=== PATIENT | female | born 1940 | race Caucasian/White ===

== ENCOUNTER 2023-04-28 12:44 | Outpatient (OUT) | payer MEDICARE, SELFPAY ==
--- NOTE | 2023-04-28 12:47 | MM_ITS ---
Patient: GRACIE GONZALEZ Exam Date: 04/28/2023 : 1940 Gender:F Ordering : DR HOLLIE IRBY M.D. Admission #: [id number] Family : Order #: [id number] CLICK HERE TO VIEW EXAM RADIOLOGY REPORT PROCEDURE: MM TOMOSYNTHESIS SCREENING BI COMPARISON: MG MAMM SCREEN DAISY W CAD, 09/04/2019. MG MAMM SCREEN 3D DAISY CAD, 04/27/2022. INDICATIONS: Screening mammogram Z12.31 Calculator Name NCI Breast Cancer Risk Assessment Tool 5 Year Breast Cancer Risk 1.90% Lifetime Breast Cancer Risk 3.00% Personal Breast Cancer No Personal Ovarian Cancer No Treatments None Family Cancers Aunt-maternal with breast cancer at age 60. LOCATION: [facility] BREAST COMPOSITION: Scattered areas fibroglandular density. FINDINGS: DIAGNOSTIC CATEGORY 2--BENIGN FINDING. NO CHANGE FROM COMPARISON. Scattered benign-appearing nodules are present. Scattered benign-appearing calcifications are present. Scattered benign-appearing lymph nodes are present. RIGHT BREAST: No significant suspicious finding. LEFT BREAST: No significant suspicious finding. RECOMMENDATIONS: ROUTINE MAMMOGRAM AND CLINICAL EVALUATION IN 12 MONTHS. PLEASE NOTE: A NORMAL MAMMOGRAM DOES NOT EXCLUDE THE POSSIBILITY OF BREAST CANCER. A CLINICALLY SUSPICIOUS PALPABLE LUMP SHOULD BE BIOPSIED. Dictated by: Eric Freeman MD on 04/28/2023 at 14:11 Approved by: Eric Freeman MD on 04/28/2023 at 14:13
== END 2023-04-28 12:45 | disposition home or self-care (01) ==
PROVIDERS: PCP Internal Medicine; Visit Provider Internal Medicine
DX: Z12.31 Encounter for screening mammogram for malignant neoplasm of breast (principal); Z80.3 Family history of malignant neoplasm of breast
CPT/HCPCS: 77063; 77067

== ENCOUNTER 2024-04-29 12:58 | Outpatient (OUT) | payer MEDICARE, SELFPAY ==
--- NOTE | 2024-04-29 13:02 | MM_ITS ---
Patient Name: GRACIE GONZALEZ MR#: [id number] : 1940 Exam Date: 04/29/2024 Ordering Doctor: DR HOLLIE IRBY M.D. RADIOLOGY REPORT PROCEDURE: MM TOMOSYNTHESIS SCREENING BI COMPARISON: MG MAMM SCREEN 3D DAISY CAD, 04/27/2022. MM TOMOSYNTHESIS SCREENING BI, 04/28/2023. INDICATIONS: Screening for malignant neoplasm Calculator Name NCI Breast Cancer Risk Assessment Tool 5 Year Breast Cancer Risk 1.90% Lifetime Breast Cancer Risk 2.70% Personal Breast Cancer No Personal Ovarian Cancer No Treatments None Family Cancers Aunt-maternal with breast cancer at age 60. LOCATION: [facility] BREAST COMPOSITION: There are scattered areas of fibroglandular density. FINDINGS: DIAGNOSTIC CATEGORY 2--BENIGN FINDING. NO CHANGE FROM COMPARISON. Scattered benign-appearing nodules are present. Scattered benign-appearing calcifications are present. Scattered benign-appearing lymph nodes are present. RIGHT BREAST: No significant suspicious finding. LEFT BREAST: No significant suspicious finding. RECOMMENDATIONS: ROUTINE MAMMOGRAM AND CLINICAL EVALUATION IN 12 MONTHS. PLEASE NOTE: A NORMAL MAMMOGRAM DOES NOT EXCLUDE THE POSSIBILITY OF BREAST CANCER. A CLINICALLY SUSPICIOUS PALPABLE LUMP SHOULD BE BIOPSIED. Dictated by: Eric Freeman MD on 04/29/2024 at 14:04 Approved by: Eric Freeman MD on 04/29/2024 at 14:06
== END 2024-04-29 12:59 | disposition home or self-care (01) ==
LOC: MAMMO 12:58
PROVIDERS: PCP Internal Medicine; Visit Provider Internal Medicine
DX: Z12.31 Encounter for screening mammogram for malignant neoplasm of breast (principal); Z80.3 Family history of malignant neoplasm of breast
CPT/HCPCS: 77063; 77067

== ENCOUNTER 2024-09-23 12:39 | Outpatient (OUT) | payer MEDICARE, SELFPAY ==
--- NOTE | 2024-09-23 12:46 | XR_ITS ---
[address] [address] Patient Name: GRACIE GONZALEZ MRN: [facility]:[id number] date: 1940 Sex: F Assigned Patient Location: [facility] Current Patient Location: Accession/Order Number: [id number] Exam Date: 09/23/2024 13:10 Report Date: 09/24/2024 05:49 At the request of: HOLLIE IRBY Procedure: XR DEXA axial skeleton EXAMINATION: XR DEXA axial skeleton HISTORY: Estrogen Deficiency COMPARISON: DEXA bone densitometry 04/27/2022 TECHNIQUE: Dual-energy X-ray absorptiometry (DXA) was performed. FINDINGS: SPINE ANALYSIS: Average bone mineral density is 0.966 g/cm2. T-score (standard deviation relative to young adult mean): -2.0 . +10.0% change since prior study. HIP ANALYSIS: Lowest bone mineral density is within the right femoral neck, 0.909 g/cm2. T-score (standard deviation relative to young adult mean): -0.9 . +3.5% change since prior study. XR/XR DEXA axial skeleton IMPRESSION: World Health Organization Classification: Osteopenia - Moderate Fracture Risk FRAX: Cannot calculate. Pharmacologic treatment recommendations * No uniform recommendation applies to all patients. Management plans must be individualized. * Consider initiating pharmacologic treatment in postmenopausal women and men >= 50 years of age who have the following: Primary fracture prevention: * T-score <= - 2.5 at the femoral neck, total hip, lumbar spine, 33% radius (some uncertainty with existing data) by DXA. * Low bone mass (osteopenia: T-score between - 1.0 and - 2.5) at the femoral neck or total hip by DXA with a 10-year hip fracture risk >= 3% or a 10-year major osteoporosis-related fracture risk >= 20% (i.e., clinical vertebral, hip, forearm, or proximal humerus) based on the [place]-adapted FRAXregistered model. Secondary fracture prevention: * Fracture of the hip or vertebra regardless of BMD [4, 5]. * Fracture of proximal humerus, pelvis, or distal forearm in persons with low bone mass (osteopenia: T-score between - 1.0 and - 2.5). The decision to treat should be individualized in persons with a fracture of the proximal humerus, pelvis, or distal forearm who do not have osteopenia or low BMD [12, 13]. Casa MS, [place] SL, Hussein KL, Aislinn EM, Sebastián KG, AJ, Martin ES. The clinician's guide to prevention and treatment of osteoporosis. Osteoporos Int. 2021;33(10):4372-3952. doi: 10.1007/o41977-295-73186-k. Epub 2021Mar 03. Erratum in: Osteoporos Int. 2021Jun 02;: PMID: [id number]; PMCID: [id number]. Electronically authenticated by: LUCIA CASTRO Date: 09/24/2024 05:49
== END 2024-09-23 12:40 | disposition home or self-care (01) ==
LOC: RAD 12:40
PROVIDERS: PCP Internal Medicine; Visit Provider Internal Medicine
DX: E28.39 Other primary ovarian failure (principal); M85.88 Other specified disorders of bone density and structure, other site
CPT/HCPCS: 77080

== ENCOUNTER 2025-01-24 13:52 | Outpatient (OUT) | payer MEDICARE, SELFPAY ==
--- NOTE | 2025-01-24 14:00 | CA_ITS ---
Patient Name: GRACIE GONZALEZ MR#: [id number] : 1940 Exam Date: 01/24/2025 Ordering Doctor: DR OZZY VILLARREAL M.D. ECHOCARDIOGRAM REPORT PROCEDURE: CA ECHO DOPPLER COMPLETE INDICATIONS: Atrial flutter, edema, hypertension COMPARISON: None. DESCRIPTION: COMPLETE ECHOCARDIOGRAM Real-time transthoracic echocardiography with 2D, M-mode, spectral and color flow Doppler performed. QUALITY: Technical quality was good. LEFT VENTRICLE: Normal chamber size. Thickened septal wall. Normal systolic function. LV EF: Normal left ventricular ejection fraction, (>55%). DIASTOLIC: Diastolic function is indeterminate. ATRIAL SEPTUM: LEFT ATRIUM: Normal chamber size. RIGHT ATRIUM: Moderate dilatation. RIGHT VENTRICLE: Moderate dilatation. Normal right ventricular systolic function. TRICUSPID VALVE: Normal mobility and thickness. No stenosis with mild regurgitation. Doppler studies reveal mildly (35-45) elevated right sided pressures. RVSP 43 mmHg MITRAL VALVE: Normal mobility and thickness. No evidence of mitral valve stenosis. There is no mitral annular calcification. Trivial mitral regurgitation. AORTIC VALVE: Normal trileaflet appearance. No visible sclerosis. Normal leaflet mobility. No evidence of aortic valve stenosis. No aortic regurgitation. AORTIC ROOT: Normal diameter and appearance. PULMONIC VALVE: Normal thickness and mobility. No stenosis. Trivial regurgitation. PERICARDIUM: No evidence of pericardial effusion. IVC: Not well visualized. PLEURA: CONCLUSION: 1. Normal left ventricular size and systolic function. LVEF is estimated at 55 to 60%. 2. Moderately dilated right ventricle with normal systolic function. 3. Moderately dilated right atrium. 4. Mild tricuspid regurgitation. 5. Mildly elevated right-sided pressures. RVSP is 43 mmHg. 6. A transesophageal echocardiogram is recommended for better assessment of the right-sided chamber dilatation. Adult Echocardiography Procedure Report Left Ventricle LVEDD (3.7 - 5.6 cm): 4.32 cm LVESD (2.2 - 4.0 cm): 2.27 cm LVIVS thickness (0.6 - 1.2 cm): 1.11 cm LVPW thickness (0.5 - 1.0 cm): 0.94 cm e': 0.12 m/s E - e': 5.31 LVOT Max Gradient: 2.54 mm[Hg] LVOT Area (cm2): 0.80 m/s Peak Velocity (LVOT): 0.80 m/s Mean Velocity (LVOT): 0.45 m/s LVOT Diameter 2.01 cm Left Atrium LA Volume Index (2D A2C): 35.65 ml/m2 Left Atrium Systolic Dimension: 4.14 cm Mitral Valve MV E to A Ratio: 0.85 Mitral Valve A-Wave Peak Velocity: 0.73 m/s Mitral Valve E-Wave Peak Velocity: 0.62 m/s Right Ventricle Aorta AO Root Diam: 3.11 cm Aortic Valve AoV Area (Peak Fox): 2.86 cm2, 2.86 cm2 AoV Area (VTI): 2.66 cm2, 2.66 cm2 Peak Velocity(Antegrade Flow): 0.89 m/s Peak Gradient(Antegrade Flow): 3.13 mm[Hg] Mean Velocity(Antegrade Flow): 0.55 m/s Mean Gradient(Antegrade Flow): 1.41 mm[Hg] Velocity Time Integral: 21.98 cm Tricuspid Valve Peak Velocity (Regurgitant Flow): 2.97 m/s Pulmonic Valve Mean Gradient: 3.04 mm[Hg] Mean Velocity: 0.81 m/s Peak Velocity: 1.26 m/s, 1.34 m/s Peak Gradient: 7.14 mm[Hg], 6.30 mm[Hg] Right Atrium Right Atrium Systolic Pressure: 76.18 ml, 76.18 ml Dictated by: Ozzy Villarreal M.D. on 01/24/2025 at 18:11 Approved by: Ozzy Villarreal M.D. on 01/24/2025 at 18:20
--- OUTSIDE RECORDS SUMMARY | 2025-01-24 14:10 | XMS_ITS | CCD ---
Author Organization [facility] Care Team Providers Care Filler Leaf Cutter Long Name Role Phone DR ANDRIY THRASHER Admitting Unavailable SUREKHA, DR BROWNE Primary Care Unavailable SUREKHA, DR BROWNE Consulting Unavailable SUREKHA, DR BROWNE Attending Unavailable Ke Floyd Consulting Unavailable TIM, DR MATTHEWS Attending Unavailable SUREKHA, DR BROWNE Primary Care Unavailable MISC, DR MATTHEWS Admitting Unavailable DIEGO, DR MATTHEWS Consulting Unavailable Andriy Thrasher MD Primary Care Provider Andriy Thrasher MD Unavailable CARLOS GARCÍA Attending Unavailable BETZY DAN Attending Unavailable HOMA HINKLE Attending Unavailable ANDRIY THRASHER Attending Unavailable ANDRIY THRASHER Attending Unavailable ANDRIY THRASHER Attending Unavailable HOMA HINKLE Attending Unavailable OZZY JOE Attending Unavailable Medications Current Medications Medication Drug Class(es) Dates Sig (Normalized) Sig (Original) alendronic acid 70 mg oral tablet (15 sources) Bisphosphonate Start: 08-03-2024 take 1 tablet by mouth every week Alendronate 70 mg tablet Active 70 MG PO every week August 02, 2024 11:00pm Start: 06-12-2024 alendronate (F osamax) 70 MG tablet Indications: Osteoporosis, unspecified osteoporosis type, unspecified pathological fracture presence (CMS/HCC) TAKE 1 TABLET BY MOUTH BEFORE first meal, beverage, or medicine OF the day WITH plain water once a WEEK 12 tablet 3 06/12/2024 Active apixaban 5 mg oral tablet (15 sources) Factor Xa Inhibitor Start: 08-30-2023 Eliquis 5 MG tablet Indications: Paroxysmal atrial fibrillation (CMS/HCC) TAKE 1 TABLET TWICE A DAY 180 tablet 3 09/17/2024 Active ascorbic acid 500 mg oral tablet (15 sources) Vitamin C Start: 08-03-2024 take 1 tablet by mouth once daily Ascorbic Acid (Vitamin C) 500 mg tablet Active 500 MG PO Daily August 02, 2024 11:00pm ascorbic acid (V itamin C) 500 MG chewable tablet Daily. Active atorvastatin 20 mg oral tablet (15 sources) HMG-CoA Reductase Inhibitor Start: 06-18-2024 atorvastatin (Lipitor) 20 MG tablet Indications: Pure hypercholesterolemia (CMS/HCC) TAKE 1 TABLET DAILY 90 tablet 3 06/18/2024 Active Calcium Carb-Cholecalcifer ol (CALCIUM 500 + D PO) (13 sources) take 1 tablet by mouth once daily Calcium Carb-Cholecalciferol (CALCIUM 500 + D PO) Take 1 tablet by mouth 1 (one) time each day Active calcium carbonate 1500 mg oral tablet (2 sources) Start: 08-03-2024 take 1 tablet by mouth once daily Calcium Carbonate (Calcium 600) 600 mg calcium (1,500 mg) tablet Active 600 MG PO Daily August 02, 2024 11:00pm cinnamon bark 500 mg oral capsule (15 sources) Start: 08-03-2024 take 1 capsule by mouth once daily Cinnamon Bark (Cinnamon) 500 mg capsule Active 500 MG PO Daily August 02, 2024 11:00pm Collagen-Vitamin C-Biotin (COLLAGEN 1500/C PO) (13 sources) Collagen-Vitamin C-Biotin (COLLAGEN 1500/C PO) Take by mouth Active ferrous sulfate 325 mg oral tablet (15 sources) Start: 03-18-2024 take 1 tablet by mouth twice daily ferrous sulfate (FeroSul) 325 (65 Fe) MG tablet Indications: Iron deficiency anemia due to chronic blood loss TAKE 1 TABLET BY MOUTH TWICE DAILY 200 tablet 3 03/18/2024 Active furosemide 20 mg oral tablet (6 sources) Loop Diuretic Start: 12-18-2024 End: 02-07-2025 take 1 tablet by mouth once daily furosemide (Lasix) 20 MG tablet Indications: Localized edema Take 1 tablet (20 mg) by mouth Daily 30 tablet 01/08/2025 02/07/2025 Active linseed oil 1000 mg oral capsule (15 sources) Start: 08-03-2024 take 1 capsule by mouth once daily Flaxseed Oil 1,000 mg capsule Active 1000 MG PO Daily August 02, 2024 11:00pm administer with a meal metoprolol tartrate 25 mg oral tablet (15 sources) beta-Adrenergic Lucinda Start: 08-03-2024 take 1 tablet by mouth twice daily Metoprolol Tartrate 25 mg tablet Active 25 MG PO Twice daily August 02, 2024 11:00pm Start: 01-09-2023 take 1.5 tablets by mouth every twelve hours metoprolol tartrate (Lopressor) 25 MG tablet Take 1.5 tablets by mouth every 12 (twelve) hours. 01/09/2023 Active Multiple Vitamin (MULTIVITAMINS PO) (13 sources) Multiple Vitamin (MULTIVITAMINS PO) Daily. Active Multivitamin (Daily Multi-Vitamin) tablet (2 sources) Start: 08-03-2024 take 1 tablet by mouth once daily Multivitamin (Daily Multi-Vitamin) tablet Active 1 TAB PO Daily August 02, 2024 11:00pm Start: 08-03-2024 take 1 tablet by mahesh th once daily Multivitamin (Daily Multi-Vitamin) tablet Active 1 TAB PO Daily August 03, 2024 12:00am potassium chloride 20 meq extended release oral tablet (2 sources) Start: 01-08-2025 End: 02-07-2025 take 1 tablet by mouth once daily potassium chloride CR (K-Tab) 20 MEQ ER tablet Indications: Localized edema Take 1 tablet (20 mEq) by mouth Daily Do not crush, chew, or split. 30 tablet 01/08/2025 02/07/2025 Active Completed/Discontinued Medications Medication Drug Class(es) Dates Sig (Normalized) Sig (Original) amoxicillin 875 mg / clavulanate 125 mg oral tablet (2 sources) Penicillin-class Antibacterial Start: 08-03-2024 End: 01-03-2025 take 1 tablet by mouth every twelve hours Amoxicillin-Pot Clavulanate 875-125 mg tablet Discontinued 1 TAB PO Every 12 hours 20 August 02, 2024 11:00pm January 03, 2025 4:20pm ciprofloxacin 250 mg oral tablet (2 sources) Quinolone Antimicrobial Start: 09-20-2024 End: 09-23-2024 take 1 tablet by mouth in the morning ciprofloxacin (Cipro) 250 MG tablet Indications: Acute cystitis with hematuria Take 1 tablet (250 mg) by mouth in the morning and 1 tablet (250 mg) before bedtime. Do all this for 3 days. 6 tablet 09/20/2024 09/23/2024 ofloxacin 3 mg/ml ophthalmic solution (2 sources) Quinolone Antimicrobial Start: 08-03-2024 End: 01-03-2025 take 0.3 drop(s) into the eye(s) four times daily Ofloxacin 0.3 % drops Discontinued 2 DROPS EYE-BOTH Four times daily 08 12August 02, 2024 11:00pm January 03, 2025 4:20pm Start: 08-03-2024 take 1 drop(s) into the eye(s) four times daily Ofloxacin Active 2 DROPS EYE-BOTH Four times daily 08 12August 03, 2024 12:00am Problems Active Problems Problem Classification Problem Date Documented Da te Episodic/Chronic Administrative/social admission (2 sources) Patient encounter status; Translations: [Other specified counseling] 09-13-2024 Episodic Cardiac dysrhythmias (20 sources) Unspecified atrial flutter; Translations: [Paroxysmal atrial fibrillation] Onset: 07-17-2022 Resolved: 08-23-2023 Chronic Coagulation and hemorrhagic disorders (2 sources) Thrombophilia; Translations: [Other thrombophilia] 09-13-2024 Chronic Coronary atherosclerosis and other heart disease (20 sources) Coronary atherosclerosis; Translations: [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] Onset: 01-10-2022 09-13-2024 Chronic Deficiency and other anemia (13 sources) Iron deficiency anemia due to blood loss; Translations: [Iron deficiency anemia secondary to blood loss (chronic)] Onset: 06-05-2023 06-05-2023 Chronic Diabetes mellitus with complications (2 sources) Type 2 diabetes mellitus; Translations: [Type 2 diabetes mellitus with other specified complication] 12-17-2024 Chronic Diabetes mellitus without complication (13 sources) Diabetes mellitus; Translations: [Type 2 diabetes mellitus without complications] Onset: 07-17-2022 06-05-2023 Chronic Disorders of lipid metabolism (20 sources) Hyperlipidemia; Translations: [Hyperlipidemia, unspecified] Onset: 07-17-2022 06-05-2023 Chronic Diverticulosis and diverticulitis (13 sources) Diverticulosis of colon; Translations: [Diverticulosis of large intestine without perforation or abscess without bleeding] Onset: 06-05-2023 06-05-2023 Chronic Essential hypertension (3 sources) Hypertensive disorder; Translations: [Essential (primary) hypertension] Onset: 01-10-2025 01-03-2025 Chronic Genitourinary symptoms and ill-defined conditions (4 sources) Urine looks dark; Translations: [Other abnormal findings in urine] 09-20-2024 Episodic Immunizations and screening for infectious disease (2 sources) Needs influenza immunization; Translations: [Encounter for immunization] 09-13-2024 Episodic Inflammation; infection of eye (except that caused by tuberculosis or sexually transmitteddisease) (1 source) Bacterial conjunctivitis; Translations: [Unspecified conjunctivitis] 08-03-2024 Episodic Menopausal disorders (16 sources) Other primary ovarian failure; 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] Onset: 04-28-2022 09-13-2024 Chronic Osteoporosis (17 sources) Age-related osteoporosis without current pathological fracture; Translations: [Senile osteoporosis] Onset: 04-28-2022 09-13-2024 Chronic Other ear and sense organ disorders (13 sources) Hearing loss; Translations: [Unspecified hearing loss, unspecified ear] Onset: 06-05-2023 06-05-2023 Chronic Other ear and sense organ disorders (13 sources) Sensorineural hearing loss, bilateral; Translations: [Sensorineural hearing loss, bilateral] Onset: 06-05-2023 06-05-2023 Chronic Other eye disorders (13 sources) Bilateral posterior vitreous detachment; Translations: [Vitreous degeneration, bilateral] Onset: 06-05-2023 06-05-2023 Chronic Other nutritional; endocrine; and metabolic disorders (4 sources) Obesity caused by energy imbalance; Translations: [Morbid (severe) obesity due to excess calories] 09-13-2024 Chronic Other nutritional; endocrine; and metabolic disorders (4 sources) Body mass index 30+ - obesity; Translations: [Body mass index (BMI) 38.0-38.9, adult] 09-13-2024 Chronic Other upper respiratory infections (1 source) Acute sinusitis; Translations: [Acute sinusitis, unspecified] 08-03-2024 Episodic Otitis media and related conditions (2 sources) Acute left otitis media; Translations: [Otitis media, unspecified, left ear] 01-03-2025 Episodic Residual codes; unclassified (19 sources) Localized edema; Translations: [Localized edema] Onset: 06-05-2023 06-05-2023 Episodic Residual codes; unclassified (2 sources) Bilateral lower limb edema; Translations: [Localized edema] 01-09-2025 Episodic Residual codes; unclassified (1 source) Localized edema; Translations: [Localized edema] Onset: 01-10-2025 Episodic Urinary tract infections (2 sources) Acute cystitis; Translations: [Acute cystitis with hematuria] 09-20-2024 Episodic Past or Other Problems Problem Classification Problem Date Documented Da te Episodic/Chronic Acquired foot deformities (13 sources) Plantarflexion deformity of foot; Translations: [Other acquired deformities of unspecified foot] Onset: 06-05-2023 06-05-2023 Episodic Blindness and vision defects (13 sources) Presbyopia; Translations: [Presbyopia] Onset: 06-05-2023 06-05-2023 Episodic Deficiency and other anemia (13 sources) Iron deficiency anemia; Translations: [Iron deficiency anemia, unspecified] Onset: 06-05-2023 06-05-2023 Episodic Diabetes mellitus without complication (13 sources) Impaired glucose tolerance; Translations: [Impaired glucose tolerance (oral)] Onset: 06-05-2023 06-05-2023 Episodic Nonspecific chest pain (13 sources) Chest pain; Translations: [Chest pain, unspecified] Onset: 07-17-2022 06-05-2023 Episodic Other aftercare (15 sources) Drug therapy finding; Translations: [correction (current) use of anticoagulants] Onset: 02-07-2024 09-13-2024 Episodic Other bone disease and musculoskeletal deformities (13 sources) Osteopenia; Translations: [Other specified disorders of bone density and structure, unspecified site] Onset: 06-05-2023 06-05-2023 Episodic Other connective tissue disease (13 sources) Enthesopathy of hip region; Translations: [Other specified enthesopathies of unspecified lower limb, excluding foot] Onset: 06-05-2023 06-05-2023 Episodic Other screening for suspected conditions (not mental disorders or infectious disease) (17 sources) Encounter for screening mammogram for malignant neoplasm of breast; Translations: [Cardiovascular stress test abnormal] Onset: 04-27-2022 Episodic Residual codes; unclassified (1 source) Family history of malignant neoplasm of breast; Translations: [FAMILY HX MALIG NEOPLASM OF BREAST] Onset: 06-23-2022 Episodic Results Test Name Value Interpretation Reference Range Facility Office Visiton 01-10-2025 Follow-up visit [id number] Gracie Espinoza 1940 F Date Provider Department Center 01/10/2025 OZZY SANTORO [facility] Family History Problem Relation Age of Onset Stroke Mother Coronary artery disease Father Family Status - Relation Status Age at Mother Father Level of Service:30044 AL OFFICE/OUTPATIENT ESTABLISHED MOD MDM 30 MIN Normal [facility] B TYPE NATRIURETIC PEPTIDE ( BNP)on 12-18-2024 Natriuretic peptide B (Bld) [Mass/Vol] 15 pg/mL Normal <100 [facility] Comment on above: Result Comment: BNP levels increase with age in the general population with the highest values seen in individuals greater than 75 years of age. Reference: J. Am. Heber. Cardiol. 2002; 40:976-982. Performed By: #### 1 1492, 45868 #### [facility] [place] [address] [employer] Officer: Robb Edward MD COMPREHENSIVE METABOLIC PANE [facility] 12-18-2024 Albumin [Mass/Vol] 4.3 g/dL Normal 3.6-5.1 [facility] Comment on above: Performed By: #### 1 4421, 50699 #### [facility] [place] [address] [employer] Officer: Robb Edward MD Albumin/Globulin [Mass ratio] 2.2 {ratio} Normal 1.0-2.5 [facility] Comment on above: Performed By: #### 1 6721, 18589 #### [facility] [place] [address] [employer] Officer: Robb Edward MD ALP [Catalytic activity/Vol] 59 U/L Normal 37-153 [facility] Comment on above: Performed By: #### 1 5849, 77469 #### [facility] [place] [address] [employer] Officer: Robb Edward MD ALT [Catalytic activity/Vol] 21 U/L Normal 6-29 [facility] Comment on above: Performed By: #### 1 0231, 92348 #### [facility] of [address], [address] [place] [address] [employer] Officer: Robb Edward MD AST [Catalytic activity/Vol] 19 U/L Normal 10-35 [facility] Comment on above: Performed By: #### 1 0231, 91654 #### [facility] of [address], [address] [place] [address] [employer] Officer: Robb Edward MD Bilirubin [Mass/Vol] 0.9 mg/dL Normal 0.2-1.2 [facility] Comment on above: Performed By: #### 1 0231, 26907 #### [facility] of [address], [address] [place] [address] [employer] Officer: Robb Edward MD BUN/CREATININE RATIO SEE NOTE: Normal 6-22 [facility] Comment on above: Result Comment: Not Reported: BUN and Creatinine are within reference range. Performed By: #### 1 0231, 64738 #### [facility] of [address], [address] [place] [address] [employer] Officer: Robb Edward MD Calcium [Mass/Vol] 9.8 mg/dL Normal 8.6-10.4 [facility] Comment on above: Performed By: #### 1 0231, 65633 #### [facility] of [address], [address] [place] [address] [employer] Officer: Robb Edward MD Chloride [Moles/Vol] 105 mmol/L Normal 98-110 [facility] Comment on above: Performed By: #### 1 0231, 98764 #### [facility] of [address], [address] [place] [address] [employer] Officer: Robb Edward MD CO2 [Moles/Vol] 28 mmol/L Normal 20-32 [facility] Comment on above: Performed By: #### 1 0231, 77898 #### [facility] of [address], [address] [place] [address] [employer] Officer: Robb Edward MD Creatinine [Mass/Vol] 0.86 mg/dL Normal 0.60-0.95 [facility] Comment on above: Performed By: #### 1 230, 50396 #### [facility] [place] [address] [employer] Officer: Robb Edward MD GFR/1.73 sq M.predicted among non-blacks MDRD (S/P/Bld) [Vol rate/Area] 67 mL/min/{1.73_m2} Normal > OR = 60 [facility] Comment on above: Performed By: #### 1 230, 32449 #### [facility] [place] [address] [employer] Officer: Robb Edward MD Globulin (S) [Mass/Vol] 2.0 g/dL Normal 1.9-3.7 [facility] Comment on above: Performed By: #### 1 230, 52227 #### [facility] [place] [address] [employer] Officer: Robb Edward MD Glucose [Mass/Vol] 107 mg/dL High 65-99 [facility] Comment on above: Result Comment: Fasting reference interval For someone without known diabetes, a glucose value between 100 and 125 mg/dL is consistent with prediabetes and should be confirmed with a follow-up test. Performed By: #### 1 230, 58570 #### [facility] [place] [address] [employer] Officer: Robb Edward MD Potassium [Moles/Vol] 4.3 mmol/L Normal 3.5-5.3 [facility] Comment on above: Performed By: #### 1 230, 41025 #### [facility] [place] [address] [employer] Officer: Robb Edward MD Protein [Mass/Vol] 6.3 g/dL Normal 6.1-8.1 [facility] Comment on above: Performed By: #### 1 230, 53738 #### [facility] of [place] [address], [address] [place] [phone] [employer] Officer: Robb Edward MD Sodium [Moles/Vol] 141 mmol/L Normal 135-146 [facility] Comment on above: Performed By: #### 1 9611, 04035 #### [facility] of [place] [address], [address] [place] [phone] [employer] Officer: Robb Edward MD Urea nitrogen [Mass/Vol] 14 mg/dL Normal 7-25 [facility] Comment on above: Performed By: #### 1 9631, 30549 #### [facility] of [place] [address] [address] , [address] [place], [place] [id number] [employer] Officer: Robb Edward MD No Panel Informationon 09-21 ACINETOBACTER BAUMANII 0 [facility] Healthcare ACINETOBACTER BAUMANII Not detected [facility] GAVIN ALBICANS, PARAPSILOSIS, TROPICALIS 0 [facility] Healthcare GAVIN ALBICANS, PARAPSILOSIS, TROPICALIS Not detected [facility] GLABRATA 0 [facility]care GAVIN GLABRATA Not detected [facility] ealth[facility] GAVIN KRUSEI 0 [facility] hcare GAVIN KRUSEI Not [facility] CITROBACTER FREUNDII 0 [facility] CITROBACTER FREUNDII Not detected NO [facility] ENTEROBACTER AEROGENES, CLOACAE 0 [facility] Healthak re ENTEROBACTER AEROGENES, CLOACAE Not detected [facility] re ENTEROCOCCUS FAECALIS, FAECIUM 0 [facility] Healthcar e ENTEROCOCCUS FAECALIS, FAECIUM Not detected [facility] Healthcar e ERMB, C; MEFA 26.372 Abnormal [facility] Health care ERMB, C; MEFA Detected Abnormal [facility] care ESCHERICHIA COLI 0 [facility] Hea lthcare ESCHERICHIA COLI Not detected [facility] e[facility] Interpretation and review of laboratory results Abnormal [facility] Healthcare KLEBSIELLA PNEUMONIAE, OXYTOCA 23.399 Abnormal [facility] Healthc are KLEBSIELLA PNEUMONIAE, OXYTOCA Detected Abnormal [facility] Healthc are MORGANELLA MORGANII 0 [facility] MORGANELLA MORGANII Not detected [facility] PROTEUS MIRABILIS, VULGARIS 0 [facility] PROTEUS MIRABILIS, VULGARIS Not detected [facility] PSEUDOMONAS AERUGINOSA 0 [facility] PSEUDOMONAS AERUGINOSA Not detected N[facility] SERRATIA MARCESCENS 0 [facility] SERRATIA MARCESCENS Not detected [facility], [facility] GROUPS 21.556 Abnormal [facility], [facility] GR[facility]PS Detected Abnormal [facility] STAPHYLOCOCCUS AUREUS 0 [facility] Healthcare STAPHYLOCOCCUS AUREUS Not detected [facility] STAPHYLOCOCCUS EPIDERMIDIS, HAEMOLYTICUS, LUGDUNENSIS, SAPROPHYTICUS (URINA 0 [facility] care STAPHYLOCOCCUS EPIDERMIDIS, HAEMOLYTICUS, LUGDUNENSIS, SAPROPHYTICUS (URINA Not [facility] STAPHYLOCOCCUS EPIDERMIDIS, HAEMOLYTICUS, LUGDUNENSIS, SAPROPHYTICUS (URINA 29.816 Abnormal [facility] care STAPHYLOCOCCUS EPIDERMIDIS, HAEMOLYTICUS, LUGDUNENSIS, SAPROPHYTICUS (URINA Detected Abnormal [facility] care STREPTOCOCCUS AGALACTIAE (GROUP B STREP) 0 [facility] STREPTOCOCCUS AGALACTIAE (GROUP B STREP) Not detected [facility] STREPTOCOCCUS PYOGENES (GROUP A STREP) 0 [facility] STREPTOCOCCUS PYOGENES (GROUP A STREP) Not detected [facility] macro (dipstick) panel (U)on 09-20-2024 Bilirubin, UA Negative Negative - 4(70) +++ mg/dL [facility] Blood, UA Positive Negative - 50 Jamal/mcL [facility] Comment on above: Large Clarity, UA Cloudy [facility] re Color, UA Dark Grecia [facility] Healthcar e Glucose, UA Negative Negative - 1999(110) ++++ mg/dL [facility] Interpretation and review of laboratory results Abnormal [facility] Ketones, UA Negative Negative - 160(16) ++++ mg/dL [facility] Leukocytes, UA Moderate Negative - 500+++ Ruslan/mcL [facility] Nitrite, UA Positive Negative - Positive [facility] pH, UA 6 5 - 9 [facility] Healthcar e Protein, UA 1+ Negative - 1999(20) ++++ mg/dL [facility] Spec Grav, UA 1.025 1 - 1.03 [facility] Urobilinogen, UA 0.2 0.2 - 12 mg/dL [facility] Health[facility] e CBC (H/H, RBC, INDICES, WBC, PLT)on 09-12-2024 Erythrocyte distribution width (RBC) [Ratio] 13.0 % Normal 11.0-15.0 [facility] Comment on above: Performed By: #### 4 46, 9089 #### [facility] [address], [address] [place] [address] [employer] Officer: Robb Edward MD #### 1759, 63444 #### [place] [address] [employer] Officer: Aletha Guevara Hematocrit (Bld) [Volume fraction] 42.0 % Normal 35.0-45.0 [facility] Comment on above: Performed By: #### 4 96, 0 #### [facility] [address], [address] [place] [address] [employer] Officer: Robb Edward MD #### 1759, 87555 #### [place] [address] [employer] Officer: Aletha Guevara Hemoglobin (Bld) [Mass/Vol] 13.7 g/dL Normal 11.7-15.5 [facility] Comment on above: Performed By: #### 4 , 7599 #### [facility] [address], [address] [place] [address] [employer] Officer: Robb Edward MD #### 1759, 51850 #### [facility]-[address] [id number] [employer] Officer: Aletha Guevara MCH (RBC) [Entitic mass] 31.3 pg Normal 27.0-33.0 [facility] Comment on above: Performed By: #### 4 96, 0 #### [facility] [address], [address] [place] [address] [employer] Officer: Robb Edward MD #### 1759, 85603 #### [facility] [id number] [employer] Officer: Aletha Guevara MCHC (RBC) [Mass/Vol] 32.6 g/dL Normal 32.0-36.0 [facility] Comment on above: Result Comment: For adults, a slight decrease in the calculated MCHC value (in the range of 30 to 32 g/dL) is most likely not clinically significant; however, it should be interpreted with caution in correlation with other red cell parameters and the patient's clinical condition. Performed By: #### 4 96, 7600 #### [facility] [place] [address] [employer] Officer: Robb Edward MD #### 1759, 29171 #### [facility] [address] [employer] Officer: Aletha Guevara MCV (RBC) [Entitic vol] 95.9 fL Normal 80.0-100.0 [facility] Comment on above: Performed By: #### 4 96, 0 #### [facility] [place] [address] [employer] Officer: Robb Edward MD #### 1759, 35780 #### [facility] [address] [employer] Officer: Aletha Guevara Platelet mean volume (Bld) [Entitic vol] 9.2 fL Normal 7.5-12.5 [facility] Comment on above: Performed By: #### 4 , 7599 #### [facility] [place] [address] [employer] Officer: Robb Edward MD #### 1759, 54510 #### [facility] [address] [employer] Officer: Aletha Guevara Platelets (Bld) [#/Vol] 244 10*3/uL Normal 140-400 [facility] Comment on above: Performed By: #### 4 , 0 #### [facility] [place] [address] [employer] Officer: Robb Edward MD #### 1759, 38435 #### [facility] [address] [place] [address] [employer] Officer: Aletha Guevara RBC (Bld) [#/Vol] 4.38 10*6/uL Normal 3.80-5.10 [facility] Comment on above: Performed By: #### 4 96, 7600 #### [facility] [address], [address] [place] [address] [employer] Officer: Robb Edward MD #### 1759, 25182 #### [facility] [id number] [employer] Officer: Aletha Guevara WBC (Bld) [#/Vol] 5.2 10*3/uL Normal 3.8-10.8 [facility] Comment on above: Performed By: #### 4 96, 7600 #### [facility] [address], [address] [place] [address] [employer] Officer: Robb Edward MD #### 1759, 13714 #### [facility] [address] Army Officer: Aletha Guevara [facility] 09-12-2024 Albumin [Mass/Vol] 4.3 g/dL Normal 3.6-5.1 [facility] Comment on above: Performed By: #### 4 96, 0 #### [facility] [address], [address] [place] [address] Army Officer: Robb Edward MD #### 1759, 23648 #### [facility] [phone] Army Officer: Aletha Guevara Albumin/Globulin [Mass ratio] 1.9 {ratio} Normal 1.0-2.5 [facility] Comment on above: Performed By: #### 4 96, 7600 #### [facility] [address], [address] [place] [address] Army Officer: Robb Edward MD #### 1759, 86555 #### [facility] [phone] [employer] Officer: Aletha Guevara ALP [Catalytic activity/Vol] 68 U/L Normal 37-153 [facility] Comment on above: Performed By: #### 4 , 0 #### [facility] [address], [address] [place] [address] Army Officer: Robb Edward MD #### 1759, 33256 #### [facility] [address] Army Officer: Aletha Guevara ALT [Catalytic activity/Vol] 20 U/L Normal 6-29 [facility] Comment on above: Performed By: #### 4 96, 7600 #### [facility] [address], [address] [place] [address] Army Officer: Robb Edward MD #### 1759, 27512 #### [facility] [address] Army Officer: Aletha Guevara AST [Catalytic activity/Vol] 20 U/L Normal 10-35 [facility] Comment on above: Performed By: #### 4 , 7599 #### [facility] [address], [address] [place] [address] Army Officer: Robb Edward MD #### 1759, 14511 #### [facility] [address] Army Officer: Aletha Guevara Bilirubin [Mass/Vol] 0.8 mg/dL Normal 0.2-1.2 [facility] Comment on above: Performed By: #### 4 , 0 #### [facility] [address], [address] [place] [address] Army Officer: Robb Edward MD #### 1759, 71160 #### [facility] [address] [place] [address] Army Officer: Aletha Guevara BUN/CREATININE RATIO SEE NOTE: Normal 6-22 [facility] Comment on above: Result Comment: Not Reported: BUN and Creatinine are within reference range. Performed By: #### 4 96, 0 #### [facility] [address], [address] [place] [address] Army Officer: Robb Edward MD #### 1759, 19942 #### [facility] [address] Army Officer: Aletha Guevara Calcium [Mass/Vol] 9.3 mg/dL Normal 8.6-10.4 [facility] Comment on above: Performed By: #### 4 96, 0 #### [facility] [address], [address] [place] [address] Army Officer: Robb Edward MD #### 1759, 69087 #### [facility] [address] Army Officer: Aletha Smith Flati Chloride [Moles/Vol] 107 mmol/L Normal 98-110 [facility] Comment on above: Performed By: #### 4 , 0 #### [facility] [address], [address] [place] [address] Army Officer: Robb Edward MD #### 1759, 27844 #### [facility] [address] Army Officer: Aletha Smith Flati CO2 [Moles/Vol] 28 mmol/L Normal 20-32 [facility] Comment on above: Performed By: #### 4 96, 0 #### [facility] [address], [address] [place] [address] Army Officer: Robb Edward MD #### 1759, 57336 #### [facility] [address] [place] [address] Army Officer: Aletha Turciosi Creatinine [Mass/Vol] 0.91 mg/dL Normal 0.60-0.95 [facility] Comment on above: Performed By: #### 4 96, 7600 #### [facility] [address], [address] [place] [address] Army Officer: Robb Edward MD #### 1759, 49765 #### [facility] [address] [place] [phone] [employer] Officer: Aletha Guevara GFR/1.73 sq M.predicted among non-blacks MDRD (S/P/Bld) [Vol rate/Area] 63 mL/min/{1.73_m2} Normal > OR = 60 [facility] Comment on above: Performed By: #### 4 , 0 #### [facility] [address], [address] [place] [address] Army Officer: Robb Edward MD #### 1759, 84663 #### [facility] [address] Army Officer: Aletha Guevara Globulin (S) [Mass/Vol] 2.3 g/dL Normal 1.9-3.7 [facility] Comment on above: Performed By: #### 4 , 0 #### [facility] [address], [address] [place] [address] Army Officer: Robb Edward MD #### 1759, 98912 #### [facility] [address] Army Officer: Aletha Guevara Glucose [Mass/Vol] 114 mg/dL High 65-99 [facility] Comment on above: Result Comment: Fasting reference interval For someone without known diabetes, a glucose value between 100 and 125 mg/dL is consistent with prediabetes and should be confirmed with a follow-up test. Performed By: #### 4 , 7599 #### [facility] [address], [address] [place] [address] Army Officer: Robb Edward MD #### 1759, 18539 #### [facility] [phone] Army Officer: Aletha Guevara Potassium [Moles/Vol] 4.3 mmol/L Normal 3.5-5.3 [facility] Comment on above: Performed By: #### 4 , 7599 #### [facility] [address], [address] [place] [address] Army Officer: Robb Edward MD #### 1759, 05174 #### [facility] [address] [place] [address] Army Officer: Aletha Guevara Protein [Mass/Vol] 6.6 g/dL Normal 6.1-8.1 [facility] Comment on above: Performed By: #### 4 96, 7600 #### [facility] [address], [address] [place] [address] Army Officer: Robb Edward MD #### 1759, 05291 #### [facility] [address] Army Officer: Aletha Guevara Sodium [Moles/Vol] 142 mmol/L Normal 135-146 [facility] Comment on above: Performed By: #### 4 96, 7600 #### [facility] [address], [address] [place] [address] Army Officer: Robb Edward MD #### 1759, 58339 #### [facility] [address] [place], [place] [phone] Army Officer: Aletha Guevara Urea nitrogen [Mass/Vol] 14 mg/dL Normal 7-25 [facility] Comment on above: Performed By: #### 4 96, 7600 #### [facility] [address], [address] [place] [address] Army Officer: Robb Edward MD #### 1759, 18243 #### [facility] [address] [place], [place] [phone] Army Officer: Aletha Guevara HEMOGLOBIN A1con 09-12-2024 HEMOGLOBIN A1c 5.7 % of total Hgb High <5.7 [facility] Comment on above: Result Comment: For someone without known diabetes, a hemoglobin A1c value between 5.7% and 6.4% is consistent with prediabetes and should be confirmed with a follow-up test. For someone with known diabetes, a value <7% indicates that their diabetes is well controlled. A1c targets should be individualized based on duration of diabetes, age, comorbid conditions, and other considerations. This assay result is consistent with an increased risk of diabetes. Currently, no consensus exists regarding use of hemoglobin A1c for diagnosis of diabetes for children. Performed By: #### 4 96, 7600 #### [facility] [address], [address] [place] [address] Army Officer: Robb Edward MD #### 1759, 85042 #### [facility] [address] [place] [phone] Army Officer: Aletha Guevara LIPID PANEL, [facility] 11-0 Cholesterol [Mass/Vol] 152 mg/dL Normal <200 [facility] Comment on above: Performed By: #### 4 96, 7600 #### [facility] [address], [address] [place] [address] Army Officer: Robb Edward MD #### 1759, 84527 #### [facility] [address] [place] [phone] Army Officer: Aletha Smith [place] Cholesterol in HDL [Mass/Vol] 67 mg/dL Normal > OR = 50 [facility] Comment on above: Performed By: #### 4 96, 7600 #### [facility] [address], [address] [place] [address] Army Officer: Robb Edward MD #### 1759, 34904 #### [facility] [address] [place] [phone] Army Officer: Aletha Guevara Cholesterol in LDL [Mass/Vol] 70 mg/dL Normal [facility] Comment on above: Result Comment: Refe rence range: <100 Desirable range <100 mg/dL for primary prevention; <70 mg/dL for patients with CHD or diabetic patients with > or = 2 CHD risk factors. LDL-C is now calculated using the Elvira calculation, which is a validated novel method providing better accuracy than the Friedewald equation in the estimation of LDL-C. Gwyn HAILE et al. ALF. 2013;310(19): 6152-9450 (http://education.[employer]faq/ZLW712) Performed By: #### 4 96, 0 #### [facility] [address], [address] [place] [address] Army Officer: Robb Edward MD #### 1759, 79626 #### [facility] [address] [place] [phone] Army Officer: Aletha Guevara Cholesterol.total/Ch olesterol in HDL [Mass ratio] 2.3 {ratio} Normal <5.0 [facility] Comment on above: Performed By: #### 4 , 0 #### [facility] [address], [address] [place] [address] Army Officer: Robb Edward MD #### 1759, 96128 #### [facility] [address] [place] [phone] Army Officer: Aletha Guevara NON HDL CHOLESTEROL 85 mg/dL (calc) Normal <130 [facility] Comment on above: Result Comment: For patients with diabetes plus 1 major ASCVD risk factor, treating to a non-HDL-C goal of <100 mg/dL (LDL-C of <70 mg/dL) is considered a therapeutic option. Performed By: #### 4 , 0 #### [facility] [address], [address] [place] [address] Army Officer: Robb Edward MD #### 1759, 27939 #### [facility] [address] [place], [place] [phone] Army Officer: Aletha Guevara Triglyceride [Mass/Vol] 70 mg/dL Normal <150 [facility] Comment on above: Performed By: #### 4 96, 0 #### [facility] [address], [address] [place] [address] Army Officer: Robb Edward MD #### 1759, 56807 #### [facility] [address] [place], [place] [phone] Army Officer: Aletha Guevara CBC AUTO DIFFon 03-13-2023 BASO # 0.0 103/ul Normal 0.0-0.1 [facility] Comment on above: Performed By: #### C BC #### [facility] [address] [address] [address] Nia Yoder Basophils/100 WBC (Bld) 0.4 % Normal 0.2-2.0 [facility] Comment on above: Performed By: #### C BC #### [facility] [address] [address] [address] Nia Yoder EO # 0.1 103/ul Normal 0.0-0.7 [facility] Comment on above: Performed By: #### C BC #### [facility] [address] [place] [address] Dr. Nia Yoder Eosinophils/100 WBC (Bld) 1.2 % Normal 0.9-7.0 [facility] Comment on above: Performed By: #### C BC #### [facility] [address] [place] [address] Dr. Nia Yoder Erythrocyte distribution width (RBC) [Ratio] 12.2 % Normal 11.0-15.0 [facility] Comment on above: Performed By: #### C BC #### [facility] [address] [place] [address] Dr. Nia Yoder Hematocrit (Bld) [Volume fraction] 39.2 % Normal 36.0-48.0 [facility] Comment on above: Performed By: #### C BC #### [facility] [address] [place] [address] Dr. Nia Yoder Hemoglobin (Bld) [Mass/Vol] 12.7 g/dL Normal 12.0-16.0 [facility] Comment on above: Performed By: #### C BC #### [facility] [address] [place] [address] Dr. Nia Yoder IG # 0.01 10e3/ul Normal 0.00-0.03 [facility] Comment on above: Performed By: #### C BC #### [facility] [address] [place] [address] Dr. Nia Yoder IG % 0.2 % Normal 0.0-0.5 [facility] Comment on above: Performed By: #### C BC #### [facility] [address] [place] [address] Dr. Nia Yoder LYMPH # 1.0 103/ul Critically low 1.2-3.8 [facility] Comment on above: Performed By: #### C BC #### [facility] [address] [place] [address] Dr. Nia Yoder Lymphocytes/100 WBC (Bld) 20.9 % Normal 20.5-60.0 [facility] Comment on above: Performed By: #### C BC #### [facility] [address] [place] [address] Dr. Nia Yoder MANUAL DIFF REQ NO Normal [facility] Comment on above: Performed By: #### C BC #### [facility] [address] [place] [address] Dr. Nia Yoder MCH (RBC) [Entitic mass] 32.7 pg Normal 26.7-34.0 [facility] Comment on above: Performed By: #### C BC #### [facility] [address] [place] [address] Dr. Nia Yoder MCHC (RBC) [Mass/Vol] 32.4 g/dL Normal 29.9-35.2 [facility] Comment on above: Performed By: #### C BC #### [facility] [address] [place] [address] Dr. Nia Yoder MCV (RBC) [Entitic vol] 101.0 fL Critically high 81.0-99.0 [facility] Comment on above: Performed By: #### C BC #### [facility] [address] [place] [address] Dr. Nia Yoder MONO # 0.4 103/ul Normal 0.3-0.8 [facility] Comment on above: Performed By: #### C BC #### [facility] [address] [place] [address] Dr. Nia Yoder Monocytes/100 WBC (Bld) 8.2 % Normal 1.7-12.0 [facility] Comment on above: Performed By: #### C BC #### [facility] [address] [place] [address] Dr. Nia Yoder NEUT # 3.4 103/ul Normal 1.4-6.5 [facility] Comment on above: Performed By: #### C BC #### [facility] [address] [place] [address] Dr. Nia Yoder Neutrophils/100 WBC (Bld) 69.1 % Normal 43.0-75.0 [facility] Comment on above: Performed By: #### C BC #### [facility] [address] [place] [address] Dr. Nia Yoder Platelet mean volume (Bld) [Entitic vol] 9.4 fL Critically low 9.5-13.5 [facility] Comment on above: Performed By: #### C BC #### [facility] [address] [place] [address] Dr. Nia Yoder PLT 225 103/ul Normal 150-450 [facility] Comment on above: Performed By: #### C BC #### [facility] [address] [place] [address] Dr. Nia Yoder RBC 3.88 106/ul Critically low 4.20-5.40 [facility] Comment on above: Performed By: #### C BC #### [facility] [address] [place] [address] Dr. Nia Yoder WBC 5.0 103/ul Normal 4.0-11.0 [facility] Comment on above: Performed By: #### C BC #### [facility] [address] [place], [place] [id number] Dr. Nia Yoder MG MAMM SCREEN 3D DAISY CADon 04-27-2022 MG MAMM SCREEN 3D DAISY CAD Patient: GRACIE ESPINOZA Exam Date: 04/27/2022 : 1940 Gender:F Ordering : DR ANDRIY THRASHER M.D. Admission #: [id number] Family : Order #: [id number] CLICK HERE TO VIEW EXAM RADIOLOGY REPORT PROCEDURE: MAMMOGRAM SCREENING 3D BILATERAL CAD COMPARISON: MG MAMM SCREEN DAISY W CAD, 09/04/2019. MG MAMM SCREEN DAISY W CAD, 08/08/2017. INDICATIONS: Screening mammography Calculator Name NCI Breast Cancer Risk Assessment Tool 5 Year Breast Cancer Risk 2.00% Lifetime Breast Cancer Risk 3.30% Personal Breast Cancer No Personal Ovarian Cancer No Treatments None Family Cancers Aunt-maternal with breast cancer at age 60. LOCATION: [facility] BREAST COMPOSITION: Scattered areas fibroglandular density. FINDINGS: DIAGNOSTIC CATEGORY 2--BENIGN FINDING: RIGHT BREAST: No significant suspicious finding. Scattered benign-appearing calcifications are present. No significant change has occurred. LEFT BREAST: No significant suspicious finding. Scattered benign-appearing calcifications are present. Scattered benign-appearing lymph nodes are present. No significant change has occurred. RECOMMENDATIONS: ROUTINE MAMMOGRAM AND CLINICAL EVALUATION IN 12 MONTHS. PLEASE NOTE: A NORMAL MAMMOGRAM DOES NOT EXCLUDE THE POSSIBILITY OF BREAST CANCER. A CLINICALLY SUSPICIOUS PALPABLE LUMP SHOULD BE BIOPSIED. Dictated by: Ke Floyd M.D. on 04/27/2022 at 10:50 Approved by: Ke Floyd M.D. on 04/27/2022 at 10:51 Normal [facility] XR DEXA BONE DENSITYon 04-27 XR DEXA BONE DENSITY EXAMINATION: XR DEXA BONE DENSITY, 04/27/2022 7:57 AM EDT HISTORY: Primary ovarian failure COMPARISON: DEXA bone densitometry 09/04/2019 TECHNIQUE: Dual-energy X-ray absorptiometry (DEXA) bone density study performed for the axial skeleton. FINDINGS: SPINE ANALYSIS: Average bone mineral density is 0.878 g/cm2. T-score (standard deviation relative to young adult mean): -2.7 . -9.7% change since prior study. HIP ANALYSIS: Lowest bone mineral density is within the femoral neck, 0.878 g/cm2. T-score (standard deviation relative to young adult mean): -1.1 . -1.4% change since prior study. IMPRESSION: World [employer] Organization Classification: Osteoporosis - High Fracture Risk Electronically authenticated by: KE FLOYD Date: 2022-04-27 14:33 Normal [facility] Vital Signs Date Time Vital Sign Value Performing Clinician Facility 01-08-2025 16:32-0500 Body height 147.3 cm Betzy Dan [employer] Work Phone: [facility] 01-08-2025 16:32-0500 Body mass index (BMI) [Ratio] 38.5 kg/m2 Betzy Dan [employer] Work Phone: [facility] 01-08-2025 16:32-0500 Body weight 83.55 kg Betzy Dan [employer] Work Phone: [facility] 01-08-2025 16:32-0500 Diastolic blood pressure 64 mm[Hg] Betzy Dan [employer] Work Phone: [facility] 01-08-2025 16:32-0500 Heart rate 48 /min Betzy Dan [employer] Work Phone: [facility] 01-08-2025 16:32-0500 Respiratory rate 16 /min Betzy Dan [employer] Work Phone: [facility] 01-08-2025 16:32-0500 SaO2% (BldA) [Mass fraction] 96 % Betzy Dan [employer] Work Phone: [facility] 01-08-2025 16:32-0500 Systolic blood pressure 110 mm[Hg] Betzy Dan [employer] Work Phone: [facility] 01-03-2025 16:21-0500 Body height 152.4 cm [facility] 01-03-2025 16:21-0500 Body mass index (BMI) [Ratio] 36.1 kg/m2 [facility] 01-03-2025 16:21-0500 Body temperature 98.2 [degF] [facility] 01-03-2025 16:21-0500 Body weight 83.91 kg [facility] 01-03-2025 16:21-0500 Diastolic blood pressure 72 mm[Hg] [facility] 01-03-2025 16:21-0500 Heart rate 64 /min [facility] 01-03-2025 16:21-0500 Respiratory rate 14 /min [facility] 01-03-2025 16:21-0500 SaO2% (BldA) [Mass fraction] 97 % [facility] 01-03-2025 16:21-0500 Systolic blood pressure 126 mm[Hg] [facility] 12-17-2024 11:39-0500 Body height 147.3 cm Carlos García [employer] Work Phone: [facility] 12-17-2024 11:39-0500 Body mass index (BMI) [Ratio] 37.91 kg/m2 Carlos García [employer] Work Phone: [facility] 12-17-2024 11:39-0500 Body weight 82.28 kg Carlos García [employer] Work Phone: [facility] 12-17-2024 11:39-0500 Diastolic blood pressure 66 mm[Hg] Carlos García [employer] Work Phone: [facility] 12-17-2024 11:39-0500 Heart rate 81 /min Carlos García [employer] Work Phone: [facility] 12-17-2024 11:39-0500 Respiratory rate 16 /min Carlos García [employer] Work Phone: [facility] 12-17-2024 11:39-0500 SaO2% (BldA) [Mass fraction] 95 % Carlos Nikiski [employer] Work Phone: [facility] 12-17-2024 11:39-0500 Systolic blood pressure 126 mm[Hg] Carlos García [employer] Work Phone: [facility] 09-20-2024 11:43-0500 Body height 147.3 cm Homa Hinkle PA Work Phone: [facility] 09-20-2024 11:43-0500 Body mass index (BMI) [Ratio] 38.21 kg/m2 Homa Reganmer PA Work Phone: [facility] 09-20-2024 11:43-0500 Body weight 82.92 kg Homa Reganmer PA Work Phone: [facility] 09-20-2024 11:43-0500 Diastolic blood pressure 72 mm[Hg] Homa Hemmer PA Work Phone: [facility] 09-20-2024 11:43-0500 Heart rate 68 /min Homa Hemmer PA Work Phone: [facility] 09-20-2024 11:43-0500 Respiratory rate 16 /min Homa Hemmer PA Work Phone: [facility] 09-20-2024 11:43-0500 SaO2% (BldA) [Mass fraction] 95 % Homa Hemmer PA Work Phone: [facility] 09-20-2024 11:43-0500 Systolic blood pressure 112 mm[Hg] Homa Hemmer PA Work Phone: [facility] 09-13-2024 08:52-0500 Body height 147.3 cm Andriy Thrasher MD Work Phone: [facility] 09-13-2024 08:52-0500 Body mass index (BMI) [Ratio] 37.41 kg/m2 Andriy Thrasher MD Work Phone: [facility] 09-13-2024 08:52-0500 Body weight 81.19 kg Andriy Thrasher MD Work Phone: [facility] 09-13-2024 08:52-0500 Diastolic blood pressure 74 mm[Hg] Andriy Thrasher MD Work Phone: [facility] 09-13-2024 08:52-0500 Heart rate 58 /min Andriy Thrasher MD Work Phone: [facility] 09-13-2024 08:52-0500 SaO2% (BldA) [Mass fraction] 96 % Andriy Thrasher MD Work Phone: [facility] 09-13-2024 08:52-0500 Systolic blood pressure 130 mm[Hg] Andriy Thrasher MD Work Phone: [facility] 08-03-2024 14:09-0400 Body height 152.4 cm [facility] 08-03-2024 14:09-0400 Body mass index (BMI) [Ratio] 35.6 kg/m2 [facility] 08-03-2024 14:040 Body temperature 98.4 [degF] [facility] 08-03-2024 14:040 Body weight 82.66 kg [facility] 08-03-2024 14:09040 Diastolic blood pressure 73 mm[Hg] [facility] 08-03-2024 14:040 Heart rate 110 /min [facility] 08-03-2024 14:040 Respiratory rate 16 /min [facility] 08-03-2024 14:090400 SaO2% (BldA) [Mass fraction] 94 % [facility] 08-03-2024 14:040 Systolic blood pressure 123 mm[Hg] [facility] Encounters Encounter Date Encounter Type Care Provider Facility Start: 01-10-2025 End: 01-10-2025 ambulatory [facility] Start: 01-08-2025 End: 01-08-2025 Office outpatient visit 25 minutes Betzy Dan [employer] Work Phone: [facility] Comment on above: Bilateral lower extr emity edema (Primary Dx); Localized edema Start: 01-08-2025 End: 01-08-2025 ambulatory BETZY DAN Not Available Start: 01-08-2025 End: 01-08-2025 Bamboo flowsheet Betzy Dan [employer] Work Phone: [facility] Start: 01-08-2025 End: 01-08-2025 Bamboo flowsheet Betzy aDn [employer] Work Phone: [facility] Start: 01-03-2025 End: 01-03-2025 ambulatory [facility] Work Phone: Start: 01-03-2025 End: 01-03-2025 Patient encounter procedure [facility] Work Phone: Start: 12-18-2024 End: 12-18-2024 Orders Only Carlos García [employer] Work Phone: [facility] Comment on above: Localized edema (Yesenia ahsan Dx) Start: 12-17-2024 End: 12-17-2024 Bamboo flowsheet Carlos García [employer] Work Phone: [facility] Start: 12-17-2024 End: 12-17-2024 Bamboo flowsheet Carlos García [employer] Work Phone: [facility] Start: 12-17-2024 End: 12-17-2024 ambulatory CARLOS GARCÍA Not Available Start: 12-17-2024 End: 12-17-2024 Office outpatient visit 25 minutes Carlos García [employer] Work Phone: [facility] Comment on above: Atherosclerosis of n ative coronary artery of [place] heart without angina pectoris (CMS/HCC) (Primary Dx); Paroxysmal atrial fibrillation (CMS/HCC); Localized edema; History of changes in urinary output; Type 2 diabetes mellitus with other specified complication, without long-term current use of insulin (CMS/HCC); Morbid (severe) obesity due to excess calories (CMS/HCC); Body mass index (BMI) 38.0-38.9, adult Start: 09-20-2024 End: 09-20-2024 Bamboo flowsheet Homa Hinkle PA Work Phone: [facility] Start: 09-20-2024 End: 09-20-2024 Bamboo flowsheet Homa Hinkle PA Work Phone: [facility] Start: 09-20-2024 End: 09-20-2024 Office outpatient visit 25 minutes Homa Hinkle PA Work Phone: [facility] Comment on above: Acute cystitis with hematuria (Primary Dx); Dark urine; Atherosclerosis of [place] coronary artery of [place] heart without angina pectoris (CMS/HCC) Start: 09-20-2024 End: 09-20-2024 ambulatory HOMA HINKLE Not Available Start: 09-13-2024 End: 09-13-2024 Bamboo flowsheet Andriy Thrasher MD Work Phone: [facility] Start: 09-13-2024 End: 09-13-2024 Bamboo flowsheet Andriy Thrasher MD Work Phone: [facility] Start: 09-13-2024 End: 09-13-2024 Assay of hemosiderin, quant Andriy Thrasher MD Work Phone: [facility] Start: 09-13-2024 End: 09-13-2024 Patient encounter procedure Andriy Thrasher MD Work Phone: [facility] Comment on above: Routine general medi juju examination at health care facility (Primary Dx); ACP (advance care planning); Estrogen deficiency; Flu vaccine need; Morbid (severe) obesity due to excess calories ([facility]/HCC); 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 ([facility]/HCC); Body mass index (BMI) 38.0-38.9, adult; Other thrombophilia ([facility]/HCC); Paroxysmal atrial fibrillation ([facility]/HCC); On continuous oral anticoagulation; Age-related osteoporosis without current pathological fracture ([facility]/HCC) Start: 09-13-2024 End: 09-13-2024 ambulatory ANDRIY THRASHER Not Available Start: 08-03-2024 End: 08-03-2024 ambulatory [facility] Work Phone: Start: 08-03-2024 End: 08-03-2024 Patient encounter procedure [facility] [place] Work Phone: Start: 06-12-2024 End: 06-12-2024 ambulatory ANDRIY THRASHER Not Available Start: 02-07-2024 End: 02-07-2024 ambulatory ANDRIY THRASHER Not Available Start: 01-31-2024 End: 01-31-2024 ambulatory HOMA HINKLE Not Available Start: 03-13-2023 End: 03-14-[address] MATTHEWS [facility] Facility:H1 Start: 04-27-2022 End: 04-28-[address] ANDRIY THRASHER Facility:H1 Procedures Date Procedure Procedure Detail Performing Clinician Start: 09-20-2024 URINARY TRACT INFECT ION (HTRX) Homa CASTAÑEDA Work Phone: Start: 09-20-2024 Urnls dip stick/tabl et rgnt non-auto w/o micrscp Homa CASTAÑEDA Work Phone: Plan of Treatment Date Care Activity Detail Author Start: 11-14-2025 Glaucoma screening Diabetes: R etinopathy Screening [facility] Start: 09-13-2025 Medicare Annual Wellness (AWV) Medicare Annual Wellness (AWV) [facility] Start: 09-11-2025 Urine screening for protein Diabetes: Urine Protein Screening [facility] Start: 03-13-2025 End: 03-13-2025 Patient encounter procedure 03/13/2025 9:00 AM EDT Office Visit [facility] [address] [place] [address] Andriy Thrasher MD [address] [place] [address] [facility] Start: 03-10-2025 End: 03-10-2025 Patient encounter procedure 03/10/2025 1:00 PM EDT Office Visit [facility] [address] [place] [address] Andriy Thrasher MD [address] [place] [address] [facility] Start: 02-05-2025 End: 02-05-2025 Patient encounter procedure 02/05/2025 1:00 PM EDT Office Visit [facility] [address] [place] [address] Betzy Dan, EFREN [address] [place] [address] [facility] Start: 02-03-2025 End: 02-03-2025 Patient encounter procedure 02/03/2025 2:30 PM EDT Office Visit [facility] [address] [place] [address] Deborah Gallagher, AUD [address] [place] [address] [facility] Start: 01-08-2025 End: 01-08-2025 Patient encounter procedure 01/08/2025 4:30 PM EST Office Visit [facility] [address] [place] [id number] Betzy Dan CRANE OILER [address] [place] [address] Arrived [facility] Comment on above: Arrived Start: 12-17-2024 End: 12-17-2025 Comprehensive metabolic 2000 panel - Serum or Plasma Comprehensive metabolic panel Lab Routine History of changes in urinary output Type 2 diabetes mellitus with other specified complication, without long-term current use of insulin ([facility]) Expected: 12/17/2024 (Approximate), Expires: 12/17/2025 [facility] Work Phone: Comment on above: Expected: 12/17/2024 (Approximate), Expires: 12/17/2025 Start: 12-17-2024 End: 12-17-2025 Natriuretic peptide B [Mass/volume] in Blood B-type natriuretic peptide Lab Routine Atherosclerosis of moapa coronary artery of moapa heart without angina pectoris ([facility]) Paroxysmal atrial fibrillation ([facility]) Localized edema Expected: 12/17/2024 (Approximate), Expires: 12/17/2025 [facility] Comment on above: Expected: 12/17/2024 (Approximate), Expires: 12/17/2025 Start: 12-12-2024 Hemoglobin A1c measurement Diabetes: Hemoglobin A1C [facility] Start: 09-13-2024 End: 09-13-2025 DXA Skeletal system Views for bone density DEXA bone density Imaging Routine Estrogen deficiency Expected: 09/13/2024 (Approximate), Expires: 09/13/2025 [facility] Work Phone: Comment on above: Expected: 09/13/2024 (Approximate), Expires: 09/13/2025 Start: 09-13-2024 End: 09-13-2024 Patient encounter procedure 09/13/2024 9:00 AM EST Office Visit [facility] [address] [place] [id number] Andriy Thrasher MD [address] [place] [address] Arrived [facility] Comment on above: Arrived Start: 08-23-2024 Medicare Annual Wellness (AWV) Medicare Annual Wellness (AWV) [facility] Start: 07-07-2024 Influenza vaccination Influenza Vacc ine (#1) [facility] Start: 07-29-2020 Urine screening for protein Diabetes: Urine Protein Screening [facility] Immunizations Immunization Date Immunization Notes Care Provider Fa cility 09-16-2024 ABRYSVO - Respirator y syncytial virus (RSV), vaccine, bivalent, protein subunit RSV prefusion F, diluent reconstituted, 0.5 mL, PF Homa CASTAÑEDA Work Phone: [facility] Work Phone: 09-13-2024 Influenza, High-dose Seasonal, Quadrivalent, Preservative Free Andriy Thrasher MD Work Phone: [facility] 08-23-2023 Influenza, High-dose Seasonal, Quadrivalent, Preservative Free Andriy Thrasher MD Work Phone: [facility] 08-23-2023 influenza virus vacc ine, unspecified formulation Andriy Thrasher MD Work Phone: [facility] 08-23-[address] 12 Years And Older Andriy Thrasher MD Work Phone: [facility] 08-11-2022 Influenza, High-dose Seasonal, Quadrivalent, Preservative Free Andriy Thrasher MD Work Phone: [facility] 10-11-2021 Moderna SARS-CoV-2 Booster Vaccination Andriy Thrasher MD Work Phone: [facility] 08-18-2021 influenza, high dose seasonal, preservative-free Andriy Thrasher MD Work Phone: [facility] 01-26-2021 Moderna SARS-CoV-2 Booster Vaccination Andriy Thrasher MD Work Phone: [facility] 12-28-2020 Moderna SARS-CoV-2 Booster Vaccination Andriy Thrasher MD Work Phone: [facility] 09-19-2020 influenza, high dose seasonal, preservative-free Andriy Thrasher MD Work Phone: [facility] 08-16-2020 tetanus toxoid, redu rupali diphtheria toxoid, and acellular pertussis vaccine, adsorbed Andriy Thrasher MD Work Phone: [facility] 01-04-2020 zoster vaccine recombinant Andriy Thrasher MD Work Phone: [facility] 08-29-2019 pneumococcal conjuga te vaccine, 13 valent Andriy Thrasher MD Work Phone: [facility] 08-15-2019 influenza, high dose seasonal, preservative-free Andriy Thrasher MD Work Phone: [facility] 07-29-2019 pneumococcal polysaccharide vaccine, 23 valent Andriy Thrasher MD Work Phone: [facility] 08-08-2017 zoster vaccine, live Andriy Trhasher MD Work Phone: [facility] 07-27-2017 influenza, high dose seasonal, preservative-free Andriy Thrasher MD Work Phone: [facility] 07-28-2016 influenza, injectabl e, quadrivalent, contains preservative Andriy Thrasher MD Work Phone: [facility] Payers Date Payer Category Payer Medicare (Managed Care) [employer] [id number] 1959 Medicare [id number] 1940 Unknown [id number] 1942 Unknown [id number] 1942 Unknown [id number] 1942 Unknown [id number] 1942 Unknown [id number] 1942 Unknown [id number] 1942 Unknown [id number] 1942 Unknown [id number] 1942 Unknown [id number] Social History Date Type Detail Facility Start: 08-03-2024 End: 08-03-2024 Tobacco smoking status NHIS Ex-smoker (finding) [facility] Start: 1940 Sex Assigned At Female F [facility] Start: 08-21-2023 Tobacco smoking stat us LAIS Never smoked tobacco [facility] Start: 08-21-2023 Tobacco use and exposure Smokeless tobacco non-user [facility] Start: 09-13-2024 End: 01-08-2025 Alcoholic beverage intake Lifetime non-drinker (finding) [facility] Start: 09-13-2024 End: 01-08-2025 History of Social function [facility] Start: 09-13-2024 End: 01-08-2025 Tobacco use panel [facility] Start: 1940 Sex assigned at Not on file [facility] Start: 01-03-2025 Sex Female (finding) [facility] Clinical Notes 09-13-2024 to 01-10-2025 Betzy Dan, EFREN - 01/08/2025 4:30 PM ESTPatient Shanthi García, CRANE OILER - 12/17/2024 11:30 AM MADDY [place] - 09/20/2024 11:30 AM Tfifany Thrasher MD - 09/13/2024 9:00 AM EST Note Date & Type Note Facility 01-10-2025 Note [place] [facility] - [facility] Subjective Gracie Espinoza is a 84 y.o. year old female patient being seen for LE edema. She was last seen in Oct 2023. Last labs were drawn in Dec 2024, last lipid profile in Sep 2024. PCP recently gave her 5 days of lasix. She states LE edema improved, but then worsened. PCP gave her RX for lasix 20mg every day and klor-con 20mEq's daily. She has not picked these up from the pharmacy yet. Patient denies chest pain, SOB, palpitations, lightheadedness/syncope, and bleeding on Eliquis. Patient Active Problem List Diagnosis Atrial flutter (CMS/HCC) Cardiovascular stress test abnormal Chest pain Coronary atherosclerosis Diabetes mellitus (CMS/HCC) Hyperlipidemia Supraventricular tachycardia Decreased estrogen level Diverticular disease of colon Hearing loss Enthesopathy of hip region Iron deficiency anemia due to chronic blood loss Localized edema Osteopenia Osteoporosis Paroxysmal atrial fibrillation (CMS/HCC) Plantarflexion deformity of foot Posterior vitreous detachment of both eyes Presbyopia of both eyes Pure hypercholesterolemia Sensorineural hearing loss (SNHL) of both ears On continuous oral anticoagulation Family History Problem Relation Name Age of Onset Stroke Mother Coronary artery disease Father Social History Tobacco Use Smoking status: Former Types: Cigarettes Smokeless tobacco: Never Substance Use Topics Alcohol use: Yes Comment: occasional HPI Gracie is a 84-year-old woman who is seen in follow up on atrial flutter [admitted to the [facility] on 04/23/2016 after developing palpitations and chest discomfort and neck pain while going up the stairs. She was found to have atrial flutter and reverted with medications. Her ECG during the flutter showed ST depressions. Her echocardiogram showed normal LV function with mild atrial dilatation and normal right sided pressures, and she has mild coronary artery disease (50% ostial diagonal branch by cath). At prior visit I had asked her to stop aspirin given eliquis therapy and mild non active CAD. After a prior visit I had her see Dr. Andrew Gonzalez from electrophysiology to consider atrial flutter ablation. So far she has decided to hold off on that. She is an ex-smoker. She has diabetes on diet only. She has been on eliquis. She continues to have occasional rectal bleeding and her PCP tells her it is from her diverticulosis. The amount of bleeding is however not very large according to her account. She denies chest pain and shortness of breath. She has no palpitations. She feels good. Her main issue is she has been developing lower extremity edema. Her PCP gave her furosemide and potassium to take every day. She took it for 5 days and had improvement in the lower extremity edema. She now has a prescription for another 30 days but she has not picked it up. Review of Systems Cardiovascular: Positive for leg swelling. Musculoskeletal: Positive for myalgias. Neurological: Positive for vertigo. All other systems reviewed and are negative. Objective Visit Vitals BP 134/74 (BP Location: Right arm, Patient Position: Sitting) Pulse 61 Ht 1.626 m (5' 4 ) Wt 82.6 kg (182 lb) SpO2 95% BMI 31.24 kg/m??? Smoking Status Former BSA 1.93 m??? Physical Exam Constitutional: Appearance: She is well-developed. She is obese. She is not ill-appearing. HENT: Head: Normocephalic and atraumatic. Nose: Nose normal. Eyes: General: No scleral icterus. Pupils: Pupils are equal, round, and reactive to light. Neck: Thyroid: No thyromegaly. Vascular: No JVD. Cardiovascular: Rate and Rhythm: Normal rate and regular rhythm. Pulses: Radial pulses are 2+ on the right side and 2+ on the left side. Heart sounds: Normal heart sounds. No murmur heard. No friction rub. No gallop. Pulmonary: Effort: Pulmonary effort is normal. No respiratory distress. Breath sounds: Normal breath sounds. No wheezing or rales. Chest: Chest wall: No tenderness. Abdominal: General: Bowel sounds are normal. There is no distension. Palpations: Abdomen is soft. Tenderness: There is no abdominal tenderness. Musculoskeletal: General: No swelling. Cervical back: Neck supple. Right lower le+ Pitting Edema present. Left lower le+ Pitting Edema present. Skin: General: Skin is warm and dry. Neurological: General: No focal deficit present. Mental Status: She is alert and oriented to person, place, and time. Psychiatric: Mood and Affect: Mood normal. Behavior: Behavior is cooperative. Judgment: Judgment normal. Allergies No Known Allergies Medications Current Outpatient Medications: alendronate (Fosamax) 35 mg tablet, Take 35 mg by mouth every 7 (seven) days. Take in the morning with a full glass of water, on an empty stomach, and do not take anything else by mouth or lie down for the next 30 min., Disp: , Rfl: apixab (more content not included)... [facility] 01-08-2025 History of Present illness Narrative Images from the original note were not included. Subjective Patient ID: Gracie Espinoza is a 84 y.o. female who presents for B/L leg swelling. Gracie presents today for B/L swelling of her legs, ankles and feet. It doesn't get any better when she puts her feet up or after going to bed. She was on a water pill and after 5 days her legs were better. Current Outpatient Medications on File Prior to Visit Medication Sig Dispense Refill alendronate (Fosamax) 70 MG tablet TAKE 1 TABLET BY MOUTH BEFORE first meal, beverage, or medicine OF the day WITH plain water once a WEEK 12 tablet 3 ascorbic acid (Vitamin C) 500 MG chewable tablet Daily. atorvastatin (Lipitor) 20 MG tablet TAKE 1 TABLET DAILY 90 tablet 3 Calcium Carb-Cholecalciferol (CALCIUM 500 + D PO) Take 1 tablet by mouth 1 (one) time each day cinnamon 500 MG capsule Take by mouth 1 (one) time each day at the same time. Collagen-Vitamin C-Biotin (COLLAGEN 1500/C PO) Take by mouth Eliquis 5 MG tablet TAKE 1 TABLET TWICE A DAY 180 tablet 3 ferrous sulfate (FeroSul) 325 (65 Fe) MG tablet TAKE 1 TABLET BY MOUTH TWICE DAILY 200 tablet 3 Flaxseed, Linseed, (Flax Seed Oil) 1000 MG capsule Daily. furosemide (Lasix) 20 MG tablet Take 1 tablet (20 mg) by mouth Daily for 5 days 5 tablet 0 metoprolol tartrate (Lopressor) 25 MG tablet Take 1.5 tablets by mouth every 12 (twelve) hours. Multiple Vitamin (MULTIVITAMINS PO) Daily. No current facility-administered medications on file prior to visit. I have reviewed and reconciled the history and medication list with the patient today. No Known Allergies Social History Tobacco Use Smoking status: Never Smokeless tobacco: Never Vaping Use Vaping status: Never Used Substance Use Topics Alcohol use: Never Drug use: Defer Family History Problem Relation Name Age of Onset Stroke Mother Diabetes Mother Hypertension Father Heart disease Father Diabetes Father Past Medical History: Diagnosis Date A-fib ([facility]) Anemia CAD (coronary artery disease) ([facility]) Diabetes mellitus ([facility]) Hyperlipidemia ([facility]) Past Surgical History: Procedure Laterality Date APPENDECTOMY BREAST BIOPSY 1976 CARDIAC CATHETERIZATION 2016 COLONOSCOPY 2005 COLONOSCOPY 2012 COLONOSCOPY 2019 TONSILLECTOMY Visit Vitals Smoking Status Never Review of Systems Constitutional: Negative. HENT: Negative. Eyes: Negative. Respiratory: Negative. Cardiovascular: Positive for leg swelling. Genitourinary: Negative. Musculoskeletal: BLE edema Skin: Negative. Neurological: Negative. Hematological: Negative. Endocrine: Negative. Allergic/Immunologic: Negative. Objective Physical Exam Vitals reviewed. Constitutional: Appearance: She is obese. HENT: Head: Normocephalic and atraumatic. Right Ear: External ear normal. Left Ear: External ear normal. Nose: Nose normal. Mouth/Throat: Mouth: Mucous membranes are moist. Pharynx: Oropharynx is clear. Eyes: Conjunctiva/sclera: Conjunctivae normal. Cardiovascular: Rate and Rhythm: Normal rate and regular rhythm. Heart sounds: Normal heart sounds. Pulmonary: Effort: Pulmonary effort is normal. Breath sounds: Normal breath sounds. Abdominal: Palpations: Abdomen is soft. Musculoskeletal: General: Swelling present. Cervical back: Normal range of motion and neck supple. Right lower leg: Edema present. Left lower leg: Edema present. Skin: General: Skin is warm and dry. Neurological: General: No focal deficit present. Mental Status: She is alert. Psychiatric: Mood and Affect: Mood normal. Behavior: Behavior normal. Thought Content: Thought content normal. Judgment: Judgment normal. Assessment/Plan 1. Bilateral lower extremity edema (Primary) The pt presents with continued edema to the ble. She states she took furosemide for 5 days and the edema is back again. She reports that she does have a follow up with cardiology upcoming but does not know the date today. She is advised to follow up with them as scheduled. We discussed continuation of the lasix daily and adding potassium daily. She is in agreement with this plan. She is advised to follow up in 1 month following her appointment with Cardiology. 2. Localized edema - furosemide (Lasix) 20 MG tablet; Take 1 tablet (20 mg) by mouth Daily Dispense: 30 tablet; Refill: 0 - potassium chloride CR (K-Tab) 20 MEQ ER tablet; Take 1 tablet (20 mEq) by mouth Daily Do not crush, chew, or split. Dispense: 30 tablet; Refill: 0 - Compression stockings No follow-ups on file. documented in this encounter [facility] 01-08-2025 Instructions Betzy Dan NP - 01/08/2025 4:30 PM EST Add furosemide and potassium today. Follow up in 1 month after her Cardiology appointment. documented in this encounter [facility] 12-17-2024 History of Present illness Narrative Images from the original note were not included. Subjective Patient ID: Gracie Espinoza is a 84 y.o. female who presents for swelling in both legs and ankles. Gracie presents today for swelling in both legs and ankles. This has been going on foe 2 weeks. Edema The current episode started 1-4 weeks ago. The onset of the episode was sudden. These episodes happen throughout the day. The problem presents itself constantly. The problem has been gradually worsening. The edema is present on the both side(s). Risk factors for edema include no known risk factors. Associated agents include no associated agents. Associated symptoms include decreased urine volume and fatigue. Pertinent negative symptoms include no chest pain, no cough, no orthopnea, no palpitations and no weight change. Past medical history is significant for CAD. Past medical history comments: A. fib. Treatments tried: keeping legs elevated. There has been none improvement on treatment(s). Current Outpatient Medications on File Prior to Visit Medication Sig Dispense Refill alendronate (Fosamax) 70 MG tablet TAKE 1 TABLET BY MOUTH BEFORE first meal, beverage, or medicine OF the day WITH plain water once a WEEK 12 tablet 3 ascorbic acid (Vitamin C) 500 MG chewable tablet Daily. atorvastatin (Lipitor) 20 MG tablet TAKE 1 TABLET DAILY 90 tablet 3 Calcium Carb-Cholecalciferol (CALCIUM 500 + D PO) Take 1 tablet by mouth 1 (one) time each day cinnamon 500 MG capsule Take by mouth 1 (one) time each day at the same time. Collagen-Vitamin C-Biotin (COLLAGEN 1500/C PO) Take by mouth Eliquis 5 MG tablet TAKE 1 TABLET TWICE A DAY 180 tablet 3 ferrous sulfate (FeroSul) 325 (65 Fe) MG tablet TAKE 1 TABLET BY MOUTH TWICE DAILY 200 tablet 3 Flaxseed, Linseed, (Flax Seed Oil) 1000 MG capsule Daily. metoprolol tartrate (Lopressor) 25 MG tablet Take 1.5 tablets by mouth every 12 (twelve) hours. Multiple Vitamin (MULTIVITAMINS PO) Daily. No current facility-administered medications on file prior to visit. I have reviewed and reconciled the history and medication list with the patient today. No Known Allergies Social History Tobacco Use Smoking status: Never Smokeless tobacco: Never Vaping Use Vaping status: Never Used Substance Use Topics Alcohol use: Never Drug use: Defer Family History Problem Relation Name Age of Onset Stroke Mother Diabetes Mother Hypertension Father Heart disease Father Diabetes Father Past Medical History: Diagnosis Date A-fib ([facility]) Anemia CAD (coronary artery disease) ([facility]) Diabetes mellitus ([facility]) Hyperlipidemia ([facility]) Past Surgical History: Procedure Laterality Date APPENDECTOMY BREAST BIOPSY 1976 CARDIAC CATHETERIZATION 2016 COLONOSCOPY 2006 COLONOSCOPY 2012 COLONOSCOPY 2019 TONSILLECTOMY Visit Vitals Smoking Status Never Review of Systems Constitutional: Positive for fatigue. Respiratory: Negative for cough. Cardiovascular: Negative for chest pain and palpitations. Genitourinary: Positive for decreased urine volume. Objective Physical Exam Vitals reviewed. Constitutional: Appearance: Normal appearance. HENT: Head: Normocephalic. Nose: Nose normal. Mouth/Throat: Mouth: Mucous membranes are moist. Pharynx: Oropharynx is clear. Eyes: Conjunctiva/sclera: Conjunctivae normal. Cardiovascular: Rate and Rhythm: Normal rate and regular rhythm. Pulmonary: Effort: Pulmonary effort is normal. Breath sounds: Normal breath sounds. Musculoskeletal: General: Swelling present. Right lower leg: Edema present. Left lower leg: Edema present. Skin: General: Skin is warm and dry. Neurological: General: No focal deficit present. Mental Status: She is alert and oriented to person, place, and time. Psychiatric: Mood and Affect: Mood normal. Behavior: Behavior normal. Thought Content: Thought content normal. Assessment/Plan Diagnoses and all orders for this visit: Atherosclerosis of moapa coronary artery of moapa heart without angina pectoris ([facility]/HCC) - B-type natriuretic peptide; Future This is a chronic medical condition that is stable since last assessment. No changes in treatment are suggested at this time. Paroxysmal atrial fibrillation ([facility]) - B-type natriuretic peptide; Future This is a chronic medical condition that is stable since last assessment. No changes in treatment are suggested at this time. Localized edema - B-type natriuretic peptide; Future Pt educated on not to eat so many frozen meals as they are loaded with salt. She has good pedal pulses. History of changes in urinary output - Comprehensive metabolic panel; Future Await lab results Type 2 diabetes mellitus with other specified complication, without long-term current use of insulin ([facility]) - Comprehensive metabolic panel; Future We discussed today, the importance of proper diabetic control. We discussed possible complications of diabetes, including loss of vision, renal failure, increased risk of heart attacks and strokes, blood vessel and/or nerve damage. We discussed the recommended changes to reduce your blood sugars and minimize the risk of these complications. We discussed diabetic goals, including keeping A1C <7.0% and blood pressure < 130/70. The plan for achieving these goals is adherence to medications, diet, and regular activity as discussed during today's visit. We discussed current barriers to achieving these goals. We discussed dietary goals. We discussed calorie counting, as well as decreasing carbohydrate and simple sugar intake. Reviewed portion control with the patient. If the patient still has questions on this, a referral to a Dietitian can be arranged. I reviewed medications that aid in diabetic control. We discussed proper dosing and educated the patient on possible side effects and complications. The patient verbalized understanding of these instructions. Morbid (severe) obesity due to excess calories ([facility]) Discussed goal of BMI < 30. Advised on weight loss options. Encouraged diet and exercise. Discussed with patient appropriate lifestyle modification changes necessary for weight management, heart healthy eating and overall health promotion. Discussed minimizing high carb, high sugar, high sodium, portion control, and processed foods while making healthy choice replacements. Additionally discussed recommendations of 30 minutes of aerobic exercise at least 5 days per week, that includes, walking, and chair exercises. . Instructed importance of drinking adequate water consumption (if not on fluid restriction) with minimal sugar and caffiene. Body mass index (BMI) 38.0-38.9, adult Discussed goal of BMI < 30. Advised on weight loss options. Encouraged diet and exercise. Discussed with patient appropriate lifestyle modification changes necessary for weight management, heart healthy eating and overall health promotion. Discussed minimizing high carb, high sugar, high sodium, portion control, and processed foods while making healthy choice replacements. Additionally discussed recommendations of 30 minutes of aerobic exercise at least 5 days per week, that includes, walking, and chair exercises. . Instructed importance of drinking adequate water consumption (if not on fluid restriction) with minimal sugar and caffiene. No follow-ups on file. documented in this encounter [facility] 09-20-2024 History of Present illness Narrative Images from the original note were not included. Subjective Patient ID: Gracie Espinoza is a 84 y.o. female who presents for uti symptoms. Gracie is present today for evaluation of urine symptoms. Admits just dark colored urine. She noticed 3 days ago. Current Outpatient Medications on File Prior to Visit Medication Sig Dispense Refill alendronate (Fosamax) 70 MG tablet TAKE 1 TABLET BY MOUTH BEFORE first meal, beverage, or medicine OF the day WITH plain water once a WEEK 12 tablet 3 ascorbic acid (Vitamin C) 500 MG chewable tablet Daily. atorvastatin (Lipitor) 20 MG tablet TAKE 1 TABLET DAILY 90 tablet 3 Calcium Carb-Cholecalciferol (CALCIUM 500 + D PO) Take 1 tablet by mouth 1 (one) time each day cinnamon 500 MG capsule Take by mouth 1 (one) time each day at the same time. Collagen-Vitamin C-Biotin (COLLAGEN 1500/C PO) Take by mouth Eliquis 5 MG tablet TAKE 1 TABLET TWICE A DAY 180 tablet 3 ferrous sulfate (FeroSul) 325 (65 Fe) MG tablet TAKE 1 TABLET BY MOUTH TWICE DAILY 200 tablet 3 Flaxseed, Linseed, (Flax Seed Oil) 1000 MG capsule Daily. metoprolol tartrate (Lopressor) 25 MG tablet Take 1.5 tablets by mouth every 12 (twelve) hours. Multiple Vitamin (MULTIVITAMINS PO) Daily. [DISCONTINUED] Eliquis 5 MG tablet TAKE 1 TABLET TWICE A DAY 180 tablet 3 No current facility-administered medications on file prior to visit. I have reviewed and reconciled the history and medication list with the patient today. No Known Allergies Social History Tobacco Use Smoking status: Never Smokeless tobacco: Never Vaping Use Vaping status: Never Used Substance Use Topics Alcohol use: Never Family History Problem Relation Name Age of Onset Stroke Mother Diabetes Mother Hypertension Father Heart disease Father Diabetes Father Past Medical History: Diagnosis Date A-fib ([facility]) Anemia CAD (coronary artery disease) ([facility]) Diabetes mellitus ([facility]) Hyperlipidemia ([facility]) Past Surgical History: Procedure Laterality Date APPENDECTOMY BREAST BIOPSY 1975 CARDIAC CATHETERIZATION 2015 COLONOSCOPY 2005 COLONOSCOPY 2011 COLONOSCOPY 2019 TONSILLECTOMY Visit Vitals BP 112/72 Pulse 68 Resp 16 Ht 4' 10 Wt 182 lb 12.8 oz SpO2 95% BMI 38.21 kg/m Smoking Status Never BSA 1.84 m Review of Systems Constitutional: Negative for chills, fatigue and fever. Respiratory: Negative for cough, shortness of breath and wheezing. Cardiovascular: Negative for chest pain, palpitations and leg swelling. Gastrointestinal: Negative for abdominal pain, constipation, diarrhea, nausea and vomiting. Genitourinary: Urine color change Objective Physical Exam Constitutional: General: She is not in acute distress. Appearance: Normal appearance. She is well-developed. HENT: Head: Normocephalic and atraumatic. Eyes: General: No scleral icterus. Conjunctiva/sclera: Conjunctivae normal. Neck: Thyroid: No thyromegaly. Cardiovascular: Rate and Rhythm: Normal rate and regular rhythm. Heart sounds: Normal heart sounds. No murmur heard. Pulmonary: Effort: Pulmonary effort is normal. No respiratory distress. Breath sounds: Normal breath sounds. No wheezing, rhonchi or rales. Abdominal: General: There is no distension. Palpations: Abdomen is soft. Tenderness: There is no abdominal tenderness. There is no right CVA tenderness or left CVA tenderness. Skin: General: Skin is warm and dry. Neurological: General: No focal deficit present. Mental Status: She is alert and oriented to person, place, and time. Psychiatric: Mood and Affect: Mood normal. Behavior: Behavior normal. Assessment/Plan Diagnoses and all orders for this visit: Acute cystitis with hematuria - URINARY TRACT INFECTION (HTRX); Future - ciprofloxacin (Cipro) 250 MG tablet; Take 1 tablet (250 mg) by mouth in the morning and 1 tablet (250 mg) before bedtime. Do all this for 3 days. Start the above medications as directed. Hold Iron and Calicium supplement while on the Cipro. Increase water intake, get plenty of rest. Advised patient that the urine will be sent out for culture. May need to change the antibiotic based on the culture results. Cranberry juice ok. Avoid bath tubs and hot tubs or use the restroom afterwards, always wipe front to back, avoid fragrance soaps in that area. Discussed if patient develops any N/V, fever/chills, or symptoms dramatically increase, the patient is to go to the ER. Otherwise follow up at our office if no improvement in one week. Dark urine - POCT Urinalysis dipstick UA was abnormal today. Atherosclerosis of [place] coronary artery of [place] heart without angina pectoris (CMS/HCC) Reassured pt that her BP was normal today. She follows up with Cardiology on a yearly basis. Follow up for Appointment As Scheduled. documented in this encounter [facility] 09-13-2024 History of Present illness Narrative Images from the original note were not included. Subjective : Chief Complaint: Gracie Espinoza is an 84 y.o. female here for an annual wellness visit. I have reviewed and reconciled the history and medication list with the patient today. Current Outpatient Medications Medication Sig Dispense Refill alendronate (Fosamax) 70 MG tablet TAKE 1 TABLET BY MOUTH BEFORE first meal, beverage, or medicine OF the day WITH plain water once a WEEK 12 tablet 3 ascorbic acid (Vitamin C) 500 MG chewable tablet Daily. atorvastatin (Lipitor) 20 MG tablet TAKE 1 TABLET DAILY 90 tablet 3 Calcium Carb-Cholecalciferol (CALCIUM 500 + D PO) Take 1 tablet by mouth 1 (one) time each day cinnamon 500 MG capsule Take by mouth 1 (one) time each day at the same time. Collagen-Vitamin C-Biotin (COLLAGEN 1500/C PO) Take by mouth Eliquis 5 MG tablet TAKE 1 TABLET TWICE A DAY 180 tablet 3 ferrous sulfate (FeroSul) 325 (65 Fe) MG tablet TAKE 1 TABLET BY MOUTH TWICE DAILY 200 tablet 3 Flaxseed, Linseed, (Flax Seed Oil) 1000 MG capsule Daily. metoprolol tartrate (Lopressor) 25 MG tablet Take 1.5 tablets by mouth every 12 (twelve) hours. Multiple Vitamin (MULTIVITAMINS PO) Daily. No current facility-administered medications for this visit. Review of Systems List of current healthcare providers: Patient Care Team: Andriy Thrasher MD as PCP - General (Internal Medicine) Andriy Thrasher MD as PCP - [facility] Medicare Annual Visit Over the past 2 weeks, how often have you been bothered by any of the following problems? Little interest or pleasure in doing things: Not at all Feeling down, depressed, or hopeless: Not at all Patient Health Questionnaire-2 Score: 0 Cortes Fall Risk History of Falling, Immediate or Within 3 Months: No Secondary Diagnosis: No Ambulatory Aid: Walks without aid/bedrest/nurse assist Health Risk Assessment Form Do you need help eating, bathing, using the toilet, dressing, or getting around your home?: No Can you prepare your own meals?: Yes Can you do your own housework without help?: Yes Can you shop for groceries or clothes without help?: Yes Do you exercise for about 20 minutes 3 or more days a week?: No How confident are you that you can control and manage most of your health problems?: Very confident Can you mange your money, credit cards and accounts, pay bills and taxes?: Yes Cognitive Screening Three Word Registration: Apple, Watch, Maryjo Clock Drawing: Normal Clock - 2 Three Word Recall: All 3 words correct - 3 Total Score (0-5 Points): 5 Pain Assessment Pain Score: 1 Advance Care Planning Do you have a living will?: No Do you have a medical power of motor vehicle or caravan salesperson?: No Objective : BP 130/74 Pulse 58 Ht 4' 10 Wt 179 lb SpO2 96% BMI 37.41 kg/m No results found. Physical Exam Constitutional: General: She is not in acute distress. Appearance: Normal appearance. She is well-developed. HENT: Head: Normocephalic and atraumatic. Eyes: General: No scleral icterus. Conjunctiva/sclera: Conjunctivae normal. Cardiovascular: Rate and Rhythm: Normal rate and regular rhythm. Heart sounds: Normal heart sounds. No murmur heard. Pulmonary: Effort: Pulmonary effort is normal. No respiratory distress. Breath sounds: Normal breath sounds. No wheezing, rhonchi or rales. Skin: General: Skin is warm and dry. Neurological: General: No focal deficit present. Mental Status: She is alert and oriented to person, place, and time. Psychiatric: Mood and Affect: Mood normal. Behavior: Behavior normal. Telephone on 08/28/2024 Component Date Value Ref Range Status Hemoglobin A1C 09/11/2024 5.7 (H) <5.7 % of total Hgb Final Comment: For someone without known diabetes, a hemoglobin A1c value between 5.7% and 6.4% is consistent with prediabetes and should be confirmed with a follow-up test. For someone with known diabetes, a value <7% indicates that their diabetes is well controlled. A1c targets should be individualized based on duration of diabetes, age, comorbid conditions, and other considerations. This assay result is consistent with an increased risk of diabetes. Currently, no consensus exists regarding use of hemoglobin A1c for diagnosis of diabetes for children. CHOLESTEROL, TOTAL 09/11/2024 152 <200 mg/dL Final HDL CHOLESTEROL 09/11/2024 67 > OR = 50 mg/dL Final TRIGLYCERIDES 09/11/2024 70 <150 mg/dL Final LDL-CHOLESTEROL 09/11/2024 70 mg/dL (calc) Final Comment: Reference range: <100 Desirable range <100 mg/dL for primary prevention; <70 mg/dL for patients with CHD or diabetic patients with > or = 2 CHD risk factors. LDL-C is now calculated using the Gwyn-Abdul calculation, which is a validated novel method providing better accuracy than the Friedewald equation in the estimation of LDL-C. Gwyn HAILE et al. ALF. 2013;310(19): 5831-7792 (http://education.[employer] .com/faq/TDP272) CHOL/HDLC RATIO 09/11/2024 2.3 <5.0 (calc) Final NON HDL CHOLESTEROL 09/11/2024 85 <130 mg/dL (calc) Final Comment: For patients with diabetes plus 1 major ASCVD risk factor, treating to a non-HDL-C goal of <100 mg/dL (LDL-C of <70 mg/dL) is considered a therapeutic option. Glucose 09/11/2024 114 (H) 65 - 99 mg/dL Final Comment: Fasting reference interval For someone without known diabetes, a glucose value between 100 and 125 mg/dL is consistent with prediabetes and should be confirmed with a follow-up test. BUN 09/11/2024 14 7 - 25 mg/dL Final Creatinine 09/11/2024 0.91 0.60 - 0.95 mg/dL Final EGFR 09/11/2024 63 > OR = 60 mL/min/1.73m2 Final BUN/CREATININE RATIO 09/11/2024 SEE NOTE: 6 - (calc) Final Comment: Not Reported: BUN and Creatinine are within reference range. Sodium 09/11/2024 142 135 - 146 mmol/L Final Potassium, Bld 09/11/2024 4.3 3.5 - 5.3 mmol/L Final Chloride 09/11/2024 107 98 - 110 mmol/L Final Carbon Dioxide 09/11/2024 28 20 - 32 mmol/L Final Calcium 09/11/2024 9.3 8.6 - 10.4 mg/dL Final PROTEIN, TOTAL 09/11/2024 6.6 6.1 - 8.1 g/dL Final ALBUMIN 09/11/2024 4.3 3.6 - 5.1 g/dL Final GLOBULIN 09/11/2024 2.3 1.9 - 3.7 g/dL (calc) Final ALBUMIN/GLOBULIN RATIO 09/11/2024 1.9 1.0 - 2.5 (calc) Final BILIRUBIN, TOTAL 09/11/2024 0.8 0.2 - 1.2 mg/dL Final ALKALINE PHOSPHATASE 09/11/2024 68 37 - 153 U/L Final AST 09/11/2024 20 10 - 35 U/L Final ALT 09/11/2024 20 6 - 29 U/L Final WHITE BLOOD CELL COUNT 09/11/2024 5.2 3.8 - 10.8 Thousand/uL Final RED BLOOD CELL COUNT 09/11/2024 4.38 3.80 - 5.10 Million/uL Final HEMOGLOBIN 09/11/2024 13.7 11.7 - 15.5 g/dL Final HEMATOCRIT 09/11/2024 42.0 35.0 - 45.0 % Final MCV 09/11/2024 95.9 80.0 - 100.0 fL Final MCH 09/11/2024 31.3 27.0 - 33.0 pg Final MCHC 09/11/2024 32.6 32.0 - 36.0 g/dL Final Comment: For adults, a slight decrease in the calculated MCHC value (in the range of 30 to 32 g/dL) is most likely not clinically significant; however, it should be interpreted with caution in correlation with other red cell parameters and the patient's clinical condition. RDW 09/11/2024 13.0 11.0 - 15.0 % Final PLATELET COUNT 09/11/2024 244 140 - 400 Thousand/uL Final MPV 09/11/2024 9.2 7.5 - 12.5 fL Final Assessment/Plan : The following health maintenance schedule was reviewed with the patient and provided in printed form in the after visit summary: Health Maintenance Topic Date Due Medicare Annual Wellness (AWV) 08/23/2024 Diabetes: Hemoglobin A1C 12/12/2024 Diabetes: Urine Protein Screening 09/11/2025 Diabetes: Retinopathy Screening 11/14/2025 Influenza Vaccine Completed Pneumococcal Vaccine: 65+ Years Completed Advance Care Planning Patient agreed to discuss advance care planning at today's wellness visit. We discussed that an advance directive is a legal document that only goes into effect if the patient is incapacitated and unable to speak for himself or herself. This would help healthcare providers to ensure that the patient gets the care that he or she wishes to receive. The goal is to provide a patient with the best possible quality of life. Encouraged patient to obtain a living will and durable power of motor vehicle or caravan salesperson for healthcare. We discussed telling [place] people about their advance directives such as close family members, and requested a copy to scan into the patient's EHR. An advance directive packet was offered to the patient. Assessment/Plan Diagnoses and all orders for this visit: Routine general medical examination at health care facility ACP (advance care planning) Estrogen deficiency - DEXA bone density; Future Flu vaccine need - Influenza, high-dose seasonal, quadrivalent, PF (XDV306) (Fluzone High Dose [place] 0.7mL dose) Morbid (severe) obesity due to excess calories ([facility]) 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 ([facility]) Body mass index (BMI) 38.0-38.9, adult Other thrombophilia (CMS/HCC) Paroxysmal atrial fibrillation (CMS/HCC) On continuous oral anticoagulation Age-related osteoporosis without current pathological fracture (CMS/HCC) Follow up in about 6 months (around 03/13/2025) for Routine F/U. Orders Placed This Encounter Procedures DEXA bone density Standing Status: Future Standing Expiration Date: 09/13/2025 Order Specific Question: Reason for exam: Answer: see dx Influenza, high-dose seasonal, quadrivalent, PF (DTZ309) (Fluzone High Dose [place] 0.7mL dose) Electronically signed by Andriy Thrasher MD on September 13, 2024 documented in this encounter [facility] Healthcare Evaluation note No assessment inform ation available [facility] Work Phone: Evaluation note Diagnosis Routine general medical examination at health care facility- Primary Routine general medical examination at a health care facility ACP (advance care planning) Other specified counseling Estrogen deficiency Other ovarian failure Flu vaccine need Morbid (severe) obesity due to excess calories (CMS/HCC) 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) Body mass index (BMI) 38.0-38.9, adult Other thrombophilia (CMS/HCC) Paroxysmal atrial fibrillation (CMS/HCC) Atrial fibrillation On continuous oral anticoagulation Age-related osteoporosis without current pathological fracture ([facility]) documented in this encounter [facility] HealthcareEvaluation note* Diagnosis Acute cystitis with hematuria- Primary Dark urine Other nonspecific finding on examination of urine Atherosclerosis of [place] coronary artery of [place] heart without angina pectoris (CMS/HCC) documented in this encounter [facility] HealthcareEvaluation note* Diagnosis Atherosclerosis of [place] coronary artery of [place] heart without angina pectoris (CMS/HCC)- Primary Paroxysmal atrial fibrillation (CMS/HCC) Atrial fibrillation Localized edema Edema History of changes in urinary output Type 2 diabetes mellitus with other specified complication, without long-term current use of insulin (CMS/HCC) Morbid (severe) obesity due to excess calories (CMS/HCC) Body mass index (BMI) 38.0-38.9, adult documented in this encounter [facility] HealthcareEvaluation note* Diagnosis Localized edema- Primary Edema documented in this encounter [facility] HealthcareEvaluation note* Diagnosis Onset Date Resolution Status Admit Date Acute left otitis media acute F ebruary 2024 4:14pm [facility] Work Phone: Evaluation note* Diagnosis Bilateral lower extremity edema- Primary Localized edema Edema documented in this encounter [facility] Summary Purpose Family History No Family History Records FoundNo Family History Records FoundNo Family History Records FoundNo Family History Records Found Advance Directives No Advanced Directives Records Found Advance Directive Response Recorded Date/ Time Advance Directives No July 2:00pm Advance Directive Response Recorded Date/ Time Advance Directives No July 1:00pm Chief Complaint and Reason for Visit Chief Complaint cough,congestion, dr holliday(week) Chief Complaint Admit Date Ear pain January 03, 2025 4:14pm Reason for Visit Admit Date Acute left otitis media January 03 4:14pm Additional Source Comments INFORMATION SOURCE (unrecogn ized section and content) DATE CREATED AUTHOR 03/17/2023 [facility] DATE CREATED AUTHOR AUTHOR'S ORGANIZ ATION 12/20/2024 [facility] DATE CREATED AUTHOR AUTHOR'S ORGANIZ ATION 01/10/2025 [facility] EPIC DATE CREATED AUTHOR AUTHOR'S ORGANIZ ATION 01/12/2025 [facility] Care Teams (unrecognized sec tion and content) Team Status: Active Member Role Status Dates NON STAFF Primary Care Provider Active Team Status: Inactive Member Role Status Dates Margy Yao , HVAC PROJECT MANAGER Attending Provider Active Start: August 03, 2024 End: August 03, 2024 NON STAFF Primary Care Provider Active Start: August 03, 2024 End: August 03, 2024 Filler Leaf Cutter Long Relationship Specialty Start Date End Date Andriy Thrasher MD [address] [facility] [address] [place] [address] PCP - General Internal Medicine 04/25/23 Andriy Thrasher MD [address] [facility] [address] [place] [address] PCP - [facility] [place] 11/06/2111/05 Filler Leaf Cutter Long Relationship Specialty Start Date End Date Andriy Thrasher MD [address] [facility] [address] [place] [address] PCP - General Internal Medicine 04/25/23 Andriy Thrasher MD [address] [facility] [address] [place] [address] PCP - [facility] [place] 11/06/2111/05 Filler Leaf Cutter Long Relationship Specialty Start Date End Date Andriy Thrasher MD [address] [facility] [address] [place] [address] PCP - General Internal Medicine 04/25/23 Andriy Thrasher MD [address] [facility] [address] [place] [address] PCP - [facility] 11/06/2111/05 Filler Leaf Cutter Long Relationship Specialty Start Date End Date Andriy Thrasher MD [address] [facility] [address] [place] [address] PCP - General Internal Medicine 04/25/23 Andriy Thrasher MD [address] [facility] [address] [place] [address] PCP - [facility] 11/06/2111/05 Filler Leaf Cutter Long Relationship Specialty Start Date End Date Andriy Thrasher MD [address] [facility] [address] [place] [address] PCP - General Internal Medicine 04/25/23 Andriy Thrasher MD [address] [facility] [address] [place] [address] PCP - [facility] 11/06/2111/05 Filler Leaf Cutter Long Relationship Specialty Start Date End Date Andriy Thrasher MD [address] [facility] [address] [place] [address] PCP - General Internal Medicine 04/25/23 Andriy Thrasher MD [address] [facility] [address] [place] [address] PCP - [facility] 11/06/2111/05 Team Status: Inactive Member Role Status Dates NON STAFF Primary Care Provider Active Start: January 03, 2025 End: January 03, 2025 Virginie Fernandes APRN Attending Provider Active S tart: January 03, 2025 End: January 03, 2025 Filler Leaf Cutter Long Relationship Specialty Start Date End Date Andriy Thrasher MD [address] [facility] [address] [place] [address] PCP - General Internal Medicine 04/25/23 Andriy Thrasher MD [address] [facility] [address] [place] [address] PCP - [facility] 11/06/2111/05 Filler Leaf Cutter Long Relationship Specialty Start Date End Date Andriy Thrasher MD [address] [facility] [address] [place] [address] PCP - General Internal Medicine 04/25/23 Andriy Thrasher MD [address] [facility] [address] [place] [address] PCP - [facility] 11/06/2111/05 Goals (unrecognized section and content) Goals may be documented in a n alternate sectionGoals may be documented in an alternate section Reason for Visit (unrecogniz ed section and content) Reason Comments Medicare Annual Wellness Visit Subsequen t Results Lab results FOR RECORDS PERTAINING TO PATIENTS WHO ARE OR HAVE BEEN ENROLLED IN A CHEMICAL DEPENDENCY/SUBSTANCEABUSE PROGRAM, SOME INFORMATION MAY BE OMITTED. This clinical summary was aggregated from multiple sources. Caution should be exercised in using it in the provision of clinical care. This summary normalizes information from multiple sources, and as a consequence, information in this document may materially change the coding, format and clinical context of patient data. In addition, data may be omitted in some cases. CLINICAL DECISIONS SHOULD BE BASED ON THE PRIMARY CLINICAL RECORDS. [facility]. provides no warranty or guarantee of the accuracy or completeness of information in this document.
== END 2025-01-24 13:53 | disposition home or self-care (01) ==
LOC: CARD 13:52
PROVIDERS: PCP Internal Medicine; Visit Provider Internal Medicine Interventional Cardiology
DX: I48.92 Unspecified atrial flutter (principal); R60.0 Localized edema
CPT/HCPCS: 93306

== ENCOUNTER 2025-02-11 13:00 | Outpatient (OUT) | payer MEDICARE, SELFPAY ==
[2025-02-11 13:41] LABS: Anion Gap 9.6; BUN Creatinine Ratio 15.8; Calcium 9.3 mg/dL (8.5-10.1); Carbon Dioxide 30.7 mmol/L (21.0-32.0); Chloride 107 mmol/L (98-107); Estimated GFR (African America >60 (>=60 mL/min/1.73m^2); Estimated GFR (Non-African Ame 56 (>=60 mL/min/1.73m^2); Glucose 105 mg/dL (74-106); Potassium 4.3 mmol/L (3.5-5.1); Sodium 143 mmol/L (136-145)
== END 2025-02-11 13:01 | disposition home or self-care (01) ==
LOC: LAB 13:00
PROVIDERS: PCP Internal Medicine; Visit Provider Internal Medicine Interventional Cardiology
DX: I48.4 Atypical atrial flutter (principal); R60.0 Localized edema
CPT/HCPCS: 36415; 80048

== ENCOUNTER 2025-04-30 12:42 | Outpatient (OUT) | payer MEDICARE, SELFPAY ==
--- OUTSIDE RECORDS SUMMARY | 2025-04-30 12:45 | XMS_ITS | Encounter Summary ---
Author Organization [facility] Address [address] [place] [address] Care Team Providers Care Lighting Fixtures Decorator Name Role Phone Andriy Thrasher MD Primary Care Provider Andriy Thrasher MD Unavailable [phone] Encounter Details Date Type Department Care Team (Late Contact Info) Description 05/08/2018 Abstract [facility] [address] [place] [address] Nhi Friend, [facility] [address] [place] [address] Social History Tobacco Use Types Packs/Day Years Used Date Smoking Tobacco: Never Assessed Comments Unknown Sex and Gender Information Value Date Recorded Sex Assigned at Not on file Legal Sex Female 6:52 PM EDT Gender Identity Not on file Sexual Orientation Not on file documented as of this encounter Plan of Treatment Upcoming Encounters Date Type Department Care Team (Late Contact Info) Description 06/16/2025 1:00 PM EDT Office Visit [facility] [address] [facility] 110 [place] [address] Andriy Thrasher MD [address] [facility] 110 [place], [place] [id number] documented as of this encounter Visit Diagnoses Not on filedocumented in this encounter Care Teams Lighting Fixtures Decorator Relationship Specialty Start Date End Date Andriy Thrasher MD [address] [facility] 110 [place], [place] [address] PCP - General Internal Medicine 04/25/23 Andriy Thrasher MD 112 [facility] 110 [place] [address] PCP - Medical [place] 11/06/2111/05 documented as of this encounter
--- OUTSIDE RECORDS SUMMARY | 2025-04-30 12:45 | XMS_ITS | Encounter Summary ---
Author Organization [facility] Address [address] [place] [address] Care Team Providers Care Rn Production Name Role Phone Andriy Thrasher MD Primary Care Provider [phone] Andriy Thrasher MD Unavailable [phone] Encounter Details Date Type Department Care Team ([facility] Contact Info) Description 09/16/2024 Abstract [facility] [address] [facility] 110 [place] [address] Andriy Thrasher MD [address] [facility] 110 [place] [address] Social History Tobacco Use Types Packs/Day Years Used Date Smoking Tobacco: Never Smokeless Tobacco: Never Alcohol Use Standard Drinks/Week Comments Never 0 (1 standard drink = 0.6 oz pur e alcohol) PHQ-2 Answer Date Recorded Patient Health Questionnaire-2 Score 0 09/13/2024 Comments Unknown Sex and Gender Information Value Date Recorded Sex Assigned at Not on file Legal Sex Female 6:52 PM EDT Gender Identity Not on file Sexual Orientation Not on file documented as of this encounter Plan of Treatment Upcoming Encounters Date Type Department Care Team (Late Contact Info) Description 06/16/2025 1:00 PM EDT Office Visit [facility] [address] [facility] 110 [place] [address] Andriy Thrasher MD [address] [facility] 110 [place] [address] documented as of this encounter Visit Diagnoses Not on filedocumented in this encounter Care Teams Rn Production Relationship Specialty Start Date End Date Andriy Thrasher MD [address] [facility] 110 [place] [address] PCP - General Internal Medicine 04/25/23 Andriy Thrasher MD [address] [facility] 110 [place] [address] PCP - Medical [facility] 11/06/2111/05 documented as of this encounter
--- OUTSIDE RECORDS SUMMARY | 2025-04-30 12:45 | XMS_ITS | Encounter Summary ---
Author Organization [facility] Address [address] [place] [address] Care Team Providers Care Urban Gardening Specialist Name Role Phone Andriy Thrasher MD Primary Care Provider [phone] Andriy Thrasher MD Unavailable [phone] Encounter Details Date Type Department Care Team (Late Contact Info) Description 12/03/2018 Abstract [facility] [address] [place] [address] Nhi Friend, [facility] [address] [place] [address] Social History Tobacco Use Types [...] Visit [facility] [address] [facility] 110 [place] [address] Andriy Thrasher MD [address] [facility] 110 [place], [place] [address] documented as of this encounter Visit Diagnoses Not on filedocumented in this encounter Care Teams Urban Gardening Specialist Relationship Specialty Start Date End Date Andriy Thrasher MD [address] [facility] 110 [place], [place] [id number] PCP - General Internal Medicine 04/25/23 Andriy Thrasher MD 112 [facility] 110 [place] [address] PCP - Medical [place] 11/06/2111/05 documented as of this encounter
--- OUTSIDE RECORDS SUMMARY | 2025-04-30 12:45 | XMS_ITS | Encounter Summary ---
Author Organization [facility] Address [address] [place] [address] Care Team Providers Care Home Maker Name Role Phone Andriy Thrasher MD Primary Care Provider [phone] Andriy Thrasher MD Unavailable [phone] Encounter Details Date Type Department Care Team (Late Contact Info) Description 05/07/2018 Abstract [facility] [address] [place] [address] Nhi Friend, [facility] [address] [place] [address] Social History Tobacco Use Types [...] Visit [facility] [address] [facility] 110 [place] [address] Andriy Thrasher MD [address] [facility] 110 [place], [place] [address] documented as of this encounter Visit Diagnoses Not on filedocumented in this encounter Care Teams Home Maker Relationship Specialty Start Date End Date Andriy Thrasher MD [address] [facility] 110 [place], [place] [id number] PCP - General Internal Medicine 04/25/23 Andriy Thrasher MD 112 [facility] 110 [place] [address] PCP - Medical [place] 11/06/2111/05 documented as of this encounter
--- OUTSIDE RECORDS SUMMARY | 2025-04-30 12:45 | XMS_ITS | Encounter Summary ---
Author Organization [facility] Address [address] [place] [address] Care Team Providers Care Electric Fan Assembler Name Role Phone Andriy Thrasher MD Primary Care Provider [phone] Andriy Thrasher MD Unavailable [phone] Encounter Details Date Type Department Care Team ([facility] Contact Info) Description 09/24/2024 Abstract [facility] [address] [facility] 110 [place] [address] Andriy Thrasher MD [address] [facility] 110 [place] [address] Social History Tobacco Use Types Packs/Day Years [...] Visit [facility] [address] [facility] 110 [place] [address] Andriy Thrasher MD [address] [facility] 110 [place] [address] documented as of this encounter Visit Diagnoses Not on filedocumented in this encounter Care Teams Electric Fan Assembler Relationship Specialty Start Date End Date Andriy Thrasher MD [address] [facility] 110 [place] [address] PCP - General Internal Medicine 04/25/23 Andriy Thrasher MD [address] [facility] 110 [place] [address] PCP - Medical [facility] 11/06/2111/05 documented as of this encounter
--- OUTSIDE RECORDS SUMMARY | 2025-04-30 12:45 | XMS_ITS | Encounter Summary ---
Author Organization [facility] Address [address] [place] [address] Care Team Providers Care Manager Coding Name Role Phone Andriy Thrasher MD Primary Care Provider [phone] Andriy Thrasher MD Unavailable [phone] Encounter Details Date Type Department Care Team ([facility] Contact Info) Description 09/23/2024 Abstract [facility] [address] [facility] 110 [place] [address] Andriy Thrasher MD [address] [facility] 110 [place] [address] Social History Tobacco Use Types Packs/Day Years [...] Visit [facility] [address] [facility] 110 [place] [address] Andriy Thrasher MD [address] [facility] 110 [place] [address] documented as of this encounter Visit Diagnoses Not on filedocumented in this encounter Care Teams Manager Coding Relationship Specialty Start Date End Date Andriy Thrasher MD [address] [facility] 110 [place] [address] PCP - General Internal Medicine 04/25/23 Andriy Thrasher MD [address] [facility] 110 [place] [address] PCP - Medical [facility] 11/06/2111/05 documented as of this encounter
--- OUTSIDE RECORDS SUMMARY | 2025-04-30 12:45 | XMS_ITS | Referral Summary ---
Author Organization [facility] Address [address] [place] [address] Care Team Providers Care Land Inspector Name Role Phone Andriy Thrasher MD Primary Care Provider [phone] Encounters Date Type Department Care Team Description 03/12/2025 Telephone [facility] [address] [place] [address] Dena Hurd MA from Last 3 Months Allergies No known active allergies Medications apixaban (Eliquis) 5 mg tablet Take 1 tablet by mouth in the morning and at bedtime. Active atorvastatin (Lipitor) 20 mg tablet Take 1 tablet by mouth at bedtime. Active ferrous sulfate 325 (65 Fe) MG tablet Take 1 tablet by mouth in the morning and at bedtime. Active alendronate (Fosamax) 35 mg tablet Take 35 mg by mouth every 7 (seven) days. Take in the morning with a full glass of water, on an empty stomach, and do not take anything else by mouth or lie down for the next 30 min. Active metoprolol tartrate (Lopressor) 25 mg tabletIndications :Essential hypertension TAKE ONE AND ONE-HALF TABLETS TWICE A DAY (INCREASED DOSE) 270 tablet 3 4 Active spironolactone (Aldactone) 25 mg tabletIndications :Atypical atrial flutter (CMS/HCC),Bilater al lower extremity edema Take 0.5 tablets (12.5 mg) by mouth once daily as directed. 45 tablet 3 5 01/28/20 26 Active furosemide (Lasix) 20 mg tabletIndications :Atypical atrial flutter (CMS/HCC),Bilater al lower extremity edema Take 1 tablet (20 mg) by mouth once daily as directed. 90 tablet 3 5 01/28/20 26 Active Active Problems Problem Noted Date Diagnosed Date On continuous oral anticoagulation 02/07/2024 Decreased estrogen level 06/05/2023 023 Diverticular disease of colon 06/05/2023 Hearing loss 06/05/2023 10/17/2023 Enthesopathy of hip region 06/05/202310/17 Iron deficiency anemia due to chronic blood loss 06/05/2023 10/17/2023 Localized edema 06/05/2023 10/17/2023 Osteopenia 06/05/2023 10/17/2023 Osteoporosis 06/05/2023 10/17/2023 Paroxysmal atrial fibrillation 06/05/2023 1 12/18/2022 Plantarflexion deformity of foot 06/05/2023 10/17/2023 Posterior vitreous detachment of both eyes 06/0510/17/2023 Presbyopia of both eyes 06/05/2023 10/17/20 23 Pure hypercholesterolemia 06/05/20232022 Sensorineural hearing loss (SNHL) of both ears 0 06/05/2023 10/17/2023 Atrial flutter 07/17/2022 Cardiovascular stress test abnormal 07/17/2022 Chest pain 07/17/2022 Diabetes mellitus 07/17/2022 Hyperlipidemia 07/17/2022 Supraventricular tachycardia 07/17/2022 Coronary atherosclerosis 01/10/2022 Immunizations Immunization Administration Dates Next Due Influenza, High Dose Seasona l, Preservative Free 08/18/2021,09/19/2020,08/15/2019,07/27 Influenza, injectable, quadrivalent 07/28/2016 Moderna 12 YR UP Vaccine BiV alent Booster 10/11/2021,01/26/2021,12/28/2020 Pneumococcal Conjugate PCV 13 08/29/2019 Pneumococcal Polysaccharide PPV23 07/29/2019 Tdap 08/16/2020 Zoster, Recombinant 01/04/2020 Zoster, live 08/08/2017 Social History Tobacco Use Types Packs/Day Years Used Date Smoking Tobacco: Former Cigarettes Smokeless Tobacco: Never Tobacco Cessation:Counseling Given: Not Answered Alcohol Use Standard Drinks/Week Comments Yes 0 (1 standard drink = 0.6 oz pur e alcohol) occasional [place] Safety & Environment Answer Date Rec orded Fear of Current or Ex-Partner Not on file Emotionally Abused Not on file 12/28/2023 Physically Abused Not on file 12/28/2023 Sexually Abused Not on file 12/28/2023 Physically or Sexually Abused Not on file Comments Unknown Sex and Gender Information Value Date Recorded Sex Assigned at Not on file Legal Sex Female 11:45 PM EDT Gender Identity Not on file Sexual Orientation Not on file Last Filed Vital Signs Vital Sign Reading Time Taken Comments Blood Pressure 134/74 01/10/2025 2:32 PM EST Pulse 61 01/10/2025 2:32 PM EST Temperature - - Respiratory Rate - - Oxygen Saturation 95% 01/10/2025 2:32 PM EST Inhaled Oxygen Concentration - - Weight 82.6 kg (182 lb) 01/10/2025 2:32 PM EST Height 162.6 cm (5' 4 ) 01/10/2025 2:32 PM EST Body Mass Index 31.24 01/10/2025 2:32 PM EST Plan of Treatment Upcoming Encounters Date Type Department Care Team (Late st Contact Info) Description 05/26/2025 1:45 PM EDT Office Visit [facility] [address] [place] [address] Barrett Villarreal MD [address] [facility] [address] [facility] [place] [address] Insurance [employer] Care Teams Land Inspector Relationship Specialty Start Date End Date Andriy Thrasher MD [address] [address] PCP - General 07/17/22
--- OUTSIDE RECORDS SUMMARY | 2025-04-30 12:45 | XMS_ITS | Encounter Summary ---
Author Organization [facility] Address [address] [place] [address] Care Team Providers Care Metal Lather Name Role Phone Andriy Thrasher MD Primary Care Provider [phone] Andriy Thrasher MD Unavailable [phone] Encounter Details Date Type Department Care Team (Late Contact Info) Description 05/03/2018 Abstract [facility] [place] [facility] [address] [place] [address] Nhi Friend, [facility] [address] [place] [address] Social History Tobacco Use Types [...] Visit [facility] [address] [facility] 110 [place] [address] Andriy Thrasher MD [address] [facility] 110 [place], [place] [address] documented as of this encounter Visit Diagnoses Not on filedocumented in this encounter Care Teams Metal Lather Relationship Specialty Start Date End Date Andriy Thrasher MD [address] [facility] 110 [place], [place] [address] PCP - General Internal Medicine 04/25/23 Andriy Thrasher MD 112 [facility] 110 [place] [address] PCP - Medical [place] 11/06/2111/05 documented as of this encounter
--- OUTSIDE RECORDS SUMMARY | 2025-04-30 12:45 | XMS_ITS | Encounter Summary ---
Author Organization [facility] Address [address] [place] [address] Care Team Providers Care Parking Station Attendant Name Role Phone Andriy Thrasher MD Primary Care Provider [phone] Andriy Thrasher MD Unavailable [phone] Encounter Details Date Type Department Care Team (Late Contact Info) Description 04/25/2023 Abstract [facility] [address] [place] [address] Nhi Friend, [facility] [address] [place] [address] Social History Tobacco Use Types [...] [facility] [address] [facility] 110 [place] [address] Andriy Thrasher MD [address] [place] 110 [place], [place] [address] documented as of this encounter Visit Diagnoses Not on filedocumented in this encounter Care Teams Parking Station Attendant Relationship Specialty Start Date End Date Andriy Thrasher MD [address] [place] 110 [place], [place] [address] PCP - General Internal Medicine 04/25/23 Andriy Thrasher MD 112 [facility] 110 [place] [address] PCP - Medical [place] 11/06/2111/05 documented as of this encounter
--- OUTSIDE RECORDS SUMMARY | 2025-04-30 12:45 | XMS_ITS | Encounter Summary ---
Author Organization [facility] Address [address] [place] [address] Care Team Providers Care Brim Buster Name Role Phone Andriy Thrasher MD Primary Care Provider [phone] Andriy Thrasher MD Unavailable [phone] Encounter Details Date Type Department Care Team (Late Contact Info) Description 05/23/2018 Abstract [facility] AUDIOLOGY [address] [place] [address] Nhi Friend, [facility] [address] [place] [address] Social History Tobacco Use Types [...] Visit [facility] [address] [facility] 110 [place] [address] Andriy Thrasher MD [address] [facility] 110 [place], [place] [address] documented as of this encounter Visit Diagnoses Not on filedocumented in this encounter Care Teams Brim Buster Relationship Specialty Start Date End Date Andriy Thrasher MD [address] [facility] 110 [place], [place] [address] PCP - General Internal Medicine 04/25/23 Andriy Thrasher MD 112 [facility] 110 [place] [address] PCP - Medical [place] 11/06/2111/05 documented as of this encounter
--- OUTSIDE RECORDS SUMMARY | 2025-04-30 12:45 | XMS_ITS | Encounter Summary ---
Author Organization [facility] Address [address] [place] [address] Care Team Providers Care [place] Leverman Name Role Phone Andriy Thrasher MD Primary Care Provider [phone] Andriy Thrasher MD Unavailable [phone] Encounter Details Date Type Department Care Team (Late Contact Info) Description 2023 Abstract [facility] [address] [facility] 110 [place] [address] Andriy Thrasher MD [address] [facility] 110 [place] [address] Social History Tobacco Use Types Packs/Day Years [...] Visit [facility] [address] [facility] 110 [place] [address] Andriy Thrasher MD [address] [facility] 110 [place] [address] documented as of this encounter Visit Diagnoses Not on filedocumented in this encounter Care Teams [place] Leverman Relationship Specialty Start Date End Date Andriy Thrasher MD [address] [facility] 110 [place] [address] PCP - General Internal Medicine 04/25/23 Andriy Thrasher MD 112 [facility] 110 [place] [id number] PCP - Medical [place] 11/06/2111/05 documented as of this encounter
--- OUTSIDE RECORDS SUMMARY | 2025-04-30 12:45 | XMS_ITS | Encounter Summary ---
Author Organization [facility] Address [address] [place] [address] Care Team Providers Care Floating Derrick Operator Name Role Phone Andriy Thrasher MD Primary Care Provider Andriy Thrasher MD Unavailable [phone] Encounter Details Date Type Department Care Team (Late Contact Info) Description 05/05/2021 Abstract [facility] [address] [facility] [place] [address] Nhi Friend, [facility] [address] [place] [address] Social History Tobacco Use Types [...] Visit [facility] [address] [facility] 110 [place] [address] Andriy Thrasher MD [address] [facility] 110 [place], [place] [address] documented as of this encounter Visit Diagnoses Not on filedocumented in this encounter Care Teams Floating Derrick Operator Relationship Specialty Start Date End Date Andriy Thrasher MD [address] [place] 110 [place] [address] PCP - General Internal Medicine 04/25/23 Andriy Thrasher MD 112 [facility] 110 [place] [address] PCP - Medical [place] 11/06/2111/05 documented as of this encounter
--- OUTSIDE RECORDS SUMMARY | 2025-04-30 12:45 | XMS_ITS | Clinical Summary ---
Author Organization [facility] Address [address] [place] [address] Care Team Providers Care Assistant Merchandiser Name Role Phone Andriy Thrasher MD Primary Care Provider [phone] Andriy Thrasher MD Unavailable [phone] Allergies No known active allergies Medications Flaxseed, Linseed, (Flax Seed Oil) 1000 MG capsule Daily. Active cinnamon 500 MG capsule Take by mouth 1 (one) time each day at the same time. Active ascorbic acid (Vitamin C) 500 MG chewable tablet Daily. Active Multiple Vitamin (MULTIVITAMINS PO) Daily. A ctive Collagen-Vitamin C-Biotin (COLLAGEN 1500/C PO) Take by mouth Active Calcium Carb-Cholecalciferol (CALCIUM 500 + D PO) Take 1 tablet by mouth 1 (one) time each day Active alendronate (Fosamax) 70 MG tabletIndications:Oste oporosis, unspecified osteoporosis type, unspecified pathological fracture presence TAKE 1 TABLET BY MOUTH BEFORE first meal, beverage, or medicine OF the day WITH plain water once a WEEK 12 tablet 3 024 Active atorvastatin (Lipitor) 20 MG tabletIndications:Pure hypercholesterolemia TAKE 1 TABLET DAILY 90 tablet 3 024 Active Eliquis 5 MG tabletIndications:Paro xysmal atrial fibrillation (HCC) TAKE 1 TABLET TWICE A DAY 180 tablet 3 024 Active furosemide (Lasix) 20 MG tabletIndications:Loca lized edema Take 1 tablet (20 mg) by mouth Daily 30 tablet 025 Active spironolactone (Aldactone) 25 MG tablet Take 12.5 mg by mouth 025 2025 Active ferrous sulfate (FeroSul) 325 (65 Fe) MG tabletIndications:Iron deficiency anemia due to chronic blood loss TAKE 1 TABLET BY MOUTH TWICE DAILY 200 tablet 3 025 Active metoprolol tartrate (Lopressor) 25 MG tabletIndications:Paro xysmal atrial fibrillation (HCC) Take 1 tablet (25 mg) by mouth in the morning and 1 tablet (25 mg) before bedtime. 025 Active metoprolol tartrate (Lopressor) 25 MG tablet Take 1.5 tablets by mouth every 12 (twelve) hours. 023 2024 Discontinued metoprolol tartrate (Lopressor) 25 MG tabletIndications:Paro xysmal atrial fibrillation (HCC) Take 1 tablet (25 mg) by mouth 1 (one) time for 1 dose 100 tablet 3 025 2024 Discontinued(R eorder) Active Problems Problem Noted Date Diagnosed Date On continuous oral anticoagulation 02/07/2024 Decreased estrogen level 06/05/2023 Diverticular disease of colon 06/05/2023 Enthesopathy of hip region 06/05/2023 Hearing loss 06/05/2023 Impaired glucose tolerance 06/05/2023 Iron deficiency anemia due to chronic blood loss 06/05/2023 Iron deficiency anemia 06/05/2023 Localized edema 06/05/2023 Osteopenia 06/05/2023 Osteoporosis 06/05/2023 Paroxysmal atrial fibrillation 06/05/2023 Plantarflexion deformity of foot 06/05/2023 Posterior vitreous detachment of both eyes 06/05 Presbyopia of both eyes 06/05/2023 Pure hypercholesterolemia 06/05/2023 Sensorineural hearing loss (SNHL) of both ears 0 06/05/2023 Cardiovascular stress test abnormal 07/17/2022 Chest pain 07/17/2022 Hyperlipidemia 07/17/2022 Diabetes mellitus 07/17/2022 Supraventricular tachycardia 07/17/2022 Coronary atherosclerosis 01/10/2022 Resolved Problems Problem Noted Date Diagnosed Date Resolved Date Atrial flutter 07/17/2022 08/23/2023 Encounters Date Type Department Care Team Description 04/15/2025 Telephone [facility] [address] [address] Andriy Thrasher MD 04/10/2025 Abstract [facility] [address] [place] [address] [place] [address] Andriy Thrasher MD 04/08/2025 Telephone [facility] [address] [place] [address] [place] [address] Andriy Thrasher MD med correction 04/07/2025 Refill [facility] [address] [place] [address] [place] [address] Andriy Thrasher MD Paroxysmal atrial fibrillation (HCC) 03/24/2025 Refill [facility] [address] [place] [address] [place] [address] Andriy Thrasher MD Iron deficiency anemia due to chronic blood loss 03/12/2025 10:30 AM EDT Office Visit [facility] [address] [place] [place] [address] Sensorineural hearing loss, bilateral (Primary Dx) 03/10/2025 1:00 PM EDT Office Visit [facility] [address] [place] [address] [place] [address] Andriy Thrasher MD Paroxysmal atrial fibrillation (HCC) (Primary Dx); Type 2 diabetes mellitus with other specified complication, without long-term current use of insulin (HCC); Atherosclerosis of [place] coronary artery of [place] heart without angina pectoris ; Iron deficiency anemia, unspecified iron deficiency anemia type; Other secondary pulmonary hypertension (HCC) 03/10/2025 Telephone [facility] [address] [place] [address] [place] [address] Andriy Thrasher MD 03/10/2025 Travel 02/12/2025 2:00 PM EDT Office Visit [facility] [address] [place] [place] [address] Sensorineural hearing loss, bilateral (Primary Dx) 02/12/2025 Orders Only [facility] [address] [place] [address] [place] [address] Vivienne Parra LPN Estrogen deficiency 02/11/2025 Clinisync Result Encounter [facility] External Department Unsolicited Provider, Generic External Data 02/11/2025 Telephone [facility] [address] [place] [address] Anaya Farias MA 02/03/2025 2:30 PM EDT Office Visit [facility] [address] [place] [address] Deborah Gallagher, ADRIANO Sensorineural hearing loss, bilateral (Primary Dx) 02/03/2025 Bamboo flowsheet [facility] [address] [place] [address] Deborah Gallagher, AUD from Last 3 Months Immunizations Immunization Administration Dates Next Due ABRYSVO - Respiratory syncyt ial virus (RSV), vaccine, bivalent, protein subunit RSV prefusion F, diluent reconstituted, 0.5 mL, PF 09/16/2024 Influenza, High Dose Seasona l, Preservative Free 08/18/2021,09/19/2020,08/15/2019,07/27 Influenza, High-dose Seasona l, Quadrivalent, Preservative Free 09/13/2024,08/23/2023,08/11/2022 Influenza, injectable, quadrivalent 07/28/2016 Moderna SARS-CoV-2 Booster Vaccination ,01/26/2021,12/28/2020 Pfizer Bivalent Booster 12 Y ears And Older 08/23/2022 Pneumococcal Conjugate PCV 13 08/29/2019 Pneumococcal Polysaccharide PPSV23 07/29/2019 Tdap 08/16/2020 Zoster, Recombinant 01/04/2020 Zoster, live 08/08/2017,08/08/2017 Family History Medical History Relation Name Comments Diabetes Father Heart disease Father Hypertension Father Diabetes Mother Stroke Mother Relation Name Status Comments Father Mother Social History Tobacco Use Types Packs/Day Years Used Date Smoking Tobacco: Never Smokeless Tobacco: Never Tobacco Cessation:Counseling Given: No Alcohol Use Standard Drinks/Week Comments Never 0 (1 standard drink = 0.6 oz pur e alcohol) PHQ-2 Answer Date Recorded Patient Health Questionnaire-2 Score 0 03/10/2025 Comments Unknown Sex and Gender Information Value Date Recorded Sex Assigned at Not on file Legal Sex Female 6:52 PM EDT Gender Identity Not on file Sexual Orientation Not on file Last Filed Vital Signs Vital Sign Reading Time Taken Comments Blood Pressure 122/68 03/10/2025 1:03 PM EDT Pulse 54 03/10/2025 1:03 PM EDT Temperature - - Respiratory Rate 16 01/08/2025 4:32 PM EST Oxygen Saturation 98% 03/10/2025 1:03 PM EDT Inhaled Oxygen Concentration - - Weight 80.3 kg (177 lb) 03/10/2025 1:03 PM EDT Height 147.3 cm (4' 10 ) 03/10/2025 1:03 PM EDT Body Mass Index 36.99 03/10/2025 1:03 PM EDT Plan of Treatment Upcoming Encounters Date Type Department Care Team (Late st Contact Info) Description 06/16/2025 1:00 PM EDT Office Visit [facility] [address] [facility] 110 [place] [address] Andriy Thrasher MD 112 [facility] [address] [place], [place] [address] Health Maintenance Due Date Last Done Comments Diabetes: Urine Protein Screening 07/29/2020 019, 08/01/2018 Diabetes: Hemoglobin A1C 06/10/2025 025, 09/11/2024, 06/12/2024, Additional history exists Medicare Annual Wellness (AWV) 09/13/2025 09/13/2024 , 08/23/2023 Diabetes: Retinopathy Screening 11/14/2025 11/14/2023, 11/09/2022, 08/01/2018, Additional history exists Pneumococcal Vaccine: 65+ Years Completed 9, 07/29/2019 Influenza Vaccine Completed 09/13/2024, , 08/11/2022, Additional history exists Procedures Procedure Name Priority Date/Time Associated Diagnosis Comments POCT GLYCATED HEMOGLOBIN, TOTAL Routine 03/10/2025 1:14 PM EDT Type 2 diabetes mellitus with other specified complication, without long-term current use of insulin (HCC) ALL BASIC METABOLIC PANEL Routine 02/11/2025 1:15 PM EDT AUDITORY FUNCTION TESTS Routine 02/03/2025 3:02 PM EDT DIABETIC RETINOPATHY SCREENING - OU - BOTH EYES Routine 11/14/2023 MICROALBUMIN / CREATININE URINE RATIO Routine 07/29/2019 from Last 3 Months or Most Recently Relevant to Health Maintenance Results * POCT Glycated hemoglobin, total (03/10/2025 1:14 PM EDT) Hemoglobin A1C 5.6 Blood 03/10/2025 1:14 PM EDT us Andriy Thrasher MD POINT OF CARE TEST ENTER/EDIT ORDERABLES Final Result * (ABNORMAL) ALL BASIC METABOLIC PANEL (02/11/2025 1:15 PM EDT) SODIUM 143 136 - 145 mmol/L [facility] POTASSIUM 4.3 3.5 - 5.1 mmol/L [facility] CHLORIDE 107 98 - 107 mmol/L [facility] CARBON DIOXIDE 30.7 21.0 - 32.0 mmol/L [facility] ANION GAP 9.6 [facility] GLUCOSE 105 74 - 106 mg/dL [facility] BLOOD UREA NITROGEN 15.0 7.0 - 18.0 mg/dL [facility] CREATININE 0.95 0.55 - 1.02 mg/dL [facility] EGFR-AF SAMOAN >60 >=60 mL/min/1.7 3m 2 [facility] EGFR-NON AF SAMOAN 56(L) >=60 mL/min/1.7 3m 2 [facility] BUN CREATININE RATIO 15.8 [facility] CALCIUM 9.3 8.5 - 10.1 mg/dL [facility] 02/11/2025 1:15 PM EDT 02/11/2025 1:16 PM EDT Narrative [facility] - 02/11/2025 2:29 PM EDT Generic External Data Provider [facility] F inal Result [facility] * Auditory function tests (02/03/2025 3:02 PM EDT) Narrative Deborah Gallagher [facility] - 02/03/2025 3:02 PM EDT Pure Tone Audiometry Audio indicated normal hearing sensitivity 250-750 Hz, sloping to a moderate to moderately-severe sensorineural hearing loss 0487-7453 Hz in the right ear. Th left ear exhibited normal hearing 250-750 Hz, sloping to a mild to moderate sensorineural hearing loss 6571-3771 Hz. Today's audio is consistent with previous results recorded 04-26-23. Deborah Gallagher [facility] AUDIOLOGY SERVICES ORDERABL ES Final Result * Diabetic Retinopathy Screening - OU - Both Eyes (11/14/2023) RESULTS NDR Anatomical Region Laterality Modality Head Other 11/14/2023 Andriy Thrasher MD OPHTH PHOTOGRAPHY Final Result * Microalbumin / creatinine urine ratio (07/29/2019) UCREA 107 28 - 217 [facility] MALB 8.0 [facility] Comment:mALB reference range not established. MICROALB/CREAT RATIO 74.8 [facility] 07/29/2019 Andriy Thrasher MD LAB URINE ORDERABLES Final Res ult [facility] from Last 3 Months or Most Recently Relevant to Health Maintenance Insurance [employer] Care Teams Assistant Merchandiser Relationship Specialty Start Date End Date Andriy Thrahser MD [address] [facility] [address] [place] [address] PCP - General Internal Medicine 04/25/23 Andriy Thrasher MD [address] [facility] [address] [place] [address] PCP - Medical [facility] 11/06/2111/05
--- OUTSIDE RECORDS SUMMARY | 2025-04-30 12:45 | XMS_ITS | Encounter Summary ---
Author Organization [facility] Address [address] [place] [address] Care Team Providers Care Milking System Installer Name Role Phone Andriy Thrasher MD Primary Care Provider [phone] Andriy Thrasher MD Unavailable [phone] Encounter Details Date Type Department Care Team (Late Contact Info) Description 04/18/2018 Abstract [facility] [address] [place] [address] [place] [address] Nhi Friend, [facility] [address] [place] [address] Social History Tobacco Use Types [...] Visit [facility] [address] [facility] [address] [place] [address] Andriy Thrasher MD [address] [facility] [address] [place], [place] [id number] documented as of this encounter Visit Diagnoses Not on filedocumented in this encounter Care Teams Milking System Installer Relationship Specialty Start Date End Date Andriy Thrasher MD [address] [facility] 110 [place], [place] [id number] PCP - General Internal Medicine 04/25/23 Andriy Thrasher MD 112 [facility] 110 [place] [address] PCP - Medical [place] 11/06/2111/05 documented as of this encounter
--- OUTSIDE RECORDS SUMMARY | 2025-04-30 12:45 | XMS_ITS | Encounter Summary ---
Author Organization [facility] Address [address] [place] [facility] [place] [address] Care Team Providers Care Oil And Gas Recruiter Name Role Phone Andriy Thrasher MD Primary Care Provider [phone] Andriy Thrasher MD Unavailable [phone] Encounter Details Date Type Department Care Team ([facility] Contact Info) Description 11/15/2023 Abstract [facility] [address] [facility] 110 [place] [address] Andriy Thrasher MD [address] [facility] 110 [place] [address] Social History Tobacco Use Types Packs/Day Years Used Date Smoking Tobacco: Never Smokeless Tobacco: Never Alcohol Use Standard Drinks/Week Comments Never 0 (1 standard drink = 0.6 oz pur e alcohol) Comments Unknown Sex and Gender Information Value [...] [address] [facility] [address] [place] [address] Andriy Thrasher MD [address] [facility] [address] [place] [address] documented as of this encounter Visit Diagnoses Not on filedocumented in this encounter Care Teams Oil And Gas Recruiter Relationship Specialty Start Date End Date Andriy Thrasher MD [address] [facility] [address] [place] [address] PCP - General Internal Medicine 04/25/23 Andriy Thrasher MD 112 [facility] 110 [place] [address] PCP - Medical [place] 11/06/2111/05 documented as of this encounter
--- OUTSIDE RECORDS SUMMARY | 2025-04-30 12:45 | XMS_ITS | Encounter Summary ---
Author Organization [facility] Address [address] [facility] [place] [address] Care Team Providers Care Cobbler Sole Name Role Phone Andriy Thrasher MD Primary Care Provider Andriy Thrasher MD Unavailable [phone] Encounter Details Date Type Department Care Team ([facility] Contact Info) Description 08/29/2023 Abstract [facility] [address] [facility] [address] [place] [address] Andriy Thrasher MD [address] [facility] 110 [place] [address] Social History Tobacco Use Types Packs/Day Years [...] Visit [facility] [address] [facility] [address] [place] [address] Andriy Thrasher MD [address] [facility] [address] [place] [address] documented as of this encounter Visit Diagnoses Not on filedocumented in this encounter Care Teams Cobbler Sole Relationship Specialty Start Date End Date Andriy Thrasher MD [address] [facility] [address] [place] [address] PCP - General Internal Medicine 04/25/23 Andriy Thrasher MD 112 [facility] 110 [place] [address] PCP - Medical [place] 11/06/2111/05 documented as of this encounter
--- OUTSIDE RECORDS SUMMARY | 2025-04-30 12:45 | XMS_ITS | Encounter Summary ---
Author Organization [facility] Address [address] [place] [address] Care Team Providers Care Dry Sand Molder Name Role Phone Andriy Thrasher MD Primary Care Provider [phone] Andriy Thrasher MD Unavailable [phone] Encounter Details Date Type Department Care Team (Late Contact Info) Description 02/02/2021 Abstract [facility] [address] [place] [address] [place] [address] Nhi Friend, [facility] [address] [place] [address] Social History Tobacco Use Types [...] Visit [facility] [address] [facility] 110 [place] [address] Andriy Thrasher MD [address] [place] [address] [place], [place] [address] documented as of this encounter Visit Diagnoses Not on filedocumented in this encounter Care Teams Dry Sand Molder Relationship Specialty Start Date End Date Andriy Thrasher MD [address] [place] [address] [place], [place] [address] PCP - General Internal Medicine 04/25/23 Andriy Thrasher MD 112 [facility] 110 [place] [address] PCP - Medical [place] 11/06/2111/05 documented as of this encounter
--- OUTSIDE RECORDS SUMMARY | 2025-04-30 12:45 | XMS_ITS | Encounter Summary ---
Author Organization [facility] Address [address] [facility] [place] [address] Care Team Providers Care Movie Shot Cameraman Name Role Phone Andriy Thrasher MD Primary Care Provider [phone] Andriy Thrasher MD Unavailable [phone] Encounter Details Date Type Department Care Team ([facility] Contact Info) Description 11/14/2023 Abstract [facility] [address] [facility] [address] [place] [address] Andriy Thrasher MD [address] [facility] 110 [place] [address] Social History Tobacco Use Types Packs/Day Years [...] FM [address] [facility] [address] [place] [address] Andriy Thrasher MD [address] [facility] [address] [place] [address] documented as of this encounter Visit Diagnoses Not on filedocumented in this encounter Care Teams Movie Shot Cameraman Relationship Specialty Start Date End Date Andriy Thrasher MD [address] [facility] [address] [place] [address] PCP - General Internal Medicine 04/25/23 Andriy Thrasher MD 112 [facility] 110 [place] [address] PCP - Medical [place] 11/06/2111/05 documented as of this encounter
--- OUTSIDE RECORDS SUMMARY | 2025-04-30 12:45 | XMS_ITS | Encounter Summary ---
Author Organization [facility] Address [address] [facility] [place] [address] Care Team Providers Care Escalator Constructor Name Role Phone Andriy Thrasher MD Primary Care Provider [phone] Andriy Thrasher MD Unavailable [phone] Encounter Details Date Type Department Care Team (Late Contact Info) Description 06/06/2024 Orders Only [facility] [address] [facility] 110 [place] [address] Vivienne Parra LPN [address] [place] [address] Encounter for screening mammogram for malignant neoplasm of breast Social History Tobacco Use Types Packs/Day Years [...] Visit [facility] [address] [facility] [address] [place] [address] Andriy Thrasher MD 112 [facility] [address] [place] [address] documented as of this encounter Visit Diagnoses Diagnosis Encounter for screening mammogram for malignant neoplasm of breast documented in this encounter Care Teams Escalator Constructor Relationship Specialty Start Date End Date Andriy Thrasher MD [address] [facility] [address] [place] [address] PCP - General Internal Medicine 04/25/23 Andriy Thrasher MD 112 [facility] 110 [place] [address] PCP - Medical [place] 11/06/2111/05 documented as of this encounter
--- OUTSIDE RECORDS SUMMARY | 2025-04-30 12:45 | XMS_ITS | Encounter Summary ---
Author Organization [facility] Address [address] [place] [address] Care Team Providers Care Business Intelligence Consultant Name Role Phone Andriy Thrasher MD Primary Care Provider [phone] Andriy Thrasher MD Unavailable [phone] Encounter Details Date Type Department Care Team (Late Contact Info) Description 04/29/2024 Clinisync Result Encounter NOMS External Department Unsolicited Andriy Thrasher MD 112 [facility] 110 [place], [place] [id number] Social History Tobacco Use Types Packs/Day Years [...] EDT Office Visit [facility] 112 [facility] 110 [place] [address] Andriy Thrasher MD 112 [facility] 110 [place], [place] [address] documented as of this encounter Procedures Procedure Name Priority Date/Time Associated Diagnosis Comments MM TOMOSYNTHESIS SCREENING BI 04/29/2024 2:06 PM EDT documented in this encounter Results * MM TOMOSYNTHESIS SCREENING BI (04/29/2024 2:06 PM EDT) Anatomical Region Laterality Modality Other 04/29/2024 2:06 PM EDT Narrative 04/29/2024 2:07 PM EDT The [address] [address] Mammography Report Signed Patient: BEA ESPINOZA MR#: [id number] : 1940 Acct:[id number] Age/Sex: 83 / F ADM Date: 04/29/24 Loc: MAMMO Attending Dr: ANDRIY THRASHER Ordering Physician: ANDRIY THRASHER Results: Date of Service: 04/29/24 Follow Up: Procedure(s): MM tomosynthesis screening BI Accession Number(s): [id number] cc: ANDRIY THRASHER Patient Name: BEA ESPINOZA MR#: [id number] : 1940 Exam Date: 04/29/2024 Ordering Doctor: DR ANDRIY THRASHER M.D. RADIOLOGY REPORT PROCEDURE: MM TOMOSYNTHESIS SCREENING BI COMPARISON: MG MAMM SCREEN 3D DAISY CAD, 04/27/2022. MM TOMOSYNTHESIS SCREENING BI, 04/28/2023. INDICATIONS: Screening for malignant neoplasm Calculator Name NCI Breast Cancer Risk Assessment Tool 5 Year Breast Cancer Risk 1.90% Lifetime Breast Cancer Risk 2.70% Personal Breast Cancer No Personal Ovarian Cancer No Treatments None Family Cancers Aunt-maternal with breast cancer at age 60. LOCATION: The [facility] BREAST COMPOSITION: There are scattered areas of fibroglandular density. FINDINGS: DIAGNOSTIC CATEGORY 2--BENIGN FINDING. NO CHANGE FROM COMPARISON. Scattered benign-appearing nodules are present. Scattered benign-appearing calcifications are present. Scattered benign-appearing lymph nodes are present. RIGHT BREAST: No significant suspicious finding. LEFT BREAST: No significant suspicious finding. RECOMMENDATIONS: ROUTINE MAMMOGRAM AND CLINICAL EVALUATION IN 12 MONTHS. PLEASE NOTE: A NORMAL MAMMOGRAM DOES NOT EXCLUDE THE POSSIBILITY OF BREAST CANCER. A CLINICALLY SUSPICIOUS PALPABLE LUMP SHOULD BE BIOPSIED. Dictated by: Eric Freeman MD on 04/29/2024 at 14:04 Approved by: Eric Freeman MD on 04/29/2024 at 14:06 Dictated By: Eric Freeman M.D. Signed By: 04/29/24 1407 DD/ 1406 TD/TT: Laser Systems Engineer: Procedure Note Radiology, Radiologist, MD - 04/29/[address] [address] Mammography Report Signed Patient: BEA ESPINOZA [facility]#: [id number] : 1940cct:[id number] Age/Sex: 83 / FADM Date: 04/29/24 Loc: MAMMO Attending Dr: ANDRIY THRASHER Ordering Physician: ANDRIY THRASHERResults: Date of Service: 04/29/24Follow Up: Procedure(s): MM tomosynthesis screening BI Accession Number(s): [id number] cc: SUREKHAANDRIY Patient Name: BEA ESPINOZA MR#: [id number] : 1940 Exam Date: 04/29/2024 Ordering Doctor: DR ANDRIY THRASHER M.D. RADIOLOGY REPORT PROCEDURE: MM TOMOSYNTHESIS SCREENING BI COMPARISON: MG MAMM SCREEN 3D DAISY CAD, 04/27/2022. MM TOMOSYNTHESIS SCREENING BI, 04/28/2023. INDICATIONS: Screening for malignant neoplasm Calculator Name NCI Breast Cancer Risk Assessment Tool 5 Year Breast Cancer Risk 1.90% Lifetime Breast Cancer Risk 2.70% Personal Breast Cancer No Personal Ovarian Cancer No Treatments None Family Cancers Aunt-maternal with breast cancer at age 60. LOCATION: The [facility] BREAST COMPOSITION: There are scattered areas of fibroglandulardensity. FINDINGS: DIAGNOSTIC CATEGORY 2--BENIGN FINDING. NO CHANGE FROM COMPARISON. Scattered benign-appearing nodules are present. Scatteredbenign-appearing calcifications are present. Scattered benign-appearing lymph nodes are present. RIGHT BREAST: No significant suspicious finding. LEFT BREAST: No significant suspicious finding. RECOMMENDATIONS: ROUTINE MAMMOGRAM AND CLINICAL EVALUATION IN 12 MONTHS. PLEASE NOTE: A NORMAL MAMMOGRAM DOES NOT EXCLUDE THE POSSIBILITY OFBREAST CANCER. A CLINICALLY SUSPICIOUS PALPABLE LUMP SHOULD BE BIOPSIED. Dictated by: Eric Freeman MD on 04/29/2024 at 14:04 Approved by: Eric Freeman MD on 04/29/2024 at 14:06 Dictated By: Eric Freeman M.D. Signed By:04/29/24 1407 DD/ 1406 TD/TT: Laser Systems Engineer: us Andriy Thrasher MD [facility] Final Result documented in this encounter Visit Diagnoses Not on filedocumented in this encounter Care Teams Business Intelligence Consultant Relationship Specialty Start Date End Date Andriy Thrasher MD [address] [facility] 110 [place] [address] PCP - General Internal Medicine 04/25/23 Andriy Thrasher MD [address] [facility] 110 [place] [address] PCP - Medical [facility] 11/06/2111/05 documented as of this encounter
--- OUTSIDE RECORDS SUMMARY | 2025-04-30 12:45 | XMS_ITS | Encounter Summary ---
Author Organization [facility] Address [address] [place] [address] Care Team Providers Care Plate Washer Name Role Phone Andriy Thrasher MD Primary Care Provider [phone] Andriy Thrasher MD Unavailable [phone] Encounter Details Date Type Department Care Team (Late Contact Info) Description 04/22/2021 Abstract [facility] [address] [place] [address] Nhi Friend, [facility] [address] [place] [address] Social History Tobacco Use Types [...] Visit [facility] [address] [facility] 110 [place] [address] Andriy Thrasher MD [address] [place], [place] [address] documented as of this encounter Visit Diagnoses Not on filedocumented in this encounter Care Teams Plate Washer Relationship Specialty Start Date End Date Andriy Thrasher MD [address] [place], [place] [address] PCP - General Internal Medicine 04/25/23 Andriy Thrasher MD 112 [facility] 110 [place] [address] PCP - Medical [place] 11/06/2111/05 documented as of this encounter
--- OUTSIDE RECORDS SUMMARY | 2025-04-30 12:45 | XMS_ITS | Clinical Summary ---
Author Organization Architectural Daily tem Address [id number] [address] [place] [address] Care Team Providers Care Manager Mutual Fund Name Role Phone Andriy Thrasher MD Primary Care Provider [phone] Allergies No known active allergies Medications apixaban (ELIQUIS) 5 mg tablet Eliquis 5 mg tablet Active atorvastatin (LIPITOR) 20 mg tablet atorvastatin 20 mg tablet Active lisinopriL (PRINIVIL,ZESTR IL) 2.5 mg tablet lisinopril 2.5 mg tablet Active metoprolol tartrate (LOPRESSOR) 25 mg tablet metoprolol tartrate 25 mg tablet Active Immunizations Immunization Administration Dates Next Due Tdap 08/16/2020 Social History Tobacco Use Types Packs/Day Years Used Date Smoking Tobacco: Former Smokeless Tobacco: Never Childcare Answer Date Recorded Childcare Unknown 08/16/2020 Employment Answer Date Recorded Employment Unknown 08/16/2020 Purpose - Life Answer Date Recorded Purpose and direction in life Unknown Comments Unknown Sex and Gender Information Value Date Recorded Sex Assigned at Not on file Legal Sex Female 11:26 AM EDT Gender Identity Not on file Sexual Orientation Not on file Last Filed Vital Signs Vital Sign Reading Time Taken Comments Blood Pressure 143/82 08/16/2020 4:12 PM EDT Pulse 76 08/16/2020 4:12 PM EDT Temperature 36.9 C (98.4 F) 08/16/2020 4:12 PM EDT Respiratory Rate 20 08/16/2020 4:12 PM EDT Oxygen Saturation 97% 08/16/2020 4:12 PM EDT Inhaled Oxygen Concentration - - Weight 79.4 kg (175 lb) 08/16/2020 4:12 PM EDT Height 152.4 cm (5') 08/16/2020 4:12 PM EDT Body Mass Index 34.18 08/16/2020 4:12 PM EDT Plan of Treatment Health Maintenance Due Date Last Done Comments Depression Screening 1954 Tobacco Screening 1954 Zoster (Shingles) Vaccine (1 of 2) 1992 Fall Risk Screening 2007 Influenza Vaccine 07/07/2025 DTaP,Tdap and Td Vaccines (2 - Td or Tdap) 08/16/2030 08/16/2020 Medical Devices Not on file Insurance [employer] Care Teams Manager Mutual Fund Relationship Specialty Start Date End Date Andriy Thrasher MD [address] [facility] 110 [place] [address] PCP - General Internal Medicine 08/16/20
--- OUTSIDE RECORDS SUMMARY | 2025-04-30 12:45 | XMS_ITS | Clinical Summary ---
Author Organization [facility] Address [address] [place] [address] Care Team Providers Care Architect Internship Name Role Phone Andriy Thrasher MD Primary Care Provider [phone] Allergies No known active allergies Medications apixaban [...] 06/0510/17/2023 Presbyopia of both eyes 06/05/2023 10/17/20 Pure hypercholesterolemia 06/05/20232022 Sensorineural hearing loss (SNHL) of both ears 0 06/05/2023 10/17/2023 Atrial flutter 07/17/2022 Cardiovascular stress test abnormal 07/17/2022 Chest pain 07/17/2022 Diabetes mellitus 07/17/2022 Hyperlipidemia 07/17/2022 Supraventricular tachycardia 07/17/2022 Coronary atherosclerosis 01/10/2022 Encounters Date Type Department Care Team Description 03/12/[address] [facility] at [place] [address] [place] [address] [place], [place] from Last 3 Months Immunizations Immunization Administration Dates Next Due Influenza, High Dose Seasona l, Preservative Free 08/18/2021,09/19/2020,08/15/2019,07/27 Influenza, injectable, quadrivalent 07/28/2016 Moderna 12 YR UP Vaccine BiV alent Booster 10/11/2021,01/26/2021,12/28/2020 Pneumococcal Conjugate PCV 13 08/29/2019 Pneumococcal Polysaccharide PPV23 07/29/2019 Tdap 08/16/2020 Zoster, Recombinant 01/04/2020 Zoster, live 08/08/2017 Family History Medical History Relation Name Comments Coronary artery disease Father Stroke Mother Relation Name Status Comments Father [...] 05/26/2025 1:45 PM EDT Office Visit [facility] at [facility] [address] [place] [address] Barrett Villarreal MD [address] [facility] [place] [address] Health Maintenance Due Date Last Done Comments Medicare Annual Wellness (AWV) 1940 Diabetes: Retinopathy Screening 1952 Depression Screening 1954 Fall Risk Screening 2007 Zoster Vaccines (2 of 2) 02/29/2020 01/04/2020, 01/2017 Diabetes: Urine Protein Screening 07/29/2020 07/29/2019 COVID-19 Vaccine ( season) 2024 10/05/2023, 08/23/2022, 10/11/2021, Additional history exists Diabetes: Hemoglobin A1C 12/12/2024 09/11/2024 Adult Tetanus 08/16/2030 08/16/2020 Pneumococcal Vaccine: 50+ Years Completed 08/29/2019, 07/29/2019 Influenza Vaccine Completed 09/13/2024, , 08/11/2022, Additional history exists HIB Vaccines Aged Out No longer eligi ble based on patient's age to complete this topic HPV Vaccines Aged Out No longer eligi ble based on patient's age to complete this topic IPV Vaccines Aged Out No longer eligi ble based on patient's age to complete this topic Meningococcal B Vaccine Aged Out No l onger eligible based on patient's age to complete this topic Meningococcal Vaccine Aged Out No johnnie lee ann eligible based on patient's age to complete this topic Rotavirus Vaccines Aged Out No longer eligible based on patient's age to complete this topic Insurance [employer] MED[employer] Care Teams Architect Internship Relationship Specialty Start Date End Date Andriy Thrasher MD 112 [facility] 110 [place] [address] PCP - General 07/17/22
--- OUTSIDE RECORDS SUMMARY | 2025-04-30 12:45 | XMS_ITS | Encounter Summary ---
Author Organization [facility] Address [address] [place] [address] Care Team Providers Care Yarn Rewinder Name Role Phone Andriy Thrasher MD Primary Care Provider [phone] Andriy Thrasher MD Unavailable [phone] Encounter Details Date Type Department Care Team (Late Contact Info) Description 05/23/2018 Abstract [facility] AUDIOLOG[facility] [address] [place] [address] Nhi Friend, [facility] [address] [place] [address] Social History Tobacco Use Types [...] Visit [facility] [address] [facility] 110 [place] [address] Andriy Thrasher MD [address] [facility] 110 [place], [place] [address] documented as of this encounter Visit Diagnoses Not on filedocumented in this encounter Care Teams Yarn Rewinder Relationship Specialty Start Date End Date Andriy Thrasher MD [address] [facility] 110 [place], [place] [address] PCP - General Internal Medicine 04/25/23 Andriy Thrasher MD 112 [facility] 110 [place] [address] PCP - Medical [place] 11/06/2111/05 documented as of this encounter
--- OUTSIDE RECORDS SUMMARY | 2025-04-30 12:45 | XMS_ITS | Encounter Summary ---
Author Organization [facility] Address [address] [place] [address] Care Team Providers Care Watch Caser Name Role Phone Andriy Thrasher MD Primary Care Provider [phone] Andriy Thrasher MD Unavailable [phone] Encounter Details Date Type Department Care Team ([facility] Contact Info) Description 09/24/2024 Clinisync Result Encounter NOMS External Department Unsolicited Andriy Thrasher MD 112 [facility] 110 [place], [place] [address] Social History Tobacco Use Types Packs/Day Years [...] EDT Office Visit [facility] 112 [facility] 110 [place] [address] Andriy Thrasher MD 112 [facility] 110 [place], [place] [address] documented as of this encounter Procedures Procedure Name Priority Date/Time Associated Diagnosis Comments XR DEXA AXIAL SKELETON 09/24/2024 5:49 AM EST documented in this encounter Results * XR DEXA AXIAL SKELETON (09/24/2024 5:49 AM EST) Anatomical Region Laterality Modality Other 09/24/2024 5:49 AM EST Narrative 09/24/2024 5:52 AM EST [address] [address] XRay Report Signed Patient: BEA ESPINOZA MR#: [id number] : 1940 Acct:[id number] Age/Sex: 84 / F ADM Date: 09/23/24 Loc: RAD Attending Dr: ANDRIY THRASHER Ordering Physician: ANDRIY THRASHER Date of Service: 09/23/24 Procedure(s): XR DEXA axial skeleton Accession Number(s): [id number] cc: ANDRIY THRASHER [place] [id number] Patient Name: BEA ESPINOZA MRN: [id number] date: 1940 Sex: F Assigned Patient Location: [facility] Current Patient Location: Accession/Order Number: [id number] Exam Date: 09/23/2024 13:10 Report Date: 09/24/2024 05:49 At the request of: ANDRIY THRASHER Procedure: XR DEXA axial skeleton EXAMINATION: XR DEXA axial skeleton HISTORY: Estrogen Deficiency COMPARISON: DEXA bone densitometry 04/27/2022 TECHNIQUE: Dual-energy X-ray absorptiometry (DXA) was performed. FINDINGS: SPINE ANALYSIS: Average bone mineral density is 0.966 g/cm2. T-score (standard deviation relative to young adult mean): -2.0 . +10.0% change since prior study. HIP ANALYSIS: Lowest bone mineral density is within the right femoral neck, 0.909 g/cm2. T-score (standard deviation relative to young adult mean): -0.9 . +3.5% change since prior study. XR/XR DEXA axial skeleton IMPRESSION: World Health Organization Classification: Osteopenia - Moderate Fracture Risk FRAX: Cannot calculate. Pharmacologic treatment recommendations * No uniform recommendation applies to all patients. Management plans must be individualized. * Consider initiating pharmacologic treatment in postmenopausal women and men >= 50 years of age who have the following: Primary fracture prevention: * T-score <= - 2.5 at the femoral neck, total hip, lumbar spine, 33% radius (some uncertainty with existing data) by DXA. * Low bone mass (osteopenia: T-score between - 1.0 and - 2.5) at the femoral neck or total hip by DXA with a 10-year hip fracture risk >= 3% or a 10-year major osteoporosis-related fracture risk >= 20% (i.e., clinical vertebral, hip, forearm, or proximal humerus) based on the US-adapted FRAXregistered model. Secondary fracture prevention: * Fracture of the hip or vertebra regardless of BMD [4, 5]. * Fracture of proximal humerus, pelvis, or distal forearm in persons with low bone mass (osteopenia: T-score between - 1.0 and - 2.5). The decision to treat should be individualized in persons with a fracture of the proximal humerus, pelvis, or distal forearm who do not have osteopenia or low BMD [12, 13]. Casa MS, Enid SL, Hussein KL, Aislinn EM, Sebastián KG, AJ, Martin ES. The clinician's guide to prevention and treatment of osteoporosis. Osteoporos Int. 2021;33(10):2869-9420. doi: 10.1007/l08534-824-17249-v. Epub 2021Mar 03. Erratum in: Osteoporos Int. 2021Jun 02;: PMID: 62600569; PMCID: [id number]. Electronically authenticated by: KE FLOYD Date: 09/24/2024 05:49 Dictated By: Ke Floyd M.D. Signed By: 09/24/24 0552 DD/ 0549 TD/TT: Pathology Collector: Procedure Note Radiology, Radiologist, - 09/24/[address] [address] XRay Report Signed Patient: BEA ESPINOZA [facility]#: [id number] : 2Acct:[id number] Age/Sex: 84 / FADM Date: 09/23/24 Loc: [facility] Attending Dr: ANDRIY THRASHER Ordering Physician: ANDRIY THRASHER Date of Service: 09/23/24 Procedure(s): XR DEXA axial skeleton Accession Number(s): [id number] cc: ANDRIY THRASHER [place] [id number] Patient Name: BEA ESPINOZA MRN: [facility] [employer] [employer]:[id number] date: 1940 Sex: F Assigned Patient Location: [facility] Current Patient Location: Accession/Order Number: [id number] Exam Date: 09/23/2024 13:10 Report Date: 09/24/2024 05:49 At the request of: ANDRIY THRASHER Procedure: XR DEXA axial skeleton EXAMINATION: XR DEXA axial skeleton HISTORY: Estrogen Deficiency COMPARISON: DEXA bone densitometry 04/27/2022 TECHNIQUE: Dual-energy X-ray absorptiometry (DXA) was performed. FINDINGS: SPINE ANALYSIS: Average bone mineral density is 0.966 g/cm2. T-score (standard deviation relative to young adult mean): -2.0 . +10.0% change since prior study. HIP ANALYSIS: Lowest bone mineral density is within the right femoral neck, 0.909 g/cm2. T-score (standard deviation relative to young adult mean): -0.9 . +3.5% change since prior study. XR/XR DEXA axial skeleton IMPRESSION: World Health Organization Classification: Osteopenia - Moderate FractureRisk FRAX: Cannot calculate. Pharmacologic treatment recommendations * No uniform recommendation applies to all patients. Management plans mustbe individualized. * Consider initiating pharmacologic treatment in postmenopausal women andmen >= 50 years of age who have the following: Primary fracture prevention: * T-score <= - 2.5 at the femoral neck, total hip, lumbar spine, 33%radius (some uncertainty with existing data) by DXA. * Low bone mass (osteopenia: T-score between - 1.0 and - 2.5) at thefemoral neck or total hip by DXA with a 10-year hip fracture risk >= 3% or a11-djiu major osteoporosis-related fracture risk >= 20% (i.e., clinical vertebral, hip, forearm, or proximal humerus) based on the US-adapted FRAXregisteredmodel. Secondary fracture prevention: * Fracture of the hip or vertebra regardless of BMD [4, 5]. * Fracture of proximal humerus, pelvis, or distal forearm in persons withlow bone mass (osteopenia: T-score between - 1.0 and - 2.5). The decision totreat should be individualized in persons with a fracture of the proximalhumerus, pelvis, or distal forearm who do not have osteopenia or low BMD [12, 13]. Casa MS, Enid SL, Hussein KL, Aislinn EM, Sebastián KG, AJ,Martin ES. The clinician's guide to prevention and treatment of osteoporosis.Osteoporos Int. 2021;33(10):0334-8429. doi: 10.1007/e88886-774-77071-t. Epub . Erratum in: Osteoporos Int. 2021Jun 02;: PMID: 22665690; PMCID: [id number]. Electronically authenticated by: KE FLOYD Date: 09/24/2024 05:49 Dictated By: eK Floyd M.D. Signed By:09/24/24 0552 DD/ 0549 TD/TT: Pathology Collector: Andriy Thrasher MD [facility] Final Result documented in this encounter Visit Diagnoses Not on filedocumented in this encounter Care Teams Watch Caser Relationship Specialty Start Date End Date Andriy Thrasher MD [address] [facility] 110 [place] [address] PCP - General Internal Medicine 04/25/23 Andriy Thrasher MD [address] [facility] 110 [place] [address] PCP - Medical [facility] 11/06/2111/05 documented as of this encounter
--- OUTSIDE RECORDS SUMMARY | 2025-04-30 12:45 | XMS_ITS | Encounter Summary ---
Author Organization [facility] Address [address] [place] [address] Care Team Providers Care Brand Ambassador Promotional Model Name Role Phone Andriy Thrasher MD Primary Care Provider [phone] Andriy Thrasher MD Unavailable [phone] Encounter Details Date Type Department Care Team (Late Contact Info) Description 05/23/2018 Abstract [facility] [address] [place] [address] Nhi Friend, [facility] [address] [place] [address] Social History Tobacco Use Types [...] Visit [facility] [address] [facility] 110 [place] [address] Andriy Thrasher MD [address] [facility] 110 [place], [place] [address] documented as of this encounter Visit Diagnoses Not on filedocumented in this encounter Care Teams Brand Ambassador Promotional Model Relationship Specialty Start Date End Date Andriy Thrasher MD [address] [facility] 110 [place], [place] [address] PCP - General Internal Medicine 04/25/23 Andriy Thrasher MD 112 [facility] 110 [place] [address] PCP - Medical [place] 11/06/2111/05 documented as of this encounter
--- OUTSIDE RECORDS SUMMARY | 2025-04-30 12:45 | XMS_ITS | Encounter Summary ---
Author Organization [facility] Address [address] [place] [address] Care Team Providers Care Pest Control Chemical Technician Name Role Phone Andriy Thrasher MD Primary Care Provider [phone] Andriy Thrasher MD Unavailable [phone] Encounter Details Date Type Department Care Team ([facility] Contact Info) Description 02/12/2025 Orders Only [facility] FM [address] [facility] 110 [place] [address] Vivienne Parra LPN [address] [place] [address] Estrogen deficiency Social History Tobacco Use Types Packs/Day Years Used Date Smoking Tobacco: Never Smokeless Tobacco: Never Alcohol Use Standard Drinks/Week Comments Never 0 (1 standard drink = 0.6 oz pur e alcohol) PHQ-2 Answer Date Recorded Patient Health Questionnaire-2 Score 0 01/08/2025 Comments Unknown Sex and Gender Information Value [...] FM [address] [place] [address] Andriy Thrasher MD [address] [place] [address] documented as of this encounter Visit Diagnoses Diagnosis Estrogen deficiency Other ovarian failure documented in this encounter Care Teams Pest Control Chemical Technician Relationship Specialty Start Date End Date Andriy Thrasher MD [address] [place] [address] PCP - General Internal Medicine 04/25/23 Andriy Thrasher MD 112 [facility] 110 [place] [address] PCP - Medical [facility] 11/06/2111/05 documented as of this encounter
--- OUTSIDE RECORDS SUMMARY | 2025-04-30 12:46 | XMS_ITS | Encounter Summary ---
Author Organization [facility] Address [address] [facility] [place] [address] Care Team Providers Care Goodyear Welter Name Role Phone Andriy Thrasher MD Primary Care Provider [phone] Andriy Thrasher MD Unavailable [phone] Encounter Details Date Type Department Care Team ([facility] Contact Info) Description 04/10/2025 Abstract [facility] [address] [facility] 110 [place] [address] Andriy Thrasher MD [address] [facility] 110 [place] [address] Social History Tobacco Use Types Packs/Day Years [...] Visit [facility] CI [facility] [address] [facility] 110 [place] [address] Andriy Thrasher MD [address] [facility] 110 [place] [address] documented as of this encounter Visit Diagnoses Not on filedocumented in this encounter Care Teams Goodyear Welter Relationship Specialty Start Date End Date Andriy Thrasher MD [address] [facility] 110 [place] [address] PCP - General Internal Medicine 04/25/23 Andriy Thrasher MD [address] [facility] 110 [place] [address] PCP - Medical [facility] 11/06/2111/05 documented as of this encounter
--- NOTE | 2025-04-30 13:00 | CA_ITS ---
Patient Name: GRACIE GONZALEZ MR#: [id number] : 1940 Exam Date: 04/30/2025 Ordering Doctor: DR OZZY VILLARREAL M.D. ECHOCARDIOGRAM REPORT PROCEDURE: CA ECHO DOPPLER COMPLETE INDICATIONS: Atrial flutter, edema COMPARISON: None. DESCRIPTION: COMPLETE ECHOCARDIOGRAM Real-time transthoracic echocardiography with 2D, M-mode, spectral and color flow Doppler performed. QUALITY: Technical quality was good. LEFT VENTRICLE: Normal chamber size. Mild concentric hypertrophy. Normal systolic function. LV EF: Normal left ventricular ejection fraction, (>55%). DIASTOLIC: Diastolic function is indeterminate. ATRIAL SEPTUM: LEFT ATRIUM: Moderate dilatation. RIGHT ATRIUM: Moderate dilatation. RIGHT VENTRICLE: Mild dilatation. Normal right ventricular systolic function. TRICUSPID VALVE: Normal mobility and thickness. No stenosis with moderate regurgitation. Doppler studies reveal moderately (45-60) elevated right sided pressures. RVSP 57 mmHg, which is increased from echocardiogram done 01/24/25 measuring at 43 mmHg. MITRAL VALVE: Normal mobility and thickness. No evidence of mitral valve stenosis. There is no mitral annular calcification. Mild mitral regurgitation. AORTIC VALVE: Normal trileaflet appearance. No visible sclerosis. Normal leaflet mobility. No evidence of aortic valve stenosis. No aortic regurgitation. AORTIC ROOT: Normal diameter and appearance, measuring 3.3 cm. Ascending aorta is normal in size, measuring 3.0 cm. PULMONIC VALVE: Normal thickness and mobility. No stenosis. No regurgitation. PERICARDIUM: No evidence of pericardial effusion. IVC: Not well visualized. PLEURA: CONCLUSION: 1. Mild concentric left ventricular hypertrophy with normal systolic function. Estimated LVEF is 60%. 2. Mildly dilated right ventricle with normal systolic function. 3. Moderate biatrial dilatation. 4. Mild mitral regurgitation. 5. Moderate tricuspid regurgitation. 6. Moderately elevated right-sided pressures. RVSP is 57 mmHg. Adult Echocardiography Procedure Report Left Ventricle LVEDD (3.7 - 5.6 cm): 3.81 cm LVESD (2.2 - 4.0 cm): 2.62 cm LVIVS thickness (0.6 - 1.2 cm): 1.33 cm LVPW thickness (0.5 - 1.0 cm): 1.11 cm e': 0.10 m/s E - e': 5.76 LVOT Max Gradient: 2.97 mm[Hg] LVOT Area (cm2): 0.86 m/s Peak Velocity (LVOT): 0.86 m/s Mean Velocity (LVOT): 0.46 m/s LVOT Diameter 2.08 cm Left Atrium LA Volume Index (2D A2C): 51.77 ml/m2 Left Atrium Systolic Dimension: 3.75 cm Mitral Valve MV E to A Ratio: 0.77 Mitral Valve A-Wave Peak Velocity: 0.77 m/s Mitral Valve E-Wave Peak Velocity: 0.59 m/s Right Ventricle Aorta AO Root Diam: 3.28 cm Ascending Ao Diam: 3.02 cm Aortic Valve AoV Area (Peak Fox): 2.94 cm2, 2.94 cm2 AoV Area (VTI): 2.38 cm2, 2.38 cm2 Peak Velocity(Antegrade Flow): 0.99 m/s Peak Gradient(Antegrade Flow): 3.94 mm[Hg] Mean Velocity(Antegrade Flow): 0.64 m/s Mean Gradient(Antegrade Flow): 1.92 mm[Hg] Velocity Time Integral: 26.37 cm Tricuspid Valve Peak Velocity (Regurgitant Flow): 3.50 m/s, 3.10 m/s, 3.09 m/s Pulmonic Valve Peak Gradient: 5.50 mm[Hg], 5.78 mm[Hg] Right Atrium Right Atrium Systolic Pressure: 51.01 ml, 51.01 ml Dictated by: Ozzy Villarreal M.D. on 04/30/2025 at 19:35 Approved by: Ozzy Villarreal M.D. on 04/30/2025 at 19:47
== END 2025-04-30 12:43 | disposition home or self-care (01) ==
LOC: CARD 12:43
PROVIDERS: PCP Internal Medicine; Visit Provider Internal Medicine Interventional Cardiology
DX: I48.4 Atypical atrial flutter (principal); R60.0 Localized edema
CPT/HCPCS: 93306

== ENCOUNTER 2025-05-02 13:25 | Outpatient (OUT) | payer MEDICARE, SELFPAY ==
--- OUTSIDE RECORDS SUMMARY | 2025-05-02 13:27 | XMS_ITS | Encounter Summary ---
Author Organization [facility] Address [address] [place] [address] Care Team Providers Care Restaurant Associate Name Role Phone Andriy Thrasher MD Primary Care Provider [phone] Andriy Thrasher MD Unavailable [phone] Encounter Details Date Type Department Care Team (Late Contact Info) Description 12/03/2018 Abstract [facility] [address] [place] [address] Nhi Friend, [facility] [address] [place] [address] Social History Tobacco Use Types [...] [facility] [address] [facility] 110 [place] [address] Andriy Thrasher MD [address] [facility] 110 [place], [place] [id number] documented as of this encounter Visit Diagnoses Not on filedocumented in this encounter Care Teams Restaurant Associate Relationship Specialty Start Date End Date Andriy Thrasher MD [address] [facility] 110 [place], [place] [address] PCP - General Internal Medicine 04/25/23 Andriy Thrasher MD 112 [facility] 110 [place] [address] PCP - Medical [place] 11/06/2111/05 documented as of this encounter
--- OUTSIDE RECORDS SUMMARY | 2025-05-02 13:27 | XMS_ITS | Encounter Summary ---
Author Organization [facility] Address [address] [place] [address] Care Team Providers Care Commercial Credit Specialist Name Role Phone Andriy Thrasher MD Primary Care Provider [phone] Andriy Thrasher MD Unavailable [phone] Encounter Details Date Type Department Care Team (Late Contact Info) Description 05/05/2021 Abstract [facility] [address] [facility] [place] [address] Nhi Friend, [facility] [address] [place] [address] Social History Tobacco Use Types [...] Visit [facility] [address] [facility] 110 [place] [address] Andriy Thrasher MD [address] [facility] 110 [place], [place] [address] documented as of this encounter Visit Diagnoses Not on filedocumented in this encounter Care Teams Commercial Credit Specialist Relationship Specialty Start Date End Date Andriy Thrasher MD [address] 110 [place] [address] PCP - General Internal Medicine 04/25/23 Andriy Thrasher MD 112 [facility] 110 [place] [address] PCP - Medical [place] 11/06/2111/05 documented as of this encounter
--- OUTSIDE RECORDS SUMMARY | 2025-05-02 13:28 | XMS_ITS | Encounter Summary ---
Author Organization [facility] Address [address] [place] [address] Care Team Providers Care Sr Risk Management Consultant Name Role Phone Andriy Thrasher MD Primary Care Provider [phone] Andriy Thrasher MD Unavailable [phone] Encounter Details Date Type Department Care Team (Late Contact Info) Description 05/08/2018 Abstract [facility] AUDIOLOGY [address] [place] [address] Nhi Friend, [facility] [address] [place] [address] Social History Tobacco Use Types [...] [facility] 110 [place] [address] Andriy Thrasher MD [address] [facility] 110 [place], [place] [address] documented as of this encounter Visit Diagnoses Not on filedocumented in this encounter Care Teams Sr Risk Management Consultant Relationship Specialty Start Date End Date Andriy Thrasher MD [address] [facility] 110 [place], [place] [address] PCP - General Internal Medicine 04/25/23 Andriy Thrasher MD 112 [facility] 110 [place] [address] PCP - Medical [place] 11/06/2111/05 documented as of this encounter
--- OUTSIDE RECORDS SUMMARY | 2025-05-02 13:28 | XMS_ITS | Encounter Summary ---
Author Organization [facility] Address [address] [facility] [place] [address] Care Team Providers Care Field Instructor Name Role Phone Andriy Thrasher MD Primary Care Provider [phone] Andriy Thrasher MD Unavailable [phone] Encounter Details Date Type Department Care Team ([facility] Contact Info) Description 08/29/2023 Abstract [facility] [address] [facility] 110 [place] [address] Andriy Thrasher MD [address] [facility] 110 [place] [address] Social History Tobacco Use Types Packs/Day Years [...] [facility] [address] [facility] 110 [place] [address] Andriy Thrasher MD [address] [facility] 110 [place] [address] documented as of this encounter Visit Diagnoses Not on filedocumented in this encounter Care Teams Field Instructor Relationship Specialty Start Date End Date Andriy Thrasher MD [address] [facility] 110 [place] [address] PCP - General Internal Medicine 04/25/23 Andriy Thrasher MD 112 [facility] 110 [place] [address] PCP - Medical [place] 11/06/2111/05 documented as of this encounter
--- OUTSIDE RECORDS SUMMARY | 2025-05-02 13:28 | XMS_ITS | Encounter Summary ---
Author Organization [facility] Address [address] [place] [address] Care Team Providers Care Aerial Tram Operator Name Role Phone Andriy Thrasher MD Primary Care Provider [phone] Andriy Thrasher MD Unavailable [phone] Encounter Details Date Type Department Care Team ([facility] Contact Info) Description 09/23/2024 Abstract [facility] [address] [facility] 110 [place] [address] Andriy Thrasher MD [address] [facility] 110 [place] [address] Social History Tobacco Use Types Packs/Day Years [...] [facility] 110 [place] [address] Andriy Thrasher MD [address] [facility] 110 [place] [address] documented as of this encounter Visit Diagnoses Not on filedocumented in this encounter Care Teams Aerial Tram Operator Relationship Specialty Start Date End Date Andriy Thrasher MD [address] [facility] [address] [place] [address] PCP - General Internal Medicine 04/25/23 Andriy Thrasher MD [address] [facility] 110 [place] [address] PCP - Medical [facility] 11/06/2111/05 documented as of this encounter
--- OUTSIDE RECORDS SUMMARY | 2025-05-02 13:28 | XMS_ITS | Encounter Summary ---
Author Organization [facility] Address [address] [place] [address] Care Team Providers Care Real Estate Legal Assistant Name Role Phone Andriy Thrasher MD Primary Care Provider [phone] Andriy Thrasher MD Unavailable [phone] Encounter Details Date Type Department Care Team (Late Contact Info) Description 04/22/2021 Abstract [facility] AUDIOLOGY [address] [place] [address] [place] [address] Nhi Friend, [facility] [address] [place] [address] Social History Tobacco Use Types [...] Visit [facility] FM [address] [facility] 110 [place] [address] Andriy Thrasher MD [address] [facility] 110 [place], [place] [address] documented as of this encounter Visit Diagnoses Not on filedocumented in this encounter Care Teams Real Estate Legal Assistant Relationship Specialty Start Date End Date Andriy Thrasher MD [address] [place], [place] [address] PCP - General Internal Medicine 04/25/23 Andriy Thrasher MD 112 [facility] 110 [place] [address] PCP - Medical [place] 11/06/2111/05 documented as of this encounter
--- OUTSIDE RECORDS SUMMARY | 2025-05-02 13:28 | XMS_ITS | Encounter Summary ---
Author Organization [facility] Address [address] [place] [address] Care Team Providers Care Automobile Spring Repairer Name Role Phone Andriy Thrasher MD Primary Care Provider [phone] Andriy Thrasher MD Unavailable [phone] Encounter Details Date Type Department Care Team (Late Contact Info) Description 2023 Abstract [facility] [address] [facility] 110 [place] [address] Andriy Thrasher MD [address] [facility] 110 [place] [address] Social History Tobacco Use Types Packs/Day Years [...] [address] [facility] 110 [place] [address] Andriy Thrasher MD [address] [facility] 110 [place] [address] documented as of this encounter Visit Diagnoses Not on filedocumented in this encounter Care Teams Automobile Spring Repairer Relationship Specialty Start Date End Date Andriy Thrasher MD [address] [facility] 110 [place] [address] PCP - General Internal Medicine 04/25/23 Andriy Thrasher MD 112 [facility] 110 [place] [address] PCP - Medical [place] 11/06/2111/05 documented as of this encounter
--- OUTSIDE RECORDS SUMMARY | 2025-05-02 13:28 | XMS_ITS | Encounter Summary ---
Author Organization [facility] Address [address] [place] [address] Care Team Providers Care Risk Officer Name Role Phone Andriy Thrasher MD Primary Care Provider [phone] Andriy Thrasher MD Unavailable [phone] Encounter Details Date Type Department Care Team (Late Contact Info) Description 05/23/2018 Abstract [facility] AUDIOLOGY [address] [place] [place] [address] Nhi Friend, [facility] [address] [place] [address] Social History Tobacco Use Types [...] Visit [facility] FM [address] [facility] 110 [place] [address] Andriy Thrasher MD [address] [facility] 110 [place], [place] [address] documented as of this encounter Visit Diagnoses Not on filedocumented in this encounter Care Teams Risk Officer Relationship Specialty Start Date End Date Andriy Thrasher MD [address] [facility] 110 [place], [place] [address] PCP - General Internal Medicine 04/25/23 Andriy Thrasher MD 112 [facility] 110 [place] [address] PCP - Medical [place] 11/06/2111/05 documented as of this encounter
--- OUTSIDE RECORDS SUMMARY | 2025-05-02 13:28 | XMS_ITS | Encounter Summary ---
Author Organization [facility] Address [address] [facility] [place] [address] Care Team Providers Care Computer Programming Manager Name Role Phone Andriy Thrasher MD Primary Care Provider [phone] Andriy Thrasher MD Unavailable [phone] Encounter Details Date Type Department Care Team ([facility] Contact Info) Description 11/15/2023 Abstract [facility] [address] [facility] 110 [place] [address] Andriy Thrasher MD [address] [facility] 110 [place] [address] Social History Tobacco Use Types Packs/Day Years [...] Visit [facility] CI FM [address] [facility] 110 [place] [address] Andriy Thrasher MD [address] [facility] 110 [place] [address] documented as of this encounter Visit Diagnoses Not on filedocumented in this encounter Care Teams Computer Programming Manager Relationship Specialty Start Date End Date Andriy Thrasher MD [address] [facility] 110 [place] [address] PCP - General Internal Medicine 04/25/23 Andriy Thrasher MD 112 [facility] 110 [place] [address] PCP - Medical [place] 11/06/2111/05 documented as of this encounter
--- OUTSIDE RECORDS SUMMARY | 2025-05-02 13:28 | XMS_ITS | Encounter Summary ---
Author Organization [facility] Address [address] [place] [address] Care Team Providers Care Director Of Automation Name Role Phone Andriy Thrasher MD Primary Care Provider [phone] Andriy Thrasher MD Unavailable [phone] Encounter Details Date Type Department Care Team (Late Contact Info) Description 04/25/2023 Abstract [facility] AUDIOLOGY [address] [place] [address] Nhi Friend, [facility] [address] [place] [address] Social History Tobacco Use Types [...] [address] [facility] 110 [place] [address] Andriy Thrasher MD [address] [facility] 110 [place], [place] [address] documented as of this encounter Visit Diagnoses Not on filedocumented in this encounter Care Teams Director Of Automation Relationship Specialty Start Date End Date Andriy Thrasher MD [address] [facility] 110 [place], [place] [address] PCP - General Internal Medicine 04/25/23 Andriy Thrasher MD 112 [facility] 110 [place] [address] PCP - Medical [place] 11/06/2111/05 documented as of this encounter
--- OUTSIDE RECORDS SUMMARY | 2025-05-02 13:28 | XMS_ITS | Encounter Summary ---
Author Organization [facility] Address [address] [place] [address] Care Team Providers Care Nonprofit Director Name Role Phone Andriy Thrasher MD Primary Care Provider Andriy Thrasher MD Unavailable [phone] Encounter Details Date Type Department Care Team ([facility] Contact Info) Description 09/16/2024 Abstract [facility] [address] [facility] 110 [place] [address] Andriy Thrasher MD [address] [facility] 110 [place] [address] Social History Tobacco Use Types Packs/Day Years [...] Visit [facility] [address] [facility] 110 [place] [address] Andriy Thrasher MD [address] [facility] 110 [place] [address] documented as of this encounter Visit Diagnoses Not on filedocumented in this encounter Care Teams Nonprofit Director Relationship Specialty Start Date End Date Anrdiy Thrasher MD [address] [facility] 110 [place] [address] PCP - General Internal Medicine 04/25/23 Andriy Thrasher MD [address] [facility] 110 [place] [address] PCP - Medical [facility] 11/06/2111/05 documented as of this encounter
--- OUTSIDE RECORDS SUMMARY | 2025-05-02 13:28 | XMS_ITS | Encounter Summary ---
Author Organization [facility] Address [address] [place] [address] Care Team Providers Care Armored Car Guard Name Role Phone Andriy Thrasher MD Primary Care Provider [phone] Andriy Thrasher MD Unavailable [phone] Encounter Details Date Type Department Care Team (Late Contact Info) Description 05/23/2018 Abstract [facility] AUDIOLOGY [address] [place] [address] Nhi Friend, [facility] [address] [place] [address] Social History Tobacco Use Types [...] Visit [facility] [address] [facility] 110 [place] [address] Andriy Thrasher MD [address] [facility] 110 [place], [place] [address] documented as of this encounter Visit Diagnoses Not on filedocumented in this encounter Care Teams Armored Car Guard Relationship Specialty Start Date End Date Andriy Thrasher MD [address] [facility] 110 [place], [place] [address] PCP - General Internal Medicine 04/25/23 Andriy Thrasher MD 112 [facility] 110 [place] [address] PCP - Medical [place] 11/06/2111/05 documented as of this encounter
--- OUTSIDE RECORDS SUMMARY | 2025-05-02 13:28 | XMS_ITS | Clinical Summary ---
Author Organization [facility] Address [address] [place] [address] Care Team Providers Care Journalism Intern Name Role Phone Andriy Thrasher MD Primary Care Provider [phone] Allergies No known active allergies Medications apixaban [...] Type Department Care Team Description 03/12/2025 Telephone [facility] [place] [address] [place] [address] [place], [place] from Last [...] Description 05/26/2025 1:45 PM EDT Office Visit [facility] [address] [place] [address] Barrett Villarreal MD [address] [facility] [place] [address] Health Maintenance Due Date Last [...] topic Insurance [employer] Care Teams Journalism Intern Relationship Specialty Start Date End Date Andriy Thrasher MD 112 [facility] 110 [place] [address] PCP - General 07/17/22
--- OUTSIDE RECORDS SUMMARY | 2025-05-02 13:28 | XMS_ITS | Encounter Summary ---
Author Organization [facility] Address [address] [place] [address] Care Team Providers Care Mental Measurements Teacher Name Role Phone Andriy Thrasher MD Primary Care Provider [phone] Andriy Thrasher MD Unavailable [phone] Encounter Details Date Type Department Care Team ([facility] Contact Info) Description 09/24/2024 Abstract [facility] [address] [facility] 110 [place] [address] Andriy Thrasher MD [address] [facility] 110 [place] [address] Social History Tobacco Use Types Packs/Day Years [...] Visit [facility] FM [address] [facility] 110 [place] [address] Andriy Thrasher MD [address] [facility] 110 [place] [address] documented as of this encounter Visit Diagnoses Not on filedocumented in this encounter Care Teams Mental Measurements Teacher Relationship Specialty Start Date End Date Andriy Thrasher MD [address] [facility] 110 [place] [address] PCP - General Internal Medicine 04/25/23 Andriy Thrasher MD [address] [facility] 110 [place] [address] PCP - Medical [facility] 11/06/2111/05 documented as of this encounter
--- OUTSIDE RECORDS SUMMARY | 2025-05-02 13:28 | XMS_ITS | Encounter Summary ---
Author Organization [facility] Address [address] [place] [address] Care Team Providers Care Check Examiner Name Role Phone Andriy Thrasher MD Primary Care Provider Andriy Thrasher MD Unavailable [phone] Encounter Details Date Type Department Care Team ([facility] Contact Info) Description 09/24/2024 Clinisync Result Encounter NOMS External Department Unsolicited Andriy Thrasher MD 112 [facility] 110 [place], [place] [address] Social History Tobacco Use Types Packs/Day Years [...] EDT Office Visit [facility] 112 [facility] 110 [place] [address] Andriy Thrasher MD 112 [facility] 110 [place], [place] [address] documented as of this encounter Procedures Procedure Name Priority Date/Time Associated Diagnosis Comments XR DEXA AXIAL SKELETON 09/24/2024 5:49 AM EST documented in this encounter Results * XR DEXA AXIAL SKELETON (09/24/2024 5:49 AM EST) Anatomical Region Laterality Modality Other 09/24/2024 5:49 AM EST Narrative 09/24/2024 5:52 AM EST [address] [address] XRay Report Signed Patient: BEA ESPINOZA MR#: [id number] : 1940 Acct:[id number] Age/Sex: 84 / F ADM Date: 09/23/24 Loc: RAD Attending Dr: ANDRIY THRASHER Ordering Physician: ANDRIY THRASHER Date of Service: 09/23/24 Procedure(s): XR DEXA axial skeleton Accession Number(s): [id number] cc: ANDRIY THRASHER [place] [id number] Patient Name: BEA ESPINOZA MRN: [id number] date: 1940 Sex: F Assigned Patient Location: [facility] Current Patient Location: Accession/Order Number: [id number] Exam Date: 09/23/2024 13:10 Report Date: 09/24/2024 [...] prevention and treatment of osteoporosis. Osteoporos Int. 2021;33(10):4560-5162. doi: 10.1007/x15938-243-85226-v. Epub 2021Mar 03. Erratum in: Osteoporos Int. 2021Jun 02;: PMID: 55066111; PMCID: [id number]. Electronically authenticated by: KE FLOYD Date: 09/24/2024 05:49 Dictated By: Ke Floyd M.D. Signed By: 09/24/24 0552 DD/ 0549 TD/TT: Camera Tuning Engineer: Procedure Note Radiology, Radiologist, - 09/24/[address] [address] XRay Report Signed Patient: BEA ESPINOZA [facility]#: [id number] : 2Acct:[id number] Age/Sex: 84 / FADM Date: 09/23/24 Loc: [facility] Attending Dr: ANDRIY THRASHER Ordering Physician: ANDRIY THRASHER Date of Service: 09/23/24 Procedure(s): XR DEXA axial skeleton Accession Number(s): [id number] cc: ANDRIY THRASHER [place] [id number] Patient Name: BEA ESPINOZA MRN: [facility]:[id number] date: 1940 Sex: F Assigned Patient Location: [facility] Current Patient Location: Accession/Order Number: [id number] Exam Date: 09/23/2024 13:10 Report Date: 09/24/2024 [...] 10-year hip fracture risk >= 3% or [id number] major osteoporosis-related fracture risk >= 20% (i.e., [...] to prevention and treatment of osteoporosis.Osteoporos Int. 2021;33(10):1593-7282. doi: 10.1007/b82329-457-04596-y. Epub . Erratum in: Osteoporos Int. 2021Jun 02;: PMID: 47073525; PMCID: [id number]. Electronically authenticated by: KE FLOYD Date: 09/24/2024 05:49 Dictated By: Ke Floyd M.D. Signed By:09/24/24 0552 DD/ 0549 TD/TT: Camera Tuning Engineer: Andriy Thrasher MD [facility] Final Result documented in this encounter Visit Diagnoses Not on filedocumented in this encounter Care Teams Check Examiner Relationship Specialty Start Date End Date Andriy Thrasher MD [address] [facility] 110 [place] [address] PCP - General Internal Medicine 04/25/23 Andriy Thrasher MD [address] [facility] 110 [place] [address] PCP - Medical [facility] 11/06/2111/05 documented as of this encounter
--- OUTSIDE RECORDS SUMMARY | 2025-05-02 13:28 | XMS_ITS | Referral Summary ---
Author Organization [facility] Address [address] [place] [address] Care Team Providers Care Industrial Economics Teacher Name Role Phone Andriy Thrasher MD Primary Care Provider [phone] Encounters Date Type Department Care Team Description 03/12/2025 Telephone [facility] [address] [place] [address] Dena Hurd MA from Last [...] Description 05/26/2025 1:45 PM EDT Office Visit [facility] [address] [place] [address] Barrett Villarreal MD [address] [facility] 1 [facility] [place] [address] Insurance [employer] [place] [employer] Care Teams Industrial Economics Teacher Relationship Specialty Start Date End Date Andriy Thrasher MD [address] [address] PCP - General 07/17/22
--- OUTSIDE RECORDS SUMMARY | 2025-05-02 13:28 | XMS_ITS | Encounter Summary ---
Author Organization [facility] Address [address] [facility] [place] [address] Care Team Providers Care Photostat Operator Helper Name Role Phone Andriy Thrasher MD Primary Care Provider [phone] Andriy Thrasher MD Unavailable [phone] Encounter Details Date Type Department Care Team ([facility] Contact Info) Description 04/10/2025 Abstract [facility] CI FM [address] [facility] 110 [place] [address] Andriy Thrasher MD [address] [facility] 110 [place] [address] Social History Tobacco Use Types Packs/Day Years [...] [address] [facility] 110 [place] [address] Andriy Thrasher MD [address] [facility] 110 [place] [address] documented as of this encounter Visit Diagnoses Not on filedocumented in this encounter Care Teams Photostat Operator Helper Relationship Specialty Start Date End Date Andriy Thrasher MD [address] [facility] 110 [place] [address] PCP - General Internal Medicine 04/25/23 Andriy Thrasher MD [address] [facility] 110 [place] [address] PCP - Medical [facility] 11/06/2111/05 documented as of this encounter
--- OUTSIDE RECORDS SUMMARY | 2025-05-02 13:28 | XMS_ITS | Encounter Summary ---
Author Organization [facility] Address [address] [place] [address] Care Team Providers Care [employer] Executive Director Name Role Phone Andriy Thrasher MD Primary Care Provider [phone] Andriy Thrasher MD Unavailable [phone] Encounter Details Date Type Department Care Team (Late Contact Info) Description 05/23/2018 Abstract [facility] [address] [place] [address] Nhi Friend, [facility] [address] [place] [address] Social History Tobacco Use Types [...] [address] [facility] 110 [place] [address] Andriy Thrasher MD [address] [facility] 110 [place], [place] [address] documented as of this encounter Visit Diagnoses Not on filedocumented in this encounter Care Teams [employer] Executive Director Relationship Specialty Start Date End Date Andriy Thrasher MD [address] [facility] 110 [place], [place] [address] PCP - General Internal Medicine 04/25/23 Andriy Thrasher MD 112 [facility] 110 [place] [address] PCP - Medical [place] 11/06/2111/05 documented as of this encounter
--- OUTSIDE RECORDS SUMMARY | 2025-05-02 13:28 | XMS_ITS | Encounter Summary ---
Author Organization [facility] Address [address] [facility] [place] [address] Care Team Providers Care Flatwork Washer Name Role Phone Andriy Thrasher MD Primary Care Provider Andriy Thrasher MD Unavailable [phone] Encounter Details Date Type Department Care Team (Late Contact Info) Description 04/30/2025 Clinisync Result Encounter NOMS External Department Unsolicited Provider, Generic External Data Social History Tobacco Use Types Packs/Day Years [...] EDT Office Visit [facility] CI FM 112 [facility] 110 [place] [address] Andriy Thrasher MD 112 [facility] 110 [place] [address] documented as of this encounter Procedures Procedure Name Priority Date/Time Associated Diagnosis Comments CA ECHO DOPPLER COMPLETE 04/30/2025 7:48 PM EDT documented in this encounter Results * CA ECHO DOPPLER COMPLETE (04/30/2025 7:48 PM EDT) Anatomical Region Laterality Modality Other 04/30/2025 7:48 PM EDT Narrative 04/30/2025 7:48 [place] [address] Cardiology Report Signed Patient: BEA ESPINOZA MR#: [id number] : 1940 Acct:[id number] Age/Sex: 84 / F ADM Date: 04/30/25 Loc: CARD Attending Dr: OZZY VILLARREAL Ordering Physician: OZZY VILLARREAL Date of Service: 04/30/25 Procedure(s): CA echo doppler complete Accession Number(s): [id number] cc: ANDRIY THRASHER ; OZZY VILLARREAL Patient Name: BEA ESPINOZA MR#: [id number] : 1940 Exam Date: 04/30/2025 Ordering Doctor: DR OZZY VILLARREAL M.D. ECHOCARDIOGRAM REPORT PROCEDURE: CA ECHO DOPPLER COMPLETE INDICATIONS: Atrial flutter, edema COMPARISON: None. DESCRIPTION: COMPLETE ECHOCARDIOGRAM Real-time transthoracic echocardiography with 2D, M-mode, spectral and color flow Doppler performed. QUALITY: Technical quality was good. LEFT VENTRICLE: Normal chamber size. Mild concentric hypertrophy. Normal systolic function. LV EF: Normal left ventricular ejection fraction, (>55%). DIASTOLIC: Diastolic function is indeterminate. ATRIAL SEPTUM: LEFT ATRIUM: Moderate dilatation. RIGHT ATRIUM: Moderate dilatation. RIGHT VENTRICLE: Mild dilatation. Normal right ventricular systolic function. TRICUSPID VALVE: Normal mobility and thickness. No stenosis with moderate regurgitation. Doppler studies reveal moderately (45-60) elevated right sided pressures. RVSP 57 mmHg, which is increased from echocardiogram done 01/24/25 measuring at 43 mmHg. MITRAL VALVE: Normal mobility and thickness. No evidence of mitral valve stenosis. There is no mitral annular calcification. Mild mitral regurgitation. AORTIC VALVE: Normal trileaflet appearance. No visible sclerosis. Normal leaflet mobility. No evidence of aortic valve stenosis. No aortic regurgitation. AORTIC ROOT: Normal diameter and appearance, measuring 3.3 cm. Ascending aorta is normal in size, measuring 3.0 cm. PULMONIC VALVE: Normal thickness and mobility. No stenosis. No regurgitation. PERICARDIUM: No evidence of pericardial effusion. IVC: Not well visualized. PLEURA: CONCLUSION: 1. Mild concentric left ventricular hypertrophy with normal systolic function. Estimated LVEF is 60%. 2. Mildly dilated right ventricle with normal systolic function. 3. Moderate biatrial dilatation. 4. Mild mitral regurgitation. 5. Moderate tricuspid regurgitation. 6. Moderately elevated right-sided pressures. RVSP is 57 mmHg. Adult Echocardiography Procedure Report Left Ventricle LVEDD (3.7 - 5.6 cm): 3.81 cm LVESD (2.2 - 4.0 cm): 2.62 cm LVIVS thickness (0.6 - 1.2 cm): 1.33 cm LVPW thickness (0.5 - 1.0 cm): 1.11 cm e': 0.10 m/s E - e': 5.76 LVOT Max Gradient: 2.97 mm[Hg] LVOT Area (cm2): 0.86 m/s Peak Velocity (LVOT): 0.86 m/s Mean Velocity (LVOT): 0.46 m/s LVOT Diameter 2.08 cm Left Atrium LA Volume Index (2D A2C): 51.77 ml/m2 Left Atrium Systolic Dimension: 3.75 cm Mitral Valve MV E to A Ratio: 0.77 Mitral Valve A-Wave Peak Velocity: 0.77 m/s Mitral Valve E-Wave Peak Velocity: 0.59 m/s Right Ventricle Aorta AO Root Diam: 3.28 cm Ascending Ao Diam: 3.02 cm Aortic Valve AoV Area (Peak Fox): 2.94 cm2, 2.94 cm2 AoV Area (VTI): 2.38 cm2, 2.38 cm2 Peak Velocity(Antegrade Flow): 0.99 m/s Peak Gradient(Antegrade Flow): 3.94 mm[Hg] Mean Velocity(Antegrade Flow): 0.64 m/s Mean Gradient(Antegrade Flow): 1.92 mm[Hg] Velocity Time Integral: 26.37 cm Tricuspid Valve Peak Velocity (Regurgitant Flow): 3.50 m/s, 3.10 m/s, 3.09 m/s Pulmonic Valve Peak Gradient: 5.50 mm[Hg], 5.78 mm[Hg] Right Atrium Right Atrium Systolic Pressure: 51.01 ml, 51.01 ml Dictated by: Ozzy Villarreal M.D. on 04/30/2025 at 19:35 Approved by: Ozzy Villarreal M.D. on 04/30/2025 at 19:47 Dictated By: OZZY VILLARREAL Signed By: 04/30/251947 DD/ 47 TD/TT: Sprinkling System Installer: Procedure Note Radiology, Radiologist, MD - 04/30/2025 [place] [address] Cardiology Report Signed Patient: BEA ESPINOZA AMR#: [id number] : 1940cct:[id number] Age/Sex: 84 / FADM Date: 04/30/25 Loc: CARD Attending Dr: OZZY VILLARREAL Ordering Physician: OZZY VILLARREAL Date of Service: 04/30/25 Procedure(s): CA echo doppler complete Accession Number(s): [id number] cc: ANDRIY THRASHER ; OZZY VILLARREAL Patient Name: BEA ESPINOZA MR#: [id number] : 1940 Exam Date: 04/30/2025 Ordering Doctor: DR OZZY VILLARREAL M.D. ECHOCARDIOGRAM REPORT PROCEDURE: CA ECHO DOPPLER COMPLETE INDICATIONS: Atrial flutter, edema COMPARISON: None. DESCRIPTION: COMPLETE ECHOCARDIOGRAM Real-time transthoracic echocardiography with 2D, M-mode, spectral and color flow Dopplerperformed. QUALITY: Technical quality was good. LEFT VENTRICLE: Normal chamber size. Mild concentric hypertrophy.Normal systolic function. LV EF: Normal left ventricular ejection fraction, (>55%). DIASTOLIC: Diastolic function is indeterminate. ATRIAL SEPTUM: LEFT ATRIUM: Moderate dilatation. RIGHT ATRIUM: Moderate dilatation. RIGHT VENTRICLE: Mild dilatation. Normal right ventricular systolic function. TRICUSPID VALVE: Normal mobility and thickness. No stenosis with moderate regurgitation. Doppler studies reveal moderately (45-60) elevated rightsided pressures. RVSP 57 mmHg, which is increased from echocardiogram done01/24/25 measuring at 43 mmHg. MITRAL VALVE: Normal mobility and thickness. No evidence of mitralvalve stenosis. There is no mitral annular calcification. Mild mitral regurgitation. AORTIC VALVE: Normal trileaflet appearance. No visible sclerosis.Normal leaflet mobility. No evidence of aortic valve stenosis. No aortic regurgitation. AORTIC ROOT: Normal diameter and appearance, measuring 3.3 cm.Ascending aorta is normal in size, measuring 3.0 cm. PULMONIC VALVE: Normal thickness and mobility. No stenosis. Noregurgitation. PERICARDIUM: No evidence of pericardial effusion. IVC: Not well visualized. PLEURA: CONCLUSION: 1. Mild concentric left ventricular hypertrophy with normal systolicfunction. Estimated LVEF is 60%. 2. Mildly dilated right ventricle with normal systolic function. 3. Moderate biatrial dilatation. 4. Mild mitral regurgitation. 5. Moderate tricuspid regurgitation. 6. Moderately elevated right-sided pressures. RVSP is 57 mmHg. Adult Echocardiography Procedure Report Left Ventricle LVEDD (3.7 - 5.6 cm): 3.81 cm LVESD (2.2 - 4.0 cm): 2.62 cm LVIVS thickness (0.6 - 1.2 cm): 1.33 cm LVPW thickness (0.5 - 1.0 cm): 1.11 cm e': 0.10 m/s E - e': 5.76 LVOT Max Gradient: 2.97 mm[Hg] LVOT Area (cm2): 0.86 m/s Peak Velocity (LVOT): 0.86 m/s Mean Velocity (LVOT): 0.46 m/s LVOT Diameter 2.08 cm Left Atrium LA Volume Index (2D A2C): 51.77 ml/m2 Left Atrium Systolic Dimension: 3.75 cm Mitral Valve MV E to A Ratio: 0.77 Mitral Valve A-Wave Peak Velocity: 0.77 m/s Mitral Valve E-Wave Peak Velocity: 0.59 m/s Right Ventricle Aorta AO Root Diam: 3.28 cm Ascending Ao Diam: 3.02 cm Aortic Valve AoV Area (Peak Fox): 2.94 cm2, 2.94 cm2 AoV Area (VTI): 2.38 cm2, 2.38 cm2 Peak Velocity(Antegrade Flow): 0.99 m/s Peak Gradient(Antegrade Flow): 3.94 mm[Hg] Mean Velocity(Antegrade Flow): 0.64 m/s Mean Gradient(Antegrade Flow): 1.92 mm[Hg] Velocity Time Integral: 26.37 cm Tricuspid Valve Peak Velocity (Regurgitant Flow): 3.50 m/s, 3.10 m/s, 3.09 m/s Pulmonic Valve Peak Gradient: 5.50 mm[Hg], 5.78 mm[Hg] Right Atrium Right Atrium Systolic Pressure: 51.01 ml, 51.01 ml Dictated by: Ozzy Villarreal M.D. on 04/30/2025 at 19:35 Approved by: Ozzy Villarreal M.D. on 04/30/2025 at 19:47 Dictated By: OZZY VILLARREAL Signed By:04/30/251947 DD/ 47 TD/TT: Sprinkling System Installer: Generic External Data Provider [facility] Final Result documented in this encounter Visit Diagnoses Not on filedocumented in this encounter Care Teams Flatwork Washer Relationship Specialty Start Date End Date Andriy Thrasher MD [address] [facility] 110 [place] [address] PCP - General Internal Medicine 04/25/23 Andriy Thrasher MD [address] [facility] 110 [place] [address] PCP - Medical [facility] 11/06/2111/05 documented as of this encounter
--- OUTSIDE RECORDS SUMMARY | 2025-05-02 13:28 | XMS_ITS | Encounter Summary ---
Author Organization [facility] Address [address] [place] [address] Care Team Providers Care Streets And Buildings Decorator Name Role Phone Andriy Thrasher MD Primary Care Provider Andriy Thrasher MD Unavailable [phone] Encounter Details Date Type Department Care Team (Late Contact Info) Description 05/03/2018 Abstract [facility] [address] [place] [address] Nhi Friend, [facility] [address] [place] [address] Social History Tobacco Use Types [...] CI FM [address] [facility] 110 [place] [address] Andriy Thrasher MD [address] [facility] 110 [place], [place] [address] documented as of this encounter Visit Diagnoses Not on filedocumented in this encounter Care Teams Streets And Buildings Decorator Relationship Specialty Start Date End Date Andriy Thrasher MD [address] [facility] 110 [place], [place] [address] PCP - General Internal Medicine 04/25/23 Andriy Thrasher MD 112 [facility] 110 [place] [address] PCP - Medical [place] 11/06/2111/05 documented as of this encounter
--- OUTSIDE RECORDS SUMMARY | 2025-05-02 13:28 | XMS_ITS | Encounter Summary ---
Author Organization [facility] Address [address] [place] [address] Care Team Providers Care Lollypop Machine Operator Name Role Phone Andriy Thrasher MD Primary Care Provider [phone] Andriy Thrasher MD Unavailable [phone] Encounter Details Date Type Department Care Team (Late Contact Info) Description 02/02/2021 Abstract [facility] [address] [place] [address] [place] [address] Nhi Friend, [facility] [address] [place] [address] Social History Tobacco Use Types [...] [facility] CI FM [address] [facility] 110 [place] [address] Andriy Thrasher MD [address] [facility] [address] [place], [place] [address] documented as of this encounter Visit Diagnoses Not on filedocumented in this encounter Care Teams Lollypop Machine Operator Relationship Specialty Start Date End Date Andriy Thrasher MD [address] [facility] [address] [place], [place] [address] PCP - General Internal Medicine 04/25/23 Andriy Thrasher MD 112 [facility] 110 [place] [address] PCP - Medical [place] 11/06/2111/05 documented as of this encounter
--- OUTSIDE RECORDS SUMMARY | 2025-05-02 13:28 | XMS_ITS | Encounter Summary ---
Author Organization [facility] Address [address] [facility] [place] [address] Care Team Providers Care Radio Rigger Name Role Phone Andriy Thrasher MD Primary Care Provider [phone] Andriy Thrasher MD Unavailable [phone] Encounter Details Date Type Department Care Team ([facility] Contact Info) Description 11/14/2023 Abstract [facility] CI FM [address] [facility] 110 [place] [address] Andriy Thrasher MD [address] [facility] 110 [place] [address] Social History Tobacco Use Types Packs/Day Years [...] Visit [facility] CI FM [address] [facility] 110 [place] [address] Andriy Thrasher MD [address] [facility] 110 [place] [address] documented as of this encounter Visit Diagnoses Not on filedocumented in this encounter Care Teams Radio Rigger Relationship Specialty Start Date End Date Andriy Thrahser MD [address] [facility] 110 [place] [address] PCP - General Internal Medicine 04/25/23 Andriy Thrasher MD 112 [facility] 110 [place] [address] PCP - Medical [place] 11/06/2111/05 documented as of this encounter
--- OUTSIDE RECORDS SUMMARY | 2025-05-02 13:28 | XMS_ITS | Encounter Summary ---
Author Organization [facility] Address [address] [place] [address] Care Team Providers Care Fusing Machine Feeder Name Role Phone Andriy Thrasher MD Primary Care Provider [phone] Andriy Thrasher MD Unavailable [phone] Encounter Details Date Type Department Care Team (Late Contact Info) Description 04/29/2024 Clinisync Result Encounter NOMS External Department Unsolicited Andriy Thrasher MD 112 [facility] 110 [place] [address] Social History Tobacco Use Types Packs/Day Years [...] EDT Office Visit [facility] CI FM 112 [facility] 110 [place] [address] Andriy Thrasher MD 112 [facility] 110 [place], [place] [address] documented as of this encounter Procedures Procedure Name Priority Date/Time Associated Diagnosis Comments MM TOMOSYNTHESIS SCREENING BI 04/29/2024 2:06 PM EDT documented in this encounter Results * MM TOMOSYNTHESIS SCREENING BI (04/29/2024 2:06 PM EDT) Anatomical Region Laterality Modality Other 04/29/2024 2:06 PM EDT Narrative 04/29/2024 2:07 PM EDT The [address] [address] Mammography Report Signed Patient: BEA ESPINOZA MR#: [id number] : 1940 Acct:[id number] Age/Sex: 83 / F ADM Date: 04/29/24 Loc: MAMMO Attending Dr: ANDRIY THRASHER Ordering Physician: ANDRIY THRASHER Results: Date of Service: 04/29/24 Follow Up: Procedure(s): MM tomosynthesis screening BI Accession Number(s): [id number] cc: ANDRIY THRASHER Patient Name: BEA ESPINOZA MR#: [id number] : 1940 Exam Date: 04/29/2024 Ordering Doctor: [...] breast cancer at age 62. LOCATION: The [facility] BREAST COMPOSITION: There are scattered areas [...] Signed By: 04/29/24 1407 DD/ 1406 TD/TT: Label Maker: Procedure Note Radiology, Radiologist, MD - 04/29/[address] [address] Mammography Report Signed Patient: BEA ESPINOZA AMR#: [id number] : 1940cct:[id number] Age/Sex: 83 / FADM Date: 04/29/24 Loc: MAMMO Attending Dr: ANDRIY THRASHER Ordering Physician: ANDRIY THRASHERResults: Date of Service: 04/29/24Follow Up: Procedure(s): MM tomosynthesis screening BI Accession Number(s): [id number] cc: SUREKHAANDRIY Patient Name: BEA ESPINOZA MR#: [id number] : 1940 Exam Date: 04/29/2024 Ordering Doctor: [...] breast cancer at age 62. LOCATION: The [facility] BREAST COMPOSITION: There are scattered areas [...] M.D. Signed By:04/29/24 1407 DD/ 1406 TD/TT: Label Maker: us Andriy Thrasher MD [facility] Final Result documented in this encounter Visit Diagnoses Not on filedocumented in this encounter Care Teams Fusing Machine Feeder Relationship Specialty Start Date End Date Andriy Thrasher MD [address] [facility] 110 [place] [address] PCP - General Internal Medicine 04/25/23 Andriy Thrasher MD [address] [facility] 110 [place] [address] PCP - Medical [facility] 11/06/2111/05 documented as of this encounter
--- OUTSIDE RECORDS SUMMARY | 2025-05-02 13:28 | XMS_ITS | Encounter Summary ---
Author Organization [facility] Address [address] [place] [address] Care Team Providers Care Asset Protection Detective Name Role Phone Andriy Thrasher MD Primary Care Provider [phone] Andriy Thrasher MD Unavailable [phone] Encounter Details Date Type Department Care Team (Late Contact Info) Description 05/07/2018 Abstract [facility] AUDIOLOGY [address] [place] [address] Nhi Friend, [facility] [address] [place] [address] Social History Tobacco Use Types [...] Visit [facility] [address] [facility] 110 [place] [address] Andriy Thrasher MD [address] [facility] 110 [place], [place] [id number] documented as of this encounter Visit Diagnoses Not on filedocumented in this encounter Care Teams Asset Protection Detective Relationship Specialty Start Date End Date Andriy Thrasher MD [address] [facility] 110 [place], [place] [id number] PCP - General Internal Medicine 04/25/23 Andriy Thrasher MD 112 [facility] 110 [place] [address] PCP - Medical [place] 11/06/2111/05 documented as of this encounter
--- OUTSIDE RECORDS SUMMARY | 2025-05-02 13:28 | XMS_ITS | Clinical Summary ---
Author Organization [facility] Address [address] [place] [address] Care Team Providers Care Fruit Cutter Name Role Phone Andriy Thrasher MD Primary Care Provider [phone] Andriy Thrasher MD Unavailable [phone] Allergies No known active allergies Medications Flaxseed, [...] Encounters Date Type Department Care Team Description 04/30/2025 Clinisync Result Encounter [facility] External Department Unsolicited Provider, Generic External Data 04/15/2025 Telephone [facility] FM [address] [place] [address] Andriy Thrasher MD 04/10/2025 Abstract [facility] [address] [place] [address] [place] [address] Andriy Thrasher MD 04/08/2025 Telephone [facility] [address] [place] [address] [place] [address] Andriy Thrasher MD med correction 04/07/2025 Refill [facility] [address] [place] [address] [place] [address] Andriy Thrasher MD Paroxysmal atrial fibrillation (HCC) 03/24/2025 Refill [facility] [address] [place] [address] [place] [address] Andriy Thrasher MD Iron deficiency anemia due to chronic blood loss 03/12/2025 10:30 AM EDT Office Visit [facility] AUD [address] [place] [address] Sensorineural hearing loss, bilateral (Primary Dx) 03/10/2025 1:00 PM EDT Office Visit [facility] [address] [facility] 110 [place] [address] Andriy Thrasher MD Paroxysmal atrial fibrillation (HCC) (Primary Dx); Type 2 diabetes mellitus with other specified complication, without long-term current use of insulin (HCC); Atherosclerosis of [place] coronary artery of [place] heart without angina pectoris ; Iron deficiency anemia, unspecified iron deficiency anemia type; Other secondary pulmonary hypertension (HCC) 03/10/2025 Telephone [facility] [address] [place] [place] [address] Andriy Thrasher MD 03/10/2025 Travel 02/12/2025 2:00 PM EDT Office Visit [facility]UD [address] [place] [address] Sensorineural hearing loss, bilateral (Primary Dx) 02/12/2025 Orders Only [facility] [address] [place] [address] [place] [address] Vivienne Parra LPN Estrogen deficiency 02/11/2025 Clinisync Result Encounter NOMS External Department Unsolicited Provider, Generic External Data 02/11/2025 Telephone [facility] AUD [address] [facility] [place] [address] Anaya Farias MA 02/03/2025 2:30 PM EDT Office Visit [facility] AUD [address] [facility] [place] [address] Deborah Gallagher, ADRIANO Sensorineural hearing loss, bilateral (Primary Dx) 02/03/2025 Bamboo flowsheet [facility] [address] [facility] [place] [address] Deborah Gallagher, ADRIANO from Last 3 Months Immunizations Immunization Administration [...] 06/16/2025 1:00 PM EDT Office Visit [facility] [address] [facility] 110 [place] [address] Andriy Thrasher MD 112 [facility] 110 [place] [address] Health Maintenance Due Date Last Done Comments [...] ECHO DOPPLER COMPLETE 04/30/2025 7:48 PM EDT POCT GLYCATED HEMOGLOBIN, TOTAL Routine 03/10/2025 1:14 [...] Recently Relevant to Health Maintenance Results * CA ECHO DOPPLER COMPLETE (04/30/2025 7:48 PM EDT) Anatomical Region Laterality Modality Other 04/30/2025 7:48 PM EDT Narrative 04/30/2025 7:48 [place] [address] Cardiology Report Signed Patient: GRACIE ESPINOZA MR#: [id number] : 1940 Acct:[id number] Age/Sex: 84 / F ADM Date: 04/30/25 Loc: CARD Attending Dr: OZZY VILLARREAL Ordering Physician: OZZY VILLARREAL Date of Service: 04/30/25 Procedure(s): CA echo doppler complete Accession Number(s): [id number] cc: ANDRIY THRASHER ; OZZY VILLARREAL Patient Name: GRACIE ESPINOZA MR#: [id number] : 1940 Exam Date: 04/30/2025 Ordering Doctor: [...] VILLARREAL Signed By: 04/30/251947 DD/ 47 TD/TT: Business Intelligence Administrator: Procedure Note Radiology, Radiologist, MD - 04/30/2025 [place] [address] Cardiology Report Signed Patient: GRACIE ESPINOZA AMR#: [id number] : 1940cct:[id number] Age/Sex: 84 / FADM Date: 04/30/25 Loc: CARD Attending Dr: OZZY VILLARREAL Ordering Physician: OZZY VILLARREAL Date of Service: 04/30/25 Procedure(s): CA echo doppler complete Accession Number(s): [id number] cc: ANDRIY THRASHER ; OZZY VILLARREAL Patient Name: GRACIE ESPINOZA MR#: [id number] : 1940 Exam Date: 04/30/2025 Ordering Doctor: [...] OZZY VILLARREAL Signed By:04/30/251947 DD/ 47 TD/TT: Business Intelligence Administrator: Generic External Data Provider [facility] Final Result * POCT Glycated hemoglobin, total (03/10/2025 1:14 PM EDT) [facility] Hemoglobin A1C 5.6 Blood 03/10/2025 1:14 PM EDT Andriy Thrasher MD POINT OF CARE TEST ENTER/EDIT ORDERABLES Final Result * (ABNORMAL) ALL BASIC METABOLIC PANEL (02/11/2025 1:15 PM EDT) [facility] SODIUM 143 136 - 145 mmol/L [facility] POTASSIUM 4.3 3.5 - 5.1 mmol/L [facility] CHLORIDE 107 98 - 107 mmol/L [facility] CARBON DIOXIDE 30.7 21.0 - 32.0 mmol/L [facility] ANION GAP 9.6 [facility] GLUCOSE 105 74 - 106 mg/dL [facility] BLOOD UREA NITROGEN 15.0 7.0 - 18.0 mg/dL [facility] CREATININE 0.95 0.55 - 1.02 mg/dL [facility] EGFR-AF GEORGIAN >60 >=60 mL/min/1.7 3m 2 [facility] EGFR-NON AF GEORGIAN 56(L) >=60 mL/min/1.7 3m 2 [facility] BUN CREATININE RATIO 15.8 [facility] CALCIUM 9.3 8.5 - 10.1 mg/dL [facility] 02/11/2025 1:15 PM EDT 02/11/2025 1:16 PM EDT Narrative [facility] - 02/11/2025 2:29 PM EDT Generic External Data Provider [facility] F inal Result [facility] * Auditory function tests (02/03/2025 3:02 PM EDT) Narrative Deborah Gallagher AUD - 02/03/2025 3:02 PM EDT [facility] Audiometry Audio indicated normal hearing sensitivity 250-750 Hz, sloping to a moderate to moderately-severe sensorineural hearing loss 1325-5873 Hz in the right ear. Th left ear exhibited normal hearing 250-750 Hz, sloping to a mild to moderate sensorineural hearing loss 1480-0581 Hz. Today's audio is consistent with previous results recorded 04-26-23. Deborah [place] [facility] ORDERABL ES Final Result * [...] RATIO 74.8 [facility] 07/29/2019 us Andriy Thrasher MD LAB URINE ORDERABLES Final Res ult [facility] from Last 3 Months or Most Recently Relevant to Health Maintenance Insurance [employer] Care Teams Fruit Cutter Relationship Specialty Start Date End Date Andriy Thrasher MD [address] [facility] 110 [place] [address] PCP - General Internal Medicine 04/25/23 Andriy Thrasher MD [address] [facility] 110 [place] [address] PCP - Medical [facility] 11/06/2111/05
--- OUTSIDE RECORDS SUMMARY | 2025-05-02 13:28 | XMS_ITS | Encounter Summary ---
Author Organization [facility] Address [address] [place] [address] Care Team Providers Care Automobile Inspector Name Role Phone Andriy Thrasher MD Primary Care Provider [phone] Andriy Thrasher MD Unavailable [phone] Encounter Details Date Type Department Care Team (Late Contact Info) Description 04/18/2018 Abstract [facility] AUDIOLOGY [address] [place] [address] Nhi Friend, [facility] [address] [place] [address] Social History Tobacco Use Types [...] CI FM [address] [facility] 110 [place] [address] Andriy Thrasher MD [address] [facility] 110 [place], [place] [id number] documented as of this encounter Visit Diagnoses Not on filedocumented in this encounter Care Teams Automobile Inspector Relationship Specialty Start Date End Date Andriy Thrasher MD [address] [facility] 110 [place], [place] [phone] PCP - General Internal Medicine 04/25/23 Andriy Thrasher MD 112 [facility] 110 [place] [address] PCP - Medical [place] 11/06/2111/05 documented as of this encounter
--- OUTSIDE RECORDS SUMMARY | 2025-05-02 13:28 | XMS_ITS | Encounter Summary ---
Author Organization [facility] Address [address] [place] [address] Care Team Providers Care Loan Servicing Representative Name Role Phone Andriy Thrasher MD Primary Care Provider [phone] Andriy Thrasher MD Unavailable [phone] Encounter Details Date Type Department Care Team (Late Contact Info) Description 06/06/2024 Orders Only [facility] FM [address] [facility] 110 [place] [address] Vivienne Parra LPN [address] [place] [address] Encounter for screening mammogram for malignant neoplasm [...] [facility] 110 [place] [address] Andriy Thrasher MD 112 [facility] 110 [place] [address] documented as of this encounter Visit Diagnoses Diagnosis Encounter for screening mammogram for malignant neoplasm of breast documented in this encounter Care Teams Loan Servicing Representative Relationship Specialty Start Date End Date Andriy Thrasher MD [address] [facility] 110 [place] [address] PCP - General Internal Medicine 04/25/23 Andriy Thrasher MD 112 [facility] 110 [place] [address] PCP - Medical [place] 11/06/2111/05 documented as of this encounter
--- OUTSIDE RECORDS SUMMARY | 2025-05-02 13:28 | XMS_ITS | Clinical Summary ---
Author Organization [facility] Address [id number] [address] [place] [address] Care Team Providers Care Transition Of Care Specialist Name Role Phone Andriy Thrasher MD Primary Care Provider [phone] Allergies No known active allergies Medications apixaban [...] file Insurance [employer] Care Teams Transition Of Care Specialist Relationship Specialty Start Date End Date Andriy Thrasher MD [address] [facility] 110 [place] [address] PCP - General Internal Medicine 08/16/20
--- OUTSIDE RECORDS SUMMARY | 2025-05-02 13:28 | XMS_ITS | Encounter Summary ---
Author Organization [facility] Address [address] [place] [address] Care Team Providers Care Elevator Constructor Supervisor Name Role Phone Andriy Thrasher MD Primary Care Provider [phone] Andriy Thrasher MD Unavailable [phone] Encounter Details Date Type Department Care Team ([facility] Contact Info) Description 02/12/2025 Orders Only [facility] [address] [facility] 110 [place] [address] Vivienne Parra LPN [address] [place] [address] Estrogen deficiency Social History Tobacco Use Types [...] FM [address] [place] [address] [place] [address] Andriy Thrasher MD [address] [place] [address] [place] [address] documented as of this encounter Visit Diagnoses Diagnosis Estrogen deficiency Other ovarian failure documented in this encounter Care Teams Elevator Constructor Supervisor Relationship Specialty Start Date End Date Andriy Thrasher MD [address] [place] [address] [place] [address] PCP - General Internal Medicine 04/25/23 Andriy Thrasher MD 112 [facility] 110 [place] [address] PCP - Medical [facility] 11/06/2111/05 documented as of this encounter
--- NOTE | 2025-05-02 13:55 | MM_ITS ---
Patient Name: GRACIE GONZALEZ MR#: [id number] : 1940 Exam Date: 05/02/2025 Ordering Doctor: DR HOLLIE IRBY M.D. RADIOLOGY REPORT PROCEDURE: MM TOMOSYNTHESIS SCREENING BI COMPARISON: MM TOMOSYNTHESIS SCREENING BI, 04/29/2024. MM TOMOSYNTHESIS SCREENING BI, 04/28/2023. MG MAMM SCREEN 3D DAISY CAD, 04/27/2022. MG MAMM DAISY SCRN W CAD DIG, 05/07/2014. INDICATIONS: Screening Calculator Name NCI Breast Cancer Risk Assessment Tool 5 Year Breast Cancer Risk 1.70% Lifetime Breast Cancer Risk 2.10% Personal Breast Cancer No Personal Ovarian Cancer No Treatments None Family Cancers Brother with skin,lung cancer at age 70; Grandmother-maternal with female cancer at age 65; Aunt-maternal with breast cancer at age 60. LOCATION: [facility] BREAST COMPOSITION: There are scattered areas of fibroglandular density. FINDINGS: DIAGNOSTIC CATEGORY 1--NEGATIVE. RIGHT BREAST: No significant suspicious finding. LEFT BREAST: No significant suspicious finding. RECOMMENDATIONS: ROUTINE MAMMOGRAM AND CLINICAL EVALUATION IN 12 MONTHS. PLEASE NOTE: A NORMAL MAMMOGRAM DOES NOT EXCLUDE THE POSSIBILITY OF BREAST CANCER. A CLINICALLY SUSPICIOUS PALPABLE LUMP SHOULD BE BIOPSIED. Dictated by: Gustavo Jain DO on 05/02/2025 at 14:24 Approved by: Gustavo Jain DO on 05/02/2025 at 14:28
== END 2025-05-02 13:26 | disposition home or self-care (01) ==
LOC: MAMMO 13:25
PROVIDERS: PCP Internal Medicine; Visit Provider Internal Medicine
DX: Z12.31 Encounter for screening mammogram for malignant neoplasm of breast (principal); Z80.1 Family history of malignant neoplasm of trachea, bronchus and lung; Z80.8 Family history of malignant neoplasm of other organs or systems; Z80.3 Family history of malignant neoplasm of breast
CPT/HCPCS: 77063; 77067

== ENCOUNTER 2025-06-09 14:48 | Outpatient (OUT) | payer MEDICARE, SELFPAY ==
--- OUTSIDE RECORDS SUMMARY | 2025-05-26 13:45 | XMS_ITS | Encounter Summary ---
Author Organization [facility] Address [address] [place] [address] Care Team Providers Care Etl Database Developer Name Role Phone Andriy Thrasher MD Primary Care Provider [phone] Reason for Referral * Imaging (Routine) - Pending Review Specialty Diagnoses / Procedures Referred By Digna senior Referred To Contact Cardiology Diagnoses Pulmonary hypertension (CMS/HCC) Nonrheumatic tricuspid valve regurgitation Chronic diastolic congestive heart failure (CMS/HCC) Procedures Transthoracic echo (TTE) complete Barrett Villarreal MD [address] [place] [address] Phone: tel: fax: Referral ID Status Reason Start Date Expiration Date Visits Requested Visits Authorized [id number] Pending Review Perform Procedure 05/26/2025 05/26/2026 1 1 Encounter Details Date Type Department Care Team (Late st Contact Info) Description 05/26/2025 1:45 PM EDT Office Visit [facility] [address] [place] [address] Barrett Villarreal MD [address] [place] [address] Coronary artery disease involving [place] coronary artery of [place] heart without angina pectoris (Primary Dx); Chronic diastolic congestive heart failure (CMS/HCC); Pulmonary hypertension (CMS/HCC); Nonrheumatic tricuspid valve regurgitation; Atrial flutter, unspecified type (CMS/HCC); Mixed hyperlipidemia; Primary hypertension; Edema of lower extremity Social History Tobacco Use Types Packs/Day Years Used Date Smoking Tobacco: Former Cigarettes Smokeless Tobacco: Never Alcohol Use Standard Drinks/Week Comments Yes 0 [...] Information Value Date Recorded Sex Assigned at Female 05/14/2025 3:09 PM EDT Legal Sex Female 11:45 PM EDT Gender Identity Female 05/14/2025 3:09 PM EDT Sexual Orientation Heterosexual or Straight 07/2025 3:09 PM EDT documented as of this encounter Last Filed Vital Signs Vital Sign Reading Time Taken Comments Blood Pressure 138/68 05/26/2025 2:23 PM EDT Pulse 56 05/26/2025 2:23 PM EDT Temperature - - Respiratory Rate - - Oxygen Saturation 96% 05/26/2025 2:23 PM EDT Inhaled Oxygen Concentration - - Weight 80.3 kg (177 lb) 05/26/2025 2:23 PM EDT Height 147.3 cm (4' 10 ) 05/26/2025 2:23 PM EDT Body Mass Index 36.99 05/26/2025 2:23 PM EDT documented in this encounter Patient Instructions * Patient Instructions* Barrett Villarreal MD - 05/26/2025 1:45 PM EDT 1. Increase furosemide to 40 mg daily. 2. Increase spironolactone to 25 mg daily. 3. Low-salt diet. 4. Obtain blood test for kidney and electrolytes in 2 weeks. 5. Follow-up in 3 months with an echocardiogram. * Attachments The following attachments cannot be sent through Care Everywhere. * Heart Failure Diagnosis Wqod-he-Teye (Moroccan) * Heart Failure Action Plan (Moroccan) documented in this encounter Progress Notes * Barrett Villarreal MD - 05/26/2025 1:45 PM EDT Images from the original note were not included. MD Cardiology - [facility] Subjective Bea Espinoza is a 85 y.o. year old female patient being seen for 3 month follow. Patient is heretoday for her ECHO results. Patient states she feels good. Patient states she is still having leg swelling. Patient Active Problem List Diagnosis Atrial flutter [...] Use Topics Alcohol use: Yes Comment: occasional Drug use: Never HPI Bea is a 85-year-old woman who is seen in follow up on atrial flutter [ad[facility] to [facility] on 04/23/2016 after developing palpitations and chest discomfort and neck pain while goingup the stairs. She was found to have [...] not very large according to her account. After last visit on 01/10/2025 I checked an echocardiogram that showed elevated right-sided pressuresand I added furosemide 20 mg daily with spironolactone 12.5 mg once daily. She denies chest pain. She says that she has no shortness of breath at heart regular activity but she does not exert himself too much. It seems that she gets short of breath with doing stairs. She has no palpitations. she has lower extremity edema. Review of Systems Cardiovascular: Positive for leg swelling. Musculoskeletal: Positive for myalgias. Neurological: Positive for vertigo. All other systems reviewed and are negative. Objective Visit Vitals BP 138/68 (BP Location: Left arm, Patient Position: Sitting) Pulse 56 Ht 1.473 m (4' 10 ) Wt 80.3 kg (177 lb) SpO2 96% BMI 36.99 kg/m?? Smoking Status Former BSA 1.81 m?? Physical Exam Constitutional: Appearance: She is well-developed. [...] the next 30 min., Disp: , Rfl: apixaban (Eliquis) 5 mg tablet, Take 1 tablet by mouth in the morning and at bedtime., Disp: , Rfl: atorvastatin (Lipitor) 20 mg tablet, Take 1 tablet by mouth at bedtime., Disp: , Rfl: ferrous sulfate 325 (65 Fe) MG tablet, Take 1 tablet by mouth in the morning and at bedtime., Disp:, Rfl: metoprolol tartrate (Lopressor) 25 mg tablet, TAKE ONE AND ONE-HALF TABLETS TWICE A DAY (INCREASED DOSE), Disp: 270 tablet, Rfl: 3 furosemide (Lasix) 40 mg tablet, Take 1 tablet (40 mg) by mouth in the morning., Disp: 90 tablet, Rfl: 3 spironolactone (Aldactone) 25 mg tablet, Take 1 tablet (25 mg) by mouth in the morning., Disp: 90 tablet, Rfl: 3 Recent Labs Blood testing 08/14/2020: BUN 18, creatinine 0.8, potassium 4.3, LFTs normal, cholesterol 131, triglycerides 54, HDL 66, LDL 54, TSH normal, hemoglobin 13.5, platelets 227. Blood testing 08/22/2022: Hemoglobin 12.8, platelets 231, BUN 12, creatinine 0.79, potassium 4.5, LFTs normal, EGFR 76, cholesterol 142, triglycerides 79, HDL 69, LDL 57. TSH 0.91, hemoglobin A1c 5.1%. Blood testing 03/13/2023: Hemoglobin 12.7, platelets 225. Blood testing 08/30/2023: CBC normal, chemistry normal, triglycerides 99 blood sugar 122 Lipid panel 09/11/2024: Cholesterol 152, HDL 67, LDL 70, triglycerides 70. CBC 09/11/2024: Hemoglobin 13.7, platelets 244. Blood testing 12/17/2024: BUN 14, creatinine 0.86, potassium 4.3, LFTs normal. BNP 15. Blood testing 02/11/2025: Potassium 4.3, BUN 15, creatinine 0.95, GFR 56. Imaging and other tests stress test on 05/02/2016 showed inferolateral apical ischemia. cardiac catheterization on 05/25/2016 showed 50% ostial diagonal branch stenosis, to be managed medically. ECG 03/13/2023: Sinus bradycardia otherwise normal ECG. Echocardiogram 01/24/2025: CONCLUSION: 1. Normal left ventricular size and systolic function. LVEF is estimated at 55 to 60%. 2. Moderately dilated right ventricle with normal systolic function. 3. Moderately dilated right atrium. 4. Mild tricuspid regurgitation. 5. Mildly elevated right-sided pressures. RVSP is 43 mmHg. 6. A transesophageal echocardiogram is recommended for better assessment of the right-sided chamber dilatation. Echocardiogram 04/30/2025: CONCLUSION: 1. Mild concentric left ventricular hypertrophy with normal systolic function. Estimated LVEF is 60%. 2. Mildly dilated right ventricle with normal systolic function. 3. Moderate biatrial dilatation. 4. Mild mitral regurgitation. 5. Moderate tricuspid regurgitation. 6. Moderately elevated right-sided pressures. RVSP is 57 mmHg. Assessment/Plan Diagnoses and all orders for this visit: Coronary artery disease involving [place] coronary artery of [place] heart without angina pectoris Chronic diastolic congestive heart failure (CMS/HCC) - furosemide (Lasix) 40 mg tablet; Take 1 tablet (40 mg) by mouth in the morning. - spironolactone (Aldactone) 25 mg tablet; Take 1 tablet (25 mg) by mouth in the morning. - Basic metabolic panel; Future - Transthoracic echo (TTE) complete; Future Pulmonary hypertension (CMS/HCC) - furosemide (Lasix) 40 mg tablet; Take 1 tablet (40 mg) by mouth in the morning. - spironolactone (Aldactone) 25 mg tablet; Take 1 tablet (25 mg) by mouth in the morning. - Transthoracic echo (TTE) complete; Future Nonrheumatic tricuspid valve regurgitation - furosemide (Lasix) 40 mg tablet; Take 1 tablet (40 mg) by mouth in the morning. - spironolactone (Aldactone) 25 mg tablet; Take 1 tablet (25 mg) by mouth in the morning. - Transthoracic echo (TTE) complete; Future Atrial flutter, unspecified type (CMS/HCC) Mixed hyperlipidemia Primary hypertension Edema of lower extremity - furosemide (Lasix) 40 mg tablet; Take 1 tablet (40 mg) by mouth in the morning. - spironolactone (Aldactone) 25 mg tablet; Take 1 tablet (25 mg) by mouth in the morning. 1. CAD: stable with no angina, mild single vessel by cath in 2015, continue medical therapy. No aspirin given being on anticoagulation for atrial flutter and bleeding issues. 2. Atrial flutter: controlled currently, she will need medical terminologist anticoagulation for prevention of stroke given elevated [id number] of 5 [age, gender, hypertension, vascular disease]. It appears thatthere has been no major significant bleeding events with Pam. Review of her recent blood testing shows hemoglobin in normal range. 3. Hypertension: controlled blood pressure. Continue the same. 4. Hyperlipidemia: LDL 09/2024 was 70. Continue current atorvastatin 20 mg daily. 5. Lower extremity edema, Pulmonary hypertension by echocardiography and tricuspid regurgitation with mildly dilated right ventricle: I think she has chronic diastolic heart failure. I am going to increase the spironolactone to 25 mg daily and increase Lasix to 40 mg daily. I will check a BMP in 2weeks. I will check a follow-up echocardiogram in 3 months to follow-up on right-sided pressures and tricuspid regurgitation. I discussed and explained the need for home monitoring and lifestyle management, including maintaining a low sodium diet (<2,000 mg/day), and keeping daily weight and blood pressure logs. I am providing her with heart failure specific education. I will plan on seeing her in follow-up in 3 months. Follow up in about 3 months (around 08/26/2025). Barrett Villarreal MD documented in this encounter Plan of Treatment Upcoming Encounters Date Type Department Care Team (Late st Contact Info) Description 08/11/2025 1:30 PM EDT Office Visit [facility] [address] [place] [address] Barrett Villarreal MD [address] [facility] [address] [facility] [place] [address] Scheduled Orders Name Type Priority Associated Diagnoses Orde r Schedule Basic metabolic panel Lab Routine Chronic diastolic congestive heart failure (CMS/HCC) Expected: 06/09/2025 (Approximate), Expires: 05/26/2026 Transthoracic echo (TTE) complete Echocardiography Routine Pulmonary hypertension (CMS/HCC) Nonrheumatic tricuspid valve regurgitation Chronic diastolic congestive heart failure ([facility]/HCC) Expected: 08/26/2025 (Approximate), Expires: 05/26/2027 documented as of this encounter Visit Diagnoses Diagnosis Coronary artery disease involving [place] coronary artery of [place] heart without angina pectoris- Primary Chronic diastolic congestive heart failure (CMS/HCC) Pulmonary hypertension (CMS/HCC) 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
--- OUTSIDE RECORDS SUMMARY | 2025-06-09 14:53 | XMS_ITS | Encounter Summary ---
Author Organization [facility] Address [address] [place] [address] Care Team Providers Care Pump Runner Name Role Phone Andriy Thrasher MD Primary Care Provider [phone] Andriy Thrasher MD Unavailable [phone] Encounter Details Date Type Department Care Team (Late Contact Info) Description 05/23/2018 Abstract [facility] [address] [place] [address] Nhi Friend, [facility] [address] [place] [address] Social History Tobacco Use Types [...] 06/16/2025 1:00 PM EDT Office [facility] [address] [place] [address] Andriy Thrasher MD [address] [place], [place] [id number] documented as of this encounter Visit Diagnoses Not on filedocumented in this encounter Care Teams Pump Runner Relationship Specialty Start Date End Date Andriy Thrasher MD [address] [place] [address] PCP - General Internal Medicine 04/25/23 Andriy Thrasher MD [address] [place] [address] PCP - Medical [place] 11/06/2111/05 documented as of this encounter
--- OUTSIDE RECORDS SUMMARY | 2025-06-09 14:53 | XMS_ITS | Encounter Summary ---
Author Organization [facility] Address [address] [place] [address] Care Team Providers Care Collections Assistant Name Role Phone Andriy Thrasher MD Primary Care Provider [phone] Andriy Thrasher MD Unavailable [phone] Encounter Details Date Type Department Care Team (Late Contact Info) Description 12/03/2018 Abstract [facility] [address] [place] [address] Nhi Friend, [facility] [address] [place] [address] Social History Tobacco Use Types [...] 1:00 PM EDT Office Visit [facility] Sudhakar Padilla [address] [place] [address] Andriy Thrasher MD [address] [place], [place] [id number] documented as of this encounter Visit Diagnoses Not on filedocumented in this encounter Care Teams Collections Assistant Relationship Specialty Start Date End Date Andriy Thrasher MD [address] [place] [address] PCP - General Internal Medicine 04/25/23 Andriy Thrasher MD [address] [place] [address] PCP - Medical [place] 11/06/2111/05 documented as of this encounter
--- OUTSIDE RECORDS SUMMARY | 2025-06-09 14:53 | XMS_ITS | Encounter Summary ---
Author Organization [facility] Address [address] [place] [address] Care Team Providers Care Chicken Buyer Name Role Phone Andriy Thrasher MD Primary Care Provider [phone] Andriy Thrasher MD Unavailable [phone] Encounter Details Date Type Department Care Team (Late Contact Info) Description 05/03/2018 Abstract [facility] [address] [place] [address] Nhi Friend, [facility] [address] [place] [address] Social History Tobacco Use Types [...] EDT Office [facility] [address] [place] [address] Andriy Thrasher MD [address] [place], [place] [id number] documented as of this encounter Visit Diagnoses Not on filedocumented in this encounter Care Teams Chicken Buyer Relationship Specialty Start Date End Date Andriy Thrasher MD [address] [place] [address] PCP - General Internal Medicine 04/25/23 Andriy Thrasher MD [address] [place] [address] PCP - Medical [place] 11/06/2111/05 documented as of this encounter
--- OUTSIDE RECORDS SUMMARY | 2025-06-09 14:53 | XMS_ITS | Encounter Summary ---
Author Organization [facility] Address [address] [place] [address] Care Team Providers Care Casting Machine Operator Name Role Phone Andriy Thrasher MD Primary Care Provider [phone] Andriy Thrasher MD Unavailable [phone] Encounter Details Date Type Department Care Team (Late Contact Info) Description 2023 Abstract [facility] [place] [facility] [address] [facility] [address] [place] [address] Andriy Thrasher MD [address] [facility] [address] [place] [address] Social History Tobacco Use Types Packs/Day Years [...] 06/16/2025 1:00 PM EDT Office Visit [facility] [place] Pad[facility] [address] [place] [address] Andriy Thrasher MD [address] [place] [address] documented as of this encounter Visit Diagnoses Not on filedocumented in this encounter Care Teams Casting Machine Operator Relationship Specialty Start Date End Date Andriy Thrasher MD [address] [place] [address] PCP - General Internal Medicine 6/20/23 Andriy Thrasher MD 112 [facility] 110 [place] [address] PCP - Medical [place] 11/06/2111/05 documented as of this encounter
--- OUTSIDE RECORDS SUMMARY | 2025-06-09 14:53 | XMS_ITS | Encounter Summary ---
Author Organization [facility] Address [address] [place] [address] Care Team Providers Care Setter Up Name Role Phone Andriy Thrasher MD Primary Care Provider Andriy Thrasher MD Unavailable [phone] Encounter Details Date Type Department Care Team (Late Contact Info) Description 05/05/2021 Abstract [facility] [address] [place] [address] Nhi Friend, [facility] [address] [place] [address] Social History Tobacco Use Types [...] [place] Padilla [address] [place] [address] Andriy Thrasher MD [address] [place], [place] [phone] documented as of this encounter Visit Diagnoses Not on filedocumented in this encounter Care Teams Setter Up Relationship Specialty Start Date End Date Andriy Thrasher MD [address] [place], [place] [id number] PCP - General Internal Medicine 04/25/23 Andriy Thrasher MD 112 [facility] 110 [place] [address] PCP - Medical [place] 11/06/2111/05 documented as of this encounter
--- OUTSIDE RECORDS SUMMARY | 2025-06-09 14:53 | XMS_ITS | Encounter Summary ---
Author Organization [facility] Address [address] [place] [address] Care Team Providers Care Mold Capper Helper Name Role Phone Andriy Thrasher MD Primary Care Provider [phone] Andriy Thrasher MD Unavailable [phone] Encounter Details Date Type Department Care Team ([facility] Contact Info) Description 11/15/2023 Abstract [facility] [place] [facility] [address] [place] [address] Andriy Thrasher MD [address] [place] [address] Social History Tobacco Use Types Packs/Day Years [...] Upcoming Encounters Date Type Department Care Team ([facility] Contact Info) Description 06/16/2025 1:00 PM EDT Office Visit [facility] [place] Demarconcmaya [address] [place] [address] Andriy Thrasher MD [address] [place] [address] documented as of this encounter Visit Diagnoses Not on filedocumented in this encounter Care Teams Mold Capper Helper Relationship Specialty Start Date End Date Andriy Thrasher MD [address] [place] [address] PCP - General Internal Medicine 04/25/23 Andriy Thrasher MD 112 [facility] 110 [place] [address] PCP - Medical [place] 11/06/2111/05 documented as of this encounter
--- OUTSIDE RECORDS SUMMARY | 2025-06-09 14:53 | XMS_ITS | Encounter Summary ---
Author Organization [facility] Address [address] [place] [address] Care Team Providers Care Line Therapist Name Role Phone Andriy Thrasher MD Primary Care Provider [phone] Andriy Thrasher MD Unavailable [phone] Encounter Details Date Type Department Care Team (Late Contact Info) Description 02/02/2021 Abstract [facility] [address] [place] [address] Nhi Friend, [facility] [address] [place] [address] Social History Tobacco Use Types [...] PM EDT Office Visit [facility] [address] [place] [address] Andriy Thrasher MD [address] [place], [place] [address] documented as of this encounter Visit Diagnoses Not on filedocumented in this encounter Care Teams Line Therapist Relationship Specialty Start Date End Date Andriy Thrasher MD [address] [place], [place] [address] PCP - General Internal Medicine 04/25/23 Andriy Thrasher MD [address] [address] PCP - Medical [place] 11/06/2111/05 documented as of this encounter
--- OUTSIDE RECORDS SUMMARY | 2025-06-09 14:53 | XMS_ITS | Encounter Summary ---
Author Organization [facility] Address [address] [place] [address] Care Team Providers Care Security Management Specialist Name Role Phone Andriy Thrasher MD Primary Care Provider [phone] Andriy Thrasher MD Unavailable [phone] Encounter Details Date Type Department Care Team (Late Contact Info) Description 04/22/2021 Abstract [facility] [address] [place] [address] Nhi Friend, [facility] [address] [place] [address] Social History Tobacco Use Types [...] PM EDT Office Visit [facility] [address] [place] [address] Andriy Thrasher MD [address] [place], [place] [address] documented as of this encounter Visit Diagnoses Not on filedocumented in this encounter Care Teams Security Management Specialist Relationship Specialty Start Date End Date Andriy Thrasher MD [address] [place], [place] [address] PCP - General Internal Medicine 04/25/23 Andriy Thrasher MD [address] [address] PCP - Medical [place] 11/06/2111/05 documented as of this encounter
--- OUTSIDE RECORDS SUMMARY | 2025-06-09 14:53 | XMS_ITS | Encounter Summary ---
Author Organization [facility] Address [address] [place] [address] Care Team Providers Care Livestock Buyer Name Role Phone Andriy Thrasher MD Primary Care Provider [phone] Andriy Thrasher MD Unavailable [phone] Encounter Details Date Type Department Care Team (Late Contact Info) Description 04/25/2023 Abstract [facility] [address] [place] [address] Nhi Friend, [facility] [address] [place] [address] Social History Tobacco Use Types [...] PM EDT Office [facility] [address] [place] [address] Andriy Thrasher MD [address] [place], [place] [id number] documented as of this encounter Visit Diagnoses Not on filedocumented in this encounter Care Teams Livestock Buyer Relationship Specialty Start Date End Date Andriy Thrasher MD [address] [place], [place] [phone] PCP - General Internal Medicine 04/25/23 Andriy Thrasher MD [address] [address] PCP - Medical [place] 11/06/2111/05 documented as of this encounter
--- OUTSIDE RECORDS SUMMARY | 2025-06-09 14:53 | XMS_ITS | Encounter Summary ---
Author Organization [facility] Address [address] [place] [address] Care Team Providers Care Lead Massage Therapist Name Role Phone Andriy Thrasher MD Primary Care Provider [phone] Andriy Thrasher MD Unavailable [phone] Encounter Details Date Type Department Care Team ([facility] Contact Info) Description 08/29/2023 Abstract [facility] [place] [facility] [address] [place] [address] Andriy Thrasher MD [address] [place] [address] Social History Tobacco Use Types Packs/Day Years [...] Upcoming Encounters Date Type Department Care Team ([facility] Contact Info) Description 06/16/2025 1:00 PM EDT Office Visit [facility] [place] Demarconcmaya [address] [place] [address] Andriy Thrasher MD [address] [place] [address] documented as of this encounter Visit Diagnoses Not on filedocumented in this encounter Care Teams Lead Massage Therapist Relationship Specialty Start Date End Date Andriy Thrasher MD [address] [place] [address] PCP - General Internal Medicine 04/25/23 Andriy Thrasher MD 112 [facility] [address] [place] [address] PCP - Medical [place] 11/06/2111/05 documented as of this encounter
--- OUTSIDE RECORDS SUMMARY | 2025-06-09 14:53 | XMS_ITS | Clinical Summary ---
Author Organization [facility] Address [address] [place] [address] Care Team Providers Care Barber Shop Operator Name Role Phone Andriy Thrasher MD Primary Care Provider [phone] Allergies No known active allergies Medications apixaban [...] min. Active metoprolol tartrate (Lopressor) 25 mg tabletIndication s:Essential hypertension TAKE ONE AND ONE-HALF TABLETS TWICE A DAY (INCREASED DOSE) 270 tablet 3 4 Active furosemide (Lasix) 40 mg tabletIndication s:Pulmonary hypertension (CMS/HCC),Nonrhe umatic tricuspid valve regurgitation,Ed shruthi of lower extremity,Chroni c diastolic congestive heart failure (CMS/HCC) Take 1 tablet (40 mg) by mouth in the morning. 90 tablet 3 5 05/26/20 26 Active spironolactone (Aldactone) 25 mg tabletIndication s:Pulmonary hypertension (CMS/HCC),Nonrhe umatic tricuspid valve regurgitation,Ed shruthi of lower extremity,Chroni c diastolic congestive heart failure (CMS/HCC) Take 1 tablet (25 mg) by mouth in the morning. 90 tablet 3 5 05/26/20 26 Active spironolactone (Aldactone) 25 mg tabletIndication s:Atypical atrial flutter (CMS/HCC),Bilate ral lower extremity edema Take 0.5 tablets (12.5 mg) by mouth once daily as directed. 45 tablet 3 5 05/26/20 Discontinu ed(Dose adjustment ) furosemide (Lasix) 20 mg tabletIndication s:Atypical atrial flutter (CMS/HCC),Bilate ral lower extremity edema Take 1 tablet (20 mg) by mouth once daily as directed. 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); Chronic diastolic congestive heart failure (CMS/HCC); Pulmonary hypertension (CMS/HCC); Nonrheumatic tricuspid valve regurgitation; Atrial flutter, unspecified type (CMS/HCC); Mixed hyperlipidemia; Primary hypertension; Edema of lower extremity 03/12/2025 Telephone [facility] [place] [address] [place] [address] Dena Hurd MA from Last 3 Months Immunizations Immunization Administration [...] Heterosexual or Straight 07/2025 3:09 PM EDT Last Filed Vital Signs Vital Sign Reading [...] Mass Index 36.99 05/26/2025 2:23 PM EDT Plan of Treatment Upcoming Encounters Date Type Department Care Team (Late st Contact Info) Description 08/11/2025 1:30 PM EDT Office Visit [facility] [address] [place] [address] Barrett Villarreal MD [address] [facility] [place] [address] Health Maintenance Due Date Last Done Comments Medicare Annual Wellness (AWV) 1940 Diabetes: Retinopathy Screening 1952 Depression Screening 1954 Fall Risk Screening 2007 Zoster Vaccines (2 of 2) 02/29/2020 01/04/2020, 01/2017 Diabetes: Urine Protein Screening 07/29/2020 07/29/2019 COVID-19 Vaccine ( season) 2024 10/05/2023, 08/23/2022, 10/11/2021, Additional history exists Diabetes: Hemoglobin A1C 12/12/2024 09/11/2024 Influenza Vaccine (#1) 2025 4, 08/23/2023, 08/11/2022, Additional history exists Adult Tetanus 08/16/2030 08/16/2020 Pneumococcal Vaccine: 50+ Years Completed 08/29/2019, 07/29/2019 HIB Vaccines Aged Out No longer eligi [...] topic Insurance [employer]IC[employer] Care Teams Barber Shop Operator Relationship Specialty Start Date End Date Andriy Thrasher MD 112 [facility] 110 [place] [address] PCP - General 07/17/22
--- OUTSIDE RECORDS SUMMARY | 2025-06-09 14:53 | XMS_ITS | Encounter Summary ---
Author Organization [facility] Address [address] [facility] [place] [address] Care Team Providers Care Research Spec Name Role Phone Andriy Thrasher MD Primary Care Provider [phone] Andriy Thrasher MD Unavailable [phone] Encounter Details Date Type Department Care Team (Late Contact Info) Description 04/29/2024 Clinisync Result Encounter N[facility] External Department Unsolicited Andriy Thrasher MD [address] [facility] 110 [place] [address] Social History Tobacco Use Types [...] PM EDT Office Visit [facility] Sudhakar Arredondo Med[facility] 112 [facility] 110 [place] [address] Andriy Thrasher MD [address] [facility] 110 [place], [place] [id number] documented as of this encounter Procedures Procedure Name Priority Date/Time Associated Diagnosis Comments MM TOMOSYNTHESIS SCREENING BI 04/29/2024 2:06 PM EDT documented in this encounter Results * MM TOMOSYNTHESIS SCREENING BI (04/29/2024 2:06 PM EDT) Anatomical Region Laterality Modality Other 04/29/2024 2:06 PM EDT Narrative 04/29/2024 2:07 PM EDT The [address] [address] Mammography Report Signed Patient: BEA ESPINOZA MR#: [id number] : 1940 Acct:[id number] Age/Sex: 83 / F ADM Date: 04/29/24 Loc: MAMMO Attending Dr: ANDRIY THRASHER Ordering Physician: ANDRIY THRASHER Results: Date of Service: 04/29/24 Follow Up: Procedure(s): MM tomosynthesis screening BI Accession Number(s): [id number] cc: ANDRIY THRASHER Patient Name: BEA ESPINOZA MR#: [id number] : 1940 Exam Date: 04/29/2024 Ordering Doctor: [...] breast cancer at age 62. LOCATION: The [facility] BREAST COMPOSITION: There are scattered areas [...] PALPABLE LUMP SHOULD BE BIOPSIED. Dictated by: Eirc Freeman MD on 04/29/2024 at 14:04 Approved by: Eric Freeman MD on 04/29/2024 at 14:06 Dictated By: Eric Freeman M.D. Signed By: 04/29/24 1407 DD/ 1406 TD/TT: Mexican Food Maker: Procedure Note Radiology, Radiologist, MD - 04/29/2024 The [place] [id number] Mammography Report Signed Patient: BEA ESPINOZA [facility]#: [id number] : 1940cct:[id number] Age/Sex: 83 / FADM Date: 04/29/24 Loc: MAMMO Attending Dr: ANDRIY THRASHER Ordering Physician: Nataly THRASHERults: Date of Service: 04/29/24Follow Up: Procedure(s): MM tomosynthesis screening BI Accession Number(s): [id number] cc: ANDRIY THRASHER Patient Name: BEA ESPINOZA MR#: [id number] : 1940 Exam Date: 04/29/2024 Ordering Doctor: [...] breast cancer at age 62. LOCATION: The [facility] BREAST COMPOSITION: There are scattered areas [...] M.D. Signed By:04/29/24 1407 DD/ 1406 TD/TT: Mexican Food Maker: us Andriy Thrasher MD [facility] Final Result documented in this encounter Visit Diagnoses Not on filedocumented in this encounter Care Teams Research Spec Relationship Specialty Start Date End Date Andriy Thrasher MD [address] [facility] 110 [place] [address] PCP - General Internal Medicine 04/25/23 Andriy Thrasher MD [address] [facility] 110 [place] [address] PCP - Medical [place] 11/06/2111/05 documented as of this encounter
--- OUTSIDE RECORDS SUMMARY | 2025-06-09 14:53 | XMS_ITS | Encounter Summary ---
Author Organization [facility] Address [address] [place] [address] Care Team Providers Care Seismic Prospecting Observer Helper Name Role Phone Andriy Thrasher MD Primary Care Provider [phone] Andriy Thrasher MD Unavailable [phone] Encounter Details Date Type Department Care Team ([facility] Contact Info) Description 02/12/2025 Orders Only [facility] [place] Padilla [address] [facility] 110 [place] [phone] Vivienne Parra LPN [address] [place] [address] Estrogen deficiency Social History Tobacco Use Types [...] 1:00 PM EDT Office Visit [facility] [place] Demarconce [address] [place] [address] Andriy Thrasher MD [address] [place] [address] documented as of this encounter Visit Diagnoses Diagnosis Estrogen deficiency Other ovarian failure documented in this encounter Care Teams Seismic Prospecting Observer Helper Relationship Specialty Start Date End Date Andriy Thrasher MD [address] [place] [address] PCP - General Internal Medicine 04/25/23 Andriy Thrasher MD [address] [facility] 110 [place] [address] PCP - Medical [place] 11/06/2111/05 documented as of this encounter
--- OUTSIDE RECORDS SUMMARY | 2025-06-09 14:53 | XMS_ITS | Encounter Summary ---
Author Organization [facility] Address [address] [place] [address] Care Team Providers Care Body Straightener Name Role Phone Andriy Thrasher MD Primary Care Provider [phone] Andriy Thrasher MD Unavailable [phone] Encounter Details Date Type Department Care Team (Late Contact Info) Description 05/23/2018 Abstract [facility] [address] [place] [address] Nhi Friend, [facility] [address] [facility] [place] [address] Social History Tobacco Use Types [...] PM EDT Office Visit [facility] [address] [place] [address] Andriy Thrasher MD [address] [place], [place] [address] documented as of this encounter Visit Diagnoses Not on filedocumented in this encounter Care Teams Body Straightener Relationship Specialty Start Date End Date Andriy Thrasher MD [address] [place] [address] PCP - General Internal Medicine 04/25/23 Andriy Thrasher MD 112 [place] [address] PCP - Medical [place] 11/06/2111/05 documented as of this encounter
--- OUTSIDE RECORDS SUMMARY | 2025-06-09 14:53 | XMS_ITS | Encounter Summary ---
Author Organization [facility] Address [address] [place] [address] Care Team Providers Care Gasket Winder Name Role Phone Andriy Thrasher MD Primary Care Provider [phone] Andriy Thrasher MD Unavailable [phone] Encounter Details Date Type Department Care Team (Late Contact Info) Description 05/23/2018 Abstract [facility] [address] [place] [address] Nhi Friend, [facility] [address] [facility] [place] [place] [address] Social History Tobacco Use Types [...] PM EDT Office Visit [facility] [address] [place] [address] Andriy Thrasher MD [address] [place], [place] [address] documented as of this encounter Visit Diagnoses Not on filedocumented in this encounter Care Teams Gasket Winder Relationship Specialty Start Date End Date Andriy Thrasher MD [address] [place] [address] PCP - General Internal Medicine 04/25/23 Andriy Thrasher MD 112 [place] [address] PCP - Medical [place] 11/06/2111/05 documented as of this encounter
--- OUTSIDE RECORDS SUMMARY | 2025-06-09 14:53 | XMS_ITS | Encounter Summary ---
Author Organization [facility] Address [address] [place] [address] Care Team Providers Care Carton Marker Machine Name Role Phone Andriy Thrasher MD Primary Care Provider [phone] Andriy Thrasher MD Unavailable [phone] Encounter Details Date Type Department Care Team ([facility] Contact Info) Description 11/14/2023 Abstract [facility] [place] Padilla [address] [place] [address] Andriy Thrasher MD [address] [place] [address] Social History Tobacco Use Types Packs/Day Years [...] Upcoming Encounters Date Type Department Care Team ([facility] Contact Info) Description 06/16/2025 1:00 PM EDT Office Visit [facility] [place] Demarconcmaya [address] [place] [address] Andriy Thrasher MD [address] [place] [address] documented as of this encounter Visit Diagnoses Not on filedocumented in this encounter Care Teams Carton Marker Machine Relationship Specialty Start Date End Date Andriy Thrasher MD [address] [place] [address] PCP - General Internal Medicine 04/25/23 Andriy Thrasher MD 112 [facility] 110 [place] [address] PCP - Medical [place] 11/06/2111/05 documented as of this encounter
--- OUTSIDE RECORDS SUMMARY | 2025-06-09 14:53 | XMS_ITS | Clinical Summary ---
Author Organization [facility] Address [id number] [address] [place] [address] Care Team Providers Care Clock Assembler Name Role Phone Andriy Thrasher MD Primary Care Provider [phone] Allergies No known active allergies Medications apixaban [...] file Insurance [employer] MED[employer] Care Teams Clock Assembler Relationship Specialty Start Date End Date Andriy Thrasher MD [address] [facility] 110 [place] [address] PCP - General Internal Medicine 08/16/20
--- OUTSIDE RECORDS SUMMARY | 2025-06-09 14:53 | XMS_ITS | Encounter Summary ---
Author Organization [facility] Address [address] [place] [address] Care Team Providers Care Patent Clerk Name Role Phone Andriy Thrasher MD Primary Care Provider [phone] Andriy Thrasher MD Unavailable [phone] Encounter Details Date Type Department Care Team (Late Contact Info) Description 05/08/2018 Abstract [facility] [address] [place] [address] Nhi Friend, [facility] [address] [place] [address] Social History Tobacco Use Types [...] PM EDT Office Visit [facility] [address] [place] [address] Andriy Thrasher MD [address] [place], [place] [address] documented as of this encounter Visit Diagnoses Not on filedocumented in this encounter Care Teams Patent Clerk Relationship Specialty Start Date End Date Andriy Thrasher MD [address] [place] [address] PCP - General Internal Medicine 04/25/23 Andriy Thrasher MD 112 [place] [address] PCP - Medical [place] 11/06/2111/05 documented as of this encounter
--- OUTSIDE RECORDS SUMMARY | 2025-06-09 14:53 | XMS_ITS | Encounter Summary ---
Author Organization [facility] Address [address] [place] [address] Care Team Providers Care Employment Security Officer Name Role Phone Andriy Thrasher MD Primary Care Provider [phone] Andriy Thrasher MD Unavailable [phone] Encounter Details Date Type Department Care Team (Late Contact Info) Description 04/18/2018 Abstract [facility] [address] [place] [address] Nhi Friend, [facility] [address] [facility] [place] [address] Social History Tobacco Use Types [...] PM EDT Office Visit [facility] [address] [place] [address] Andriy Thrasher MD [address] [place], [place] [address] documented as of this encounter Visit Diagnoses Not on filedocumented in this encounter Care Teams Employment Security Officer Relationship Specialty Start Date End Date Andriy Thrasher MD [address] [place] [address] PCP - General Internal Medicine 04/25/23 Andriy Thrasher MD 112 [place] [address] PCP - Medical [place] 11/06/2111/05 documented as of this encounter
--- OUTSIDE RECORDS SUMMARY | 2025-06-09 14:53 | XMS_ITS | Encounter Summary ---
Author Organization [facility] Address [address] [place] [address] Care Team Providers Care Wad Blanking Press Adjuster Name Role Phone Andriy Thrasher MD Primary Care Provider [phone] Andriy Thrasher MD Unavailable [phone] Encounter Details Date Type Department Care Team (Late Contact Info) Description 05/07/2018 Abstract [facility] [address] [place] [address] Nhi Friend, [facility] [address] [facility] [place] [address] Social History Tobacco Use Types [...] Sudhakar Padilla [address] [place] [address] Andriy Thrasher MD [address] [place], [place] [address] documented as of this encounter Visit Diagnoses Not on filedocumented in this encounter Care Teams Wad Blanking Press Adjuster Relationship Specialty Start Date End Date Andriy Thrasher MD [address] [place] [address] PCP - General Internal Medicine 04/25/23 Andriy Thrasher MD 112 [place] [address] PCP - Medical [place] 11/06/2111/05 documented as of this encounter
--- OUTSIDE RECORDS SUMMARY | 2025-06-09 14:54 | XMS_ITS | Encounter Summary ---
Author Organization [facility] Address [address] [place] [address] Care Team Providers Care Line Supervisor Name Role Phone Andriy Thrasher MD Primary Care Provider [phone] Andriy Thrasher MD Unavailable [phone] Encounter Details Date Type Department Care Team ([facility] Contact Info) Description 09/16/2024 Abstract [facility] [place] Padilla [address] [facility] 110 [place] [address] Andriy Thrasher MD [address] [facility] 110 [place] [address] Social History Tobacco Use Types Packs/Day Years [...] Upcoming Encounters Date Type Department Care Team ([facility] Contact Info) Description 06/16/2025 1:00 PM EDT Office Visit [facility] [place] Padilla [address] [facility] [address] [place] [address] Andriy Thrasher MD [address] [facility] 110 [place] [address] documented as of this encounter Visit Diagnoses Not on filedocumented in this encounter Care Teams Line Supervisor Relationship Specialty Start Date End Date Andriy Thrasher MD [address] [facility] [address] [place] [address] PCP - General Internal Medicine 04/25/23 Andriy Thrasher MD [address] [facility] [address] [place] [address] PCP - Medical [facility] 11/06/2111/05 documented as of this encounter
--- OUTSIDE RECORDS SUMMARY | 2025-06-09 14:54 | XMS_ITS | Clinical Summary ---
Author Organization [facility] Healthcare Address [address] [place] [address] Care Team Providers Care Aircraft Skin Burnisher Name Role Phone Andriy Thrasher MD Primary Care Provider [phone] Andriy Thrasher MD Unavailable [phone] Allergies No known active allergies Medications Flaxseed, [...] mouth 1 (one) time each day Active atorvastatin (Lipitor) 20 MG tabletIndications:Pure hypercholesterolemia TAKE 1 TABLET DAILY 90 tablet 3 024 Active Eliquis 5 MG tabletIndications:Parox ysmal atrial fibrillation (HCC) TAKE 1 TABLET TWICE A DAY 180 tablet 3 024 Active furosemide (Lasix) 20 MG tabletIndications:Local ized edema Take 1 tablet (20 mg) by mouth Daily 30 tablet 025 Active spironolactone (Aldactone) 25 MG tablet Take 12.5 mg by mouth 025 2025 Active ferrous sulfate (FeroSul) 325 (65 Fe) MG tabletIndications:Iron deficiency anemia due to chronic blood loss TAKE 1 TABLET BY MOUTH TWICE DAILY 200 tablet 3 025 Active metoprolol tartrate (Lopressor) 25 MG tabletIndications:Parox ysmal atrial fibrillation (HCC) Take 1 tablet (25 mg) by mouth in the morning and 1 tablet (25 mg) before bedtime. 025 Active Wheat Dextrin (benefiber drink mix) packet Take 1 packet by mouth in the morning and 1 packet at noon and 1 packet in the evening. Take with meals. Active alendronate (Fosamax) 70 MG tabletIndications:Osteo porosis, unspecified osteoporosis type, unspecified pathological fracture presence TAKE 1 TABLET BY MOUTH BEFORE first meal, beverage, or medicine OF the day WITH plain water once a WEEK 12 tablet 3 025 Active alendronate (Fosamax) 70 MG tabletIndications:Osteo porosis, unspecified osteoporosis type, unspecified pathological fracture presence TAKE 1 TABLET BY MOUTH BEFORE first meal, beverage, or medicine OF the day WITH plain water once a WEEK 12 tablet 3 024 2024 Discontinued amoxicillin (Amoxil) 875 MG tabletIndications:Acute right otitis media Take 1 tablet (875 mg) by mouth in the morning and 1 tablet (875 mg) before bedtime. Do all this for 10 days. 20 tablet 025 2024 Active Problems Problem Noted Date Diagnosed Date [...] Encounters Date Type Department Care Team Description 05/14/2025 Refill [facility] [place] [facility] [address] [place] [address] Andriy Thrasher MD Osteoporosis, unspecified osteoporosis type, unspecified pathological fracture presence 05/06/2025 1:30 PM EDT Office Visit [facility] [place] [facility] [address] [place] [address] Homa Bennett PA Acute right otitis media (Primary Dx) 05/06/2025 Bamboo flowsheet [facility] [place] [facility] [address] [facility] [address] [place] [address] Homa Bennett PA 05/06/2025 Travel 05/02/2025 Clinisync Result Encounter NOM[facility] External Department Unsolicited Andriy Thrasher MD 04/30/2025 Clinisync Result Encounter [facility]OM[facility] External Department Unsolicited Provider, Generic External Data 04/15/2025 Telephone [facility] [place] [facility] 112 [facility] [address] [place] [address] Andriy Thrasher MD 04/10/2025 Abstract [facility] [place] [facility] [address] [facility] [address] [place] [address] Andriy Thrasher MD 04/08/2025 Telephone [facility] [place] [facility] 112 [facility] [address] [place] [address] Andriy Thrasher MD med correction 04/07/2025 Refill [facility] [place] [facility] 112 [facility] [address] [place] [address] Andriy Thrasher MD Paroxysmal atrial fibrillation (HCC) 03/24/2025 Refill [facility] [place] [facility] [address] [facility] [address] [place] [address] Andriy Thrasher MD Iron deficiency anemia due to chronic blood loss 03/12/2025 10:30 AM EDT Office Visit [facility] [place] [facility] [address] [facility] [address] [place] [address] Sensorineural hearing loss, bilateral (Primary Dx) 03/10/2025 1:00 PM EDT [facility] 112 [facility] [address] [place] [address] Andriy Thrasher MD Paroxysmal atrial fibrillation (HCC) (Primary Dx); Type 2 diabetes mellitus with other specified complication, without long-term current use of insulin (HCC); Atherosclerosis of [place] coronary artery of [place] heart without angina pectoris ; Iron deficiency anemia, unspecified iron deficiency anemia type; Other secondary pulmonary hypertension (HCC) 03/10/2025 [facility] 112 [facility] [address] [place] [address] Andriy Thrasher MD 03/10/2025 Travel from Last 3 Months Immunizations Immunization Administration [...] Date Recorded Patient Health Questionnaire-2 Score 0 05/06/2025 Comments Unknown Sex and Gender Information Value Date Recorded Sex Assigned at Not on file Legal Sex Female 6:52 PM EDT Gender Identity Not on file Sexual Orientation Not on file Last Filed Vital Signs Vital Sign Reading Time Taken Comments Blood Pressure 116/70 05/06/2025 1:34 PM EDT Pulse 56 05/06/2025 1:34 PM EDT Temperature 36.8 C (98.3 F) 05/06/2025 1:34 PM EDT Respiratory Rate 16 05/06/2025 1:34 PM EDT Oxygen Saturation 97% 05/06/2025 1:34 PM EDT Inhaled Oxygen Concentration - - Weight 80.6 kg (177 lb 12.8 oz) 05/06/2025 1:34 PM EDT Height 147.3 cm (4' 10 ) 05/06/2025 1:34 PM EDT Body Mass Index 37.16 05/06/2025 1:34 PM EDT Plan of Treatment Upcoming Encounters Date Type Department Care Team (Late st Contact Info) Description 06/16/2025 1:00 PM EDT Office Visit [facility] [place] [facility] 112 [facility] 110 [place] [address] Andriy Thrasher MD 112 [facility] [address] [place] [address] Health Maintenance Due Date Last Done Comments Diabetes: Urine Protein Screening 07/29/2020 019, 08/01/2018 Diabetes: Hemoglobin A1C 06/10/2025 025, 09/11/2024, 06/12/2024, Additional history exists Influenza Vaccine (#1) 2025 4, 08/23/2023, 08/11/2022, Additional history exists Medicare Annual Wellness (AWV) 09/13/2025 09/13/2024 , 08/23/2023 Diabetes: Retinopathy Screening 11/14/2025 11/14/2023, 11/09/2022, 08/01/2018, Additional history exists Pneumococcal Vaccine: 65+ Years Completed 9, 07/29/2019 Procedures Procedure Name Priority Date/Time Associated Diagnosis Comments MM TOMOSYNTHESIS SCREENING BI 05/02/2025 2:28 PM EDT CA ECHO DOPPLER COMPLETE 04/30/2025 7:48 PM EDT POCT GLYCATED HEMOGLOBIN, TOTAL Routine 03/10/2025 1:14 PM EDT Type 2 diabetes mellitus with other specified complication, without long-term current use of insulin (HCC) DIABETIC RETINOPATHY SCREENING - OU - BOTH EYES Routine 11/14/2023 MICROALBUMIN / CREATININE URINE RATIO Routine 07/29/2019 from Last 3 Months or Most Recently Relevant to Health Maintenance Results * MM TOMOSYNTHESIS SCREENING BI (05/02/2025 2:28 PM EDT) Anatomical Region Laterality Modality Other 05/02/2025 2:28 PM EDT Narrative 05/02/2025 2:29 [place] [address] Mammography Report Signed Patient: BEA ESPINOZA MR#: [id number] : 1940 Acct:[id number] Age/Sex: 85 / F ADM Date: 05/02/25 Loc: MAMMO Attending Dr: ANDRIY THRASHER Ordering Physician: ANDRIY THRASHER Results: Date of Service: 05/02/25 Follow Up: Procedure(s): MM tomosynthesis screening BI Accession Number(s): [id number] cc: ANDRIY THRASHER Patient Name: BEA ESPINOZA MR#: [id number] : 1940 Exam Date: 05/02/2025 Ordering Doctor: DR ANDRIY THRASHER M.D. RADIOLOGY REPORT PROCEDURE: MM TOMOSYNTHESIS SCREENING BI COMPARISON: MM TOMOSYNTHESIS SCREENING BI, 04/29/2024. MM TOMOSYNTHESIS SCREENING BI, 04/28/2023. MG MAMM SCREEN 3D DAISY CAD, 04/27/2022. MG MAMM DAISY SCRN W CAD DIG, 05/07/2014. INDICATIONS: Screening Calculator Name NCI Breast Cancer Risk Assessment Tool 5 Year Breast Cancer Risk 1.70% Lifetime Breast Cancer Risk 2.10% Personal Breast Cancer No Personal Ovarian Cancer No Treatments None Family Cancers Brother with skin,lung cancer at age 70; Grandmother-maternal with female cancer at age 65; Aunt-maternal with breast cancer at age 60. LOCATION: [facility] BREAST COMPOSITION: There are scattered areas of fibroglandular density. FINDINGS: DIAGNOSTIC CATEGORY 1--NEGATIVE. RIGHT BREAST: No significant suspicious finding. LEFT BREAST: No significant suspicious finding. RECOMMENDATIONS: ROUTINE MAMMOGRAM AND CLINICAL EVALUATION IN 12 MONTHS. PLEASE NOTE: A NORMAL MAMMOGRAM DOES NOT EXCLUDE THE POSSIBILITY OF BREAST CANCER. A CLINICALLY SUSPICIOUS PALPABLE LUMP SHOULD BE BIOPSIED. Dictated by: Gusatvo Jain DO on 05/02/2025 at 14:24 Approved by: Gustavo Jain DO on 05/02/2025 at 14:28 Dictated By: Gustavo Jain M.D. Signed By: 05/02/25 1429 DD/ 1428 TD/TT: Pipe Fitter: Procedure Note Radiology, Radiologist, MD - 05/02/2025 [place] [address] Mammography Report Signed Patient: BEA ESPINOZA [facility]#: [id number] : 1940cct:[id number] Age/Sex: 85 / FADM Date: 05/02/25 Loc: MAMMO Attending Dr: ANDRIY THRASHER Ordering Physician: ANDRIY THRASHERResults: Date of Service: 05/02/25Follow Up: Procedure(s): MM tomosynthesis screening BI Accession Number(s): [id number] cc: ANDRIY THRASHER Patient Name: BEA ESPINOZA MR#: [id number] : 1940 Exam Date: 05/02/2025 Ordering Doctor: DR ANDRIY THRASHER M.D. RADIOLOGY REPORT PROCEDURE: MM TOMOSYNTHESIS SCREENING BI COMPARISON: MM TOMOSYNTHESIS SCREENING BI, 04/29/2024. MMTOMOSYNTHESIS SCREENING BI, 04/28/2023. MG MAMM SCREEN 3D DAISY CAD, 04/27/2022. MG MAMMBIL SCRN W CAD DIG, 05/07/2014. INDICATIONS: Screening Calculator Name NCI Breast Cancer Risk Assessment Tool 5 Year Breast Cancer Risk 1.70% Lifetime Breast Cancer Risk 2.10% Personal Breast Cancer No Personal Ovarian Cancer No Treatments None Family Cancers Brother with skin,lung cancer at age 70; Grandmother-maternal with female cancer at age 65; Aunt-maternal withbreast cancer at age 60. LOCATION: [facility] BREAST COMPOSITION: There are scattered areas of fibroglandulardensity. FINDINGS: DIAGNOSTIC CATEGORY 1--NEGATIVE. RIGHT BREAST: No significant suspicious finding. LEFT BREAST: No significant suspicious finding. RECOMMENDATIONS: ROUTINE MAMMOGRAM AND CLINICAL EVALUATION IN 12 MONTHS. PLEASE NOTE: A NORMAL MAMMOGRAM DOES NOT EXCLUDE THE POSSIBILITY OFBREAST CANCER. A CLINICALLY SUSPICIOUS PALPABLE LUMP SHOULD BE BIOPSIED. Dictated by: Gustavo Jain DO on 05/02/2025 at 14:24 Approved by: Gustavo Jain DO on 05/02/2025 at 14:28 Dictated By: Gustavo Jain M.D. Signed By:05/02/25 1429 DD/ 1428 TD/TT: Pipe Fitter: Andriy Thrasher MD [facility] Final Result * CA ECHO DOPPLER COMPLETE (04/30/2025 7:48 PM EDT) Anatomical Region Laterality Modality Other 04/30/2025 7:48 PM EDT Narrative 04/30/2025 7:48 [place] [address] Cardiology Report Signed Patient: BEA ESPINOZA MR#: [id number] : 1940 Acct:[id number] Age/Sex: 84 / F ADM Date: 04/30/25 Loc: CARD Attending Dr: OZZY VILLARREAL Ordering Physician: OZZY VILLARREAL Date of Service: 04/30/25 Procedure(s): CA echo doppler complete Accession Number(s): [id number] cc: ANDRIY THRASHER ; OZZY VILLARREAL Patient Name: BEA ESPINOZA MR#: [id number] : 1940 Exam Date: 04/30/2025 Ordering Doctor: [...] VILLARREAL Signed By: 04/30/251947 DD/ 47 TD/TT: Pipe Fitter: Procedure Note Radiology, Radiologist, MD - 04/30/2025 [place] [address] Cardiology Report Signed Patient: BEA ESPINOZA [facility]#: [id number] : 2Acct:[id number] Age/Sex: 84 / FADM Date: 04/30/25 Loc: CARD Attending Dr: OZZY VILLARREAL Ordering Physician: OZZY VILLARREAL Date of Service: 04/30/25 Procedure(s): CA echo doppler complete Accession Number(s): [id number] cc: ANDRIY THRASHER ; OZZY VILLARREAL Patient Name: BEA ESPINOZA MR#: [id number] : 1940 Exam Date: 04/30/2025 Ordering Doctor: [...] OZZY VILLARREAL Signed By:04/30/251947 DD/ 47 TD/TT: Pipe Fitter: us Generic External Data Provider [facility] Final Result * POCT Glycated hemoglobin, total (03/10/2025 1:14 PM EDT) Hemoglobin A1C 5.6 Blood 03/10/2025 1:14 PM EDT Andriy Thrasher MD POINT OF CARE TEST ENTER/EDIT ORDERABLES Final Result * Diabetic Retinopathy Screening - [...] Maintenance Insurance [employer] Care Teams Aircraft Skin Burnisher Relationship Specialty Start Date End Date Andriy Thrasher MD [address] [facility] [address] [place] [address] PCP - General Internal Medicine 04/25/23 Andriy Thrasher MD 112 [facility] 110 [place] [id number] PCP - Medical [place] 11/06/2111/05
--- OUTSIDE RECORDS SUMMARY | 2025-06-09 14:54 | XMS_ITS | Encounter Summary ---
Author Organization [facility] Address [address] [place] [address] Care Team Providers Care Art Installer Name Role Phone Andriy Thrasher MD Primary Care Provider [phone] Andriy Thrasher MD Unavailable [phone] Encounter Details Date Type Department Care Team ([facility] Contact Info) Description 04/10/2025 Abstract [facility] [place] [facility] [address] [facility] 110 [place] [address] Andriy Thrasher MD [address] [facility] [address] [place] [address] Social History Tobacco Use Types Packs/Day Years [...] Upcoming Encounters Date Type Department Care Team ([facility] Contact Info) Description 06/16/2025 1:00 PM EDT Office Visit [facility] [place] [facility] [address] [facility] [address] [place] [address] Andriy Thrasher MD [address] [facility] [address] [place] [address] documented as of this encounter Visit Diagnoses Not on filedocumented in this encounter Care Teams Art Installer Relationship Specialty Start Date End Date Andriy Thrasher MD [address] [facility] [address] [place] [address] PCP - General Internal Medicine 04/25/23 Andriy Thrasher MD [address] [facility] [address] [place] [address] PCP - Medical [facility] 11/06/2111/05 documented as of this encounter
--- OUTSIDE RECORDS SUMMARY | 2025-06-09 14:54 | XMS_ITS | Encounter Summary ---
Author Organization [facility] Address [address] [place] [address] Care Team Providers Care New Order Clerk Name Role Phone Andriy Thrasher MD Primary Care Provider [phone] Andriy Thrasher MD Unavailable [phone] Encounter Details Date Type Department Care Team ([facility] Contact Info) Description 06/06/2024 Orders Only [facility] [address] [facility] 110 [place] [address] Vivienne Parra LPN [address] [place] [address] Encounter for screening mammogram for malignant neoplasm [...] PM EDT Office Visit [facility] [address] [facility] [address] [place] [address] Andriy Thrasher MD [address] [facility] [address] [place] [address] documented as of this encounter Visit Diagnoses Diagnosis Encounter for screening mammogram for malignant neoplasm of breast documented in this encounter Care Teams New Order Clerk Relationship Specialty Start Date End Date Andriy Thrasher MD [address] [facility] [address] [place] [address] PCP - General Internal Medicine 04/25/23 Andriy Thrasher MD [address] [facility] 110 [place] [address] PCP - Medical [place] 11/06/2111/05 documented as of this encounter
--- OUTSIDE RECORDS SUMMARY | 2025-06-09 14:54 | XMS_ITS | Encounter Summary ---
Author Organization [facility] Address [address] [place] [address] Care Team Providers Care Travel Counselor Automobile Club Name Role Phone Andriy Thrasher MD Primary Care Provider [phone] Andriy Thrasher MD Unavailable [phone] Encounter Details Date Type Department Care Team ([facility] Contact Info) Description 09/23/2024 Abstract [facility] [place] [facility] [address] [facility] [address] [place] [address] Andriy Thrasher MD [address] [facility] [address] [place] [address] Social History Tobacco Use Types Packs/Day Years [...] Upcoming Encounters Date Type Department Care Team ([facility] Contact Info) Description 06/16/2025 1:00 PM EDT Office Visit [facility] [place] [facility] [address] [facility] [address] [place] [address] Andriy Thrasher MD [address] [facility] [address] [place] [address] documented as of this encounter Visit Diagnoses Not on filedocumented in this encounter Care Teams Travel Counselor [employer] Relationship Specialty Start Date End Date Andriy Thrasher MD [address] [facility] 110 [place] [address] PCP - General Internal Medicine 04/25/23 Andriy Thrasher MD [address] [facility] 110 [place] [address] PCP - Medical [facility] 11/06/2111/05 documented as of this encounter
--- OUTSIDE RECORDS SUMMARY | 2025-06-09 14:54 | XMS_ITS | Encounter Summary ---
Author Organization [facility] Address [address] [place] [address] Care Team Providers Care Arterial Embalmer Name Role Phone Andriy Thrasher MD Primary Care Provider [phone] Andriy Thrasher MD Unavailable [phone] Encounter Details Date Type Department Care Team ([facility] Contact Info) Description 09/24/2024 Abstract [facility] [place] [facility] [address] [place] [address] [place] [address] Andriy Thrasher MD [address] [facility] [address] [place] [address] Social History Tobacco Use Types Packs/Day Years [...] Upcoming Encounters Date Type Department Care Team ([facility] Contact Info) Description 06/16/2025 1:00 PM EDT Office Visit [facility] [place] [facility] [address] [facility] [address] [place] [address] Andriy Thrasher MD [address] [facility] [address] [place] [address] documented as of this encounter Visit Diagnoses Not on filedocumented in this encounter Care Teams Arterial Embalmer Relationship Specialty Start Date End Date Andriy Thrasher MD [address] [facility] 110 [place] [address] PCP - General Internal Medicine 04/25/23 Andriy Thrasher MD [address] [facility] [address] [place] [address] PCP - Medical [facility] 11/06/2111/05 documented as of this encounter
--- OUTSIDE RECORDS SUMMARY | 2025-06-09 14:54 | XMS_ITS | Encounter Summary ---
Author Organization [facility] Address [address] [place] [address] Care Team Providers Care Food Clerk Name Role Phone Andriy Thrasher MD Primary Care Provider [phone] Andriy Thrasher MD Unavailable [phone] Encounter Details Date Type Department Care Team ([facility] Contact Info) Description 09/24/2024 Clinisync Result Encounter [facility] External Department Unsolicited Andriy Thrasher MD 112 [facility] 110 [place] [address] Social History Tobacco Use Types [...] Office Visit [facility] 112 [facility] 110 [place] [address] Andriy Thrasher MD 112 [facility] 110 [place], [place] [address] documented as of this encounter Procedures Procedure Name Priority Date/Time Associated Diagnosis Comments XR DEXA AXIAL SKELETON 09/24/2024 5:49 AM EST documented in this encounter Results * XR DEXA AXIAL SKELETON (09/24/2024 5:49 AM EST) Anatomical Region Laterality Modality Other 09/24/2024 5:49 AM EST Narrative 09/24/2024 5:52 AM EST [address] [address] XRay Report Signed Patient: BEA ESPINOZA MR#: [id number] : 1940 Acct:[id number] Age/Sex: 84 / F ADM Date: 09/23/24 Loc: RAD Attending Dr: ANDRIY THRASHER Ordering Physician: ANDRIY THRASHER Date of Service: 09/23/24 Procedure(s): XR DEXA axial skeleton Accession Number(s): [id number] cc: ANDRIY THRASHER [address] [id number] Patient Name: BEA ESPINOZA MRN: [employer]:[id number] date: 1940 Sex: F Assigned Patient Location: [facility] Current Patient Location: Accession/Order Number: [id number] Exam Date: 09/23/2024 13:10 Report Date: 09/24/2024 [...] prevention and treatment of osteoporosis. Osteoporos Int. 2021;33(10):4427-2774. doi: 10.1007/c29358-269-82178-s. Epub 2021Mar 03. Erratum in: Osteoporos Int. 2021Jun 02;: PMID: [id number]; PMCID: [id number]. Electronically authenticated by: KE FLOYD Date: 09/24/2024 05:49 Dictated By: Ke Floyd M.D. Signed By: 09/24/24 0552 DD/ 0549 TD/TT: Barrel Liner: Procedure Note Radiology, Radiologist, - 09/24/[address] [address] XRay Report Signed Patient: BEA ESPINOZA [facility]#: [id number] : 2Acct:[id number] Age/Sex: 84 / FADM Date: 09/23/24 Loc: RAD Attending Dr: ANDRIY THRASHER Ordering Physician: ANDRIY THRASHER Date of Service: 09/23/24 Procedure(s): XR DEXA axial skeleton Accession Number(s): [id number] cc: ANDRIY THRASHER [place] [id number] Patient Name: BEA ESPINOZA MRN: [employer]:[id number] date: 1940 Sex: F Assigned Patient Location: [facility] Current Patient Location: Accession/Order Number: [id number] Exam Date: 09/23/2024 13:10 Report Date: 09/24/2024 [...] 10-year hip fracture risk >= 3% or [id number] major osteoporosis-related fracture risk >= 20% (i.e., [...] to prevention and treatment of osteoporosis.Osteoporos Int. 2021;33(10):8321-6952. doi: 10.1007/y63507-591-33247-v. Epub . Erratum in: Osteoporos Int. 2021Jun 02;: PMID: [id number]; PMCID: [id number]. Electronically authenticated by: KE FLOYD Date: 09/24/2024 05:49 Dictated By: Ke Floyd M.D. Signed By:09/24/24 0552 DD/ 0549 TD/TT: Barrel Liner: Andriy Thrasher MD [facility] Final Result documented in this encounter Visit Diagnoses Not on filedocumented in this encounter Care Teams Food Clerk Relationship Specialty Start Date End Date Andriy Thrasher MD [address] [facility] 110 [place] [address] PCP - General Internal Medicine 04/25/23 Andriy Thrasher MD [address] [facility] 110 [place] [address] PCP - Medical [facility] 11/06/2111/05 documented as of this encounter
[2025-06-09 15:36] LABS: Anion Gap 9.8; Blood Urea Nitrogen 16.0 mg/dL (7.0-18.0); Calcium 10.2 mg/dL (8.5-10.1); Carbon Dioxide 32.9 mmol/L (21.0-32.0); Chloride 98 mmol/L (98-107); Estimated GFR (African America 51 (>=60 mL/min/1.73m^2); Estimated GFR (Non-African Ame 42 (>=60 mL/min/1.73m^2); Glucose 109 mg/dL (74-106); Potassium 3.7 mmol/L (3.5-5.1); Sodium 137 mmol/L (136-145)
== END 2025-06-09 14:49 | disposition home or self-care (01) ==
LOC: LAB 14:51
PROVIDERS: PCP Internal Medicine; Visit Provider Internal Medicine Interventional Cardiology
DX: I50.32 Chronic diastolic (congestive) heart failure (principal)
CPT/HCPCS: 36415; 80048

== ENCOUNTER 2025-09-19 13:06 | Outpatient (OUT) | payer MEDICARE, SELFPAY ==
--- NOTE | 2025-09-19 13:00 | CA_ITS ---
Patient Name: GRACIE GONZALEZ MR#: [id number] : 1940 Exam Date: 09/19/2025 Ordering Doctor: DR OZZY JOE M.D. ECHOCARDIOGRAM REPORT PROCEDURE: CA ECHO DOPPLER COMPLETE INDICATIONS: Pulmonary hypertension, congestive heart failure COMPARISON: None. DESCRIPTION: COMPLETE ECHOCARDIOGRAM Real-time transthoracic echocardiography with 2D, M-mode, spectral and color flow Doppler performed. QUALITY: Technical quality was good. LEFT VENTRICLE: Normal chamber size. Proximal septal mild hypertrophy (sigmoid septum). Normal left ventricle systolic function without wall motion abnormalities, calculated left ventricular ejection fraction is 74%. LV EF: Normal left ventricular ejection fraction, (>55%). DIASTOLIC: Normal diastolic function. ATRIAL SEPTUM: Visually appears intact. LEFT ATRIUM: Normal chamber size. RIGHT ATRIUM: Mild dilatation. RIGHT VENTRICLE: Normal size. Normal right ventricular systolic function. TRICUSPID VALVE: Normal mobility and thickness. No stenosis with mild regurgitation. Doppler studies reveal mildly (35-45) elevated right sided pressures.RVSP 37 mmHg MITRAL VALVE: Normal mobility and thickness. No evidence of mitral valve stenosis. There is no mitral annular calcification. Mild mitral regurgitation. AORTIC VALVE: Normal trileaflet appearance. No visible sclerosis. Normal leaflet mobility. No evidence of aortic valve stenosis. No aortic regurgitation. AORTIC ROOT: Normal diameter and appearance. Ascending aorta is normal in size. PULMONIC VALVE: Normal thickness and mobility. No stenosis. Trivial regurgitation. PERICARDIUM: No evidence of pericardial effusion. IVC: Not well visualized. RAP estimated to be 8 mmHg PLEURA: CONCLUSION: Sigmoidal septum with mild thickening of the base Normal left ventricle systolic function without wall motion abnormalities, calculated ejection fraction 74% Normal left ventricle diastolic function Normal right ventricle size and systolic function Mildly elevated right-sided pressure, RVSP 37 mmHg Mild mitral regurgitation Mild tricuspid regurgitation Mildly dilated right atrium Adult Echocardiography Procedure Report Left Ventricle LVEDD (3.7 - 5.6 cm): 3.82 cm LVESD (2.2 - 4.0 cm): 2.72 cm LVIVS thickness (0.6 - 1.2 cm): 1.20 cm LVPW thickness (0.5 - 1.0 cm): 0.97 cm e': 0.09 m/s E - e': 5.13 LVOT Max Gradient: 3.50 mm[Hg] LVOT Area (cm2): 0.94 m/s Peak Velocity (LVOT): 0.94 m/s Mean Velocity (LVOT): 0.53 m/s LVOT Diameter 2.02 cm Left Ventricular Ejection Fraction: 74.11 % Left Atrium LA Volume Index (2D A2C): 31.54 ml/m2 Left Atrium Systolic Dimension: 4.08 cm Mitral Valve MV E to A Ratio: 0.64 MV Max Gradient: MV Mean Gradient: Mitral Valve A-Wave Peak Velocity: 0.76 m/s Mitral Valve E-Wave Peak Velocity: 0.49 m/s Cardiovascular Orifice Area: Right Ventricle RV Internal Diastolic Dimension: Aorta AO Root Diam: 3.36 cm Ascending Ao Diam: 3.04 cm Aortic Valve AoV Area (Peak Fox): 2.90 cm2, 2.90 cm2 AoV Area (VTI): 2.64 cm2, 2.64 cm2 Deceleration Moffat: Pressure Half-Time: Peak Velocity(Antegrade Flow): 1.03 m/s Peak Gradient(Antegrade Flow): 4.24 mm[Hg] Mean Velocity(Antegrade Flow): 0.70 m/s Mean Gradient(Antegrade Flow): 2.25 mm[Hg] Velocity Time Integral: 26.20 cm Tricuspid Valve Peak Velocity (Regurgitant Flow): 2.68 m/s Peak Velocity: Pulmonic Valve Mean Gradient: 2.88 mm[Hg] Mean Velocity: 0.79 m/s Peak Velocity: 1.29 m/s Peak Gradient: 6.63 mm[Hg] Right Atrium Right Atrium Systolic Pressure: 57.77 ml, 57.77 ml Dictated by: Timmy Min MD on 09/22/2025 at 17:45 Approved by: Timmy Min MD on 09/22/2025 at 17:53
--- OUTSIDE RECORDS SUMMARY | 2025-09-19 13:11 | XMS_ITS | CCD ---
Author Organization [facility] CliniSyal Care Team Providers Care Wrapper Stemmer Hand Name Role Phone DR ANDRIY THRASHER Admitting Unavailable SUREKHA, DR BROWNE Primary Care Unavailable SUREKHA, DR BROWNE Consulting Unavailable SUREKHA, DR BROWNE Attending Unavailable Lucia Floyd Unavailable [facility], DR MATTHEWS Attending Unavailable SUREKHA, DR BROWNE Primary Care Unavailable DIEGO, DR MATTHEWS Admitting Unavailable DIEGO, DR MATTHEWS Consulting Unavailable Andriy Thrasher MD Primary Care Provider [phone] Andriy Thrasher MD Unavailable [phone] OZZY JOE Attending Unavailable OZZY JOE Attending Unavailable KRISSY GARCÍA Attending Unavailable ALEXUS DAN Attending Unavailable DEBORAH GALLAGHER Attending Unavailable ANDRIY THRASHER Attending Unavailable ANDRIY THRASHER Attending Unavailable HOMA HINKLE Attending Unavailable HOMA HINKLE Attending Unavailable ANDRIY THRASHER Attending Unavailable Medications Current Medications MedicationDrug Class(es)DatesSig (Normalized)Sig (Original)alendronic acid 70 mg oral tablet (20 sources)BisphosphonateStart: 10-10-0617xeckpnpjnwc (Fosamax) 70 MG tablet Indications: Osteoporosis, unspecified osteoporosis type, unspecified pathological fracture presence TAKE 1 TABLET BY MOUTH BEFORE first meal, beverage, or medicineOF the day WITH plain water once a WEEK 12 tablet 3 05/14/2025 ActiveStart: 89-36-4715hosc 1 tablet by mouth every weekAlendronate 70 mg tablet Active 70 MG PO every week August 02, 2024 11:00pmStart: 56-30-6398lzjeinlozqn (Fosamax) 70 MG tablet Indications: Osteoporosis, unspecified osteoporosis type, unspecified pathological fracture presence TAKE 1 TABLET BY MOUTH BEFORE first meal, beverage, or medicineOF the day WITH plain water once a WEEK 12 tablet 3 06/12/2024 Activeamoxicillin 875 mg oral tablet (2 sources)Penicillin-class AntibacterialStart: 05-06-2025 End: 52-64-1708qpgl 1 tablet by mouth in the morningamoxicillin (Amoxil) 875 MG tablet Indications: Acute right otitis media Take 1 tablet (875 mg) by mouth in the morning and 1 tablet (875 mg) before bedtime. Do all this for 10 days. 20 tablet 05/06/2025 05/16/2025 Activeapixaban 5 mg oral tablet (20 sources)Factor Xa InhibitorStart: 25-87-6328Nozirkx 5 MG tablet Indications: Paroxysmal atrial fibrillation (HCC) TAKE 1 TABLET TWICE A DAY 180tablet 3 09/17/2024 Activeascorbic acid 500 mg oral tablet (20 sources)Vitamin CStart: 11-12-4889ufih 1 tablet by mouth once dailyAscorbic Acid (Vitamin C) 500 mg tablet Active 500 MG PO Daily August 02, 2024 11:00pmascorbic acid (Vitamin C) 500 MG chewable tablet Daily. Active atorvastatin 20 mg oral tablet (20 sources)HMG-CoA Reductase InhibitorStart: 78-23-3210uvjr 1 tablet by mouth once dailyatorvastatin (Lipitor) 20 MG tablet Indications: Pure hypercholesterolemia Take 1 tablet (20 mg) bymouth Daily 100 tablet 3 06/16/2025 ActiveStart: 06-13-2025 End: 75-78-4326bnyptfharhit (Lipitor) 20 MG tablet Indications: Pure hypercholesterolemia TAKE 1 TABLET DAILY 100 tablet 3 06/13/2025 06/16/2025 Discontinued (Reorder)Start: 88-13-0006mqfoxrlesbdg (Lipitor) 20 MG tablet Indications: Pure hypercholesterolemia TAKE 1 TABLET DAILY 90 tablet 3 06/18/2024 ActiveCalcium Carb-Cholecalciferol (CALCIUM 500 + D PO) (20 sources)take 1 tablet by mouth once dailyCalcium Carb-Cholecalciferol (CALCIUM 500 + D PO) Take 1 tablet by mouth 1 (one) time each day Activecalcium carbonate 1500 mg oral tablet (2 sources)Start: 86-88-7214loft 1 tablet by mouth once dailyCalcium Carbonate (Calcium 600) 600 mg calcium (1,500 mg) tablet Active 600 MG PO Daily August 02, 2024 11:00pmcinnamon bark 500 mg oral capsule (20 sources)Start: 16-72-8662eubi 1 capsule by mouth once dailyCinnamon Bark (Cinnamon) 500 mg capsule Active 500 MG PO Daily August 02, 2024 11:00pm Collagen-Vitamin C-Biotin (COLLAGEN 1500/C PO) (20 sources)Collagen-Vitamin C-Biotin (COLLAGEN 1500/C PO) Take by mouth Active ferrous sulfate 325 mg oral tablet (20 sources)Start: 49-43-2392lsaq 1 tablet by mouth twice dailyferrous sulfate (FeroSul) 325 (65 Fe) MG tablet Indications: Iron deficiency anemia due to chronic blood loss TAKE 1 TABLET BY MOUTH TWICE DAILY 200 tablet 3 03/24/2025 ActiveStart: 61-84-3031ivbq 1 tablet by mouth twice dailyferrous sulfate (FeroSul) 325 (65 Fe) MG tablet Indications: Iron deficiency anemia due to chronic blood loss TAKE 1 TABLET BY MOUTH TWICE DAILY 200 tablet 3 03/18/2024 Activefurosemide 40 mg oral tablet (20 sources)Loop DiureticStart: 71-51-1643luxq 1 tablet by mouth once daily furosemide (Lasix) 40 MG tablet Take 40 mg by mouth Daily 05/26/2025 Active Start: 12-18-2024 End: 59-81-3042vite 1 tablet by mouth once dailyfurosemide (Lasix) 20 MG tablet Indications: Localized edema Take 1 tablet (20 mg) by mouth Daily 30 tablet 01/08/2025 Activelinseed oil 1000 mg oral capsule (20 sources)Start: 29-14-0036pnoy 1 capsule by mouth once dailyFlaxseed Oil 1,000 mg capsule Active 1000 MG PO Daily August 02, 2024 11:00pm administer with a mealmetoprolol tartrate 25 mg oral tablet (20 sources)beta-Adrenergic BlockerStart: 52-69-8020ufwx 1.5 tablets by mouth in the morningmetoprolol tartrate (Lopressor) 25 MG tablet Indications: Paroxysmal atrial fibrillation (HCC) Take1.5 tablets (37.5 mg) by mouth in the morning and 1.5 tablets (37.5 mg) before bedtime. 45 tablet 06/19/2025 ActiveStart: 15-33-6182naqn 1 tablet by mouth in the morningmetoprolol tartrate (Lopressor) 25 MG tablet Indications: Paroxysmal atrial fibrillation (HCC) Take1 tablet (25 mg) by mouth in the morning and 1 tablet (25 mg) before bedtime. 04/08/2025 ActiveStart: 58-41-8556imas 1 tablet by mouth twice dailyMetoprolol Tartrate 25 mg tablet Active 25 MG PO Twice daily August 02, 2024 11:00pmStart: 70-88-3121ngbe 1.5 tablets by mouth every twelve hoursmetoprolol tartrate (Lopressor) 25 MG tablet Take 1.5 tablets by mouth every 12 (twelve) hours. 04/2023 ActiveMultiple Vitamin (MULTIVITAMINS PO) (20 sources)Multiple Vitamin (MULTIVITAMINS PO) Daily. ActiveMultivitamin (Daily Multi-Vitamin) tablet (2 sources)Start: 45-45-0331zmcu 1 tablet by mouth once dailyMultivitamin (Daily Multi-Vitamin) tablet Active 1 TAB PO Daily August 02, 2024 11:00pmStart: 46-60-7561vgqo 1 tablet by mouth once dailyMultivitamin (Daily Multi-Vitamin) tablet Active 1 TAB PO Daily August 03, 2024 12:00ampotassium chloride 20 meq extended release oral tablet (5 sources)Start: 01-08-2025 End: 38-40-1084acbb 1 tablet by mouth once dailypotassium chloride CR (K-Tab) 20 MEQ ER tablet Indications: Localized edema Take 1 tablet (20 mEq) by mouth Daily Do not crush, chew, or split. 30 tablet 01/08/2025 02/07/2025 Active spironolactone 25 mg oral tablet (18 sources)Aldosterone AntagonistStart: 06-16-2025 End: 61-20-1864zgfg 1 tablet by mouth once dailyspironolactone (Aldactone) 25 MG tablet Take 1 tablet (25 mg) by mouth Daily 06/16/2025 06/16/2026 ActiveStart: 01-27-2025 End: 74-57-5063qpyqdputjxbeue (Aldactone) 25 MG tablet Take 12.5 mg by mouth 01/27/2025 06/16/2025 Discontinued (Dose adjustment)wheat dextrin 3000 mg powder for oral solution (8 sources)Wheat Dextrin (benefiber drink mix) packet Take 1 packet by mouth in the morning and 1 packet at noon and 1 packet in the evening. Take with meals. Active Completed/Discontinued Medications MedicationDrug Class(es)DatesSig (Normalized)Sig (Original)amoxicillin 875 mg / clavulanate 125 mg oral tablet (2 sources)Penicillin-class AntibacterialStart: 08-03-2024 End: 35-93-7245iafj 1 tablet by mouth every twelve hoursAmoxicillin-Pot Clavulanate 875-125 mg tablet Discontinued 1 TAB PO Every 12 hours 25 08August 02, 2024 11:00pm January 03, 2025 4:20pmciprofloxacin 250 mg oral tablet (2 sources)Quinolone AntimicrobialStart: 09-20-2024 End: 16-34-9870pogw 1 tablet by mouth in the morningciprofloxacin (Cipro) 250 MG tablet Indications: Acute cystitis with hematuria Take 1 tablet (250 mg) by mouth in the morning and 1 tablet (250 mg) before bedtime. Do all this for 3 days. 6 tablet 09/20/2024 09/23/2024 Expiredofloxacin 3 mg/ml ophthalmic solution (2 sources)Quinolone AntimicrobialStart: 08-03-2024 End: 89-70-9016buau 0.3 drop(s) into the eye(s) four times dailyOfloxacin 0.3 % drops Discontinued 2 DROPS EYE-BOTH Four times daily 08 12August 02, 2024 11:00pm January 03, 2025 4:20pmStart: 94-37-0599kxnk 1 drop(s) into the eye(s) four times dailyOfloxacin Active 2 DROPS EYE-BOTH Four times daily 08 12August 03, 2024 12:00am Problems Active Problems Problem ClassificationProblemDateDocumented DateEpisodic/Chronic Administrative/social admission (4 sources)Patient encounter status; Translations: [Other specified counseling] 56-06-3100XrqoxxkaOpiygaj dysrhythmias (20 sources)Unspecified atrial flutter; Translations: [Paroxysmal atrial fibrillation]Onset: 07-17-2022 Resolved: 32-00-6057QhknvkyJewweboldhx and hemorrhagic disorders (2 sources)Thrombophilia; Translations: [Other thrombophilia]04-66-1778Iohlazf Congestive heart failure; nonhypertensive (2 sources)Chronic diastolic (congestive) heart failure; Translations: [Chronic diastolic (congestive) heart failure]Onset: 30-47-8643MxjqcdlPdnkrdzu atherosclerosis and other heart disease (20 sources)Coronary atherosclerosis; Translations: [Atherosclerotic heart disease of [place] coronary artery without angina pectoris]Onset: 01-10-2022 19-86-1081FnghdzePhvkwzymzb and other anemia (20 sources)Iron deficiency anemia due to blood loss; Translations: [Iron deficiency anemia secondary to blood loss (chronic)]Onset: 06-05-2023 Resolved: 895676-24-7878VuxwsesVdhmufpj mellitus with complications (4 sources)Type 2 diabetes mellitus; Translations: [Type 2 diabetes mellitus with other specified complication]32-91-1835MnshbyuGdzprnzcy of lipid metabolism (20 sources)Hyperlipidemia; Translations: [Hyperlipidemia, unspecified]Onset: 07-17-2022 Resolved: 391145-96-8688IkachlzRxvwdaosfhfsqn and diverticulitis (20 sources)Diverticulosis of colon; Translations: [Diverticulosis of large intestine without perforation or abscess without bleeding]Onset: 06-05-2023 76-12-1655TzusmysIriydkknp hypertension (3 sources)Hypertensive disorder; Translations: [Essential (primary) hypertension]Onset: 755369-91-5733ZqnewteQhgexhoiqsqkk symptoms and ill- defined conditions (4 sources)Urine looks dark; Translations: [Other abnormal findings in urine] 07-29-9428IdrhneoeUcpfi valve disorders (2 sources)Nonrheumatic tricuspid (valve) insufficiency; Translations: [Nonrheumatic tricuspid (valve) insufficiency]Onset: 79-51-3933Bemyohe Immunizations and screening for infectious disease (2 sources)Needs influenza immunization; Translations: [Encounter for immunization]01-44-5735RuqbxpkdOvdjnlwwhcok; infection of eye (except that caused by tuberculosis or sexually transmitteddisease) (1 source)Bacterial conjunctivitis; Translations: [Unspecified conjunctivitis] 37-44-3897HdhspsrjKlevfmwnoi disorders (20 sources)Other primary ovarian failure; 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]Onset: 450025-24-4332BqxikbyIexguoyfjyln (20 sources)Age-related osteoporosis without current pathological fracture; Translations: [Senile osteoporosis]Onset: 419899-52-9086ClfqstuFmugj ear and sense organ disorders (20 sources)Hearing loss; Translations: [Unspecified hearing loss, unspecified ear]Onset: 016451-81-8101SnnigjgJpanz ear and sense organ disorders (20 sources)Sensorineural hearing loss, bilateral; Translations: [Sensorineural hearing loss, bilateral]Onset: 250953-31-8481GpyyrzdHnhys eye disorders (20 sources)Bilateral posterior vitreous detachment; Translations: [Vitreous degeneration, bilateral]Onset: 456610-74-9099YoxntgvMvqqy nutritional; endocrine; and metabolic disorders (4 sources)Obesity caused by energy imbalance; Translations: [Morbid (severe) obesity due to excess calories]87-97-4237FcilxayZzfma nutritional; endocrine; and metabolic disorders (4 sources)Body mass index 30+ - obesity; Translations: [Body mass index (BMI) 38.0-38.9, adult]72-95-8064DjhrjjrLkufk upper respiratory infections (1 source)Acute sinusitis; Translations: [Acute sinusitis, unspecified] 00-81-9646DpkuvyowHaaumn media and related conditions (4 sources)Acute left otitis media; Translations: [Otitis media, unspecified, left ear]65-19-1119QtyztdwySqkmwljfc heart disease (4 sources)Secondary pulmonary hypertension; Translations: [Other secondary pulmonary hypertension]Onset: 860049-46-9211FdcvaqbUookhxkd codes; unclassified (2 sources)Bilateral lower limb edema; Translations: [Localized edema]01-09-2025 EpisodicUrinary tract infections (2 sources)Acute cystitis; Translations: [Acute cystitis with hematuria] 37-00-2351Ksvgaqkc Past or Other Problems Problem ClassificationProblemDateDocumented DateEpisodic/ChronicAcquired foot deformities (20 sources)Plantarflexion deformity of foot; Translations: [Other acquired deformities of unspecified foot]Onset: 978895-59-9501PvhkzietQssevaguc and vision defects (20 sources)Presbyopia; Translations: [Presbyopia]Onset: 11-60-135593578155-00-4856 EpisodicDeficiency and other anemia (20 sources)Iron deficiency anemia; Translations: [Iron deficiency anemia, unspecified]Onset: 986696-40-6438JcaauojyItqtnkzc mellitus without complication (20 sources)Diabetes mellitus; Translations: [Type 2 diabetes mellitus without complications]Onset: 07-17-2022 Resolved: 719330-37-1079ZtragmoSqhjjiwi mellitus without complication (20 sources)Impaired glucose tolerance; Translations: [Impaired glucose tolerance (oral)]Onset: 462451-79-5168ZldwqyisUrwyeycuwig chest pain (20 sources)Chest pain; Translations: [Chest pain, unspecified]Onset: 07-17-2022 Resolved: 627734-91-2324JccblpvaLeitr aftercare (20 sources)Drug therapy finding; Translations: [senior living (current) use of anticoagulants]Onset: 412022-11-7028PttopqdbAzhdn bone disease and musculoskeletal deformities (20 sources)Osteopenia; Translations: [Other specified disorders of bone density and structure, unspecified site]Onset: 870109-16-0886PwkbjcdkBafni connective tissue disease (20 sources)Enthesopathy of hip region; Translations: [Other specified enthesopathies of unspecified lower limb, excluding foot]Onset: 06-05-2023 12-75-7453LumehsqhRwjhh screening for suspected conditions (not mental disorders or infectious disease) (20 sources)Encounter for screening mammogram for malignant neoplasm of breast; Translations: [Cardiovascular stress test abnormal]Onset: 30-51-7304Ofbqlvsx Residual codes; unclassified (1 source)Family history of malignant neoplasm of breast; Translations: [FAMILY HX MALIG NEOPLASM OF BREAST]Onset: 46-28-4247OrjzudppJtkuhtok codes; unclassified (20 sources)Localized edema; Translations: [Localized edema]Onset: 06-05-2023 51-01-0008YyhsbyhnEapfhomw codes; unclassified (1 source)Localized edema; Translations: [Localized edema]Onset: 01-10-2025 Episodic Results Test NameValueInterpretationReference IsdcwRhtkzbyx57hj 06-27-714103GhvxvaMD Dena Mccann MA Blood testing was ok, continue same and follow up as planned. Advised patient of her labs per Dr. Hyde request. Patient verbalized understanding.[facility] SystemALL BASIC METABOLIC PANEL on 27-20-7118Epszn gap [Moles/Vol]9.8 mmol/LNOMS HealthcareCalcium [Mass/Vol] 10.2 mg/dLHigh8.5 - 10.1 mg/dLNOWI HealthcareChloride [Moles/Vol]98 mmol/L98 - 107 mmol/LNOMS HealthcareCO2 [Moles/Vol]32.9 mmol/LHigh21.0 - 32.0 mmol/LNOMS HealthcareCreatinine [Mass/Vol]1.22 mg/dLHigh0.55 - 1.02 mg/dLNOSaint Joseph Hospital West GFR/1.73 sq M.predicted CKD-EPI (S/P/Bld) [Vol rate/Area]51Low>=60 mL/min/1.73m 2NOMS HealthcareGlucose [Mass/Vol]109 mg/xORyvz85 - 106 mg/dLNOSaint Joseph Hospital West Interpretation and review of laboratory resultsAbnormalNOMS HealthcarePotassium [Moles/Vol]3.7 mmol/L3.5 - 5.1 mmol/LNOMS HealthcareSodium [Moles/Vol]137 mmol/L 136 - 145 mmol/LNOMS HealthcareTBH EGFR-NON AF HQVCRISL02Ggq>=60 mL/min/1.73m 2 NOMS HealthcareUrea nitrogen [Mass/Vol]16 mg/dL7.0 - 18.0 mg/dLNOSaint Joseph Hospital West Urea nitrogen/Creatinine [Mass ratio]13.1 mg/mgNOWI HealthcareCLINISYNCNMercy Hospital St. John's37on 22-27-1579417. Increase furosemide to 40 mg daily. 2. Increase spironolactone to 25 mg daily. 3. Low-salt diet. 4. Obtain blood test for kidney and electrolytes in 2 weeks. 5. Follow-up in 3 months with an echocardiogram.[facility] SystemOffice Visiton 11-07-9786Yqzzff-up [id number] Gracie Espinoza 1940 F Date Provider Department Center 05/26/2025 OZZY SANTORO [facility] Family History Problem Relation Age of Onset Stroke Mother Coronary artery disease Father Family Status - Relation Status Age at Mother Father Level of Service:40910 [place] OFFICE/OUTPATIENT ESTABLISHED MOD [facility]MM TOMOSYNTHESIS SCREENING BIon 16-24-4526[facility] [address] [place] [address] Mammography Report Signed Patient: GRACIE ESPINOZA MR#: [id number] : 1940 Acct:[id number] Age/Sex: 85 / F ADM Date: 05/02/25 Loc: MAMMO Attending Dr: ANDRIY THRASHER Ordering Physician: ANDRIY THRASHER Results: Date of Service: 05/02/25 Follow Up: Procedure(s): MM tomosynthesis screening BI Accession Number(s): [id number] cc: ANDRIY THRASHER Patient Name: GRACIE ESPINOZA MR#: [id number] : 1940 Exam Date: 05/02/2025 Ordering Doctor: [...] breast cancer at age 62. LOCATION: [facility] BREAST COMPOSITION: There are scattered areas [...] on 05/02/2025 at 14:24 Approved by: Gustavo Jain, DO on 05/02/2025 at 14:28 Dictated By: Gustavo Jain M.D. Signed By: 05/02/25 1429 DD/ 1428 TD/TT: Agile Business Analyst:TBHRadiology, Radiologist, - 05/02/2025 [place] [address] Mammography Report Signed Patient: GRACIE ESPINOZA MR#: [id number] : 1940 Acct:[id number] Age/Sex: 85 / F ADM Date: 05/02/25 Loc: MAMMO Attending Dr: ANDRIY THRASHER Ordering Physician: ANDRIY THRASHER Results: Date of Service: 05/02/25 Follow Up: Procedure(s): MM tomosynthesis screening BI Accession Number(s): [id number] cc: ANDRIY THRASHER Patient Name: GRACIE ESPINOZA MR#: [id number] : 1940 Exam Date: 05/02/2025 Ordering Doctor: [...] breast cancer at age 62. LOCATION: [facility] BREAST COMPOSITION: There are scattered areas [...] Signed By: 05/02/25 1429 DD/ 1428 TD/TT: Agile Business Analyst: OLGA HealthcareRadiology Study observation (narrative)[facility] TOMOSYNTHESIS SCREENING BIOrdered By: Radiologist Radiology on 68-33-0914W[facility] Healthcare Work Phone: ca ECHO DOPPLER COMPLETEon 83-28-9545[place] [address] Cardiology Report Signed Patient: GRACIE ESPINOZA MR#: [id number] : 1940 Acct:[id number] Age/Sex: 84 / F ADM Date: 04/30/25 Loc: CARD Attending Dr: OZZY JOE Ordering Physician: OZZY JOE Date of Service: 04/30/25 Procedure(s): CA echo doppler complete Accession Number(s): [id number] cc: ANDRIY THRASHER ; OZZY JOE Patient Name: GRACIE ESPINOZA MR#: [id number] : 1940 Exam Date: 04/30/2025 Ordering Doctor: DR OZZY JOE M.D. ECHOCARDIOGRAM REPORT PROCEDURE: CA ECHO DOPPLER [...] 51.01 ml, 51.01 ml Dictated by: Ozzy Joe M.D. on 04/30/2025 at 19:35 Approved by: Ozzy Joe M.D. on 04/30/2025 at 19:47 Dictated By: OZZY JOE (more content not included)...TBHRadiology, Radiologist, MD - 04/30/2025 [place] [address] Cardiology Report Signed Patient: GRACIE ESPINOZA MR#: [id number] : 1940 Acct:[id number] Age/Sex: 84 / F ADM Date: 04/30/25 Loc: CARD Attending Dr: OZZY JOE Ordering Physician: OZZY JOE Date of Service: 04/30/25 Procedure(s): CA echo doppler complete Accession Number(s): [id number] cc: ANDRIY THRASHER ; OZZY JOE Patient Name: GRACIE ESPINOZA MR#: [id number] : 1940 Exam Date: 04/30/2025 Ordering Doctor: DR OZZY JOE M.D. ECHOCARDIOGRAM REPORT PROCEDURE: CA ECHO DOPPLER [...] 51.01 ml, 51.01 ml Dictated by: Ozzy Joe M.D. on 04/30/2025 at 19:35 Approved by: Ozzy Joe M.D. on 04/30/2025 at 19:47 Dictated By: OZZY JOE Signed By: 04/30/251947 DD/ 47 TD/TT: Agile Business Analyst: [facility] HospitalRadiology Study observation (narrative)[facility] ECHO DOPPLER COMPLETEOrdered By: Radiologist Radiology on 61-67-9357WBKHResearch [facility] Hospital Work Phone: [phone] 62-34-451305Dcyvkdsvq lab results from 02/11/2025: MD Dena Mccann MA Her renal function and potassium are good. Continue the same and follow up as planned. Patient informed. She will have repeat echo end of April-early May and follow up with Dr. Joe on 05/26/2025. She verbalized understanding.NormalMartin Memorial HospitalLaboratory - Hematology and Cell countson 03-10-2025 HbA1c (Bld) [Mass fraction]5.6 %[facility] HospitalNo Panel Informationon 03-10-2025 Interpretation and review of laboratory resultsNormalPending sale to [facility] HealthALL BASIC METABOLIC PANELon 41-02-8000Jxrek gap [Moles/Vol]9.6 mmol/L [facility] HospitalCalcium [Mass/Vol]9.3 mg/dL8.5 - 10.1 mg/dLResearch [facility] Hospital Chloride [Moles/Vol]107 mmol/L98 - 107 mmol/LNOMS HealthcareCO2 [Moles/Vol]30.7 mmol/L21.0 - 32.0 mmol/LNOMS HealthcareCreatinine [Mass/Vol]0.95 mg/dL0.55 - 1.02 mg/dLNOWI HealthcareGFR/1.73 sq M.predicted CKD-EPI (S/P/Bld) [Vol rate/Area]>60>=60 mL/min/1.73m 2NOMS HealthcareGlucose [Mass/Vol]105 mg/dL74 - 106 mg/dLNOWI HealthcareInterpretation and review of laboratory resultsAbnormal [facility] HospitalPotassium [Moles/Vol]4.3 mmol/L3.5 - 5.1 mmol/LNOMS Healthcare Sodium [Moles/Vol]143 mmol/L136 - 145 mmol/LNOMS HealthcareTBH EGFR-NON AF VRDWFEJL01Vlw>=60 mL/min/1.73m 2NOMS HealthcareUrea nitrogen [Mass/Vol]15 mg/dL 7.0 - 18.0 mg/dLNOSaint Joseph Hospital WestUrea nitrogen/Creatinine [Mass ratio]15.8 mg/mg [facility] HospitalCLINISYNCNMercy Hospital St. John'sNo Panel Informationon 05-52-7838Mwic Tone Audiometry Audio indicated normal hearing sensitivity 250-750 Hz, sloping to a moderate to moderately-severe sensorineural hearing loss 5669-6915 Hz in the right ear. Th left ear exhibited normal hearing 250-750 Hz, sloping to a mild to moderate sensorineural hearing loss 0888-1048 Hz. Today's audio is consistent with previous results recorded 04-26-23. [facility]36on 47-24-768077Qnrdflkge echo result from 01/24/2025: MD Dena Mccann MA Please tell her that the echocardiogram showed that she has extra fluid and I want her to take furosemide every day 20 mg with spironolactone 12.5 mg once daily but no potassium. I want her to get BMP in 2 weeks. I want to see her in follow-up in 3 months with an echocardiogram. Spoke with patient and asked her to start taking furosemide and spironolactone daily. She will stop potassium. RX's sent to her pharmacy. She will have BMP in 2 weeks. Order faxed to [facility]. She will have repeat echo in April 2025, order faxed to [facility]. Patient verbalized understanding. I told her to call me back with any questions.[facility] SystemOffice [facility]-10[facility]2025 Follow-up [id number] Gracie Espinoza [place] 1940 F Date Provider Department [place] 01/10/2025 OZZY SANTORO Family History Problem Relation Age of Onset Stroke Mother Coronary artery disease Father Family Status - Relation Status Age at Mother Father Level of Service:55779 [place] OFFICE/OUTPATIENT ESTABLISHED MOD MDM [facility] TYPE NATRIURETIC PEPTIDE (BNP)on 12-18-2024 Natriuretic peptide B (Bld) [Mass/Vol]15 pg/mLNormal<100Quest DiagnosticsComment on above:Result Comment: BNP levels increase with age in the general population with the highest values seen in individuals greater than 75 years of age. Reference: J. Am. Heber. Cardiol. 2002; 40:976-982.Performed By: #### [id number], 12500 #### [facility] [place] [address] Web Developer: Robb Edward MDCOMPREHENSIVE METABOLIC PANELon 12-18-2024 Albumin [Mass/Vol]4.3 g/dLNormal3.6-5.1Quest DiagnosticsComment on above: Performed By: #### [id number], 38408 #### [facility] [place] [address] Web Developer: Robb Edward MDAlbumin/Globulin [Mass ratio]2.2 {ratio}Normal 1.0-2.5Quest DiagnosticsComment on above:Performed By: #### 55233, 94547 #### [facility] [place] [address] Web Developer: Robb Edward MDALP [Catalytic activity/Vol]59 U/KDipids85-315 Quest DiagnosticsComment on above:Performed By: #### 03072, 96600 #### [facility] [place] [address] Web Developer: Robb Edward MDALT [Catalytic activity/Vol]21 U/LNormal6-29 [facility] DiagnosticsComment on above:Performed By: #### 25852, 49497 #### [facility] of [address], [address] [place] [address] Web Developer: Robb Edward MDAST [Catalytic activity/Vol]19 U/JUozwfe02-44 Quest DiagnosticsComment on above:Performed By: #### 70518, 86905 #### [facility] of [address], [address] [place] [address] Web Developer: Robb Edward MDBilirubin [Mass/Vol]0.9 mg/dLNormal0.2-1.2 Quest DiagnosticsComment on above:Performed By: #### 30280, 40348 #### [facility] of [address], [address] [place] [address] Web Developer: Robb Edward MDBUN/CREATININE RATIOSEE NOTE:Normal6-22Quest DiagnosticsComment on above:Result Comment: Not Reported: BUN and Creatinine are within reference range.Performed By: #### 67548, 06488 #### [facility] of [address], [address] [place] [address] Web Developer: Robb Edward MDCalcium [Mass/Vol]9.8 mg/dLNormal8.6-10.4Quest DiagnosticsComment on above:Performed By: #### 90339, 89817 #### [facility] of [address], [address] [place] [address] Web Developer: Robb Edward MDChloride [Moles/Vol]105 mmol/DKtfybb64-710 [facility] DiagnosticsComment on above:Performed By: #### 92224, 36935 #### [facility] of [address], [address] [place] [address] Web Developer: Robb Edward MDCO2 [Moles/Vol]28 mmol/SFbowdf16-43Bvffa DiagnosticsComment on above:Performed By: #### 10400, 45052 #### [facility] of [address], [address] [place] [address] Web Developer: Robb Edward MDCreatinine [Mass/Vol]0.86 mg/dLNormal0.60-0.95 Quest DiagnosticsComment on above:Performed By: #### 93426, 85817 #### [facility] [place] [address] Web Developer: Robb Edward MDGFR/1.73 sq M.predicted among non-blacks MDRD (S/P/Bld) [Vol rate/Area]67 mL/min/{1.73_m2}Normal> OR = 60[facility] Comment on above:Performed By: #### 20623, 57996 #### [facility] [place] [address] Web Developer: Robb Edward MDGlobulin (S) [Mass/Vol]2.0 g/dLNormal1.9-3.7 Quest DiagnosticsComment on above:Performed By: #### 57594, 57064 #### [facility] [place] [address] Web Developer: Robb Edward MDGlucose [Mass/Vol]107 mg/rYYqjt57-64Ikzhi DiagnosticsComment on above:Result Comment: Fasting reference interval For someone without known diabetes, a glucose value between 100 and 125 mg/dL is consistent with prediabetes and should be confirmed with a follow-up test.Performed By: #### 72397, 97993 #### [facility] [place] [address] Web Developer: Robb Edward MDPotassium [Moles/Vol]4.3 mmol/LNormal3.5-5.3 Quest DiagnosticsComment on above:Performed By: #### 40676, 25688 #### [facility] [place] [address] Web Developer: Robb Edward MDProtein [Mass/Vol]6.3 g/dLNormal6.1-8.1Quest DiagnosticsComment on above:Performed By: Laura### 07003, 36676 #### [facility] of [address], [address] [place] [address] Web Developer: Robb Edward MDSodium [Moles/Vol]141 mmol/UDfyons358-261Vyrgz DiagnosticsComment on above:Performed By: #### 42770, 18964 #### [facility] of [address], [address] [place] [address] Web Developer: Robb Edward MDUrea nitrogen [Mass/Vol]14 mg/dLNormal7-25 Quest DiagnosticsComment on above:Performed By: #### 88017, 31010 #### [facility] of [address], [address] [place] [address] Web Developer: Robb Edward MDXR DEXA AXIAL SKELETONon 63-11[place] [id number] XRay Report Signed Patient: GRACIE ESPINOZA MR#: [id number] : 1940 Acct:[id number] Age/Sex: 84 / F ADM Date: 09/23/24 Loc: [facility] Attending Dr: ANDRIY THRASHER Ordering Physician: ANDRIY THRASHER Date of Service: 09/23/24 Procedure(s): XR DEXA axial skeleton Accession Number(s): [id number] cc: ANDRIY THRASHER [place] [id number] Patient Name: GRACIE ESPINOZA MRN: [id number] date: 1940 Sex: F Assigned Patient Location: [facility] Current Patient Location: Accession/Order Number: [id number] Exam Date: 09/23/2024 13:10 Report Date: 09/24/2024 [...] prevention and treatment of osteoporosis. Osteoporos Int. 2021;33(10):1775-7225. doi: 10.1007/u67345-220-98133-e. Epub 2021Mar 03. Erratum in: Osteoporos Int. 2021Jun 02;: PMID: 36080184; PMCID: [id number]. Electronically authenticated by: LUCIA FLOYD Date: 09/24/2024 05:49 Dictated By: Lucia Floyd M.D. Signed By: 09/24/24 0552 DD/ 0549 TD/TT: Agile Business Analyst:NUPURadiologgilmar, Radiologist, - 09/24/2024 [place] [address] XRay Report Signed Patient: GRACIE ESPINOZA MR#: [id number] : 1940 Acct:[id number] Age/Sex: 84 / F ADM Date: 09/23/24 Loc: [facility] Attending Dr: ANDRIY THRASHER Ordering Physician: ANDRIY THRASHER Date of Service: 09/23/24 Procedure(s): XR DEXA axial skeleton Accession Number(s): [id number] cc: ANDRIY THRASHER [place] [id number] Patient Name: GRACIE ESPINOZA MRN: [id number] date: 1940 Sex: F Assigned Patient Location: [facility] Current Patient Location: Accession/Order Number: [id number] Exam Date: 09/23/2024 13:10 Report Date: 09/24/2024 [...] prevention and treatment of osteoporosis. Osteoporos Int. 2021;33(10):6322-4491. doi: 10.1007/r26087-404-62558-i. Epub 2021Mar 03. Erratum in: Osteoporos Int. 2021Jun 02;: PMID: 78683677; PMCID: [id number]. Electronically authenticated by: LUCIA FLOYD Date: 09/24/2024 05:49 Dictated By: Lucia Floyd M.D. Signed By: 09/24/24 0552 DD/ 0549 TD/TT: Agile Business Analyst: OLGA HealthcareRadiology Study observation (narrative)[facility] HealthcareXR DEXA AXIAL SKELETONOrdered By: Radiologist Radiology on [id number] Work Phone: No [facility] Informationon 64-42-8059TFIPWPJXMWKWA LEXYNLTB0ZCVO HealthcareACINETOBACTER BAUMANIINot detectedNOMS HealthcareCANDIDA ALBICANS, PARAPSILOSIS, TSPOVXGJPB0UCKE HealthcareCANDIDA ALBICANS, PARAPSILOSIS, TROPICALISNot detectedNOMS HealthcareCANDIDA BODDDOCN6MPKZ HealthcareCANDIDA GLABRATANot detectedNOMS HealthcareCANDIDA MAEVFY4QRCQ HealthcareCANDIDA KRUSEINot detectedNOMS HealthcareCITROBACTER KYNHPJIF5RZOA HealthcareCITROBACTER FREUNDIINot detectedNOMS HealthcareENTEROBACTER AEROGENES, WGDYDJB5BTUZ HealthcareENTEROBACTER AEROGENES, CLOACAENot detectedNOMS HealthcareENTEROCOCCUS FAECALIS, DJDQAHE2OHEO HealthcareENTEROCOCCUS FAECALIS, FAECIUMNot detectedNOMS HealthcareERMB, C; MEFA26.372AbnormalNOMS Healthcare ERMB, C; MEFADetectedAbnormalNOMS HealthcareESCHERICHIA VTQB3RPSG Healthcare ESCHERICHIA COLINot detectedNOMS HealthcareInterpretation and review of laboratory resultsAbnormalNOMS HealthcareKLEBSIELLA PNEUMONIAE, MMYVOOJ58.399 AbnormalNOMS HealthcareKLEBSIELLA PNEUMONIAE, OXYTOCADetectedAbnormalNOMS HealthcareMORGANELLA HOPQTJZQ5EZMK HealthcareMORGANELLA MORGANIINot detectedNOMS HealthcarePROTEUS MIRABILIS, DVYAXSRI7CPPU HealthcarePROTEUS MIRABILIS, VULGARIS Not detectedNOMS HealthcarePSEUDOMONAS WAUZVFKIAL9GJXC HealthcarePSEUDOMONAS AERUGINOSANot detectedNOMS HealthcareSERRATIA VXUQMUYQCS3PBDQ HealthcareSERRATIA MARCESCENSNot detectedNOMS HealthcareSHV, KPC YQABIQ83.556AbnormalNOMS HealthcareSHV, [facility] GROUPSDetectedAbnormalNOMS HealthcareSTAPHYLOCOCCUS AUREUS0 NOMS HealthcareSTAPHYLOCOCCUS AUREUSNot detectedNOMS HealthcareSTAPHYLOCOCCUS EPIDERMIDIS, HAEMOLYTICUS, LUGDUNENSIS, SAPROPHYTICUS (KASAV4NOKN Healthcare STAPHYLOCOCCUS EPIDERMIDIS, HAEMOLYTICUS, LUGDUNENSIS, SAPROPHYTICUS (URINANot detectedNOMS HealthcareSTAPHYLOCOCCUS EPIDERMIDIS, HAEMOLYTICUS, LUGDUNENSIS, SAPROPHYTICUS (URINA29.816AbnormalNOMS HealthcareSTAPHYLOCOCCUS EPIDERMIDIS, HAEMOLYTICUS, LUGDUNENSIS, SAPROPHYTICUS (URINADetectedAbnormalNOMS Healthcare STREPTOCOCCUS AGALACTIAE (GROUP B STREP)0NOMS HealthcareSTREPTOCOCCUS AGALACTIAE (GROUP B STREP)Not detectedNOMS HealthcareSTREPTOCOCCUS PYOGENES (GROUP A STREP) 0NOMS HealthcareSTREPTOCOCCUS PYOGENES (GROUP A STREP)Not detectedNOMS HealthcareNOMS HealthcareUrinalysis macro (dipstick) panel (U)on 09-20-2024 Bilirubin, UANegativeNegative - 4(70) +++ mg/dLNOMS HealthcareBlood, UAPositive Negative - 50 Jamal/mcLNOMS HealthcareComment on above:LargeClarity, UACloudyNOMS HealthcareColor, UADark AmberNOMS HealthcareGlucose, UANegativeNegative - 2000(110) ++++ mg/dLNOMS HealthcareInterpretation and review of laboratory resultsAbnormalNOMS HealthcareKetones, UANegativeNegative - 160(16) ++++ mg/dL NOMS HealthcareLeukocytes, UAModerateNegative - 500+++ Ruslan/[facility] CenterNOWI Healthcare Nitrite, UAPositiveNegative - PositiveNOMS HealthcarepH, UA65 - 9N[facility] Protein, UA1+Negative - 2000(20) ++++ mg/dLNOMS HealthcareSpec Grav, UA1.0251 - 1.03NOMS HealthcareUrobilinogen, UA0.20.2 - 12 mg/dLNOMS HealthcareNOMS HealthcareCBC (H/H, RBC, INDICES, WBC, PLT)on 82-76-4102Vrcgyoumoau distribution width (RBC) [Ratio]13.0 %Tfpcjh13.0-15.0Quest DiagnosticsComment on above: Performed By: #### 892, 8870 #### [facility] [address] [facility], [address] [place] [address] Web Developer: Robb Edward MD #### 2140, 48863 #### [facility] [address] [place] [address] Web Developer: Aletha Smith FlatiHematocrit (Bld) [Volume fraction]42.0 %Normal 35.0-45.0Quest DiagnosticsComment on above:Performed By: #### 419, 6795 #### [facility] [address], [address] [place] [address] Web Developer: Robb Edward MD #### 1759, 65041 #### [facility] [address] Web Developer: Aletha TurciosiHemoglobin (Bld) [Mass/Vol]13.7 g/dLNormal 11.7-15.5Quest DiagnosticsComment on above:Performed By: #### 496, 4340 #### [facility] [address], [address] [place] [address] Web Developer: Robb Edward MD #### 1759, 17023 #### [facility] [address] Web Developer: Aletha TurciosiMCH (RBC) [Entitic mass]31.3 owIbegmr14.0-33.0 [facility] DiagnosticsComment on above:Performed By: #### 496, 7730 #### [facility] [address], [address] [place] [address] Web Developer: Robb Edward MD #### 1759, 05055 #### [facility] [address] [place] [address] Web Developer: lAetha TurciosiMCHC (RBC) [Mass/Vol]32.6 g/pZVlpfrx61.0-36.0 [facility] DiagnosticsComment on above:Result Comment: For adults, a slight decrease in the calculated MCHC value (in the range of 30 to 32 g/dL) is most likely not clinically significant; however, it should be interpreted with caution in correlation with other red cell parameters and the patient's clinical condition.Performed By: #### 496, 4970 #### [facility] [address], [address] [place] [address] Web Developer: Robb Edward MD #### 1759, 57589 #### [facility] [address] [place] [address] Web Developer: Aletha TurciosiMCV (RBC) [Entitic vol]95.9 uFLrtnou95.0-100.0 [facility] DiagnosticsComment on above:Performed By: #### 496, 7600 #### [facility] [address], [address] [place] [address] Web Developer: Robb Edward MD #### 1759, 95532 #### [facility] [address] [place], [place] [address] Web Developer: Aletha TurciosiPlatelet mean volume (Bld) [Entitic vol]9.2 fL Normal7.5-12.5Quest DiagnosticsComment on above:Performed By: #### 496, 7150 #### [facility] [address], [address] [place] [address] Web Developer: Robb Edward MD #### 1759, 63339 #### [facility] [address] [place] [address] Web Developer: Aletha TurciosiPlatelets (Bld) [#/Vol]244 10*3/uLNormal 140-400Quest DiagnosticsComment on above:Performed By: #### 496, 7600 #### [facility] [place] [phone] Web Developer: Robb Edward MD #### 1759, 58593 #### [facility] [address] [place], [place] [address] Web Developer: Aletha TurciosiRBC (Bld) [#/Vol]4.38 10*6/uLNormal3.80-5.10 [facility] DiagnosticsComment on above:Performed By: #### 496, 7600 #### [facility] [address], [address] [place] [address] Web Developer: Robb Edward MD #### 1759, 18119 #### [facility] [address] [place] [address] Web Developer: Aletha TurciosiWBC (Bld) [#/Vol]5.2 10*3/uLNormal3.8-10.8 [facility] DiagnosticsComment on above:Performed By: #### 496, 9720 #### [facility] [place] [address] Web Developer: Robb Edward MD #### 1759, 86730 #### [facility] [address] [place] [address] Web Developer: Aletha TurciosiCOMPREHENSIVE METABOLIC PANEL 09-12-2024 Albumin [Mass/Vol]4.3 g/dLNormal3.6-5.1Quest DiagnosticsComment on above: Performed By: #### 496, 6230 #### [facility] [address], [address] [place] [address] Web Developer: Robb Edward MD #### 1759, 49120 #### [facility] [address] [place] [address] Web Developer: Aletha Smith FlatiAlbumin/Globulin [Mass ratio]1.9 {ratio}Normal 1.0-2.5Quest DiagnosticsComment on above:Performed By: #### 496, 7000 #### [facility] [place] [address] Web Developer: Robb Edward MD #### 1759, 12833 #### [facility] [address] [place] [address] Web Developer: Aletha TurciosiALP [Catalytic activity/Vol]68 U/RRwwpmh26-419 [facility] DiagnosticsComment on above:Performed By: #### 496, 8190 #### [facility] [place] [address] Web Developer: Robb Edward MD #### 1759, 25956 #### [facility] [address] [place] [address] Web Developer: Aletha TurciosiALT [Catalytic activity/Vol]20 U/LNormal6-29 [facility] DiagnosticsComment on above:Performed By: #### 496, 7600 #### [facility] [address], [address] [place] [address] Web Developer: Robb Edward MD #### 1759, 92048 #### [facility] [address] [place] [address] Web Developer: Aletha TurciosiAST [Catalytic activity/Vol]20 U/OWnalig37-95 [facility] DiagnosticsComment on above:Performed By: #### 496, 7600 #### [facility] [address], [address] [place] [address] Web Developer: Robb Edward MD #### 1759, 42307 #### [facility] [address] Web Developer: Aletha TurciosiBilirubin [Mass/Vol]0.8 mg/dLNormal0.2-1.2 Quest DiagnosticsComment on above:Performed By: #### 496, 7600 #### [facility] [address], [address] [place] [address] Web Developer: Robb Edward MD #### 1759, 44010 #### [facility] [address] Web Developer: Aletha TurciosiBUN/CREATININE RATIOSEE NOTE:Normal6-22Quest DiagnosticsComment on above:Result Comment: Not Reported: BUN and Creatinine are within reference range.Performed By: #### 496, 1270 #### [facility] [address], [address] [place] [address] Web Developer: Robb Edward MD #### 1759, 61017 #### [facility] [address] [place] [address] Web Developer: Aletha Smith FlatiCalcium [Mass/Vol]9.3 mg/dLNormal8.6-10.4Quest DiagnosticsComment on above:Performed By: #### 496, 7600 #### [facility] [address], [address] [place] [address] Web Developer: Robb Edward MD #### 1759, 20825 #### [facility] [address] Web Developer: Aletha Smith FlatiChloride [Moles/Vol]107 mmol/AKhpifr09-905 Quest DiagnosticsComment on above:Performed By: #### 496, 7600 #### [facility] [address], [address] [place] [address] Web Developer: Robb Edward MD #### 1759, 23411 #### [facility] [address] Web Developer: Aletha TurciosiCO2 [Moles/Vol]28 mmol/ZRhcbje21-49Vbxsu DiagnosticsComment on above:Performed By: #### 496, 7600 #### [facility] [address], [address] [place] [address] Web Developer: Robb Edward MD #### 1759, 42545 #### [facility] [address] Web Developer: Aletha Smith FlatiCreatinine [Mass/Vol]0.91 mg/dLNormal0.60-0.95 [facility] DiagnosticsComment on above:Performed By: #### 496, 7600 #### [facility] [address], [address] [place] [address] Web Developer: Robb Edward MD #### 1759, 54488 #### [facility] [address] Web Developer: Aletha TurciosiGFR/1.73 sq M.predicted among non-blacks MDRD (S/P/Bld) [Vol rate/Area]63 mL/min/{1.73_m2}Normal> OR = 60[facility] Comment on above:Performed By: #### 496, 7600 #### [facility] [address], [address] [place] [address] Web Developer: Robb Edward MD #### 1759, 71485 #### [facility] [address] [place], [place] [address] Web Developer: Aletha Smith FlatiGlobulin (S) [Mass/Vol]2.3 g/dLNormal1.9-3.7 Quest DiagnosticsComment on above:Performed By: #### 496, 7600 #### [facility] [address], [address] [place] [address] Web Developer: Robb Edward MD #### 1759, 21270 #### [facility] [address] Web Developer: Aletha Smith FlatiGlucose [Mass/Vol]114 mg/kSYitd52-46Gkehl DiagnosticsComment on above:Result Comment: Fasting reference interval For someone without known diabetes, a glucose value between 100 and 125 mg/dL is consistent with prediabetes and should be confirmed with a follow-up test.Performed By: #### 496, 7600 #### [facility] [address], [address] [place] [address] Web Developer: Robb Edward MD #### 1759, 51858 #### [facility] [address] [place] [address] Web Developer: Aletha Smith FlatiPotassium [Moles/Vol]4.3 mmol/LNormal3.5-5.3 Quest DiagnosticsComment on above:Performed By: #### 496, 7470 #### [facility] [address], [address] [place] [address] Web Developer: Robb Edward MD #### 1759, 25034 #### [facility] [address] [place] [address] Web Developer: Aletha TurciosiProtein [Mass/Vol]6.6 g/dLNormal6.1-8.1Quest DiagnosticsComment on above:Performed By: #### 496, 7600 #### [facility] [address], [address] [place] [address] Web Developer: Robb Edward MD #### 1759, 54507 #### [facility] [address] [place] [address] Web Developer: Aletha TurciosiSodium [Moles/Vol]142 mmol/WBsvvyy633-063Ivteo DiagnosticsComment on above:Performed By: #### 496, 7600 #### [facility] [address], [address] [place] [address] Web Developer: Robb Edward MD #### 1759, 50743 #### [facility] [address] [place] [address] Web Developer: Aletha TurciosiUrea nitrogen [Mass/Vol]14 mg/dLNormal7-25 Quest DiagnosticsComment on above:Performed By: #### 496, 7600 #### [facility] [address], [address] [place] [address] Web Developer: Robb Edward MD #### 1759, 96903 #### [facility] [address] [place] [address] Web Developer: Aletha TurciosiHEMOGLOBIN A1con 41-48-9584VCPGZIOWAB A1c5.7 % of total HgbHigh<5.7Quest DiagnosticsComment on above:Result Comment: For someone without known diabetes, a [...] hemoglobin A1c for diagnosis of diabetes for children.Performed By: #### 496, 7600 #### [facility] [address], [address] [place] [address] Web Developer: Robb Edward MD #### 1759, 39517 #### [facility] [address] [place], [place] [address] Web Developer: Aletha TurciosiLIJANET MONTEMAYOR, [facility] 49-51-6934Ardwemxsdsu [Mass/Vol]152 mg/dLNormal<200Quest DiagnosticsComment on above:Performed By: #### 496, 7600 #### [facility] [address], [address] [place] [address] Web Developer: Robb Edward MD #### 1759, 37196 #### [facility] [address] [place], [place] [address] Web Developer: Aletha Smith FlatiCholesterol in HDL [Mass/Vol]67 mg/dLNormal> OR = 50Quest DiagnosticsComment on above:Performed By: #### 496, 7600 #### [facility] [address], [address] [place] [address] Web Developer: Robb Edward MD #### 1759, 22916 #### [facility] [address] [place], [place] [address] Web Developer: Aletha Smith FlatiCholesterol in LDL [Mass/Vol]70 mg/dLNormal Quest DiagnosticsComment on above:Result Comment: Reference range: <100 Desirable range <100 mg/dL for primary prevention; <70 mg/dL for patients with CHD or diabetic patients with > or = 2 CHD risk factors. LDL-C is now calculated using the Elvira calculation, which is a validated novel method providing better accuracy than the Friedewald equation in the estimation of LDL-C. Gwyn HAILE et al. ALF. 2013;310(19): 5087-5711 (http://education.Narus.Foodini/faq/TPA097)Performed By: #### 496, 8100 #### [facility] [address], [address] [place] [address] Web Developer: Robb Edward MD #### 1759, 02353 #### [facility] [address] [place] [address] Web Developer: Aletha Martinezolesterol.total/Cholesterol in HDL [Mass ratio]2.3 {ratio}Normal<5.0Quest DiagnosticsComment on above:Performed By: #### 496, 7600 #### [facility] [address], [address] [place] [address] Web Developer: Robb Edward MD #### 1759, 13186 #### [facility] [address] [place], [place] [address] Web Developer: Aletha Orr HDL DDNVYDMRCCX15 mg/dL (calc)Normal<130 Quest DiagnosticsComment on above:Result Comment: For patients with diabetes plus 1 major ASCVD risk factor, treating to a non-HDL-C goal of <100 mg/dL (LDL-C of <70 mg/dL) is considered a therapeutic option.Performed By: #### 496, 4680 #### [facility] [address], [address] [place] [address] Web Developer: Robb Edward MD #### 1759, 08158 #### [facility] [address] [place] [address] Web Developer: Aletha TurciosiTriglyceride [Mass/Vol]70 mg/dLNormal<150Quest DiagnosticsComment on above:Performed By: #### 496, 9680 #### [facility] [address], [address] [place] [address] Web Developer: Robb Edward MD #### 1759, 19466 #### [facility] [address] [place] [address] Web Developer: Aletha Li TOMOSYNTHESIS SCREENING BIon 83-30-1502[address] [address] Mammography Report Signed Patient: GRACIE ESPINOZA MR#: [id number] : 1940 Acct:[id number] Age/Sex: 83 / F ADM Date: 04/29/24 Loc: MAMMO Attending Dr: ANDRIY THRASHER Ordering Physician: ANDRIY THRASHER Results: Date of Service: 04/29/24 Follow Up: Procedure(s): MM tomosynthesis screening BI Accession Number(s): [id number] cc: SUREKHAANDRIY Patient Name: GRACIE ESPINOZA MR#: [id number] : 1940 Exam Date: 04/29/2024 Ordering Doctor: [...] breast cancer at age 62. LOCATION: [facility] BREAST COMPOSITION: There are scattered areas [...] Signed By: 04/29/24 1407 DD/ 1406 TD/TT: Agile Business Analyst:TBHRadiology, Radiologist, - 04/29/2024 [facility] [place] [id number] Mammography Report Signed Patient: GRACIE ESPINOZA MR#: [id number] : 1940 Acct:[id number] Age/Sex: 83 / F ADM Date: 04/29/24 Loc: MAMMO Attending Dr: ANDRIY THRASHER Ordering Physician: ANDRIY THRASHER Results: Date of Service: 04/29/24 Follow Up: Procedure(s): MM tomosynthesis screening BI Accession Number(s): [id number] cc: CAROL THRASHEREL Patient Name: GRACIE ESPINOZA MR#: [id number] : 1940 Exam Date: 04/29/2024 Ordering Doctor: [...] breast cancer at age 62. LOCATION: [facility] BREAST COMPOSITION: There are scattered areas [...] Signed By: 04/29/24 1407 DD/ 1406 TD/TT: Agile Business Analyst: OLGA HealthcareRadiology Study observation (narrative)[facility] TOMOSYNTHESIS SCREENING BIOrdered By: Radiologist Radiology on 34-34-6932UZIL [employer] Work Phone: cbc AUTO DIFFon [id number] #0.0 103/ulNormal 0.0-0.1[facility] HospitalComment on above:Performed By: #### CBC #### [facility] [address] [place] [address] Dr. Nia YoderBasophils/100 WBC (Bld)0.4 %Normal0.2-2.0[facility] Comment on above:Performed By: #### CBC #### [facility] [address] [place] [address] Dr. Nia Max #0.1 103/ulNormal0.0-0.7The [facility] HospitalComment on above: Performed By: #### CBC #### [facility] [address] [place] [address] Dr. Nia Duranosinophils/100 WBC (Bld)1.2 %Normal0.9-7.0[facility] Comment on above:Performed By: #### CBC #### [facility] [address] [place] [address] Dr. Nia Duranrythrocyte distribution width (RBC) [Ratio]12.2 %Hdbrix17.0-15.0 The [facility] HospitalComment on above:Performed By: #### CBC #### [facility] [address] [place] [address] Dr. Nia YoderHematocrit (Bld) [Volume fraction]39.2 %Aqdszo86.0-48.0The [facility] HospitalComment on above:Performed By: #### CBC #### [facility] [address] [place] [address] Dr. Nia YoderHemoglobin (Bld) [Mass/Vol]12.7 g/kMClaazz98.0-16.0The [facility] HospitalComment on above:Performed By: #### CBC #### [facility] [address] [place] [address] Dr. Nia Little #0.01 10e3/ulNormal0.00-0.03The [facility] HospitalComment on above:Performed By: #### CBC #### [facility] [address] [address] [address] Nia Little %0.2 %Normal0.0-0.5The [facility] HospitalComment on above: Performed By: #### CBC #### [facility] [address] [address] [address] Nia Hwang #1.0 103/ulCritically low1.2-3.8[facility] Comment on above:Performed By: #### CBC #### [facility] [address] [place] [address] Dr. Nia Naqvihocytes/100 WBC (Bld)20.9 %Nqwboa11.5-60.0The [facility] HospitalComment on above:Performed By: #### CBC #### [facility] [address] [place] [address] Dr. Nia GuoUAL DIFF REQNONormalThe [facility] HospitalComment on above: Performed By: #### CBC #### [facility] [address] [place] [address] Dr. Nia Belcher (RBC) [Entitic mass]32.7 mgVnkrvs49.7-34.0The [facility] HospitalComment on above:Performed By: #### CBC #### [facility] [address] [place] [address] Dr. Nia Belcher (RBC) [Mass/Vol]32.4 g/uXAlicur46.9-35.2The [facility] HospitalComment on above:Performed By: #### CBC #### [facility] [address] [place] [address] Dr. Nia Belcher (RBC) [Entitic vol]101.0 fLCritically high81.0-99.0The [facility] HospitalComment on above:Performed By: #### CBC #### [facility] [address] [place] [address] Dr. Nia Cabello #0.4 103/ulNormal0.3-0.8The [facility] HospitalComment on above:Performed By: #### CBC #### [facility] [address] [address] [address] Nia Osmanocytes/100 WBC (Bld)8.2 %Normal1.7-12.0[facility] Comment on above:Performed By: #### CBC #### [facility] [address] [address] [address] Nia GrayUT #3.4 103/ulNormal1.4-6.5The [facility] HospitalComment on above:Performed By: #### CBC #### [facility] [address] [place] [address] Dr. Nia Grayutrophils/100 WBC (Bld)69.1 %Hzjwfz41.0-75.0The [facility] HospitalComment on above:Performed By: #### CBC #### [facility] [address] [place] [address] Dr. Nia YoderPlatelet mean volume (Bld) [Entitic vol]9.4 fLCritically low 9.5-13.5The [facility] HospitalComment on above:Performed By: #### CBC #### [facility] [address] [address] [address] Nia YoderPLT225 103/xzUurkwu634-548Kxw [facility] HospitalComment on above: Performed By: #### CBC #### [facility] [address] [place] [address] Dr. Nia YoderRBC3.88 106/ulCritically low4.20-5.40The [facility] HospitalComment on above:Performed By: #### CBC #### [facility] [address] [place] [address] Dr. Nia YoderWBC5.0 103/ulNormal4.0-11.0The [facility] HospitalComment on above: Performed By: #### CBC #### [facility] [address] [place] [address] Dr. Nia YoderMG MAMM SCREEN 3D DAISY CADon 17-86-2053IB MAMM SCREEN 3D DAISY CAD Patient: GRACIE ESPINOZA Exam Date: 04/27/2022 : 1940 Gender:F Ordering : DR ANDRIY THRASHER M.D. Admission #: [id number] Family : Order #: [id number] CLICK HERE TO VIEW EXAM RADIOLOGY REPORT [...] breast cancer at age 62. LOCATION: [facility] BREAST COMPOSITION: Scattered areas fibroglandular density. FINDINGS: [...] PALPABLE LUMP SHOULD BE BIOPSIED. Dictated by: Lucia Floyd M.D. on 04/27/2022 at 10:50 Approved by: Lucia Floyd M.D. on 04/27/2022 at 10:51[facility] CampusXR DEXA BONE DENSITYon 48-03-1734FE DEXA BONE DENSITYEXAMINATION: XR DEXA BONE DENSITY, 04/27/2022 7:57 AM [...] - High Fracture Risk Electronically authenticated by: LUCIA FLOYD Date: 2022-04-27 14:33[facility] Vital Signs Date TimeVital SignValuePerforming ZlbmtgkpyMdxzxbjr95-21-2581 13:08-0400Body .3 cmDanestor Thrasher MD Work Phone: [facility] HospitalSjyutnomfs27-44-4402 13:08-0400Body mass index (BMI) [Ratio]34.69 kg/b7Rjvaupnestor Thrasher MD Work Phone: [phone] HospitalCkboivrcru45-78-4308 13:08-0400Body .3 kg Andriy Thrasher MD Work Phone: [phone] [place], [place] [address]Hfvfnqcbra86-01-4802 13:08-0400Diastolic blood ivesvlua00 mm[Hg]Andriy Thrasher MD Work Phone: [phone] HospitalResearch [facility] HospitalEczwjsdjlc33-81-1640 13:08-0400Heart rate68 /min Andriy Thrasher MD Work Phone: [phone] [place], [place] [address]Yogfctizpy14-08-3263 13:08-9414RoT0% (BldA) [Mass fraction]96 %Andriy Thrasher MD Work Phone: [facility] HospitalVoaxfyqgbz09-38-9435 13:08-0400Systolic blood jxloxhgf811 mm[Hg]Andriy Thrasher MD Work Phone: [phone] Joseph Hospital WestLptahxrxsb65-85-0436 13:34-0400Body .3 cmHoma CASTAÑEDA Work Phone: [phone] Joseph Hospital WestQjlpelzqqb41-33-1277 13:34-0400Body mass index (BMI) [Ratio]37.16 kg/n0NjhpzHoma Hinkle PA Work Phone: [phone] Joseph Hospital WestQixfgsogld68-19-2260 13:34-0400Body temperature 98.29 [degF]Homa CASTAÑEDA Work Phone: NOSaint Joseph Hospital WestMormvjcyzi18-96-5999 13:34-0400Body frvbji42.65 kgHoma CASTAÑEDA Work Phone: NOSaint Joseph Hospital WestQuwocoakbk51-24-0809 13:34-0400Diastolic blood awfvyokp51 mm[Hg]Homacleveland Reganprecious PA Work Phone: NOSaint Joseph Hospital WestKnbwlkeaog18-46-7735 13:34-0400Heart rate56 /min Homa Reganprecious PA Work Phone: NOSaint Joseph Hospital WestEekpiwqtvf96-50-5162 13:34-0400Respiratory rate16 /minHoma Reganmer PA Work Phone: NOSaint Joseph Hospital WestIxuyswykcz35-82-9098 13:34-8434EjZ8% (BldA) [Mass fraction]97 %Homa Reganprecious PA Work Phone: NOSaint Joseph Hospital WestBjhhqodfsf98-61-2676 13:34-0400Systolic blood qarzhdhg961 mm[Hg]Homa Reganprecious PA Work Phone: [facility] HospitalCzcvkajlvv24-53-3305 13:03-0400Body .3 cmAndriy Thrasher MD Work Phone: [facility] HospitalYwzweyiumk13-33-7307 13:03-0400Body mass index (BMI) [Ratio]36.99 kg/t7NrbkhxAndriy Thrasher MD Work Phone: [facility] HospitalLhmybsfusu89-96-2009 13:03-0400Body .29 kgAndriy Thrasher MD Work Phone: [facility] HospitalPvdjdrbxbw65-20-7829 13:03-0400Diastolic blood ixhqunjk99 mm[Hg]Andriy Thrasher MD Work Phone: NOSaint [facility] Hospital WestZfwtsymgjs46-67-2021 13:03-0400Heart rate54 /min Andriy Thrasher MD Work Phone: NOSaint [facility] WestPrtqsfbrvc94-56-8460 13:03-7742DiO9% (BldA) [Mass fraction]98 %Andriy Thrasher MD Work Phone: NOSaint [facility] WestKqlhjecvrq18-09-3052 13:03-0400Systolic blood qlonmzuz596 mm[Hg]Andiry Thrasher MD Work Phone: NOSaint [facility] Hospital WestNhkcylyuzx36-11-5722 16:32-0500Body rcjaor187.3 cmAlexus Dan NP Work Phone: [phone] [place], [place] [address]Mjtucosyxj74-07-2674 16:32-0500Body mass index (BMI) [Ratio]38.5 kg/m2Alexus Dan SALES AND SERVICE AGENT Work Phone: [facility] HospitalGkqoxsfpip06-35-6516 16:32-0500Body efrdhv52.55 kgAlexus Dan SALES AND SERVICE AGENT Work Phone: [facility] HospitalZswivyeydt45-92-4948 16:32-0500Diastolic blood bipibmje67 mm[Hg]Alexus Dan SALES AND SERVICE AGENT Work Phone: [facility] HospitalRmevyhbrjn88-21-7219 16:32-0500Heart rate48 /min Alexus Dan SALES AND SERVICE AGENT Work Phone: [facility] HospitalGznwqybtyu87-17-4249 16:32-0500Respiratory rate16 /minAlexus Dan SALES AND SERVICE AGENT Work Phone: [facility] HospitalDyuqahpzsm90-20-0011 16:32-8789TyU7% (BldA) [Mass fraction]96 %Alexus Dan SALES AND SERVICE AGENT Work Phone: [facility] HospitalCyojryyzfr32-67-4638 16:32-0500Systolic blood voicqado737 mm[Hg]Alexus Dan SALES AND SERVICE AGENT Work Phone: [facility] HospitalXsvtrbabwh48-72-3760 16:21-0500Body foyldz751.4 cmAv[facility]02-28-2025 16:21-0500Body mass index (BMI) [Ratio]36.1 kg/n6HosjovmkrAvita Health System [facility] Hospital02-28-2025 16:21-0500Body lafejhpwsuu08.2 [degF][facility]02-28-2025 16:21-0500Body hodnbp16.91 kgAvita Health System [facility] Hospital02-28-2025 16:21-0500Diastolic blood iyjdkwuz26 mm[Hg][facility]02-28-2025 16:21-0500 Heart rate64 /[facility]02-28-2025 16:21-0500 Respiratory rate14 /[facility]02-28-2025 16:21-0500 SaO2% (BldA) [Mass fraction]97 %[facility]02-28-2025 16:21-0500Systolic blood cqterqgk349 mm[Hg][facility] 12-17-2024 11:39-0500Body jcpazi441.3 Carolina García SALES AND SERVICE AGENT Work Phone: [facility] HospitalVrnhpspaui13-60-9543 11:39-0500Body mass index (BMI) [Ratio]37.91 kg/i7JrjrwfKrissy García SALES AND SERVICE AGENT Work Phone: [facility] HospitalGrefaqxqvb38-13-2943 11:39-0500Body jkbboa20.28 kgKrissy García SALES AND SERVICE AGENT Work Phone: [phone]-6569[facility] HospitalZelhneakhe74-38-1537 11:39-0500Diastolic blood mm[Hg]Krissy García SALES AND SERVICE AGENT Work Phone: [phone]-[address] [place], [place] [address]Ryhzvjhhcp77-81-3374 11:39-0500Heart rate81 /min Krissy García SALES AND SERVICE AGENT Work Phone: [phone]-2704[facility] HospitalXovoagsquv04-83-8440 11:39-0500Respiratory rate16 /minSparish García SALES AND SERVICE AGENT Work Phone: [phone]-[address] [place], [place] [address]Uuccymdbka61-14-0890 11:39-5997HgH6% (BldA) [Mass fraction]95 %Krissy García SALES AND SERVICE AGENT Work Phone: [phone])[facility]-[address] [place], [place] [address]Yyadepebqg10-78-3880 11:39-0500Systolic blood ctielqve335 mm[Hg]Krissy García SALES AND SERVICE AGENT Work Phone: [facility] HospitalAxvocbgavb89-47-0151 11:43-0500Body hhidtr008.3 cmHoma Hinkle PA Work Phone: [facility] HospitalLxfekkxzvf26-66-6618 11:43-0500Body mass index (BMI) [Ratio]38.21 kg/y9Xfrhh Hemmer PA Work Phone: [phone] [place], [place] [address]Mgansmhxse08-82-9654 11:43-0500Body remqsf85.92 kgHoma Hemmer PA Work Phone: [facility] HospitalYfgsygonet93-15-1361 11:43-0500Diastolic blood bmrkuptg71 mm[Hg]Homa Hinkle PA Work Phone: [phone] [place], [place] [address]Pgnlevwpje16-76-8194 11:43-0500Heart rate68 /min Homa Hemprecious PA Work Phone: [facility] HospitalLnjqlrnpgb97-07-0895 11:43-0500Respiratory rate16 /minRashardcleveland Hemmer PA Work Phone: [facility] HospitalYhlthbqvod62-43-2089 11:43-9589PjD8% (BldA) [Mass fraction]95 %Homa Hemprecious PA Work Phone: [facility] HospitalQstfsgvdlp41-90-8200 11:43-0500Systolic blood utycqltz470 mm[Hg]Homa Hemprecious PA Work Phone: [phone]-7183[facility] HospitalCebxltsepy91-53-1111 08:52-0500Body hishir624.3 cmAndriy Thrasher MD Work Phone: [phone]-0015[facility] HospitalChvykltpuh62-26-6430 08:52-0500Body mass index (BMI) [Ratio]37.41 kg/q0QwifjgAndriy Thrasher MD Work Phone: [phone])[facility]-[address] [place], [place] [address]Oddhpcxtav61-97-8729 08:52-0500Body .19 kgAndriy Thrasher MD Work Phone: [phone])[facility]-3638[facility] HospitalObtllxrmau51-24-7501 08:52-0500Diastolic blood dssirbab87 mm[Hg]Andriy Thrasher MD Work Phone: [facility] HospitalWnixwpibwk26-94-9402 08:52-0500Heart rate58 /min Andriy Thrasher MD Work Phone: [facility] HospitalYszpsxqxsn24-92-7040 08:52-1642WkH7% (BldA) [Mass fraction]96 %Andriy Thrasher MD Work Phone: [facility] HospitalIkmlyqbrvm54-01-5340 08:52-0500Systolic blood vtuuezif912 mm[Hg]Andriy Thrasher MD Work Phone: [phone])[facility]-[address] [place], [place] [address]Vdmxpnjoet31-55-6592 14:09-0400Body twtxew144.4 cmAv[facility]09-28-2024 14:09-0400Body mass index (BMI) [Ratio]35.6 kg/i3ApflmxuypAvita Health System [facility] Hospital09-28-2024 14:09-0400Body xqssvzmpvbe55.4 [degF][facility]09-28-2024 14:Body cmfyuu73.66 kgAvita Health System [facility] Hospital09-28-2024 14:Diastolic blood quoppkks20 mm[Hg][facility]09-28-2024 14:040 Heart omkc027 /[facility]09-28-2024 14: Respiratory rate16 /[facility]09-28-2024 14:0400 SaO2% (BldA) [Mass fraction]94 %[facility]09-28-2024 14:Systolic blood hcvdsgov304 mm[Hg][facility] Encounters Encounter DateEncounter TypeCare ProviderFacilityStart: 09-10-2025 End: 93-13-3001Qvwdqrr encounter procedureNoms [facility] - Anaya De La Fuente AudiologyComment on above:Sensorineural hearing loss, bilateral (Primary Dx)Start: 09-10-2025 End: 26-21-6319gmbbnhhrpaHFNHAM SHIVELYNot AvailableStart: 06-16-2025 End: 35-58-6431Ygbirs Alberto Thrasher MD Work Phone: noms [facility] MedinceStart: 06-16-2025 End: 39-76-7974Yhylrv flowsMaddie Thrasher MD Work Phone: noms [place] [facility] MedinceStart: 06-16-2025 End: 14-87-9475Oonkw of hemosiderin, quantAndriy Thrasher MD Work Phone: [facility] Work Phone: Start: 06-16-2025 End: 40-99-3216Niydfgxn preventive med est patient 65yrs& olderAndriy Thrasher MD Work Phone: noms [place] [facility] MedinceComment on above:Routine general medical examination at health care facility (Primary Dx); ACP (advance care planning); Atherosclerosis of peoria coronary 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 ; Paroxysmal atrial fibrillation (HCC); Diverticular disease of colon; Age-related osteoporosis without current pathological fracture ; Impaired glucose tolerance; Iron deficiency anemia, unspecified iron deficiency anemia type; Mixed hyperlipidemia ; Localized edema; On continuous oral anticoagulation; Pure hypercholesterolemiaStart: 06-16-2025 End: 29-51-9681fmxwvilpwoYIYWNW B BERRYNot AvailableStart: 06-09-2025 End: 65-43-5634Ahmjsvffl Result EncounterGeneric External Data ProviderNOMS External Department UnsolicitedStart: 06-09-2025 End: 01-44-8793Acufjmgdw Result EncounterGeneric External Data ProviderNOMS External Department UnsolicitedStart: 05-26-2025 End: 64-10-2605hatpysivayJVNKXUFisher-[facility] Start: 05-06-2025 End: 49-20-2382Uqqyqo Javy CASTAÑEDA Work Phone: NOMS CI FMStart: 05-06-2025 End: 39-68-6521Hfatztdione CASTAÑEDA Work Phone: NOMS CI FMStart: 05-06-2025 End: 47-23-9766Wagres outpatient visit 15 minutesHoma CASTAÑEDA Work Phone: [facility] CI FMComment on above:Acute right otitis media (Primary Dx)Start: 05-06-2025 End: 15-14-4011dsgchsyergUWWOPNano Schumacher AvailableStart: 05-02-2025 End: 27-78-6721Sxfujadtq Result EncounterAndriy Thrasher MD Work Phone: NOMS External Department UnsolicitedStart: 05-02-2025 End: 12-97-5652Zkadpjukd Result EncounterAndriy Thrasher MD Work Phone: NOTX External Department UnsolicitedStart: 04-30-2025 End: 97-44-0691Cvqcljdcu Result EncounterGeneric External Data ProviderNOMS External Department UnsolicitedStart: 04-30-2025 End: 14-48-4316Ckjambzqg Result EncounterGeneric External Data ProviderNOMS External Department UnsolicitedStart: 03-12-2025 End: 56-70-2074Yhxhdfb encounter procedureNoms Sh Aud Audiology Aid - Anaya DodrillNOMS CI AUDComment on above:Sensorineural hearing loss, bilateral (Primary Dx)Start: 03-12-2025 End: 90-44-0504njbftxpaypWUCCOY SHIVELYNot AvailableStart: 03-10-2025 End: 07-74-0974Uxfgrcpvd encounterDanestor Thrasher MD Work Phone: NOMS CI FMStart: 03-10-2025 End: 08-57-7359Mwlwtg outpatient visit 25 minutesDanestor Thrasher MD Work Phone: noMS CI FMComment on above:Paroxysmal atrial fibrillation (CMS/HCC) (Primary Dx); Type 2 diabetes mellitus with other specified complication, without long-term current use of insulin; Atherosclerosis of peoria coronary 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 (CMS/HCC); Iron deficiency anemia, unspecified iron deficiency anemia type; Other secondary pulmonary hypertensionStart: 03-10-2025 End: 72-13-3526bhkqmknqzlALHJIV B BERRYNot AvailableStart: 02-12-2025 End: 80-25-8358Cgubpyv encounter procedureNoms Aud Audiology Aid - Anaya DodrillNOMS CI AUDComment on above:Sensorineural hearing loss, bilateral (Primary Dx)Start: 02-12-2025 End: 92-01-0694zckeuxkcquQGPTAY SHIVELYNot AvailableStart: 02-11-2025 End: 93-92-6220Mdkgcmcpx Result EncounterGeneric External Data ProviderNOMS External Department UnsolicitedStart: 02-11-2025 End: 46-18-7945Bkagwmwsi Result EncounterGeneric External Data ProviderNOMS External Department UnsolicitedStart: 02-03-2025 End: 97-36-0827Uhulbza encounter procedureDeborah Gallagher AUD Work Phone: noMS SH AUDComment on above:Sensorineural hearing loss, bilateral (Primary Dx)Start: 02-03-2025 End: 06-90-7557qcopivkhlmLMUFBIB S WRIGHTNot AvailableStart: 02-03-2025 End: 54-60-1189Fnttit Megan Gallagher AUD Work Phone: noms AUDStart: 02-03-2025 End: 58-92-8397Fwmwuc Megan Gallagher AUD Work Phone: noms SH AUDStart: 01-10-2025 End: 85-90-5222curvazoindCDJRIJSt. Mary's Medical Center Start: 01-08-2025 End: 89-86-7387Cyrtst outpatient visit 25 minutesAlexus Dan SALES AND SERVICE AGENT Work Phone: NOMS CI FMComment on above:Bilateral lower extremity edema (Primary Dx); Localized edemaStart: 01-08-2025 End: 32-33-1701mxtyvsyujlDKC C MILLERNot AvailableStart: 01-08-2025 End: 20-68-8646Zhcpjv Sunitha Dan SALES AND SERVICE AGENT Work Phone: NOMS CI FMStart: 01-08-2025 End: 07-47-5776Erhrsc Sunitha Dan SALES AND SERVICE AGENT Work Phone: NOMS CI FMStart: 01-03-2025 End: 42-70-7917matmolmuqhAtyqtfcoaC[facility] Clinic Foundation Work Phone: Start: 01-03-2025 End: 63-30-6256Dlvthak encounter procedureHighlands-[facility] [place] Work Phone: Start: 12-18-2024 End: 25-26-3322Wcpqlc Jarred García SALES AND SERVICE AGENT Work Phone: NOM[facility] CI FMComment on above:Localized edema (Primary Dx)Start: 12-17-2024 End: 17-21-3719Psrokj Philip García SALES AND SERVICE AGENT Work Phone: NOM[facility] CI FMStart: 12-17-2024 End: 98-46-5848Tsnlzw Philip García SALES AND SERVICE AGENT Work Phone: NOM[facility] CI FMStart: 12-17-2024 End: 10-39-4756cdtmabuaopYTGKUH M SHIVELYNot AvailableStart: 12-17-2024 End: 60-40-0247Rlxxso outpatient visit 25 minutesKrissy García SALES AND SERVICE AGENT Work Phone: NOM[facility] CI FMComment on above:Atherosclerosis of peoria coronary 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 (CMS/HCC) (Primary Dx); Paroxysmal atrial fibrillation (CMS/HCC); Localized edema; History of changes in urinary output; Type 2 diabetes mellitus with other specified complication, without long-term current use of insulin (CMS/HCC); Morbid (severe) obesity due to excess calories (CMS/HCC); Body mass index (BMI) 38.0-38.9, adultStart: 09-24-2024 End: 24-27-4472Wyrqxkeio Result EncounterAndriy Thrasher MD Work Phone: NOM[facility] External Department UnsolicitedStart: 09-24-2024 End: 62-21-0094Eiipnwota Result EncounterAndriy Thrasher MD Work Phone: NOM[facility] External Department UnsolicitedStart: 09-20-2024 End: 86-80-5424Scawms Javy Hinkle PA Work Phone: NOMS CI FMStart: 09-20-2024 End: 78-18-1400Meerbf Javy Hinkle PA Work Phone: NOM[facility] CI FMStart: 09-20-2024 End: 26-89-2745Hbapfy outpatient visit 25 minutesHoma Hinkle PA Work Phone: NOM[facility] CI FMComment on above:Acute cystitis with hematuria (Primary Dx); Dark urine; Atherosclerosis of peoria coronary 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 (CMS/HCC)Start: 09-20-2024 End: 58-02-6130yioyhdrwwsTOFPG M HEMMERNot AvailableStart: 09-13-2024 End: 10-95-8994Iztwtj Alberto Thrasher MD Work Phone: N[facility] CI FMStart: 09-13-2024 End: 62-51-9791Vxjhto flowsheetAndriy Thrasher MD Work Phone: NO CI FMStart: 09-13-2024 End: 32-99-4334Xvvxb of hemosiderin, quantAndriy Thrasher MD Work Phone: noms HealthcareStart: 09-13-2024 End: 08-30-9999Bqkspnl encounter procedureAndriy Thrasher MD Work Phone: NOUX CI FMComment on above:Routine general medical examination at health care facility (Primary Dx); ACP (advance care planning); Estrogen deficiency; Flu vaccine need; Morbid (severe) obesity due to excess calories (CMS/HCC); 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); Body mass index (BMI) 38.0-38.9, adult; Other thrombophilia (CMS/HCC); Paroxysmal atrial fibrillation (CMS/HCC); On continuous oral anticoagulation; Age-related osteoporosis without current pathological fracture ([facility]/HCC)Start: 09-13-2024 End: 76-61-8208gvnfkpyibhGCHPSV B BERRYNot AvailableStart: 08-03-2024 End: 23-88-7725cstrvxsbtoNagdctsvhWood County Hospital Work Phone: Start: 08-03-2024 End: 51-80-0950Tqfunke encounter procedureHighlands-[facility] [place] Work Phone: Start: 04-29-2024 End: 93-15-9123Uzgrbphhi Result EncounterAndriy Thrasher MD Work Phone: noms External Department UnsolicitedStart: 04-29-2024 End: 98-93-7184Umoxwgmke Result EncounterAndriy Thrasher MD Work Phone: noms External Department UnsolicitedStart: 03-13-2023 End: 25-56-5838hgswhoczirQH DOCTOR MISCFacility:B1Ogurm: 04-27-2022 End: 99-65-7279ssorznawgvIM ANDRIY THRASHERFacility:H1 Procedures DateProcedureProcedure DetailPerforming ClinicianStart: 53-65-2924ZWG BASIC METABOLIC PANELGeneric External Data ProviderStart: 89-05-0882UE TOMOSYNTHESIS SCREENING Jacobo Thrasher MD Work Phone: Start: 72-48-9165WD ECHO DOPPLER COMPLETEGeneric External Data ProviderStart: 29-41-1568Blboaibbht glycosylated x3tSfzoinnestor Thrasher MD Work Phone: Start: 05-91-6687LHH BASIC METABOLIC PANELGeneric External Data ProviderStart: 21-34-6273MFBNCHLW FUNCTION TESTSDeborah Gallagher AUD Work Phone: start: 06-14-6082GW DEXA AXIAL SKELETONDanestor Thrasher MD Work Phone: Start: 46-77-1503CZHXCPI TRACT INFECTION (HTRX)Homa CASTAÑEDA Work Phone: Start: 38-45-1316Qiujy dip stick/tablet rgnt non-auto w/o micrscpHoma CASTAÑEDA Work Phone: Start: 06-79-9245CS TOMOSYNTHESIS SCREENING Jacobo Thrasher MD Work Phone: Plan of Treatment DateCare ActivityDetailAuthorStart: 08-11-2026Medicare Annual Wellness (AWV) Medicare Annual Wellness (AWV)[facility]OM[facility] HealthcareStart: 01-12-2026 End: 69-47-8087Lkstxzk encounter nbnuqulwi04/09/2026 1:00 PM EDT Office Visit [facility] [place] [facility] [address] [place] [address] Andriy Thrasher MD [address] [place] [address] [facility] [place] [facility]redondo MedinceStart: 01-07-2026 End: 65-15-8834Kbgwvjz encounter fzdtidwup95/04/2026 1:00 PM EST Office Visit [facility] [address] [place] [address] [facility] AudiologyStart: 71-16-9355Cwwprnzb screeningDiabetes: Retinopathy ScreeningNOMS HealthcareStart: 11-08-2025Medicare Annual Wellness (AWV)Medicare Annual Wellness (AWV)[facility] HealthcareStart: 97-07-2536Wfand screening for proteinDiabetes: Urine Protein ScreeningNOMS HealthcareStart: 76-42-1113KXUCF-19 Vaccine ()COVID-19 Vaccine ()NOMS HealthcareStart: 70-88-3841Xconucztc vaccinationInfluenza Vaccine (#1)[facility] HealthcareStart: 06-16-2025 End: 84-66-9937Zjhixne encounter procedureNOMS CI FMComment on above:Arrived Start: 91-50-8230Mzapgzdfax A1c measurementDiabetes: Hemoglobin E6PDWLO HealthcareStart: 05-06-2025 End: 46-33-8683Kyyrppb encounter amvwkvvbr55/01/2025 1:30 PM EDT Office Visit [facility] [address] [facility] [address] [place] [address] Homa Hinkle PA [address] [place] [address] ArrivedNOMS CI FMComment on above:ArrivedStart: 03-13-2025 End: 23-63-1436Qiaysbr encounter qjinunqyn25/08/2025 9:00 AM EDT Office Visit [facility] [address] [place] [address] Andriy Thrasher MD [address] [place] [address] N[facility] CI FMStart: 03-12-2025 End: 79-78-2640Ynzflnr encounter onysqaske56/07/2025 10:30 AM EDT Office Visit [facility] AUD [address] [place] [address] HA[facility] CI AUDStart: 03-10-2025 End: 22-15-4608Astpkut encounter mytriwbtv27/05/2025 1:00 PM EDT Office Visit [facility] [address] [place] [address] Andriy Thrasher MD [address] [place] [address] N[facility] CI FMStart: 02-18-2025 End: 78-93-4278Skjgsuw encounter vdhculorc07/15/2025 1:30 PM EDT Office Visit [facility] AUD [address] [facility] [place] [address] [phone] AUDStart: 02-05-2025 End: 91-07-1315Lincece encounter dniboyodv71/02/2025 1:00 PM EDT Office Visit [facility] [address] [place] [address] Alexus Dan, SALES AND SERVICE AGENT [address] [place] [address] N[facility]S CI FMStart: 02-03-2025 End: 95-34-8586Fmhmfzz encounter procedureNOMS AUDComment on above:Arrived Start: 01-08-2025 End: 48-01-7366Pvhsbdv encounter qfijsquof61/05/2025 4:30 PM EST Office Visit [facility] [address] [place] [address] Alexus Dan, SALES AND SERVICE AGENT [address] [place] [address] ArrivedNOMS CI FMComment on above:ArrivedStart: 12-17-2024 End: 48-61-0397Pfkudjkpokmqz metabolic 2000 panel - Serum or PlasmaComprehensive metabolic panel Lab Routine History of changes in urinary output Type 2 diabetes mellitus with other specified complication, without long-term current use of insulin ([facility]) Expected:12/17/2024 (Approximate), Expires: 12/17/2025 [facility] Work Phone: Comment on above:Expected: 12/17/2024 (Approximate), Expires: 12/17/2025Start: 12-17-2024 End: 26-66-4486Xawxvotxfmx peptide B [Mass/volume] in BloodB-type natriuretic peptide Lab Routine Atherosclerosis of pe[place] coronary 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 (CMS/HCC) Paroxysmal atrial fibrillation (CMS/HCC) Localized edema Expected: 12/17/2024 (Approximate), Expires: 12/17/2025NOMS HealthcareComment on above:Expected: 12/17/2024 (Approximate), Expires: 12/17/2025Start: 10-61-8814Wbkdsmrhml A1c measurementDiabetes: Hemoglobin A1C [facility] HealthcareStart: 09-13-2024 End: 36-78-2395PYW Skeletal system Views for bone densityDEXA bone density Imaging Routine Estrogen deficiency Expected: 09/13/2024 (Approximate), Expires: 09/13/2025[facility] Work Phone: Comment on above:Expected: 09/13/2024 (Approximate), Expires: 09/13/2025Start: 09-13-2024 End: 94-88-4313Jxkqzpr encounter pgushwjun30/08/2024 9:00 AM EST Office Visit [facility] [address] [facility] [address] [place] [id number] Andriy Thrasher MD [address] [facility] [address] [place] [address] ArrivedNOMS CI FMComment on above:ArrivedStart: 08-23-2024 Medicare Annual Wellness (AWV)Medicare Annual Wellness (AWV)[facility] Healthcare Start: 81-59-9556Salwkbqyp vaccinationInfluenza Vaccine (#1)[facility] Healthcare Start: 11-47-0301Iivjc screening for proteinDiabetes: Urine Protein Screening [facility] Immunizations Immunization DateImmunizationNotesCare BbdgejxxHzfqgajk67-12-8138DALTVUD - Respiratory syncytial virus (RSV), vaccine, bivalent, protein subunit RSV prefusion F, diluent reconstituted, 0.5 mL, Gill CASTAÑEDA Work Phone: [facility] Work Phone: [phone], High-dose Seasonal, Quadrivalent, Preservative Mayra Thrasher MD Work Phone: [facility] HospitalDrgylxvaeo58-42-7950epfogquea virus vaccine, unspecified formulationHoma CASTAÑEDA Work Phone: [facility] HospitalTtnpnuylau08-74-0073Dxkjsvpkg, High-dose Seasonal, Quadrivalent, Preservative Mayra Thrasher MD Work Phone: [facility] HospitalYiumgtjgse85-25-6277ejyezpkgd virus vaccine, unspecified formulationAndriy Thrasher MD Work Phone: [phone]! StuffResearch Belton HospitalZmywgxpboz25-86-7877Fvdloj Bivalent Booster 12 Years And OlderAndriy Thrasher MD Work Phone: [phone]! StuffResearch Belton HospitalJqtbqkeexj40-13-2756Ajnjzatjg, High-dose Seasonal, Quadrivalent, Preservative Mayra Thrasher MD Work Phone: [phone]! StuffResearch Belton HospitalSfmlwldasg57-22-3243Ylyiltg SARS-CoV-2 Booster VaccinationAndriy Thrasher MD Work Phone: [phone]! StuffResearch Belton HospitalZfkkdcyxqv72-52-6778mvkajcvzr, high dose seasonal, preservative-Mayra Thrasher MD Work Phone: [facility] HospitalJytrtivfkt74-22-2958Bciehza SARS-CoV-2 Booster VaccinationAndriy Thrasher MD Work Phone: [phone]! StuffResearch [facility]ton HospitalEqkjdgsxye18-38-6336Lbvwlyv SARS-CoV-2 Booster VaccinationAndriy Thrasher MD Work Phone: [phone]! StuffResearch [facility] HospitalYtgehlwunr10-95-1863twaaiwjiu, high dose seasonal, preservative-Mayra Thrasher MD Work Phone: [phone]! StuffResearch Belton HospitalGwkvzvfimp49-43-4552itmrgsj toxoid, reduced diphtheria toxoid, and acellular pertussis vaccine, adsorbedAndriy Thrasher MD Work Phone: [phone]! StuffResearch Belton HospitalOnxlbtxpug44-73-3506sgoyus vaccine recombinant Andriy Thrasher MD Work Phone: [phone]! StuffNOSaint Joseph Hospital WestJghcfkpvhv53-31-5389petaytyikowu conjugate vaccine, 13 valentAndriy Thrasher MD Work Phone: [phone]! StuffResearch Belton HospitalPipwqxjphk05-88-1617nzixastmd, high dose seasonal, preservative-Mayra Thrasher MD Work Phone: [facility] HospitalBbnmlezuis60-33-9414gkqrpvblxyzl polysaccharide vaccine, 23 valentDanestor Thrasher MD Work Phone: [facility] HospitalTjjwyzkdln88-94-9605qlffnc vaccine, liveDedilson Thrasher MD Work Phone: [facility] HospitalZbmaynlpkr72-98-3472uccoobrcn, high dose seasonal, preservative-Mayra Thrasher MD Work Phone: [phone]! StuffResearch Belton HospitalBkmamfqkvg42-88-6430vtrfjrfqo, injectable, quadrivalent, contains preservativeAndriy Thrasher MD Work Phone: [facility] Payers DatePayer CategoryPayerPolicy [id number] (Managed Care)[employer] [id number] [id number] 2..1.240558.3.57[id number] 2..1.685159.3.57[id number] 2..1.093577.3.57[id number] 2..1.857085.3.57[id number] 2.16.840.1.123902.3.57[id number] 2.16.840.1.203624.3.57[id number] 2.16.840.1.033757.3.57[id number] 2.16.840.1.773869.3.57[id number] 2.16.840.1.849132.3.57[id number] 2.16.840.1.965722.3.57[id number] 2.16.840.1.196079.3.57[id number] 2.16.840.1.429842.3.57[id number] 2.16.840.1.731368.3.579.2.1259 Social History DateTypeDetailFacilityStart: 08-03-2024 End: 99-67-1153Lxrwyul smoking status NHISEx-smoker (finding)[facility] Centertart: 04-75-0922Ijn [facility]igned [facility]art: 35-83-5342Xnoxvpj smoking status NHISNever smoked tobacco [facility] HealthcareStart: 52-53-0161Wuqegdz use and exposureSmokeless tobacco non-userNOMS HealthcareStart: 09-13-2024 End: 49-62-5826Pjcxrrivk beverage intakeLifetime non-drinker (finding)[facility] HealthcareStart: 09-13-2024 End: 78-65-3651Jzrwdhf of Social functionNOMS HealthcareStart: 09-13-2024 End: 13-76-5115Zwijtoa use panelNOMS HealthcareStart: 38-70-8516Bpl assigned at birthNot on fileResearch Belton HospitalStart: 64-89-2568OmuLkbrdm (finding)[facility] Centertart: 13-47-5453GcpOxdiugTIXN Healthcare Functional Status AbwaJtlhckueyrNrkewdFfotdihe99-42-7283Ujjmtgo Health Questionnaire 2 item (PHQ- 2) [Reported][facility] HospitalZaqpzuumgz19-53-3622Xmwtvqk Health Questionnaire 2 item (PHQ- 2) [Reported][facility] HospitalIrdkazrzdx76-29-9007Xgwjsgi Health Questionnaire 2 item (PHQ- 2) [Reported][facility] HospitalYxfsivhzcp97-67-7404Eucnuzj Health Questionnaire 2 item (PHQ- 2) [Reported][facility] HospitalNrrwhvfooa41-37-5991Lbkhafj Health Questionnaire 2 item (PHQ- 2) [Reported][facility] Clinical Notes 09-13-2024 to 09-10-2025 Note Date & UwcqGuooXctbgvsa01-24-4764 History of Present illness Narrative* Anaya Farias MA - 09/10/2025 1:00 PM EST Patient was in today for a three month follow up on her hearing aids. Patient is having no difficulty although she still states that she could hear better with old aids. I did connect hearing aids tocomplete firmware update. I also reduced compression and increased for speech. Patient was pleased.She scheduled an appointment for January which is within service contract period. Cosigned by NATY Odonnell at 09/10/2025 4:47 PM EST documented in this encounterResearch Belton HospitalVhlrduspcx04-24-2098 History of Present illness Narrative* Andriy Thrasher MD - 06/16/2025 1:00 PM EDT Images from the original note were not included. Subjective : Chief Complaint: Gracie Espinoza is an 85 y.o. female here for an annual wellness [...] (Vitamin C) 500 MG chewable tablet Daily. Calcium Carb-Cholecalciferol (CALCIUM 500 + D PO) [...] Oil) 1000 MG capsule Daily. furosemide (Lasix) 40 MG tablet Take 40 mg by mouth Daily metoprolol tartrate (Lopressor) 25 MG tablet Take 1 tablet (25 mg) by mouth in the morning and 1 tablet (25 mg) before bedtime. Multiple Vitamin (MULTIVITAMINS PO) Daily. spironolactone (Aldactone) 25 MG tablet Take 1 tablet (25 mg) by mouth Daily Wheat Dextrin (benefiber drink mix) packet Take 1 packet by mouth in the morning and 1 packet at noon and 1 packet in the evening. Take with meals. atorvastatin (Lipitor) 20 MG tablet Take 1 tablet (20 mg) by mouth Daily 100 tablet 3 furosemide (Lasix) 20 MG tablet Take 1 tablet (20 mg) by mouth Daily (Patient not taking: Reported on 06/16/2025) 30 tablet 0 No current facility-administered medications for this visit. [...] Normal Clock - 2 Three Word Recall: 2/3 words correct - 2 Total Score (0-5 Points): 4 Pain Assessment Pain Score: 1 Advance Care Planning Do you have a living will?: No Do you have a medical power of assistant city attorney?: No Objective : BP 124/66 Pulse 68 Ht 4' 10 Wt 166 lb SpO2 96% BMI 34.69 kg/m No results found. Physical Exam Vitals reviewed. Constitutional: Appearance: She [...] Thought content normal. Judgment: Judgment normal. Assessment/Plan : The following health maintenance schedule was reviewed with the patient and provided in printed form in the after visit summary: Health Maintenance Topic Date Due Diabetes: Urine Protein Screening 07/29/2020 Diabetes: Hemoglobin A1C 06/10/2025 Influenza Vaccine (1) 07/07/2025 Diabetes: Retinopathy Screening 11/14/2025 Medicare Annual Wellness (AWV) 06/16/2026 Pneumococcal Vaccine: 65+ Years Completed Advance Care Planning Assessment/Plan Diagnoses and all orders for this visit: Atherosclerosis of pe[place] coronary 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 - Asymptomatic Paroxysmal atrial fibrillation (HCC) - OAC for PAF. Stable. Seeing cardiology. Diverticular disease of colon - Asymptomatic Age-related osteoporosis without current pathological fracture - This is a chronic medical condition that is stable since last assessment. No changes in treatmentare suggested at this time. Impaired glucose tolerance - Recheck A1C at next OV. Iron deficiency anemia, unspecified iron deficiency anemia type - Recent lab work for this condition was reviewed and discussed with the patient. Labs are at or near goal, no changes to medication are planned. Mixed hyperlipidemia - atorvastatin (Lipitor) 20 MG tablet; Take 1 tablet (20 mg) by mouth Daily - Lipids at next appt. Localized edema - Patient was previously seen for this problem. Interventions discussed at that prior visit have improved this problem significantly. Please seen that office visit for details. On continuous oral anticoagulation - OAC for PAF. Stable. Seeing cardiology. Other orders - spironolactone (Aldactone) 25 MG tablet; Take 1 tablet (25 mg) by mouth Daily Follow up in about 6 months (around 12/17/2025) for Routine F/U. No orders of the defined types were placed in this encounter. Electronically signed by Andriy Thrasher MD on June 16, 2025 documented in this encounterResearch Belton HospitalFtipfftcij75-42-1950 NoteUT Cardiology - [facility] Subjective Gracie Espinoza is a 85 y.o. year old female patient being seen for 3 month follow. Patient is here today for her ECHO results. Patient states she [...] Yes Comment: occasional Drug use: Never HPI Gracie is a 85-year-old woman who is seen in follow up on atrial flutter [admitted to [facility] on 04/23/2016 after developing palpitations and chest [...] checked an echocardiogram that showed elevated right-sided pressures and I added furosemide 20 mg daily with [...] kg (177 lb) SpO2 96% BMI 36.99 kg/m??? Smoking Status Former BSA 1.81 m??? Physical Exam Constitutional: Appearance: She is [...] mouth at bedtime., Disp: , Rfl: ferrous s (more content not included)...[facility] 05-06-2025 History of Present illness Narrative* MADDY aVca - 05/06/2025 1:30 PM EDT Images from the original note were not included. Subjective Patient ID: Gracie Espinoza is a 85 y.o. female who presents for ear ache. Gracie is present today for evaluation of ear pain. Admits right ear pain for 4 - 5 days. Denies drainage just having pain. She has been taking OTC Tylenol for the pain. Drinks prune juice a few times a day to help with the constipation caused by the iron supplement. Also using Benefiber. Over the past 2 weeks, how often have you been bothered by any of the following problems? Little interest or pleasure in doing things: Not at all Feeling down, depressed, or hopeless: Not at all Patient Health Questionnaire-2 Score: 0 Current Outpatient Medications on File Prior to Visit Medication Sig Dispense Refill ferrous sulfate (FeroSul) 325 (65 Fe) MG tablet TAKE 1 TABLET BY MOUTH TWICE DAILY 200 tablet 3 Wheat Dextrin (benefiber drink mix) packet Take 1 packet by mouth in the morning and 1 packet at noon and 1 packet in the evening. Take with meals. alendronate (Fosamax) 70 MG tablet TAKE 1 [...] TABLET TWICE A DAY 180 tablet 3 Flaxseed, Linseed, (Flax Seed Oil) 1000 MG capsule Daily. furosemide (Lasix) 20 MG tablet Take 1 tablet (20 mg) by mouth Daily 30 tablet 0 metoprolol tartrate (Lopressor) 25 MG tablet Take 1 tablet (25 mg) by mouth in the morning and 1 tablet (25 mg) before bedtime. Multiple Vitamin (MULTIVITAMINS PO) Daily. spironolactone (Aldactone) 25 MG tablet Take 12.5 mg by mouth No current facility-administered medications on file prior [...] Father Past Medical History: Diagnosis Date A-fib (HCC) Anemia CAD (coronary artery disease) Diabetes mellitus (HCC) Hyperlipidemia Past Surgical History: Procedure Laterality Date APPENDECTOMY BREAST BIOPSY 1976 CARDIAC CATHETERIZATION 2016 COLONOSCOPY 2005 COLONOSCOPY 2012 COLONOSCOPY 2019 TONSILLECTOMY Visit Vitals BP 116/70 Pulse 56 Temp 98.3 F Resp 16 Ht 4' 10 Wt 177 lb 12.8 oz SpO2 97% BMI 37.16 kg/m Smoking Status Never BSA 1.82 m Review of Systems Constitutional: Negative for chills, fatigue and fever. HENT: Positive for ear pain. Respiratory: Negative for cough, shortness of breath and wheezing. Cardiovascular: Negative for chest pain, palpitations and leg swelling. Gastrointestinal: Positive for constipation. Negative for abdominal pain, diarrhea, nausea and vomiting. Skin: Negative for rash. Objective Physical Exam Constitutional: General: She is not in acute distress. Appearance: Normal appearance. She is well-developed. HENT: Head: Normocephalic and atraumatic. Right Ear: A middle ear effusion is present. Tympanic membrane is erythematous (Mild). Left Ear: Tympanic membrane and ear canal normal. Eyes: General: No scleral icterus. Conjunctiva/sclera: Conjunctivae normal. Cardiovascular: Rate and Rhythm: Normal rate and regular rhythm. Heart sounds: Normal heart sounds. No murmur heard. Pulmonary: Effort: Pulmonary effort is normal. No respiratory distress. Breath sounds: Normal breath sounds. No wheezing, rhonchi or rales. Lymphadenopathy: Cervical: No cervical adenopathy. Skin: General: Skin is warm and dry. Neurological: General: No focal deficit present. Mental Status: She is alert and oriented to person, place, and time. Psychiatric: Mood and Affect: Mood normal. Behavior: Behavior normal. Assessment/Plan Diagnoses and all orders for this visit: Acute right otitis media - amoxicillin (Amoxil) 875 MG tablet; Take 1 tablet (875 mg) by mouth in the morning and 1 tablet (875 mg) before bedtime. Do all this for 10 days. Start the above as directed. Reviewed potential s/e with patient. Encouraged probiotic while on antibiotic. Take all 10 days of the antibiotic even if symptoms improve. Increase water intake, get plenty of rest. Can take OTC Tylenol prn. Follow up if no improvement in one week. Follow up for Appointment As Scheduled. documented in this [facility]05-07-2025 History of Present illness Narrative* Anaya Farias MA - 03/12/2025 10:30 AM EDT Patient was in today for a follow up to new hearing aids. Patient states that she hears a buzzing sound when microwave runs and when her plays music she just hears a noise. I cleaned and checked the hearing aids. I changed the dome to an XS closed dome. Patient did not immediately notice a difference. I played some music during the appointment and patient states she does hear music. I also printed some documents to create a sound similar to microwave. Patient did not feel she was hearing any unusual noise. Patient was willing to try and see if the new dome resolves the issue. I do notsee any problem with insertion of the aid and patient feels the aids are comfortable. Patient was offered a follow up but states she will call if problem persists. Cosigned by NATY Odonnell at 03/12/2025 3:41 PM EDT documented in this [facility]05-05-2025 Telephone encounter Note* Telephone Encounter - LEONILA LINDQUIST - 03/10/2025 2:36 PM EDT LM for pt to Cb, she is not due for labs until September. [facility] HospitalWpytmfdelv24-40-1169 Miscellaneous Notes* Telephone Encounter - LEONILA LINDQUIST - 03/10/2025 2:36 PM EDT LM for pt to Cb, she is not due for labs until September. * Telephone Encounter - Vivienne Moore - 03/10/2025 1:38 PM EDT Patient scheduled her MAWV in June and wondered if he lab work could be ordered before hand so she can go over the results at the appt. documented in this encounterResearch Belton HospitalNswydgduma32-14-6923 Telephone encounter Note* Telephone Encounter - Vivienne Moore - 03/10/2025 1:38 PM EDT Patient scheduled her MAWV in June and wondered if he lab work could be ordered before hand so she can go over the results at the appt. [facility] HospitalHgeqgotoaz97-19-2964 History of Present illness Narrative* Andriy Thrasher MD - 03/10/2025 1:00 PM EDT Images from the original note were not included. Subjective Patient ID: Gracie Espinoza is a 84 y.o. female who presents for Diabetes. Diabetes Mellitus Patient presents for follow up of diabetes. Current symptoms include: none. Patient denies foot ulcerations, increased appetite, nausea, polydipsia, polyuria, visual disturbances, and vomiting. Evaluation to date has included: fasting blood sugar, fasting lipid panel, and hemoglobin A1C. Home sugars: patient does not check sugars. Diabetes Pertinent negatives for diabetes include no chest pain and no fatigue. Current Outpatient Medications on File Prior to [...] (20 mg) by mouth Daily 30 tablet 0 metoprolol tartrate (Lopressor) 25 MG tablet Take 1.5 tablets by mouth every 12 (twelve) hours. Multiple Vitamin (MULTIVITAMINS PO) Daily. spironolactone (Aldactone) 25 MG tablet Take 12.5 mg by mouth No current facility-administered medications on file prior [...] Father Past Medical History: Diagnosis Date A-fib (CMS/HCC) Anemia CAD (coronary artery disease) (CMS/HCC) Diabetes mellitus (CMS/HCC) Hyperlipidemia (CMS/HCC) Past Surgical History: Procedure Laterality Date APPENDECTOMY BREAST BIOPSY 1975 CARDIAC CATHETERIZATION 2015 COLONOSCOPY 2006 COLONOSCOPY 2012 COLONOSCOPY 2019 TONSILLECTOMY Visit Vitals BP 122/68 Pulse 54 Ht 4' 10 Wt 177 lb SpO2 98% BMI 36.99 kg/m Smoking Status Never BSA 1.81 m Review of Systems Constitutional: Negative for fatigue. Cardiovascular: Negative for chest pain. Objective Physical Exam Vitals reviewed. Constitutional: Appearance: [...] Content: Thought content normal. Judgment: Judgment normal. Office Visit on 03/10/2025 Component Date Value Ref Range Status Hemoglobin A1C 03/10/2025 5.6 Final Clinisync Result Encounter on 02/11/2025 Component Date Value Ref Range Status SODIUM 02/11/2025 143 136 - 145 mmol/L Final POTASSIUM 02/11/2025 4.3 3.5 - 5.1 mmol/L Final CHLORIDE 02/11/2025 107 98 - 107 mmol/L Final CARBON DIOXIDE 02/11/2025 30.7 21.0 - 32.0 mmol/L Final ANION GAP 02/11/2025 9.6 Final GLUCOSE 02/11/2025 105 74 - 106 mg/dL Final BLOOD UREA NITROGEN 02/11/2025 15.0 7.0 - 18.0 mg/dL Final CREATININE 02/11/2025 0.95 0.55 - 1.02 mg/dL Final TBH EGFR-AF TUR[place] AND [place] 02/11/2025 >60 >=60 mL/min/1.73m 2 Final [facility] EGFR-NON AF TUR[place] AND [place] 02/11/2025 56 (L) >=60 mL/min/1.73m 2 Final BUN CREATININE RATIO 02/11/2025 15.8 Final CALCIUM 02/11/2025 9.3 8.5 - 10.1 mg/dL Final Assessment/Plan Diagnoses and all orders for this visit: Paroxysmal atrial fibrillation (CMS/HCC) - The patient is seeing a medical laboratory specialist for this condition, treatment is deferred to that specialist. Correspondence from that specialist and any available testing were reviewed during today's visit. Type 2 diabetes mellitus with other specified complication, without long-term current use of insulin - POCT Glycated hemoglobin, total Atherosclerosis of pe[place] coronary 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 (CMS/HCC) Iron deficiency anemia, unspecified iron deficiency anemia type Other secondary pulmonary hypertension Follow up in about 4 months (around 07/11/2025) for Routine F/U. documented in this encounterResearch Belton HospitalBwhuuxfstn64-79-1505 History of Present illness Narrative* Anaya Farias MA - 02/12/2025 2:00 PM EDT Patient was in today to be fit with Signia TH Adv 7 CARLOS LI hearing aids that she got with assistance from [employer]. Patient is an experienced hearing aid wearer. The aids were coupled to Rip[employer] receivers with XS vented domes. Patient had no trouble with insertion or removal. She was comfortable with the tank charger. Patient felt she heard well but felt her voice was echoey. I reduced aids slightly and patient was pleased. Patient does not use a smart phone. She will call for follow ups. Cosigned by NATY Odonnell at 02/12/2025 4:01 PM EDT documented in this encounterResearch Belton HospitalRgflhstbuk10-66-5018 History of Present illness Narrative* Deborah Gallagher, ADRIANO - 02/03/2025 2:30 PM EDT History: Patient was seen for an updated audiological evaluation and to discuss hearing aid options. She previously worn a pair of SignGreenVolts Cellion 7px RICs, which are no longer holding a charge well. Pt is looking to replace these devices. Otoscopic Exam: Revealed ear canals were clear from excessive cerumen, bilaterally. Pure Tone Audiometry Audio indicated normal hearing sensitivity 250-750 Hz, sloping to a moderate to moderately-severe sensorineural hearing loss 6819-3546 Hz in the right ear. Th left ear exhibited normal hearing 250-750 Hz, sloping to a mild to moderate sensorineural hearing loss 9564-1134 Hz. Today's audio is consistent with previous results recorded 04-26-23. Speech Audiometry Right SRT = 35 dB and word discrimination score at 65 dBHL = 100% Left SRT = 40 dB and word discrimination score at 70 dBHL = 100% Tympanometry Normal Type A tympanogram recorded in the right ear and a Type As (reduced compliance) tympanogram recorded in the left ear Impressions: Discussed results with the patient. Anaya discussed benefits and hearing aid options. She has benefits under [employer] plan. Pt would like to proceed with 2 [employer] branded advanced 7 LI RICs. Anaya ordered aids thru portal. She is scheduled for HAF 02-18-25. documented in this encounterResearch Belton [id number] NoteUT Cardiology - [facility] Subjective Gracie Espinoza is a [...] up on atrial flutter [admitted to the [facility] on 04/23/2016 after developing palpitations and chest [...] Disp: , Rfl: apixab (more content not included)...[facility] 01-08-2025 History of Present illness Narrative* Alexus Dan, SALES AND SERVICE AGENT - 01/08/2025 4:30 PM EST Images from the original note were not [...] Father Past Medical History: Diagnosis Date A-fib ([facility]) Anemia CAD (coronary artery disease) ([facility]) Diabetes mellitus ([facility]) Hyperlipidemia ([facility]) Past Surgical History: Procedure Laterality Date APPENDECTOMY BREAST BIOPSY 1975 CARDIAC CATHETERIZATION 2015 COLONOSCOPY 2005 COLONOSCOPY 2011 COLONOSCOPY 2019 TONSILLECTOMY Visit Vitals Smoking Status [...] up with them as scheduled. We discussed continuationof the lasix daily and adding potassium daily. [...] No follow-ups on file. documented in this [facility]03-05-2025 Instructions* Patient Instructions* Alexus Dan NP - 01/08/2025 4:30 PM EST Add furosemide and potassium today. Follow up in 1 month after her Cardiology appointment. documented in this [facility]02-11-2025 History of Present illness Narrative* Krissy García NP - 12/17/2024 11:30 AM EST Images from the original note were not [...] tried: keeping legs elevated. There has been noneimprovement on treatment(s). Current Outpatient Medications on File [...] Father Past Medical History: Diagnosis Date A-fib ([facility]) Anemia CAD (coronary artery disease) ([facility]) Diabetes mellitus ([facility]) Hyperlipidemia ([facility]) Past Surgical History: Procedure Laterality Date APPENDECTOMY BREAST BIOPSY 1975 CARDIAC CATHETERIZATION 2015 COLONOSCOPY 2005 COLONOSCOPY 2012 COLONOSCOPY 2019 TONSILLECTOMY [...] all orders for this visit: Atherosclerosis of [place] coronary 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 ([facility]) - B-type natriuretic peptide; Future This is a chronic medical condition that is stable since last assessment. No changes in treatment are suggested at this time. Paroxysmal atrial fibrillation ([facility]) - B-type natriuretic peptide; Future This is [...] complication, without long-term current use of insulin ([facility]) - Comprehensive metabolic panel; Future We discussed [...] control with the patient. If the patient stillhas questions on this, a referral to a Dietitian can be arranged. I reviewed medications that aid in diabetic control. We discussed proper dosing and educated the patient on possible side effects andcomplications. The patient verbalized understanding of these instructions. Morbid (severe) obesity due to excess calories ([facility]) Discussed goal of BMI < 30. Advised on weight loss options. Encouraged diet and exercise. Discussed with patient appropriate lifestyle modification changes necessary for weight management, heart healthy eating and overall health promotion. Discussed minimizing high carb, high sugar, high sodium,portion control, and processed foods while making healthy [...] Discussed minimizing high carb, high sugar, high sodium,portion control, and processed foods while making healthy choice replacements. Additionally discussed recommendations of 30 minutes of aerobic exercise at least 5 days per week, that includes, walking, and chair exercises. . Instructed importance of drinking adequate water consumption (if not on fluid restriction) with minimal sugar and caffiene. No follow-ups on file. documented in this [facility]11-15-2024 History of Present illness Narrative* MADDY Vaca - 09/20/2024 11:30 AM EST Images from the original note were not [...] Father Past Medical History: Diagnosis Date A-fib (CMS/HCC) Anemia CAD (coronary artery disease) (CMS/HCC) Diabetes mellitus (CMS/HCC) Hyperlipidemia (CMS/HCC) Past Surgical History: Procedure Laterality Date APPENDECTOMY [...] dipstick UA was abnormal today. Atherosclerosis of [place] coronary 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 (CMS/HCC) Reassured pt that her BP was normal today. She follows up with Cardiology on a yearly basis. Follow up for Appointment As Scheduled. documented in this encounterResearch Belton [id number] History of Present illness Narrative* Andriy Thrasher MD - 09/13/2024 9:00 AM EST Images from the original note were not [...] Do you have a medical power of assistant city attorney?: No Objective : BP 130/74 Pulse 58 [...] factors. LDL-C is now calculated using the Gwyn-Chantell calculation, which is a validated novel method providing better accuracy than the Friedewald equation in the estimation of LDL-C. Gwyn HAILE et al. ALF. 2013;310(19): 2483-8422 (http://education.Narus.Foodini/faq/AIF219) CHOL/HDLC RATIO 09/11/2024 2.3 <5.0 (calc) Final [...] BUN/CREATININE RATIO 09/11/2024 SEE NOTE: 6 - 22 (calc) Final Comment: Not Reported: BUN and [...] a living will and durable power of assistant city attorney for healthcare. 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) Body [...] see dx Influenza, high-dose seasonal, quadrivalent, PF (IZD906) (Fluzone High Dose [place] 0.7mL dose) Electronically signed by Andriy Thrasher MD on September 13, 2024 documented in this encounterNOWI HealthcareEvaluation noteNo assessment information availableOhiohealth Shelby Hospital Work Phone: Evaluation note* Diagnosis Routine general medical examination at health care facility- Primary Routine general medical examination at a health care facility ACP (advance care planning) Other specified counseling Estrogen deficiency Other ovarian failure Flu vaccine need Morbid (severe) obesity due to excess calories (CMS/HCC) 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) Body mass index (BMI) 38.0-38.9, adult Other thrombophilia (CMS/HCC) Paroxysmal atrial fibrillation (CMS/HCC) Atrial fibrillation On continuous oral anticoagulation Age-related osteoporosis without current pathological fracture (CMS/HCC) documented in this encounter [facility]* Diagnosis Acute cystitis with hematuria- Primary Dark urine Other nonspecific finding on examination of urine Atherosclerosis of [place] coronary 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 (CMS/HCC) documented in this encounter [facility]* Diagnosis Atherosclerosis of [place] coronary 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 (CMS/HCC)- Primary Paroxysmal atrial fibrillation (CMS/HCC) Atrial fibrillation Localized edema Edema History of changes in urinary output Type 2 diabetes mellitus with other specified complication, without long-term current use of insulin ([facility]) Morbid (severe) obesity due to excess calories ([facility]) Body mass index (BMI) 38.0-38.9, adult documented in this encounter [facility]* Diagnosis Localized edema- Primary Edema documented in this encounter [facility] note* Diagnosis Onset Date Resolution Status Admit Date Acute left otitis media acuteFebruary 2024 4:14pm [facility] Work Phone: Evaluation note* Diagnosis Bilateral lower extremity edema- Primary Localized edema Edema documented in this encounter [facility]* Diagnosis Sensorineural hearing loss, bilateral- Primary documented in this encounter [facility]* Diagnosis Sensorineural hearing loss, bilateral- Primary documented in this encounter [facility]* Diagnosis Paroxysmal atrial fibrillation ([facility])- Primary Atrial fibrillation Type 2 diabetes mellitus with other specified complication, without long-term current use of insulin Atherosclerosis of [place] coronary 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 ([facility]) Iron deficiency anemia, unspecified iron deficiency anemia type Other secondary pulmonary hypertension documented in this encounter [facility]* Diagnosis Sensorineural hearing loss, bilateral- Primary documented in this encounter [facility]* Diagnosis Acute right otitis media- Primary documented in this encounter [facility]* Diagnosis Routine general medical examination at health care facility- Primary Routine general medical examination at a health care facility ACP (advance care planning) Other specified counseling Atherosclerosis of [place] coronary 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 Paroxysmal atrial fibrillation (HCC) Atrial fibrillation Diverticular disease of colon Diverticulosis of colon (without mention of hemorrhage) Age-related osteoporosis without current pathological fracture Impaired glucose tolerance Impaired glucose tolerance test Iron deficiency anemia, unspecified iron deficiency anemia type Mixed hyperlipidemia Mixed hyperlipidemia Localized edema Edema On continuous oral anticoagulation Pure hypercholesterolemia Pure hypercholesterolemia documented in this encounter [facility]* Diagnosis Sensorineural hearing loss, bilateral- Primary documented in this encounter [facility] Summary [...] section and content) DATE CREATED AUTHOR 03/17/2023 [facility] DATE CREATED AUTHOR AUTHOR'S ORGANIZ ATION 12/20/2024 [facility] DATE CREATED AUTHOR AUTHOR'S ORGANIZ ATION 06/14/2025 [facility] DATE CREATED AUTHOR AUTHOR'S ORGANIZ ATION 09/12/2025 [facility] EPIC Care Teams (unrecognized sec tion and content) Team Status: Active Member Role Status Dates NON STAFF Primary Care Provider Active Team Status: Inactive Member Role Status Dates Margy Yao APRN Attending Provider Active Start: August 03, 2024 End: August 03, 2024NON STAFFPrimary Care ProviderActiveStart: August 03, 2024 End: August 03, 2024Team MemberRelationshipSpecialtyStart DateEnd Date Andriy Thrasher MD [address] [address] PCP - GeneralInternal Medicine04/25/23 Andriy Thrasher MD [address] [facility] [address] [place] [address] PCP - Medical [place] AK11/06/2211Team MemberRelationshipSpecialtyStart Date End Date Andriy Thrasher MD [address] [facility] [address] [place] [address] PCP - GeneralInternal Medicine04/25/23 Andriy Thrasher MD [address] [facility] [address] [place] [address] PCP - Medical [place]11/06/2211Team MemberRelationshipSpecialtyStart Date End Date Andriy Thrasher MD [address] [facility] [address] [place] [address] PCP - GeneralInternal [facility]04/25/23 Andriy Thrasher MD [address] [facility] [address] [place] [address] PCP - Medical [place] AK11/06/2211Team MemberRelationshipSpecialtyStart Date End Date Andriy Thrasher MD [address] [facility] [address] [place] [address] [facility] - [facility]04/25/23 Andriy Thrasher MD [address] [facility] [address] [place] [address] PCP - Medical [place] AK11/06/2211Team MemberRelationshipSpecialtyStart Date End Date Andriy Thrasher MD [address] [facility] [address] [place] [address] [facility] - [facility]04/25/23 Andriy Thrasher MD [address] [facility] [address] [place] [address] PCP - Medical [place] 11/06/2211Team MemberRelationshipSpecialtyStart Date End Date Andriy Thrasher MD [address] [facility] [address] [place] [address] [facility] - [facility]04/25/23 Andriy Thrasher MD [address] [facility] [address] [place] [address] PCP - Medical [place] 11/06/2211 Team Status: Inactive Member Role Status Dates NON STAFF Primary Care Provider Active Start: January 03, 2025 End: January 03amy Fernandes LAZARAEthanchikimarcos ProviderActiveStart: January 03, 2025 End: January 03, 2025Team MemberRelationshipSpecialtyStart DateEnd Date Andriy Thrasher MD [address] [facility] [address] [place] [address] PCP - GeneralInternal Medicine04/25/23 Andriy Thrasher MD [address] [facility] [address] [place] [address] PCP - Medical [place] AK11/06/2211Team MemberRelationshipSpecialtyStart Date End Date Andriy Thrasher MD [address] [facility] [address] [place] [address] PCP - GeneralInternal Medicine04/25/23 Andriy Thrasher MD [address] [facility] [address] [place] [address] PCP - Medical [place] AK11/06/2211Team MemberRelationshipSpecialtyStart Date End Date Andriy Thrasher MD [address] [facility] [address] [place] [address] PCP - GeneralInternal Medicine04/25/23 Andriy Thrasher MD [address] [facility] [address] [place] [address] PCP - Medical [place] AK11/06/2211Team MemberRelationshipSpecialtyStart Date End Date Andriy Thrasher MD [address] [place] [address] PCP - [facility]04/25/23 Andriy Thrasher MD [address] [facility] [address] [place] [address] PCP - Medical [facility]11/06/2211Team MemberRelationshipSpecialtyStart Date End Date Andriy Thrasher MD [address] [facility] [address] [place] [address] PCP - [facility]04/25/23 Andriy Thrasher MD [address] [place] [address] [facility] - Medical [facility]11/06/2211Te MemberRelationshipSpecialtyStart Date End Date Andriy Thrasher MD [address] [place] [address] PCP - [facility]04/25/23 Andriy Thrasher MD [address] [place] [address] [facility] - Medical [facility]11/06/2211Te MemberRelationshipSpecialtyStart Date End Date Andriy Thrasher MD [address] [place] [address] [facility] - [facility]04/25/23 Andriy Thrasher MD [address] [place] [address] PCP - Medical [place]11/06/2211Team MemberRelationshipSpecialtyStart Date End Date Andriy Thrasher MD [address] [place] [address] PCP - GeneralInternal Medicine04/25/23 Andriy Thrasher MD [address] [facility] [address] [place] [address] PCP - Medical [place] AK11/06/2211 Goals (unrecognized section and content) Goals may be documented in a n alternate sectionGoals may be documented in an alternate section Reason for Visit (unrecogniz ed section and content) ReasonCommentsMedicare Annual Wellness Visit SubsequentResultsLab resultsReason CommentsDiabetesReasonCommentsMedicare Annual Wellness Visit SubsequentMed RefillAtorvastatin--mail order FOR RECORDS PERTAINING TO PATIENTS WHO ARE [...] BE BASED ON THE PRIMARY CLINICAL RECORDS. [employer] [facility]. provides no warranty or guarantee of the accuracy or completeness of information in this document.
== END 2025-09-19 13:07 | disposition home or self-care (01) ==
PROVIDERS: PCP Internal Medicine; Visit Provider Internal Medicine Interventional Cardiology
DX: I27.20 Pulmonary hypertension, unspecified (principal); I36.1 Nonrheumatic tricuspid (valve) insufficiency; I50.32 Chronic diastolic (congestive) heart failure
CPT/HCPCS: 93306